=== PATIENT | female | born 1935 | race Caucasian/White ===

== ENCOUNTER 2016-12-09 11:57 | Inpatient (IN) | payer MEDICARE, OTHER ==
[~2016-12-09] VITALS: Ht 165.1 cm; Wt 57.8 kg
[2016-12-09 12:05] VITALS: BP 180/88; PULSE 91; RESP 17; TEMP 98.4; O2SAT 98
--- NOTE | 2016-12-09 12:20 | PD ---
Physical Exam Time Seen by Provider: 12:17 Narrative 81yo F [facility] due to patient being confused and combative. They want the patient evaluated and admitted. Patient reports R flank and RLQ abd pain. Takes plavix. Hx HI. Patient seen in triage. VS reviewed. Patient awaiting bed placement. Data Data Last Documented VS Vital Signs Date Time Temp Pulse Resp B/P (MAP) Pulse Ox O2 Delivery O2 Flow Rate FiO2 12/09/16 14:55 60 18 174/68 (103) 98 Room Air 12/09/16 12:05 98.4 Orders Orders Electrocardiogram (12/09/16 12:53) Complete Blood Count With Diff (12/09/16 12:53) Comprehensive Metabolic Panel (12/09/16 12:53) Prothrombin Time / Inr (Pt) (12/09/16 12:53) Act Partial Throm Time (Ptt) (12/09/16 12:53) Urinalysis - C+S If Indicated (12/09/16 12:53) Chest, Single Ap (12/09/16 12:53) Ct Brain W/O Iv Contrast(Rout) (12/09/16 12:53) Blood Glucose (12/09/16 12:53) Ecg Monitoring (12/09/16 12:53) Iv Access Insert/Monitor (12/09/16 12:53) Oximetry (12/09/16 12:53) Sodium Chloride 0.9% Flush (Ns Flush) (12/09/16 13:00) Lipase (12/09/16 12:53) Cath For Specimen (12/09/16 12:53) Ct Abd/Pel W Iv Contrast(Rout) (12/09/16 ) Iodixanol 320 Inj (Rad Ct) (Visipaque 32 (12/09/16 14:19) Admit Order (Ed Use Only) (12/09/16 ) Admit To Inpatient Psych (12/09/16 ) Code Status (12/09/16 17:48) Vital Signs (Adult) CISCO.Q12H.E (12/09/16 17:48) Activity Oob Ad Felicita (12/09/16 17:48) Level Of Observation (Psych) (12/09/16 17:48) Acetaminophen (Tylenol) (12/09/16 18:00) Magnesium Hydroxide Liq (Milk Of Magnesi (12/09/16 18:00) Al-Mag Hy-Si 40-40-4 Mg/Ml Liq (Mag-Al P (12/09/16 18:00) Basic Metabolic Panel (Bmp) (12/10/16 06:00) Lipid Profile (12/10/16 06:00) Hemoglobin (Hgb) A1c (12/10/16 06:00) Vitamin D, 25-Hydroxy (12/10/16 06:00) Vitamin B12 (12/10/16 06:00) Atorvastatin (Lipitor) (12/09/16 21:00) Citalopram (Celexa) (12/10/16 09:00) Levetiracetam (Keppra) (12/09/16 21:00) Levothyroxine (Synthroid) (12/10/16 06:00) Labs Laboratory Tests Test 12/09/16 13:10 12/09/16 13:15 White Blood Count 12.3 TH/MM3 Red Blood Count 4.20 MIL/MM3 Hemoglobin 13.2 GM/DL Hematocrit 40.3 % Mean Corpuscular Volume 95.9 FL Mean Corpuscular Hemoglobin 31.5 PG Mean Corpuscular Hemoglobin Concent 32.8 % Red Cell Distribution Width 16.1 % Platelet Count 222 TH/MM3 Mean Platelet Volume 8.5 FL Neutrophils (%) (Auto) 78.7 % Lymphocytes (%) (Auto) 12.2 % Monocytes (%) (Auto) 7.5 % Eosinophils (%) (Auto) 1.4 % Basophils (%) (Auto) 0.2 % Neutrophils # (Auto) 9.7 TH/MM3 Lymphocytes # (Auto) 1.5 TH/MM3 Monocytes # (Auto) 0.9 TH/MM3 Eosinophils # (Auto) 0.2 TH/MM3 Basophils # (Auto) 0.0 TH/MM3 CBC Comment DIFF FINAL Differential Comment Prothrombin Time 10.4 SEC Prothromb Time International Ratio 0.9 RATIO Activated Partial Thromboplast Time 28.7 SEC Blood Urea Nitrogen 17 MG/DL Creatinine 1.18 MG/DL Random Glucose 88 MG/DL Total Protein 7.1 GM/DL Albumin 3.6 GM/DL Calcium Level 9.0 MG/DL Alkaline Phosphatase 75 U/L Aspartate Amino Transf (AST/SGOT) 10 U/L Alanine Aminotransferase (ALT/SGPT) 23 U/L Total Bilirubin 0.6 MG/DL Sodium Level 144 MEQ/L Potassium Level 4.3 MEQ/L Chloride Level 109 MEQ/L Carbon Dioxide Level 27.5 MEQ/L Anion Gap 8 MEQ/L Estimat Glomerular Filtration Rate 44 ML/MIN Lipase 94 U/L Urine Color YELLOW Urine Turbidity CLEAR Urine pH 6.5 Urine Specific [place] 1.013 Urine Protein NEG mg/dL Urine Glucose (UA) NEG mg/dL Urine Ketones NEG mg/dL Urine Occult Blood NEG Urine Nitrite NEG Urine Bilirubin NEG Urine Urobilinogen LESS THAN 2.0 MG/DL Urine Leukocyte Esterase SMALL Urine RBC 1 /hpf Urine WBC 2 /hpf Microscopic Urinalysis Comment CATH-CULT NOT IND MDM Supervised Visit with ROSELYN: Sue Cerda Dec 09, 2016 12:20
[2016-12-09] MEDS ORDERED: SODIUM CHLORIDE 0.9% FLUSH 5 ML FLUSH IV FLUSH PRN (13:00)
[2016-12-09] MEDS ORDERED: MECL12.574 PO (13:02)
[2016-12-09] MEDS ORDERED: RANI150T PO (13:02)
[2016-12-09] MEDS ORDERED: DIPH-148 PO (13:02)
[2016-12-09] MEDS ORDERED: CITA20TA4 PO (13:02)
[2016-12-09] MEDS ORDERED: CULT10CA4 PO (13:02)
[2016-12-09] MEDS ORDERED: TYLE325T PO (13:02)
[2016-12-09] MEDS ORDERED: SENN8.6T81 PO (13:02)
[2016-12-09] MEDS ORDERED: KEPP10002 PO (13:02)
[2016-12-09] MEDS ORDERED: ATOR40TA16 PO (13:02)
[2016-12-09] MEDS ORDERED: LORA-373 PO (13:02)
[2016-12-09] MEDS ORDERED: LEVO100T5 PO (13:02)
[2016-12-09 13:20] VITALS: RESP 18; O2SAT 97
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
[2016-12-09 13:27] LABS: BLOOD, URINE NEG (NEG); GLUCOSE,URINE NEG (NEG); KETONE, URINE NEG (NEG); NITRITE,URINE NEG (NEG); PH, URINE 6.5 (5.0-8.5); URINE COLOR YELLOW (YELLW/STRAW)
[2016-12-09 13:29] LABS: COMMENT (UR) CATH-CULT NOT IND; CULTURE IF INDICATED CATH CULTURE NOT IND
[2016-12-09 13:30] LABS: AUTOMATED NEUTROPHIL # 9.7 TH/MM3 (1.8-7.7); BASOPHIL % 0.2 % (0.0-2.0); EOSINOPHIL # 0.2 TH/MM3 (0-0.4); EOSINOPHIL % 1.4 % (0.0-4.0); HEMATOCRIT 40.3 % (35.0-46.0); HEMO FLAGS DIFF FINAL; LYMPH % 12.2 % (9.0-44.0); LYMPHOCYTE # 1.5 TH/MM3 (1.0-4.8); MEAN CELL VOLUME 95.9 FL (80.0-100.0); MEAN CORPUSCULAR HEMOGLOBIN 31.5 PG (27.0-34.0); MEAN CORPUSCULAR HGB CONC 32.8 % (32.0-36.0); MONO % 7.5 % (0.0-8.0); NEUT % 78.7 % (16.0-70.0); PLATELET COUNT 222 TH/MM3 (150-450); RED CELL DISTRIBUTION WIDTH 16.1 % (11.6-17.2); WHITE BLOOD COUNT 12.3 TH/MM3 (4.0-11.0)
--- NOTE | 2016-12-09 13:37 | RADRPT ---
EXAM DATE/TIME: 12/09/2016 13:09 [facility] COMPARISON: No previous studies available for comparison. INDICATIONS : Short of breath. MEDICAL HISTORY : None. SURGICAL HISTORY : None. ENCOUNTER: Initial ACUITY: 1 day PAIN SCORE: 0/10 LOCATION: Bilateral chest FINDINGS: A single view of the chest demonstrates the lungs to be symmetrically aerated without evidence of mas s, infiltrate or effusion. The cardiomediastinal contours are unremarkable. Osseous structures are intact. CONCLUSION: Normal examination for a patient of this age. Juan Mart MD on December 09, 2016 at 13:35 Board Certified Radiologist. This report was verified electronically.
[2016-12-09 13:38] LABS: APTT (PATIENT) 28.7 SEC (24.3-30.1); INTERNATIONAL NORMALIZED RATIO 0.9 RATIO; PROTHROMBIN TIME - PATIENT 10.4 SEC (9.8-11.6)
[2016-12-09 13:48] LABS: ALT (GPT) 23 U/L (10-53); ANION GAP 8 MEQ/L (5-15); AST (GOT) 10 U/L (15-37); BICARBONATE 27.5 MEQ/L (21.0-32.0); BLOOD UREA NITROGEN 17 MG/DL (7-18); CHLORIDE 109 MEQ/L (98-107); GLOMERULAR FILTRATION RATE 44 ML/MIN (>89); POTASSIUM 4.3 MEQ/L (3.5-5.1); SODIUM (NA) 144 MEQ/L (136-145)
[2016-12-09 13:50] LABS: ALKALINE PHOSPHATASE 75 U/L (45-117); TOTAL BILIRUBIN ADULT 0.6 MG/DL (0.2-1.0)
--- NOTE | 2016-12-09 14:18 | RADRPT ---
EXAM DATE/TIME: 12/09/2016 14:06 [facility] COMPARISON: No previous studies available for comparison. INDICATIONS : Altered mental status. RADIATION DOSE: 56.35 CTDIvol (mGy) MEDICAL HISTORY : Hypertension. Renal failure, chronic. SURGICAL HISTORY : Appendectomy. Hysterectomy. ENCOUNTER: Initial ACUITY: 1 day PAIN SCALE: 0/10 LOCATION: cranial TECHNIQUE: Multiple contiguous axial images were obtained of the head. Using automated exposure control and adj ustment of the mA and/or kV according to patient size, radiation dose was kept as low as reasonably a chievable to obtain optimal diagnostic quality images. DICOM format image data is available electro nically for review and comparison. FINDINGS: Noncontrast axial head CT demonstrates the ventricles to be normal in size and configuration with a n ormal sulcal pattern. No acute intracranial hemorrhage, acute cortical infarction, mass or midline sh ift is seen. There is extensive periventricular hypodensity compatible with chronic ischemic change s ignificantly more than expected for patient this age. Posterior fossa structures are unremarkable. Bone windows are unremarkable. CONCLUSION: 1. No evidence of acute intracranial pathology. Chronic ischemic changes as above. Saturnino Alcala MD on December 09, 2016 at 14:15 Board Certified Radiologist. This report was verified electronically.
[2016-12-09] MEDS ORDERED: IODIXANOL 320 MG/ML 10 ML VIAL (for Rad CT) IV ONE (14:19)
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
[2016-12-09 14:55] VITALS: BP 174/68; PULSE 60; RESP 18; O2SAT 98
[2016-12-09] MEDS ORDERED: MAGNESIUM HYDROXIDE SUSP 30 ML CUP PO PRN (18:00)
[2016-12-09] MEDS ORDERED: ALUMINUM/MAGNESIUM/SIMETH 30 ML CUP PO PRN (18:00)
[2016-12-09 18:14] VITALS: BP 168/92; PULSE 70; RESP 18; O2SAT 98
[2016-12-09] MEDS ORDERED: LORazepam 0.5 MG TAB PO ONE (19:00)
[2016-12-09 19:22] VITALS: BP 159/82; PULSE 91; RESP 20; TEMP 97.3; O2SAT 96
[2016-12-09 19:30] VITALS: BP 133/77; PULSE 74; RESP 17; TEMP 97.6; O2SAT 94
[2016-12-09] MEDS: ATORVASTATIN 40 MG TAB PO SCH (19:51)
[2016-12-09] MEDS: levETIRAcetam 500 MG TAB PO SCH (19:51)
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
[2016-12-10] MEDS: LEVOTHYROXINE SODIUM 100 MCG TAB PO SCH (04:59)
[2016-12-10] MEDS ORDERED: diphenhydrAMINE HCL 50 MG/ML VIAL IM ONE (05:00)
[2016-12-10] MEDS ORDERED: HALOPERIDOL LACTATE 5 MG/ML AMP IM ONE ×3 (05:00→23:30)
[2016-12-10] MEDS: CITALOPRAM HYDROBROMIDE 20 MG TAB PO SCH ×3 (09:00→16:38)
[2016-12-10] MEDS: levETIRAcetam 500 MG TAB PO SCH ×2 (09:16→20:52)
[2016-12-10] MEDS ORDERED: ACETAMINOPHEN 325 MG TAB PO PRN (12:45)
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
[2016-12-10 13:36] LABS: ANION GAP 8 MEQ/L (5-15); BICARBONATE 28.1 MEQ/L (21.0-32.0); BLOOD UREA NITROGEN 18 MG/DL (7-18); CHLORIDE 103 MEQ/L (98-107); GLOMERULAR FILTRATION RATE 40 ML/MIN (>89); POTASSIUM 3.8 MEQ/L (3.5-5.1); SODIUM (NA) 139 MEQ/L (136-145)
[2016-12-10 14:02] LABS: HDL CHOLESTEROL 60.9 MG/DL (40.0-60.0); LDL CHOLESTEROL 71 MG/DL (0-99)
[2016-12-10] MEDS ORDERED: HALOPERIDOL LACTATE 5 MG/ML AMP IM STA (15:13)
[2016-12-10 16:30] VITALS: BP 179/81; PULSE 65; RESP 17; TEMP 98.3; O2SAT 98
--- NOTE | 2016-12-10 16:43 | EKG ---
Date Performed: 12/09/2016 Time Performed: 14:48:56 PTAGE: 81 years EKG: SINUS BRADYCARDIA LOW QRS VOLTAGE IN EXTREMITY LEADS BORDERLINE ECG NO PREVIOUS TRACING DOCTOR: Sylvia Crespo Interpretating Date/Time 12/10/2016 16:39:15
[2016-12-10 17:13] LABS: HEMOGLOBIN A1a 1.3 %; HEMOGLOBIN A1b 0.9 %; HEMOGLOBIN Ao 84.6 %; HEMOGLOBIN LA1C 2.2 %; HEMOGLOBIN P3 3.9 %
--- NOTE | 2016-12-10 17:22 | PD.CONS ---
HPI Service [facility] Consult Requested By Psychiatry. Reason for Consult Medical management. Primary Care Physician Unknown Diagnoses: History of Present Illness Ms. Amado is an 81 year old female with a history of seizure activity, hypothyroidism who was brought to the ED from [facility] and subsequently admitted to the psychiatry service due to confusion and combativeness. At the time of this interview, patient kept screaming at the nursing staff. Initially she was somewhat cooperative with me. However, later on she started stating how I am on 'their' side. She does not appear to have any acute complaints such as chest pain, shortness of breath, fever, chills. She let me do physical exam. However, at the end of the interview, when I wanted to shake her hand, she refused stating I am with 'them' pointing to the nursing staff. Review of Systems ROS Limitations: Clinical Condition, Combative, Psychotic Past Family Social History Allergies: Coded Allergies: No Known Allergies (Unverified , 12/10/16) Past Medical History Hyperlipidemia Hypertension Seizures. Hypothyroidism GERD Past Surgical History Appendectomy Hysterectomy Active Ordered Medications Last Impressions Head CT 12/09/16 1253 Signed Impressions: Service Date/Time: Friday, December 09, 2016 14:06 - CONCLUSION: 1. No evidence of acute intracranial pathology. Chronic ischemic changes as above. Saturnino Alcala MD Chest X-Ray 12/09/16 1253 Signed Impressions: Service Date/Time: Friday, December 09, 2016 13:09 - CONCLUSION: Normal examination for a patient of this age. Juan Mart MD Abdomen/Pelvis CT 12/09/16 0000 Signed Impressions: Service Date/Time: Friday, December 09, 2016 14:11 - CONCLUSION: Subacute right 10th posterior lateral rib fracture with minimal associated pleural thickening. No pneumothorax or pulmonary infiltrate. Intra-abdominal contents are negative for acute abnormality. Aortic endovascular stent in place extending into the iliac arteries. Uncomplicated diverticulitis of the sigmoid colon. Juan Mart MD Family History Could not be obtained. Social History No tobacco, alcohol or illicit drugs. Physical Exam Vital Signs Vital Signs Date Time Temp Pulse Resp B/P (MAP) Pulse Ox O2 Delivery O2 Flow Rate FiO2 12/09/16 19:22 97.3 91 20 159/82 (107) 96 12/09/16 18:14 70 18 168/92 (117) 98 Room Air Physical Exam GENERAL: This is a well-nourished, well-developed patient. She is in a combative mood. Screaming at the nursing staff. SKIN: No rashes, ecchymoses or lesions. Warm and dry. HEAD: Atraumatic. Normocephalic. No temporal or scalp tenderness. EYES: Pupils equal round and reactive. No injection or drainage. ENT: Nose without bleeding, purulent drainage or septal hematoma. Airway patent. NECK: Trachea midline. No lymphadenopathy. Supple, nontender, no meningeal signs. CARDIOVASCULAR: Regular rate and rhythm without murmurs, gallops, or rubs. No JVD. RESPIRATORY: Clear to auscultation. Breath sounds equal bilaterally. No wheezes , rales, or rhonchi. GASTROINTESTINAL: Abdomen soft, non-tender, nondistended. No guarding. MUSCULOSKELETAL: Extremities without clubbing, cyanosis, or edema. NEUROLOGICAL: Awake and alert. Cranial nerves II through XII intact. No focal neurological deficits. Normal speech. Laboratory Laboratory Tests Test 12/10/16 12:26 Blood Urea Nitrogen 18 Creatinine 1.27 Random Glucose 117 Calcium Level 9.0 Sodium Level 139 Potassium Level 3.8 Chloride Level 103 Carbon Dioxide Level 28.1 Anion Gap 8 Estimat Glomerular Filtration Rate 40 Triglycerides Level 99 Cholesterol Level 152 LDL Cholesterol 71 HDL Cholesterol 60.9 Cholesterol/HDL Ratio 2.49 Vitamin B12 Level 354 25-Hydroxy Vitamin D Total 11.0 Result Diagram: 12/09/16 1310 12/10/16 1226 Imaging Last Impressions Head CT 12/09/16 1253 Signed Impressions: Service Date/Time: Friday, December 09, 2016 14:06 - CONCLUSION: 1. No evidence of acute intracranial pathology. Chronic ischemic changes as above. Saturnino Alcala MD Chest X-Ray 12/09/16 1253 Signed Impressions: Service Date/Time: Friday, December 09, 2016 13:09 - CONCLUSION: Normal examination for a patient of this age. Juan Mart MD Abdomen/Pelvis CT 12/09/16 0000 Signed Impressions: Service Date/Time: Friday, December 09, 2016 14:11 - CONCLUSION: Subacute right 10th posterior lateral rib fracture with minimal associated pleural thickening. No pneumothorax or pulmonary infiltrate. Intra-abdominal contents are negative for acute abnormality. Aortic endovascular stent in place extending into the iliac arteries. Uncomplicated diverticulitis of the sigmoid colon. Juan Mart MD Assessment and Plan Assessment and Plan Ms. Amado is an 81 year old female with a history of seizure activity, HTN, hypothyroidism who was brought to the hospital from a shelter due to combative behavior. Hospitalist service was consulted for medical management. Limited history was obtained due to patient's agitation. - Dementia with psychosis - management per Psychiatry team. - Seizure activity - Continue Keppra 1000 mg BID. - Hypertension - Hyperlipidemia - HTN may be partly related to agitation. - Will start patient on low dose Amlodipine 2.5mg Qday. Clonidine 0.1mg PRN - Continue Lipitor 40mg QHS. - Hypothyroidism - Continue levothyroxine 100 mcg Qday. Full code. Ambulation. Thank you for the consult. We will continue to follow this patient with you. Godfrey Kennedy DO Dec 10, 2016 17:22
[2016-12-10] MEDS ORDERED: LORazepam 2 MG/ML VIAL IM ONE ×2 (19:00→23:30)
[2016-12-10] MEDS: ATORVASTATIN 40 MG TAB PO SCH (20:52)
[2016-12-10 22:30] VITALS: BP 168/95; PULSE 86; RESP 18; O2SAT 96
[2016-12-11] MEDS ORDERED: PILL SPLITTER OTHER PRN (00:15)
[2016-12-11 05:32] VITALS: BP 184/84; PULSE 67; RESP 16; TEMP 97.6; O2SAT 95
[2016-12-11] MEDS: LEVOTHYROXINE SODIUM 100 MCG TAB PO SCH (06:28)
[2016-12-11] MEDS: CITALOPRAM HYDROBROMIDE 20 MG TAB PO SCH (07:56)
[2016-12-11] MEDS: levETIRAcetam 500 MG TAB PO SCH ×2 (07:58→21:11)
[2016-12-11] MEDS ORDERED: amLODIPine BESYLATE 5 MG TAB PO SCH (09:00)
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
[2016-12-11] MEDS ORDERED: amLODIPine BESYLATE 5 MG TAB PO ONE (14:00)
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
[2016-12-11] MEDS: HALOPERIDOL LACTATE ORAL CONC 10 MG/5 ML CUP PO SCH ×2 (15:26→21:11)
--- NOTE | 2016-12-11 17:31 | HHI.PR ---
Subjective Remarks Follow up for hypertension. Ms. Amado is much calmer today. Denies any chest pain , shortness of breath, fever, chills. She is somewhat unsteady when she is walking. Objective Vitals Vital Signs Date Time Temp Pulse Resp B/P (MAP) Pulse Ox O2 Delivery O2 Flow Rate FiO2 12/11/16 05:32 97.6 67 16 184/84 (117) 95 12/10/16 22:30 86 18 168/95 (119) 96 I/O 12/10/16 12/10/16 12/10/16 12/11/16 12/11/16 12/11/16 06:59 14:59 22:59 06:59 14:59 22:59 Intake Total 0 ml 0 ml 480 ml Balance 0 ml 0 ml 480 ml Intake Oral 0 ml 0 ml 480 ml # Voids 1 2 0 # Bowel Movements 2 Result Diagram: 12/09/16 1310 12/10/16 1226 Imaging Last Impressions Head CT 12/09/16 1253 Signed Impressions: Service Date/Time: Friday, December 09, 2016 14:06 - CONCLUSION: 1. No evidence of acute intracranial pathology. Chronic ischemic changes as above. Saturnino Alcala MD Chest X-Ray 12/09/16 1253 Signed Impressions: Service Date/Time: Friday, December 09, 2016 13:09 - CONCLUSION: Normal examination for a patient of this age. Juan Mart MD Abdomen/Pelvis CT 12/09/16 0000 Signed Impressions: Service Date/Time: Friday, December 09, 2016 14:11 - CONCLUSION: Subacute right 10th posterior lateral rib fracture with minimal associated pleural thickening. No pneumothorax or pulmonary infiltrate. Intra-abdominal contents are negative for acute abnormality. Aortic endovascular stent in place extending into the iliac arteries. Uncomplicated diverticulitis of the sigmoid colon. Juan Mart MD Objective Remarks GENERAL: Alert, NAD. SKIN: Warm and dry. HEAD: Normocephalic. EYES: No scleral icterus. No injection or drainage. NECK: Supple, trachea midline. No JVD or lymphadenopathy. CARDIOVASCULAR: Regular rate and rhythm without murmurs, gallops, or rubs. RESPIRATORY: Breath sounds equal bilaterally. No accessory muscle use. GASTROINTESTINAL: Abdomen soft, non-tender, nondistended. MUSCULOSKELETAL: No cyanosis, or edema. BACK: Nontender without obvious deformity. No CVA tenderness. Procedures None. A/P Assessment and Plan Ms. Amado is an 81 year old female with a history of seizure activity, HTN, hypothyroidism who was brought to the hospital from a group home due to combative behavior. Hospitalist service was consulted for medical management. Limited history was obtained due to patient's agitation. - Dementia with psychosis - management per Psychiatry team. - Seizure activity - Continue Keppra 1000 mg BID. - Hypertension - Hyperlipidemia - Will increase Amlodipine 5mg Qday. Clonidine 0.1mg PRN - Titrate up Amlodipine. If renal function is stable, we can consider Lisinopril 10mg Qday as well. - Continue Lipitor 40mg QHS. - Goal BP < 150/90. - Mild MEAGAN - creatinine 1.18 --> 1.27. - Will repeat BMP. - Hypothyroidism - Continue levothyroxine 100 mcg Qday. Full code. Ambulation. Godfrey Kennedy DO Dec 11, 2016 17:31
[2016-12-11 18:27] VITALS: BP 174/68; PULSE 73; RESP 16; TEMP 98.1; O2SAT 96
[2016-12-11] MEDS ORDERED: HALOPERIDOL LACTATE ORAL CONC 10 MG/5 ML CUP PO SCH (21:00)
[2016-12-11] MEDS: ATORVASTATIN 40 MG TAB PO SCH (21:11)
[2016-12-11 22:00] VITALS: BP 152/100; PULSE 62; RESP 18; O2SAT 97
[2016-12-12 05:37] VITALS: BP 130/68; PULSE 65; RESP 15; TEMP 97.4; O2SAT 95
[2016-12-12] MEDS: LEVOTHYROXINE SODIUM 100 MCG TAB PO SCH (05:53)
[2016-12-12] MEDS: CITALOPRAM HYDROBROMIDE 20 MG TAB PO SCH (08:32)
[2016-12-12] MEDS: amLODIPine BESYLATE 5 MG TAB PO SCH (08:33)
[2016-12-12] MEDS: levETIRAcetam 500 MG TAB PO SCH ×2 (08:33→20:49)
[2016-12-12] MEDS: HALOPERIDOL LACTATE ORAL CONC 10 MG/5 ML CUP PO SCH ×3 (08:34→20:48)
--- NOTE | 2016-12-12 08:46 | HHI.PR ---
Subjective Remarks Follow-up visit HTN, dementia with psychosis, seizure, hypothyroidism, mild AKA. Patient seen and examined today. She is laying in bed states she is doing well. She is on one-to-one precaution increased risk of fall secondary to impulsiveness. Patient states she didn't eat breakfast because her stomach is bothering her. Unable to clearly describe, states she has good bowel movements when asked if she has nausea or vomiting she said sometimes but not today, states her stomach "burning at times." As per staff, she didn't eat breakfast. Patient is confused, oriented to self but not place or time. She veers from 1 topic to the other. Objective Vitals Vital Signs Date Time Temp Pulse Resp B/P (MAP) Pulse Ox O2 Delivery O2 Flow Rate FiO2 12/12/16 05:37 97.4 65 15 130/68 (88) 95 12/11/16 22:00 62 18 152/100 (117) 97 12/11/16 18:27 98.1 73 16 174/68 (103) 96 I/O 12/11/16 12/11/16 12/11/16 12/12/16 12/12/16 12/12/16 07:00 15:00 23:00 07:00 15:00 23:00 Intake Total 480 ml 1800 ml 360 ml Balance 480 ml 1800 ml 360 ml Intake Oral 480 ml 1500 ml 360 ml Oral Supplement 300 ml # Voids 0 1 1 Result Diagram: 12/09/16 1310 12/10/16 1226 Imaging Last Impressions Head CT 12/09/16 1253 Signed Impressions: Service Date/Time: Friday, December 09, 2016 14:06 - CONCLUSION: 1. No evidence of acute intracranial pathology. Chronic ischemic changes as above. Saturnino Alcala MD Chest X-Ray 12/09/16 1253 Signed Impressions: Service Date/Time: Friday, December 09, 2016 13:09 - CONCLUSION: Normal examination for a patient of this age. Juan Mart MD Abdomen/Pelvis CT 12/09/16 0000 Signed Impressions: Service Date/Time: Friday, December 09, 2016 14:11 - CONCLUSION: Subacute right 10th posterior lateral rib fracture with minimal associated pleural thickening. No pneumothorax or pulmonary infiltrate. Intra-abdominal contents are negative for acute abnormality. Aortic endovascular stent in place extending into the iliac arteries. Uncomplicated diverticulitis of the sigmoid colon. Juan Mart MD Objective Remarks GENERAL: This is a well-nourished, well-developed patient, in no apparent distress. SKIN: Warm and dry. HEENT: Normocephalic. Pupils equal round and reactive. Nose without bleeding. Airway patent. NECK: Trachea midline. No JVD. Supple. CARDIOVASCULAR: Regular rate and rhythm without murmurs, gallops, or rubs. RESPIRATORY: Clear to auscultation. Breath sounds equal bilaterally. No wheezes , rales, or rhonchi. GASTROINTESTINAL: Abdomen soft, nondistended. Bowel Sounds normoactive x4. Mild tenderness to palpation midepigastric region. MUSCULOSKELETAL: Extremities without clubbing, cyanosis, or edema. NEUROLOGICAL: Awake and alert. Oriented to person. Moves all extremities. Normal speech. Procedures None. A/P Assessment and Plan Ms. Amado is an 81 year old female with a history of seizure activity, HTN, hypothyroidism who was [facility] the [facility] due to combative behavior. Hospitalist service was consulted for medical management. Limited history was obtained due to patient's agitation. - Dementia with psychosis - management per Psychiatry team. - Seizure activity - Continue Keppra 1000 mg BID. - Hypertension - Hyperlipidemia - Amlodipine 5mg Qday. Clonidine 0.1mg PRN - Titrate up Amlodipine. If renal function is stable, we can consider Lisinopril 10mg Qday as well. - Continue Lipitor 40mg QHS. - Goal BP < 150/90. - Improved. - Mild MEAGAN - creatinine 1.18 --> 1.27. - Trend kidney function - Hypothyroidism - Continue levothyroxine 100 mcg Qday. - Check TSH - Reflux, dyspesia - Abdominal discomfort - Pantoprazole 20mg - Monitor BM - Vitamin D insufficiency - Start vitamin D supplementation 1000 mg daily - Recheck vitamin D levels in 3 months, an outpatient Full code. Ambulation. Discuss with patient, nursing, Naa Wright Dec 12, 2016 08:46
[2016-12-12] MEDS: CHOLECALCIFEROL (VIT D3) 1000 UNIT TAB PO SCH (08:51)
[2016-12-12] MEDS: PANTOPRAZOLE SOD 20 MG DELAYED RELEASE TAB PO SCH (09:57)
[2016-12-12] MEDS ORDERED: ONDANSETRON ODT 4 MG TAB PO PRN (10:00)
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
[2016-12-12 11:34] LABS: BICARBONATE 26.2 MEQ/L (21.0-32.0); POTASSIUM 3.8 MEQ/L (3.5-5.1)
[2016-12-12 17:24] VITALS: BP 129/60; PULSE 67; RESP 16; TEMP 97.5; O2SAT 95
[2016-12-12] MEDS: ATORVASTATIN 40 MG TAB PO SCH (20:49)
[2016-12-13] MEDS: LEVOTHYROXINE SODIUM 100 MCG TAB PO SCH (05:55)
[2016-12-13 06:11] VITALS: BP 171/95; PULSE 69; RESP 16; TEMP 98; O2SAT 95
[2016-12-13] MEDS: cloNIDine HCL 0.1 MG TAB PO PRN (06:42)
[2016-12-13 09:12] VITALS: BP 142/63; PULSE 57
[2016-12-13] MEDS: CITALOPRAM HYDROBROMIDE 20 MG TAB PO SCH (09:14)
[2016-12-13] MEDS: CHOLECALCIFEROL (VIT D3) 1000 UNIT TAB PO SCH (09:14)
[2016-12-13] MEDS: amLODIPine BESYLATE 5 MG TAB PO SCH (09:14)
[2016-12-13] MEDS: PANTOPRAZOLE SOD 20 MG DELAYED RELEASE TAB PO SCH (09:14)
[2016-12-13] MEDS: levETIRAcetam 500 MG TAB PO SCH ×2 (09:14→20:43)
[2016-12-13] MEDS: HALOPERIDOL LACTATE ORAL CONC 10 MG/5 ML CUP PO SCH ×3 (09:15→20:43)
--- NOTE | 2016-12-13 12:54 | HHI.PR ---
Subjective Remarks Follow-up visit HTN, dementia with psychosis, seizure, hypothyroidism, mild MEAGAN. Patient seen and examined today. Patient reports some abdominal pain which she describes as burning but states it is improving. She denies any N/V. She reports her appetite has improved. She denies any chest pain or shortness of breath. Objective Vitals Vital Signs Date Time Temp Pulse Resp B/P (MAP) Pulse Ox O2 Delivery O2 Flow Rate FiO2 12/13/16 09:12 57 142/63 (89) 12/13/16 06:11 98.0 69 16 171/95 (120) 95 12/12/16 17:24 97.5 67 16 129/60 (83) 95 I/O 12/12/16 12/12/16 12/12/16 12/13/16 12/13/16 12/13/16 07:00 15:00 23:00 07:00 15:00 23:00 Intake Total 360 ml 460 ml 480 ml Balance 360 ml 460 ml 480 ml Intake Oral 360 ml 460 ml 480 ml # Voids 1 1 2 Result Diagram: 12/09/16 1310 12/12/16 1034 Imaging Last Impressions Head CT 12/09/16 1253 Signed Impressions: Service Date/Time: Friday, December 09, 2016 14:06 - CONCLUSION: 1. No evidence of acute intracranial pathology. Chronic ischemic changes as above. Saturnino Alcala MD Chest X-Ray 12/09/16 1253 Signed Impressions: Service Date/Time: Friday, December 09, 2016 13:09 - CONCLUSION: Normal examination for a patient of this age. Juan Mart MD Abdomen/Pelvis CT 12/09/16 0000 Signed Impressions: Service Date/Time: Friday, December 09, 2016 14:11 - CONCLUSION: Subacute right 10th posterior lateral rib fracture with minimal associated pleural thickening. No pneumothorax or pulmonary infiltrate. Intra-abdominal contents are negative for acute abnormality. Aortic endovascular stent in place extending into the iliac arteries. Uncomplicated diverticulitis of the sigmoid colon. Juan Mart MD Objective Remarks GENERAL: This is a well-nourished, well-developed patient, in no apparent distress. Awake and alert. Lying in hospital bed. SKIN: Warm and dry. No rash noted. HEENT: Normocephalic. EOMI. Nose without bleeding. Airway patent. NECK: Trachea midline. No JVD. Supple. CARDIOVASCULAR: Regular rate and rhythm without murmurs, gallops, or rubs. RESPIRATORY: Clear to auscultation. Breath sounds equal bilaterally. No wheezes , rales, or rhonchi. GASTROINTESTINAL: Abdomen soft, nondistended. Bowel Sounds normoactive x4. Mild tenderness to palpation lower abdomen. MUSCULOSKELETAL: Extremities without clubbing, cyanosis, or edema. NEUROLOGICAL: Awake and alert. Oriented to person only. Moves all extremities. Normal speech. Procedures None. Medications and IVs Current Medications Medications (Trade) Dose Ordered Sig/Skyla Route Start Time Stop Time Status Last Admin (NS Flush) 2 ml UNSCH PRN IV FLUSH 12/09/16 13:00 (Tylenol) 650 mg Q4H PRN PO 12/09/16 18:00 (Milk Of Magnesia Liq) 30 ml DAILY PRN PO 12/09/16 18:00 (Mag-Al Plus Susp Liq) 30 ml Q6H PRN PO 12/09/16 18:00 12/11/16 11:50 (Lipitor) 40 mg HS PO 12/09/16 21:00 12/12/16 20:49 (CeleXA) 20 mg DAILY PO 12/10/16 09:00 12/13/16 09:14 (Keppra) 1,000 mg BID PO 12/09/16 21:00 12/13/16 09:14 (Catapres) 0.1 mg Q6H PRN PO 12/11/16 00:15 12/13/16 06:42 (Pill Splitter) 1 ea UNSCH PRN OTHER 12/11/16 00:15 (Norvasc) 5 mg DAILY PO 12/12/16 09:00 12/13/16 09:14 (Haldol Lactate Liq) 2.5 mg DAILY@0800,1400,2100 PO 12/11/16 15:15 12/13/16 09:15 (Vitamin D3) 1,000 units DAILY PO 12/12/16 09:00 12/13/16 09:14 (Protonix) 20 mg DAILY PO 12/12/16 10:00 12/13/16 09:14 (Zofran Odt) 4 mg Q6H PRN PO 12/12/16 10:00 (Synthroid) 112 mcg DAILY@0600 PO 12/14/16 06:00 A/P Assessment and Plan Ms. Amado is an 81 year old female with a history of seizure activity, HTN, hypothyroidism who was brought [place] the [place] [facility] due to combative behavior. Hospitalist service was consulted for medical management. Limited history was obtained due to patient's agitation. Dementia with psychosis - management per Psychiatry team. Seizure activity - No seizure activity reported. Keppra level too high - 53.5. Repeat level pending. Decrease dose from Keppra 1000 mg BID to 1000mg in am and 500mg at night. Recheck level in 72 hours. Hypertension Hyperlipidemia - Amlodipine 5mg Qday. Continue. - Clonidine 0.1mg PRN - Titrate up Amlodipine if indicated. If renal function is stable, we can consider Lisinopril 10mg Qday as well. - BP currently well controlled - Continue Lipitor 40mg QHS. - Goal BP < 150/90. Mild MEAGAN - creatinine 1.18 --> 1.27 --> 1.10. - likely due to poor oral intake - improving - avoid nephrotoxic agents Hypothyroidism - TSH high at 17.900 - Increase dose of levothyroxine to 112 mcg Qday. - Repeat level in 6 weeks Reflux, dyspesia Abdominal discomfort, improving - UA unremarkable - continue Pantoprazole 20mg - BM x 2 12/10 - add Miralax and stool softener daily - Monitor BM Vitamin D insufficiency - Continue vitamin D supplementation 1000 mg daily - Recheck vitamin D levels in 3 months, an outpatient Full code. Ambulation. Discuss with patient, and Dr. Mann Attending Statement The exam, history, and the medical decision-making described in the above note were completed with the assistance of the mid-level provider. I reviewed and agree with the findings presented. I attest that I had a [id number] encounter with the patient on the same day, and personally performed and documented my assessment and findings in the medical record. Pt only complains of some burning abdominal pain. She is not the best historian. Otherwise has no other complaints on exam, abdomen is soft NT to deep palpation, no guarding or rebound. lungs are clear. moves all extremities continue protonix as this is helping patient w the "burning sensation" keppra level elevated therefore night dose decreased to 500mg but morning dose will remain at 1000mg. repeat keppral level TSH elevated, will increase levothyroxine dose to 112mcg daily. Matilde Arroyo Dec 13, 2016 12:54 Nohelia Mann MD Dec 13, 2016 18:11
[2016-12-13] MEDS ORDERED: POLYETHYLENE GLYCOL 17 GM PKG PO ONE (13:00)
[2016-12-13] MEDS: DOCUSATE SODIUM 100 MG CAP PO SCH ×2 (13:22→20:43)
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
[2016-12-13] MEDS: ATORVASTATIN 40 MG TAB PO SCH (20:43)
[2016-12-14] MEDS: LEVOTHYROXINE SODIUM 112 MCG TAB PO SCH (05:26)
[2016-12-14] MEDS: levETIRAcetam 500 MG TAB PO SCH ×2 (05:26→20:47)
[2016-12-14 05:55] VITALS: BP 129/75; PULSE 58; RESP 16; TEMP 98.5; O2SAT 96
[2016-12-14] MEDS: CITALOPRAM HYDROBROMIDE 20 MG TAB PO SCH (09:26)
[2016-12-14] MEDS: amLODIPine BESYLATE 5 MG TAB PO SCH (09:26)
[2016-12-14] MEDS: HALOPERIDOL LACTATE ORAL CONC 10 MG/5 ML CUP PO SCH ×3 (09:26→20:47)
[2016-12-14] MEDS: CHOLECALCIFEROL (VIT D3) 1000 UNIT TAB PO SCH (09:26)
[2016-12-14] MEDS: POLYETHYLENE GLYCOL 17 GM PKG PO SCH (09:26)
[2016-12-14] MEDS: PANTOPRAZOLE SOD 20 MG DELAYED RELEASE TAB PO SCH (09:26)
[2016-12-14] MEDS: DOCUSATE SODIUM 100 MG CAP PO SCH ×2 (09:26→20:46)
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
[2016-12-14 18:26] VITALS: BP 126/60; PULSE 74; RESP 18; TEMP 98.1; O2SAT 97
[2016-12-14] MEDS: ATORVASTATIN 40 MG TAB PO SCH (20:46)
[2016-12-14] MEDS ORDERED: diphenhydrAMINE HCL 50 MG/ML VIAL IM ONE (21:45)
[2016-12-14] MEDS ORDERED: HALOPERIDOL LACTATE 5 MG/ML AMP IM ONE (21:45)
[2016-12-15] MEDS: levETIRAcetam 500 MG TAB PO SCH ×2 (06:08→21:17)
[2016-12-15] MEDS: LEVOTHYROXINE SODIUM 112 MCG TAB PO SCH (06:08)
[2016-12-15 06:51] VITALS: BP 172/80; PULSE 66; RESP 20; TEMP 97.8; O2SAT 97
[2016-12-15] MEDS: HALOPERIDOL LACTATE ORAL CONC 10 MG/5 ML CUP PO SCH ×3 (08:48→21:17)
[2016-12-15] MEDS: amLODIPine BESYLATE 5 MG TAB PO SCH (08:48)
[2016-12-15] MEDS: CITALOPRAM HYDROBROMIDE 20 MG TAB PO SCH (08:48)
[2016-12-15] MEDS: PANTOPRAZOLE SOD 20 MG DELAYED RELEASE TAB PO SCH (08:48)
[2016-12-15] MEDS: CHOLECALCIFEROL (VIT D3) 1000 UNIT TAB PO SCH (08:48)
[2016-12-15] MEDS: DOCUSATE SODIUM 100 MG CAP PO SCH ×2 (08:48→21:17)
[2016-12-15] MEDS: POLYETHYLENE GLYCOL 17 GM PKG PO SCH (08:49)
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
--- NOTE | 2016-12-15 15:44 | HHI.PR ---
Subjective Remarks Mrs Amado states that she is tired. When I ask her about her abdominal pain/ burning sensation she tells me that she that she has some pain a 3Oclock in her thigh, then the pain migrates tat 4Oclock in her right side then at 7Oclock in her upper abdomen. Currently no pain. No nausea or vomiting. She just wants to sleep Objective Vitals Vital Signs Date Time Temp Pulse Resp B/P (MAP) Pulse Ox O2 Delivery O2 Flow Rate FiO2 12/15/16 06:51 97.8 66 20 172/80 (110) 97 12/14/16 18:26 98.1 74 18 126/60 (82) 97 I/O 12/14/16 12/14/16 12/14/16 12/15/16 12/15/16 12/15/16 06:59 14:59 22:59 06:59 14:59 22:59 Intake Total 240 ml 480 ml Balance 240 ml 480 ml Intake Oral 240 ml 240 ml Oral Supplement 240 ml # Voids 4 1 Result Diagram: 12/12/16 1034 Imaging Last Impressions Head CT 12/09/16 1253 Signed Impressions: Service Date/Time: Friday, December 09, 2016 14:06 - CONCLUSION: 1. No evidence of acute intracranial pathology. Chronic ischemic changes as above. Saturnino Alcala MD Chest X-Ray 12/09/16 1253 Signed Impressions: Service Date/Time: Friday, December 09, 2016 13:09 - CONCLUSION: Normal examination for a patient of this age. Juan Mart MD Abdomen/Pelvis CT 12/09/16 0000 Signed Impressions: Service Date/Time: Friday, December 09, 2016 14:11 - CONCLUSION: Subacute right 10th posterior lateral rib fracture with minimal associated pleural thickening. No pneumothorax or pulmonary infiltrate. Intra-abdominal contents are negative for acute abnormality. Aortic endovascular stent in place extending into the iliac arteries. Uncomplicated diverticulitis of the sigmoid colon. Juan Mart MD Objective Remarks GENERAL: This is a well-nourished, well-developed patient, in no apparent distress. laying in bed, was asleep initially easily arousable SKIN: Warm and dry. No rash noted. HEENT: Normocephalic. EOMI. Nose without bleeding. Airway patent. NECK: Trachea midline. No JVD. Supple. CARDIOVASCULAR: Regular rate and rhythm without murmurs RESPIRATORY: Clear to auscultation. Breath sounds equal bilaterally. No wheezes GASTROINTESTINAL: Abdomen soft, nondistended. Bowel Sounds normoactive x4. Non tender to deep palpation on exam MUSCULOSKELETAL: Extremities without clubbing, cyanosis, or edema. NEUROLOGICAL: Awake and alert. Oriented to person only. Moves all extremities. Normal speech. Procedures None. A/P Assessment and Plan Ms. Amado is an 81 year old female with a history of seizure activity, HTN, hypothyroidism who was [facility]. Hospitalist service was consulted for medical management. Dementia with psychosis - management per Psychiatry team. Seizure activity - No seizure activity reported. Keppra level too high - 53.5. Repeat level pending. dose of Keppra 1000 mg BID was decreased to 1000mg in am and 500mg at night. Recheck level in 72 hours is pending. Hypertension Hyperlipidemia - Amlodipine 5mg Qday. Continue. - Clonidine 0.1mg PRN - Titrate up Amlodipine if indicated. If renal function is stable, we can consider Lisinopril 10mg Qday as well. - BP currently well controlled - Continue Lipitor 40mg QHS. - Goal BP < 150/90. Mild MEAGAN - creatinine 1.18 --> 1.27 --> 1.10. - likely due to poor oral intake - improving - avoid nephrotoxic agents Hypothyroidism - TSH high at 17.900 - Increase dose of levothyroxine to 112 mcg Qday. - Repeat level in 6 weeks Reflux, dyspesia Abdominal discomfort, improving - UA unremarkable - continue Pantoprazole 20mg - BM x 2 12/10 - Miralax and stool softener daily - Monitor BM Vitamin D insufficiency - Continue vitamin D supplementation 1000 mg daily - Recheck vitamin D levels in 3 months, an outpatient Discharge Planning If keppra level wnl, will sign off. Pt must f/u w PCP as an outpatient and have close monitoring of her levels. Nohelia Mann MD Dec 15, 2016 15:44
[2016-12-15 21:15] VITALS: BP 141/66; PULSE 55; RESP 16; TEMP 98.4; O2SAT 95
[2016-12-15] MEDS: ATORVASTATIN 40 MG TAB PO SCH (21:17)
[2016-12-16] MEDS: LEVOTHYROXINE SODIUM 112 MCG TAB PO SCH (05:42)
[2016-12-16] MEDS: levETIRAcetam 500 MG TAB PO SCH ×2 (05:42→21:46)
[2016-12-16 05:59] VITALS: BP 150/68; PULSE 57; RESP 15; TEMP 98; O2SAT 94
[2016-12-16] MEDS: HALOPERIDOL LACTATE ORAL CONC 10 MG/5 ML CUP PO SCH ×3 (09:07→21:52)
[2016-12-16] MEDS: POLYETHYLENE GLYCOL 17 GM PKG PO SCH (09:08)
[2016-12-16] MEDS: DOCUSATE SODIUM 100 MG CAP PO SCH ×2 (09:10→21:47)
[2016-12-16] MEDS: PANTOPRAZOLE SOD 20 MG DELAYED RELEASE TAB PO SCH (09:10)
[2016-12-16] MEDS: CHOLECALCIFEROL (VIT D3) 1000 UNIT TAB PO SCH (09:10)
[2016-12-16] MEDS: amLODIPine BESYLATE 5 MG TAB PO SCH (09:10)
[2016-12-16] MEDS: CITALOPRAM HYDROBROMIDE 20 MG TAB PO SCH (09:10)
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
--- NOTE | 2016-12-16 14:38 | HHI.PR ---
Subjective Remarks Denies any complaints denies nausea or vomiting denies fevers r chills deies abdominal pain Objective Vitals Vital Signs Date Time Temp Pulse Resp B/P (MAP) Pulse Ox O2 Delivery O2 Flow Rate FiO2 12/16/16 05:59 98.0 57 15 150/68 (95) 94 12/15/16 21:15 98.4 55 16 141/66 (91) 95 I/O 12/15/16 12/15/16 12/15/16 12/16/16 12/16/16 12/16/16 07:00 15:00 23:00 07:00 15:00 23:00 Intake Total 720 ml Balance 720 ml Intake Oral 720 ml # Voids 1 3 Result Diagram: 12/12/16 1034 Imaging Last Impressions Head CT 12/09/16 1253 Signed Impressions: Service Date/Time: Friday, December 09, 2016 14:06 - CONCLUSION: 1. No evidence of acute intracranial pathology. Chronic ischemic changes as above. Saturnino Alcala MD Chest X-Ray 12/09/16 1253 Signed Impressions: Service Date/Time: Friday, December 09, 2016 13:09 - CONCLUSION: Normal examination for a patient of this age. Juan Mart MD Abdomen/Pelvis CT 12/09/16 0000 Signed Impressions: Service Date/Time: Friday, December 09, 2016 14:11 - CONCLUSION: Subacute right 10th posterior lateral rib fracture with minimal associated pleural thickening. No pneumothorax or pulmonary infiltrate. Intra-abdominal contents are negative for acute abnormality. Aortic endovascular stent in place extending into the iliac arteries. Uncomplicated diverticulitis of the sigmoid colon. Juan Mart MD Objective Remarks AAOX3 NAD lying in bed Clear lungs BL Soft abdomen, non tender, BS + CN II through XII grossly intact Procedures None. Medications and IVs Current Medications Medications (Trade) Dose Ordered Sig/Skyla Route Start Time Stop Time Status Last Admin (NS Flush) 2 ml UNSCH PRN IV FLUSH 12/09/16 13:00 (Tylenol) 650 mg Q4H PRN PO 12/09/16 18:00 (Milk Of Magnesia Liq) 30 ml DAILY PRN PO 12/09/16 18:00 (Mag-Al Plus Susp Liq) 30 ml Q6H PRN PO 12/09/16 18:00 12/11/16 11:50 (Lipitor) 40 mg HS PO 12/09/16 21:00 12/15/16 21:17 (CeleXA) 20 mg DAILY PO 12/10/16 09:00 12/16/16 09:10 (Catapres) 0.1 mg Q6H PRN PO 12/11/16 00:15 12/13/16 06:42 (Pill Splitter) 1 ea UNSCH PRN OTHER 12/11/16 00:15 (Norvasc) 5 mg DAILY PO 12/12/16 09:00 12/16/16 09:10 (Haldol Lactate Liq) 2.5 mg DAILY@0800,1400,2100 PO 12/11/16 15:15 12/16/16 14:07 (Vitamin D3) 1,000 units DAILY PO 12/12/16 09:00 12/16/16 09:10 (Protonix) 20 mg DAILY PO 12/12/16 10:00 12/16/16 09:10 (Zofran Odt) 4 mg Q6H PRN PO 12/12/16 10:00 (Synthroid) 112 mcg DAILY@0600 PO 12/14/16 06:00 12/16/16 05:42 (Keppra) 1,000 mg DAILY@0600 PO 12/14/16 06:00 12/16/16 05:42 (Keppra) 500 mg HS PO 12/13/16 21:00 12/15/16 21:17 (Miralax) 17 gm DAILY PO 12/14/16 09:00 12/16/16 09:08 (Colace) 100 mg BID PO 12/13/16 13:00 12/16/16 09:10 A/P Assessment and Plan Ms. Amado is an 81 year old female with a history of seizure activity, HTN, hypothyroidism who was brought to the hospital from a [facility] due to combative behavior. Hospitalist service was consulted for medical management. Dementia with psychosis - management per Psychiatry team. Seizure activity - No seizure activity reported. Keppra level too high - 53.5. Repeat level pending. dose of Keppra 1000 mg BID was decreased to 1000mg in am and 500mg at night. Recheck level in 72 hours is pending. Hypertension Hyperlipidemia - Amlodipine 5mg Qday. Continue. - Clonidine 0.1mg PRN - Titrate up Amlodipine if indicated. If renal function is stable, we can consider Lisinopril 10mg Qday as well. - BP currently well controlled - Continue Lipitor 40mg QHS. - Goal BP < 150/90. Mild MEAGAN - creatinine 1.18 --> 1.27 --> 1.10. - likely due to poor oral intake - improving - avoid nephrotoxic agents Hypothyroidism - TSH high at 17.900 - Increase dose of levothyroxine to 112 mcg Qday. - Repeat level in 6 weeks Reflux, dyspesia Abdominal discomfort, improving - UA unremarkable - continue Pantoprazole 20mg - BM x 2 12/10 - Miralax and stool softener daily - Monitor BM Vitamin D insufficiency - Continue vitamin D supplementation 1000 mg daily - Recheck vitamin D levels in 3 months, an outpatient Discharge Planning Awaiting Alvarez Blevins MD Dec 16, 2016 14:38
[2016-12-16 17:08] VITALS: BP 157/66; PULSE 56; RESP 17; TEMP 98.1; O2SAT 96
[2016-12-16] MEDS: ATORVASTATIN 40 MG TAB PO SCH (21:46)
[2016-12-17] MEDS: LEVOTHYROXINE SODIUM 112 MCG TAB PO SCH (06:30)
[2016-12-17] MEDS: levETIRAcetam 500 MG TAB PO SCH ×2 (06:30→20:26)
[2016-12-17 06:47] VITALS: BP 169/66; PULSE 55; RESP 16; TEMP 98; O2SAT 95
[2016-12-17] MEDS: DOCUSATE SODIUM 100 MG CAP PO SCH ×2 (09:08→20:26)
[2016-12-17] MEDS: POLYETHYLENE GLYCOL 17 GM PKG PO SCH (09:08)
[2016-12-17] MEDS: CITALOPRAM HYDROBROMIDE 20 MG TAB PO SCH (09:09)
[2016-12-17] MEDS: amLODIPine BESYLATE 5 MG TAB PO SCH (09:09)
[2016-12-17] MEDS: PANTOPRAZOLE SOD 20 MG DELAYED RELEASE TAB PO SCH (09:09)
[2016-12-17] MEDS: CHOLECALCIFEROL (VIT D3) 1000 UNIT TAB PO SCH (09:09)
[2016-12-17] MEDS: HALOPERIDOL LACTATE ORAL CONC 10 MG/5 ML CUP PO SCH ×3 (09:11→21:00)
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
[2016-12-17 18:00] VITALS: BP 157/67; PULSE 96; RESP 16; TEMP 98.4; O2SAT 96
[2016-12-17] MEDS: ATORVASTATIN 40 MG TAB PO SCH (20:26)
[2016-12-18] MEDS ORDERED: diphenhydrAMINE HCL 50 MG/ML VIAL IM ONE ×2 (03:00→21:00)
[2016-12-18] MEDS ORDERED: HALOPERIDOL LACTATE 5 MG/ML AMP IM ONE ×2 (03:00→11:45)
[2016-12-18] MEDS: LEVOTHYROXINE SODIUM 112 MCG TAB PO SCH (04:59)
[2016-12-18] MEDS: levETIRAcetam 500 MG TAB PO SCH ×2 (04:59→20:48)
[2016-12-18 05:49] VITALS: BP 167/66; PULSE 96; RESP 16; TEMP 97.9; O2SAT 96
[2016-12-18] MEDS: HALOPERIDOL LACTATE ORAL CONC 10 MG/5 ML CUP PO SCH ×3 (08:00→20:49)
[2016-12-18] MEDS: DOCUSATE SODIUM 100 MG CAP PO SCH ×2 (08:53→20:48)
[2016-12-18] MEDS: amLODIPine BESYLATE 5 MG TAB PO SCH (08:53)
[2016-12-18] MEDS: CHOLECALCIFEROL (VIT D3) 1000 UNIT TAB PO SCH (08:53)
[2016-12-18] MEDS: PANTOPRAZOLE SOD 20 MG DELAYED RELEASE TAB PO SCH (08:53)
[2016-12-18] MEDS: CITALOPRAM HYDROBROMIDE 20 MG TAB PO SCH (08:53)
[2016-12-18] MEDS: POLYETHYLENE GLYCOL 17 GM PKG PO SCH (08:53)
[2016-12-18] MEDS ORDERED: amLODIPine BESYLATE 5 MG TAB PO ONE (11:00)
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
[2016-12-18] MEDS ORDERED: HALOPERIDOL LACTATE 5 MG/ML AMP ONE (11:23)
[2016-12-18 12:01] VITALS: BP 164/72; PULSE 83
[2016-12-18] MEDS: LISINOPRIL 10 MG TAB PO SCH (12:03)
[2016-12-18] MEDS ORDERED: diphenhydrAMINE HCL 50 MG/ML VIAL ONE (13:12)
--- NOTE | 2016-12-18 17:20 | HHI.PR ---
Subjective Remarks patient has no complaints denies cp/sob Bop noted to be elevated Objective Vitals Vital Signs Date Time Temp Pulse Resp B/P (MAP) Pulse Ox O2 Delivery O2 Flow Rate FiO2 12/18/16 12:01 83 164/72 (102) 12/18/16 05:49 97.9 96 16 167/66 (99) 96 12/17/16 18:00 98.4 96 16 157/67 (97) 96 I/O 12/17/16 12/17/16 12/17/16 12/18/16 12/18/16 12/18/16 06:59 14:59 22:59 06:59 14:59 22:59 Intake Total 240 ml 240 ml 720 ml 0 ml 240 ml Balance 240 ml 240 ml 720 ml 0 ml 240 ml Intake Oral 240 ml 240 ml 720 ml 0 ml 240 ml # Voids 3 2 3 1 # Bowel Movements 0 0 0 1 Objective Remarks AAOX3 Sitting in chair Clear lungs BL Soft abdomen, non tender, BS + CN II through XII grossly intact Procedures None. Medications and IVs Current Medications Medications (Trade) Dose Ordered Sig/Skyla Route Start Time Stop Time Status Last Admin (NS Flush) 2 ml UNSCH PRN IV FLUSH 12/09/16 13:00 (Tylenol) 650 mg Q4H PRN PO 12/09/16 18:00 (Milk Of Magnesia Liq) 30 ml DAILY PRN PO 12/09/16 18:00 (Mag-Al Plus Susp Liq) 30 ml Q6H PRN PO 12/09/16 18:00 12/11/16 11:50 (Lipitor) 40 mg HS PO 12/09/16 21:00 12/17/16 20:26 (CeleXA) 20 mg DAILY PO 12/10/16 09:00 12/18/16 08:53 (Catapres) 0.1 mg Q6H PRN PO 12/11/16 00:15 12/13/16 06:42 (Pill Splitter) 1 ea UNSCH PRN OTHER 12/11/16 00:15 (Vitamin D3) 1,000 units DAILY PO 12/12/16 09:00 12/18/16 08:53 (Protonix) 20 mg DAILY PO 12/12/16 10:00 12/18/16 08:53 (Zofran Odt) 4 mg Q6H PRN PO 12/12/16 10:00 (Synthroid) 112 mcg DAILY@0600 PO 12/14/16 06:00 12/18/16 04:59 (Keppra) 1,000 mg DAILY@0600 PO 12/14/16 06:00 12/18/16 04:59 (Keppra) 500 mg HS PO 12/13/16 21:00 12/17/16 20:26 (Miralax) 17 gm DAILY PO 12/14/16 09:00 12/18/16 08:53 (Colace) 100 mg BID PO 12/13/16 13:00 12/18/16 08:53 (Norvasc) 10 mg DAILY PO 12/19/16 09:00 (Prinivil) 10 mg DAILY PO 12/18/16 11:00 12/18/16 12:03 (Haldol Lactate Liq) 5 mg DAILY@1400,2100 PO 12/18/16 14:00 12/18/16 14:00 (Benadryl Inj) 50 mg NOW ONCE IM 12/18/16 21:00 12/18/16 21:01 A/P Assessment and Plan Ms. Amado is an 81 year old female with a history of seizure activity, HTN, hypothyroidism who was brought to the hospital from a care home due to combative behavior. Hospitalist service was consulted for medical management. Dementia with psychosis - management per Psychiatry team. Seizure activity - No seizure activity reported. Keppra level too high - 53.5. Repeat level pending. dose of Keppra 1000 mg BID was decreased to 1000mg in am and 500mg at night. - 12/18 Keppra level improved and down to 48.1. Will recheck in am. Hypertension Hyperlipidemia - BP very elevated. Increase amlodipine to 10 mg po daily. Will start on lisinopril 10 mg po daily. Continue Clonidine PRN. - Continue Lipitor 40mg QHS. - Goal BP < 150/90. Mild MEAGAN - creatinine 1.18 --> 1.27 --> 1.10. - likely due to poor oral intake - improving - avoid nephrotoxic agents Hypothyroidism - TSH high at 17.900 - Increase dose of levothyroxine to 112 mcg Qday. - check free t3 and t4. Reflux, dyspesia Abdominal discomfort, improving - UA unremarkable - continue Pantoprazole 20mg - BM x 2 12/10 - Miralax and stool softener daily - Monitor BM Vitamin D insufficiency - Continue vitamin D supplementation 1000 mg daily - Recheck vitamin D levels in 3 months, an outpatient Discharge Planning Tam uncontrolled. Keppra still elevated. Alvarez Conklin MD Dec 18, 2016 17:20
[2016-12-18 18:05] VITALS: BP 131/82; PULSE 73; RESP 16; TEMP 98.2; O2SAT 98
[2016-12-18] MEDS: ATORVASTATIN 40 MG TAB PO SCH (20:48)
[2016-12-19 05:54] VITALS: BP_SYST 135; BP_SYST 139; BP_DIAS 62; BP_DIAS 69; PULSE 53; PULSE 56; RESP 16; RESP 17; TEMP 97.7; TEMP 99; O2SAT 95; O2SAT 99
[2016-12-19] MEDS: LEVOTHYROXINE SODIUM 112 MCG TAB PO SCH (05:55)
[2016-12-19] MEDS: levETIRAcetam 500 MG TAB PO SCH ×2 (05:55→21:36)
[2016-12-19] MEDS: LISINOPRIL 10 MG TAB PO SCH (09:52)
[2016-12-19] MEDS: POLYETHYLENE GLYCOL 17 GM PKG PO SCH (09:53)
[2016-12-19] MEDS: CHOLECALCIFEROL (VIT D3) 1000 UNIT TAB PO SCH (09:53)
[2016-12-19] MEDS: CITALOPRAM HYDROBROMIDE 20 MG TAB PO SCH (09:53)
[2016-12-19] MEDS: DOCUSATE SODIUM 100 MG CAP PO SCH ×2 (09:53→21:36)
[2016-12-19] MEDS: PANTOPRAZOLE SOD 20 MG DELAYED RELEASE TAB PO SCH (09:53)
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
[2016-12-19 11:43] LABS: FREE T3 1.68 PG/ML (2.18-3.98); FREE T4 1.34 NG/DL (0.76-1.46)
[2016-12-19] MEDS: HALOPERIDOL LACTATE ORAL CONC 10 MG/5 ML CUP PO SCH ×2 (14:00→21:37)
[2016-12-19] MEDS ORDERED: LEVOTHYROXINE SODIUM 50 MCG TAB PO SCH (17:15)
--- NOTE | 2016-12-19 17:16 | HHI.PR ---
Subjective Remarks As per RN patient with some abdominal pain patient c/o abdominal pain diffusely denies cp/sob denies nausea or vomiting Objective Vitals Vital Signs Date Time Temp Pulse Resp B/P (MAP) Pulse Ox O2 Delivery O2 Flow Rate FiO2 12/19/16 05:54 99.0 56 16 139/69 (92) 99 12/18/16 18:05 98.2 73 16 131/82 (98) 98 I/O 12/18/16 12/18/16 12/18/16 12/19/16 12/19/16 12/19/16 07:00 15:00 23:00 07:00 15:00 23:00 Intake Total 0 ml 240 ml 240 ml 240 ml Balance 0 ml 240 ml 240 ml 240 ml Intake Oral 0 ml 240 ml 240 ml 240 ml # Voids 3 1 2 # Bowel Movements 0 1 Imaging Last Impressions Head CT 12/09/16 1253 Signed Impressions: Service Date/Time: Friday, December 09, 2016 14:06 - CONCLUSION: 1. No evidence of acute intracranial pathology. Chronic ischemic changes as above. Saturnino Alcala MD Chest X-Ray 12/09/16 1253 Signed Impressions: Service Date/Time: Friday, December 09, 2016 13:09 - CONCLUSION: Normal examination for a patient of this age. Juan Mart MD Abdomen/Pelvis CT 12/09/16 0000 Signed Impressions: Service Date/Time: Friday, December 09, 2016 14:11 - CONCLUSION: Subacute right 10th posterior lateral rib fracture with minimal associated pleural thickening. No pneumothorax or pulmonary infiltrate. Intra-abdominal contents are negative for acute abnormality. Aortic endovascular stent in place extending into the iliac arteries. Uncomplicated diverticulitis of the sigmoid colon. Juan Mart MD Objective Remarks AAOX3 Sitting in chair Clear lungs BL Bs +, soft, diffusely tender to palpation and mildly distended CN II through XII grossly intact Procedures None. Medications and IVs Current Medications Medications (Trade) Dose Ordered Sig/Skyla Route Start Time Stop Time Status Last Admin (NS Flush) 2 ml UNSCH PRN IV FLUSH 12/09/16 13:00 (Tylenol) 650 mg Q4H PRN PO 12/09/16 18:00 (Milk Of Magnesia Liq) 30 ml DAILY PRN PO 12/09/16 18:00 (Mag-Al Plus Susp Liq) 30 ml Q6H PRN PO 12/09/16 18:00 12/11/16 11:50 (Lipitor) 40 mg HS PO 12/09/16 21:00 12/18/16 20:48 (CeleXA) 20 mg DAILY PO 12/10/16 09:00 12/19/16 09:53 (Catapres) 0.1 mg Q6H PRN PO 12/11/16 00:15 12/13/16 06:42 (Pill Splitter) 1 ea UNSCH PRN OTHER 12/11/16 00:15 (Vitamin D3) 1,000 units DAILY PO 12/12/16 09:00 12/19/16 09:53 (Protonix) 20 mg DAILY PO 12/12/16 10:00 12/19/16 09:53 (Zofran Odt) 4 mg Q6H PRN PO 12/12/16 10:00 (Synthroid) 112 mcg DAILY@0600 PO 12/14/16 06:00 12/19/16 05:55 (Keppra) 1,000 mg DAILY@0600 PO 12/14/16 06:00 12/19/16 05:55 (Keppra) 500 mg HS PO 12/13/16 21:00 12/18/16 20:48 (Miralax) 17 gm DAILY PO 12/14/16 09:00 12/19/16 09:53 (Colace) 100 mg BID PO 12/13/16 13:00 12/19/16 09:53 (Norvasc) 10 mg DAILY PO 12/19/16 09:00 12/19/16 09:52 (Prinivil) 10 mg DAILY PO 12/18/16 11:00 12/19/16 09:52 (Haldol Lactate Liq) 5 mg DAILY@1400,2100 PO 12/18/16 14:00 12/19/16 14:00 (Benadryl) 50 mg HS PRN PO 12/19/16 10:15 A/P Assessment and Plan Ms. Amado is an 81 year old female with a history of seizure activity, HTN, hypothyroidism who was brought to the hospital from a detention due to combative behavior. Hospitalist service was consulted for medical management. Dementia with psychosis - management per Psychiatry team. Seizure activity - No seizure activity reported. Keppra level too high - 53.5. Repeat level pending. dose of Keppra 1000 mg BID was decreased to 1000mg in am and 500mg at night. - 12/18 Keppra level improved and down to 48.1. Will recheck in am. - 12/19 Keppra level pending. Hypertension Hyperlipidemia - BP better, continue lisinorpil 10 mg daily. - Continue Lipitor 40mg QHS. - Goal BP < 150/90. Mild MEAGAN - creatinine 1.18 --> 1.27 --> 1.10. - likely due to poor oral intake - improving - avoid nephrotoxic agents Hypothyroidism - TSH high at 17.900 - Increase dose of levothyroxine to 112 mcg Qday. - Free t4 normal - repeat tsh in 4 to 6 weeks. Reflux, dyspesia Abdominal pain, worsening - UA unremarkable - continue Pantoprazole 20mg - BM x 2 12/10 - Miralax and stool softener daily - Monitor BM - 12/19 check KUB. Vitamin D insufficiency - Continue vitamin D supplementation 1000 mg daily - Recheck vitamin D levels in 3 months, an outpatient Discharge Planning Keppra level pending. Check KUB for abdominal pain. Alvarez Conklin MD Dec 19, 2016 17:16
[2016-12-19 18:11] VITALS: BP 116/78; PULSE 68; RESP 16; TEMP 98.1; O2SAT 96
--- NOTE | 2016-12-19 20:56 | RADRPT ---
EXAM DATE/TIME: 12/19/2016 20:31 [facility] COMPARISON: No previous studies available for comparison. INDICATIONS : Abdominal pain. MEDICAL HISTORY : None. SURGICAL HISTORY : Appendectomy. Hysterectomy. ENCOUNTER: Initial ACUITY: 3 months PAIN SCORE: 5/10 LOCATION: Bilateral abdomen. FINDINGS: Supine view of the abdomen was performed. The abdominal bowel gas pattern is normal. No abnormal ma sses, calcifications, or organomegaly is seen. CONCLUSION: 1. Nonspecific bowel gas pattern. Mild scoliosis. Jon Robles MD on December 19, 2016 at 20:54 Board Certified Radiologist. This report was verified electronically.
[2016-12-19] MEDS: ATORVASTATIN 40 MG TAB PO SCH (21:36)
[2016-12-20 06:00] VITALS: BP 148/69; PULSE 62; RESP 16; TEMP 97.9; O2SAT 94
[2016-12-20] MEDS: levETIRAcetam 500 MG TAB PO SCH ×2 (06:29→22:44)
[2016-12-20] MEDS: LEVOTHYROXINE SODIUM 112 MCG TAB PO SCH (06:30)
[2016-12-20] MEDS: CITALOPRAM HYDROBROMIDE 20 MG TAB PO SCH (10:20)
[2016-12-20] MEDS: POLYETHYLENE GLYCOL 17 GM PKG PO SCH (10:20)
[2016-12-20] MEDS: DOCUSATE SODIUM 100 MG CAP PO SCH ×2 (10:20→22:43)
[2016-12-20] MEDS: PANTOPRAZOLE SOD 20 MG DELAYED RELEASE TAB PO SCH (10:20)
[2016-12-20] MEDS: LISINOPRIL 10 MG TAB PO SCH (10:20)
[2016-12-20] MEDS: CHOLECALCIFEROL (VIT D3) 1000 UNIT TAB PO SCH (10:20)
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
[2016-12-20] MEDS: HALOPERIDOL LACTATE ORAL CONC 10 MG/5 ML CUP PO SCH ×2 (15:12→22:43)
[2016-12-20 18:24] VITALS: BP 128/59; PULSE 68; RESP 18; TEMP 97.9; O2SAT 97
[2016-12-20] MEDS: ATORVASTATIN 40 MG TAB PO SCH (22:44)
[2016-12-21] MEDS: diphenhydrAMINE HCL 50 MG CAP PO PRN (03:36)
[2016-12-21] MEDS: levETIRAcetam 500 MG TAB PO SCH ×2 (06:02→22:15)
[2016-12-21] MEDS: LEVOTHYROXINE SODIUM 112 MCG TAB PO SCH (06:02)
[2016-12-21 06:46] VITALS: BP 164/65; PULSE 61; RESP 17; TEMP 98.1; O2SAT 95
[2016-12-21] MEDS: PANTOPRAZOLE SOD 20 MG DELAYED RELEASE TAB PO SCH (09:43)
[2016-12-21] MEDS: LISINOPRIL 10 MG TAB PO SCH (09:44)
[2016-12-21] MEDS: DOCUSATE SODIUM 100 MG CAP PO SCH ×2 (09:44→22:15)
[2016-12-21] MEDS: CITALOPRAM HYDROBROMIDE 20 MG TAB PO SCH (09:44)
[2016-12-21] MEDS: CHOLECALCIFEROL (VIT D3) 1000 UNIT TAB PO SCH (09:44)
[2016-12-21] MEDS: POLYETHYLENE GLYCOL 17 GM PKG PO SCH (09:44)
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
[2016-12-21] MEDS: HALOPERIDOL LACTATE ORAL CONC 10 MG/5 ML CUP PO SCH ×2 (14:23→22:15)
[2016-12-21 16:33] VITALS: BP 134/63; PULSE 18; RESP 18; TEMP 97.2; O2SAT 94
--- NOTE | 2016-12-21 17:14 | HHI.PR ---
Subjective Remarks Ambulating in the hallways. Patient appears in nad. Says she doesn't have any more abdominal pain .Had a BM and pasing has. No n/v/d/c. No wheezing or sob. Objective Vitals Vital Signs Date Time Temp Pulse Resp B/P (MAP) Pulse Ox O2 Delivery O2 Flow Rate FiO2 12/21/16 16:33 97.2 18 18 134/63 (86) 94 12/21/16 06:46 98.1 61 17 164/65 (98) 95 12/20/16 18:24 97.9 68 18 128/59 (82) 97 I/O 12/20/16 12/20/16 12/20/16 12/21/16 12/21/16 12/21/16 06:59 14:59 22:59 06:59 14:59 22:59 Intake Total 240 ml 960 ml 360 ml Output Total 175 ml Balance -175 ml 240 ml 960 ml 360 ml Intake Oral 240 ml 960 ml 360 ml Output Urine Total 175 ml # Voids 3 2 3 # Bowel Movements 0 Imaging Last Impressions Abdomen X-Ray 12/19/16 0000 Signed Impressions: Service Date/Time: Monday, December 19, 2016 20:31 - CONCLUSION: 1. Nonspecific bowel gas pattern. Mild scoliosis. Jon Robles MD Head CT 12/09/16 1253 Signed Impressions: Service Date/Time: Friday, December 09, 2016 14:06 - CONCLUSION: 1. No evidence of acute intracranial pathology. Chronic ischemic changes as above. Saturnino Alcala MD Chest X-Ray 12/09/16 1253 Signed Impressions: Service Date/Time: Friday, December 09, 2016 13:09 - CONCLUSION: Normal examination for a patient of this age. Juan Mart MD Abdomen/Pelvis CT 12/09/16 0000 Signed Impressions: Service Date/Time: Friday, December 09, 2016 14:11 - CONCLUSION: Subacute right 10th posterior lateral rib fracture with minimal associated pleural thickening. No pneumothorax or pulmonary infiltrate. Intra-abdominal contents are negative for acute abnormality. Aortic endovascular stent in place extending into the iliac arteries. Uncomplicated diverticulitis of the sigmoid colon. Juan Mart MD Objective Remarks GENERAL: Elderly female, in nad. CARDIOVASCULAR: Regular rate and rhythm without murmurs, gallops, or rubs. RESPIRATORY: Breath sounds equal bilaterally. No accessory muscle use. GASTROINTESTINAL: Abdomen soft, non-tender, nondistended. MUSCULOSKELETAL: No cyanosis, or edema. BACK: Nontender without obvious deformity. No CVA tenderness. Procedures None. A/P Assessment and Plan Ms. Amado is an 81 year old female with a history of seizure activity, HTN, hypothyroidism who was brought to the hospital from a detention due to combative behavior. Hospitalist service was consulted for medical management. Dementia with psychosis - management per Psychiatry team. Seizure activity - No seizure activity reported. Keppra level elevated . dose of Keppra 1000 mg BID was decreased to 1000mg in am and 500mg at night. - Keppra level improving. Will continue to monitor and decrease further keppra level if necessarily Hypertension Hyperlipidemia - BP better, continue lisinorpil 10 mg daily. - Continue Lipitor 40mg QHS. - Goal BP < 150/90. Mild MEAGAN - creatinine 1.18 --> 1.27 --> 1.10. - likely due to poor oral intake - improving - avoid nephrotoxic agents Hypothyroidism - TSH high at 17.900 - Increase dose of levothyroxine to 112 mcg Qday. - Free t4 normal - repeat tsh in 4 to 6 weeks. Reflux, dyspesia Abdominal pain - UA unremarkable - continue Pantoprazole 20mg - BM x 2 12/10 - Miralax and stool softener daily - Monitor BM - KUB with gas pattern. Start simethicone. Vitamin D insufficiency - Continue vitamin D supplementation 1000 mg daily - Recheck vitamin D levels in 3 months, an outpatient Betty Camp MD Dec 21, 2016 17:14
[2016-12-21] MEDS ORDERED: SIMETHICONE 80 MG CHEWABLE TAB CHEW ONE (17:15)
[2016-12-21] MEDS: ATORVASTATIN 40 MG TAB PO SCH (22:14)
[2016-12-22 06:00] VITALS: BP 129/64; PULSE 58; RESP 18; TEMP 97.8; O2SAT 98
[2016-12-22] MEDS: LEVOTHYROXINE SODIUM 112 MCG TAB PO SCH (06:09)
[2016-12-22] MEDS: levETIRAcetam 500 MG TAB PO SCH ×2 (06:09→21:48)
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
[2016-12-22] MEDS: POLYETHYLENE GLYCOL 17 GM PKG PO SCH (09:49)
[2016-12-22] MEDS: CHOLECALCIFEROL (VIT D3) 1000 UNIT TAB PO SCH (09:49)
[2016-12-22] MEDS: DOCUSATE SODIUM 100 MG CAP PO SCH ×2 (09:49→21:47)
[2016-12-22] MEDS: LISINOPRIL 10 MG TAB PO SCH (09:49)
[2016-12-22] MEDS: CITALOPRAM HYDROBROMIDE 20 MG TAB PO SCH (09:49)
[2016-12-22] MEDS: PANTOPRAZOLE SOD 20 MG DELAYED RELEASE TAB PO SCH (09:49)
[2016-12-22] MEDS ORDERED: HALOPERIDOL LACTATE 5 MG/ML AMP ONE (10:30)
[2016-12-22] MEDS ORDERED: diphenhydrAMINE HCL 50 MG/ML VIAL ONE (10:30)
[2016-12-22] MEDS ORDERED: HALOPERIDOL LACTATE 5 MG/ML AMP IM ONE (10:45)
[2016-12-22] MEDS ORDERED: diphenhydrAMINE HCL 50 MG/ML VIAL IM ONE (10:45)
[2016-12-22 10:50] LABS: AUTOMATED NEUTROPHIL # 7.7 TH/MM3 (1.8-7.7); BASOPHIL % 0.3 % (0.0-2.0); EOSINOPHIL # 0.2 TH/MM3 (0-0.4); EOSINOPHIL % 1.8 % (0.0-4.0); HEMATOCRIT 37.6 % (35.0-46.0); HEMO FLAGS DIFF FINAL; LYMPH % 11.7 % (9.0-44.0); LYMPHOCYTE # 1.2 TH/MM3 (1.0-4.8); MEAN CELL VOLUME 95.9 FL (80.0-100.0); MEAN CORPUSCULAR HGB CONC 32.4 % (32.0-36.0); NEUT % 78.2 % (16.0-70.0); PLATELET COUNT 229 TH/MM3 (150-450); RED BLOOD COUNT 3.92 MIL/MM3 (4.00-5.30); RED CELL DISTRIBUTION WIDTH 15.5 % (11.6-17.2); WHITE BLOOD COUNT 9.9 TH/MM3 (4.0-11.0)
[2016-12-22 11:11] LABS: BICARBONATE 27.8 MEQ/L (21.0-32.0); POTASSIUM 3.7 MEQ/L (3.5-5.1)
[2016-12-22] MEDS: HALOPERIDOL LACTATE ORAL CONC 10 MG/5 ML CUP PO SCH ×2 (13:43→21:47)
--- NOTE | 2016-12-22 16:16 | HHI.PR ---
Subjective Remarks In the chair. Says she has no abdominal lena. Passing hgas and says had a BM. No n/v/. Eating but not much . No fever or chills. She is alert and oriented. Objective Vitals Vital Signs Date Time Temp Pulse Resp B/P (MAP) Pulse Ox O2 Delivery O2 Flow Rate FiO2 12/22/16 06:00 97.8 58 18 129/64 (85) 98 12/21/16 16:33 97.2 18 18 134/63 (86) 94 I/O 12/21/16 12/21/16 12/21/16 12/22/16 12/22/16 12/22/16 07:00 15:00 23:00 07:00 15:00 23:00 Intake Total 600 ml 360 ml Balance 600 ml 360 ml Intake Oral 600 ml 360 ml # Voids 3 1 1 Result Diagram: 12/22/16 0938 12/22/16 0938 Imaging Last Impressions Abdomen X-Ray 12/19/16 0000 Signed Impressions: Service Date/Time: Monday, December 19, 2016 20:31 - CONCLUSION: 1. Nonspecific bowel gas pattern. Mild scoliosis. Jon Robles MD Head CT 12/09/16 1253 Signed Impressions: Service Date/Time: Friday, December 09, 2016 14:06 - CONCLUSION: 1. No evidence of acute intracranial pathology. Chronic ischemic changes as above. Saturnino Alcala MD Chest X-Ray 12/09/16 1253 Signed Impressions: Service Date/Time: Friday, December 09, 2016 13:09 - CONCLUSION: Normal examination for a patient of this age. Juan Mart MD Abdomen/Pelvis CT 12/09/16 0000 Signed Impressions: Service Date/Time: Friday, December 09, 2016 14:11 - CONCLUSION: Subacute right 10th posterior lateral rib fracture with minimal associated pleural thickening. No pneumothorax or pulmonary infiltrate. Intra-abdominal contents are negative for acute abnormality. Aortic endovascular stent in place extending into the iliac arteries. Uncomplicated diverticulitis of the sigmoid colon. Juan Mart MD Objective Remarks GENERAL: Elderly female, in nad. CARDIOVASCULAR: Regular rate and rhythm without murmurs, gallops, or rubs. RESPIRATORY: Breath sounds equal bilaterally. No accessory muscle use. GASTROINTESTINAL: Abdomen soft, non-tender, nondistended. MUSCULOSKELETAL: No cyanosis, or edema. BACK: Nontender without obvious deformity. No CVA tenderness. Procedures None. A/P Assessment and Plan Ms. Amado is an 81 year old female with a history of seizure activity, HTN, hypothyroidism who was brought to the hospital from a longterm due to combative behavior. Hospitalist service was consulted for medical management. Dementia with psychosis - management per Psychiatry team. Seizure activity - No seizure activity reported. Keppra level elevated . dose of Keppra 1000 mg BID was decreased to 1000mg in am and 500mg at night. - Keppra level improving. Will continue to monitor and decrease further keppra level if necessarily Hypertension Hyperlipidemia - BP better, continue lisinorpil 10 mg daily. - Continue Lipitor 40mg QHS. - Goal BP < 150/90. Mild MEAGAN - creatinine 1.18 --> 1.27 --> 1.10. - likely due to poor oral intake - improving - avoid nephrotoxic agents Hypothyroidism - TSH high at 17.900 - Increase dose of levothyroxine to 112 mcg Qday. - Free t4 normal - repeat tsh in 4 to 6 weeks. Reflux, dyspesia Abdominal pain - UA unremarkable - continue Pantoprazole 20mg - BM x 2 12/10 - Miralax and stool softener daily - Monitor BM - KUB with gas pattern. Start simethicone. Vitamin D insufficiency - Continue vitamin D supplementation 1000 mg daily - Recheck vitamin D levels in 3 months, an outpatient Betty Camp MD Dec 22, 2016 16:16
[2016-12-22] MEDS ORDERED: SIMETHICONE 80 MG CHEWABLE TAB CHEW PRN (21:00)
[2016-12-22] MEDS: diphenhydrAMINE HCL 50 MG CAP PO PRN (21:47)
[2016-12-22] MEDS: ATORVASTATIN 40 MG TAB PO SCH (21:48)
[2016-12-23 06:00] VITALS: BP 124/60; PULSE 55; RESP 16; TEMP 97.1; O2SAT 96
[2016-12-23] MEDS: CITALOPRAM HYDROBROMIDE 20 MG TAB PO SCH (09:00)
[2016-12-23] MEDS: POLYETHYLENE GLYCOL 17 GM PKG PO SCH (09:57)
[2016-12-23] MEDS: CHOLECALCIFEROL (VIT D3) 1000 UNIT TAB PO SCH (09:57)
[2016-12-23] MEDS: LISINOPRIL 10 MG TAB PO SCH (09:57)
[2016-12-23] MEDS: PANTOPRAZOLE SOD 20 MG DELAYED RELEASE TAB PO SCH (09:57)
[2016-12-23] MEDS: DOCUSATE SODIUM 100 MG CAP PO SCH ×2 (09:57→22:13)
--- NOTE | 2016-12-23 10:56 | HHI.PR ---
Subjective Remarks Seen earlier,. In the chair eating breakfast. Says she has no abdominal pain. No n/v/d/c. No seizures. Appears tired and confused at times. Keppra level is pending. Objective Vitals Vital Signs Date Time Temp Pulse Resp B/P (MAP) Pulse Ox O2 Delivery O2 Flow Rate FiO2 12/23/16 06:00 97.1 55 16 124/60 (81) 96 I/O 12/22/16 12/22/16 12/22/16 12/23/16 12/23/16 12/23/16 07:00 15:00 23:00 07:00 15:00 23:00 Intake Total 360 ml 60 ml Balance 360 ml 60 ml Intake Oral 360 ml 60 ml # Voids 1 1 4 Result Diagram: 12/22/1638 12/22/1638 Imaging Last Impressions Abdomen X-Ray 12/19/16 0000 Signed Impressions: Service Date/Time: Monday, December 19, 2016 20:31 - CONCLUSION: 1. Nonspecific bowel gas pattern. Mild scoliosis. Jon Robles MD Head CT 12/09/16 1253 Signed Impressions: Service Date/Time: Friday, December 09, 2016 14:06 - CONCLUSION: 1. No evidence of acute intracranial pathology. Chronic ischemic changes as above. Saturnino Alcala MD Chest X-Ray 12/09/16 1253 Signed Impressions: Service Date/Time: Friday, December 09, 2016 13:09 - CONCLUSION: Normal examination for a patient of this age. Juan Mart MD Abdomen/Pelvis CT 12/09/16 0000 Signed Impressions: Service Date/Time: Friday, December 09, 2016 14:11 - CONCLUSION: Subacute right 10th posterior lateral rib fracture with minimal associated pleural thickening. No pneumothorax or pulmonary infiltrate. Intra-abdominal contents are negative for acute abnormality. Aortic endovascular stent in place extending into the iliac arteries. Uncomplicated diverticulitis of the sigmoid colon. Juan Mart MD Objective Remarks GENERAL: Elderly female, in nad. CARDIOVASCULAR: Regular rate and rhythm without murmurs, gallops, or rubs. RESPIRATORY: Breath sounds equal bilaterally. No accessory muscle use. GASTROINTESTINAL: Abdomen soft, non-tender, nondistended. MUSCULOSKELETAL: No cyanosis, or edema. BACK: Nontender without obvious deformity. No CVA tenderness. Procedures None. A/P Assessment and Plan Ms. Amado is an 81 year old female with a history of seizure activity, HTN, hypothyroidism who was brought to the hospital from a fdc due to combative behavior. Hospitalist service was consulted for medical management. Dementia with psychosis - management per Psychiatry team. Seizure activity - No seizure activity reported. Keppra level elevated . dose of Keppra 1000 mg BID was decreased to 1000mg in am and 500mg at night. - Keppra level improving. Will continue to monitor and decrease further keppra level if necessarily Hypertension Hyperlipidemia - BP better, continue lisinorpil 10 mg daily. - Continue Lipitor 40mg QHS. - Goal BP < 150/90. Mild MEAGAN - creatinine 1.18 --> 1.27 --> 1.10. - likely due to poor oral intake - improving - avoid nephrotoxic agents Hypothyroidism - TSH high at 17.900 - Increase dose of levothyroxine to 112 mcg Qday. - Free t4 normal - repeat tsh in 4 to 6 weeks. Reflux, dyspesia Abdominal pain - UA unremarkable - continue Pantoprazole 20mg - BM x 2 12/10 - Miralax and stool softener daily - Monitor BM - KUB with gas pattern. Start simethicone. Vitamin D insufficiency - Continue vitamin D supplementation 1000 mg daily - Recheck vitamin D levels in 3 months, an outpatient Betty Camp MD Dec 23, 2016 10:56
[2016-12-23] MEDS: HALOPERIDOL LACTATE ORAL CONC 10 MG/5 ML CUP PO SCH ×2 (13:30→22:13)
--- NOTE | 2016-12-23 13:58 | HHI.PYPN ---
Subjective Remarks Patient seen today in day room with nurse Aline and counselor Betty, patient sitting calmly in chair she is calm pleasant with me pleasantly confused. She is compliant with her medications. No behavior problems so far today Review of Systems Except as stated in HPI: all other systems reviewed are Neg Objective Alert: Yes [place]: Person Mood: Other (somewhat restless) Affect: Blunted Memory Intact: Comment (not formally assessed) Hallucinations: Other (no AVH) Delusions: No Delusion Type: Other (no delusions) Suicidal: Ideation (no SI) Homicidal: Ideation (no HI) Insight/Judgment Poor Vitals/IOs Vital Signs Date Time Temp Pulse Resp B/P (MAP) Pulse Ox O2 Delivery O2 Flow Rate FiO2 12/23/16 06:00 97.1 55 16 124/60 (81) 96 Assessment & Plan Problem List: (1) Dementia of Alzheimer's type with behavioral disturbance ICD Codes: G30.8 - Other Alzheimer's disease; F02.81 - Dementia in other diseases classified elsewhere with behavioral disturbance (2) DEMENTIA IN OTH DISEASES CLASSD ELSWHR W BEHAVIORAL DISTURB ICD Codes: F02.81 - DEMENTIA IN OTH DISEASES CLASSD ELSWHR W BEHAVIORAL DISTURB Assessment & Plan Estimated LOS: days she continues confused disoriented demented, though no significant behavior problems at this time, compliant medication Justification for Cont. Inpt. At this time patient will decompensate if not placed in an appropriate level of care Discharge Planning To be determined Request HC Surrog/Guard Advoc?: Yes Sunny Hernandez MD Dec 23, 2016 13:58
[2016-12-23 18:11] VITALS: BP 134/63; PULSE 62; RESP 18; TEMP 97.8; O2SAT 94
[2016-12-23] MEDS: diphenhydrAMINE HCL 50 MG CAP PO PRN (22:13)
[2016-12-23] MEDS: levETIRAcetam 500 MG TAB PO SCH (22:13)
[2016-12-23] MEDS: ATORVASTATIN 40 MG TAB PO SCH (22:14)
[2016-12-24 06:27] VITALS: BP 141/92; RESP 17; TEMP 98.7; O2SAT 95
[2016-12-24] MEDS: levETIRAcetam 500 MG TAB PO SCH ×2 (06:39→21:50)
[2016-12-24] MEDS: LEVOTHYROXINE SODIUM 112 MCG TAB PO SCH (06:39)
[2016-12-24] MEDS: PANTOPRAZOLE SOD 20 MG DELAYED RELEASE TAB PO SCH (09:00)
[2016-12-24] MEDS: DOCUSATE SODIUM 100 MG CAP PO SCH ×2 (09:01→21:50)
[2016-12-24] MEDS: POLYETHYLENE GLYCOL 17 GM PKG PO SCH (09:01)
[2016-12-24] MEDS: CITALOPRAM HYDROBROMIDE 20 MG TAB PO SCH (09:02)
[2016-12-24] MEDS: LISINOPRIL 10 MG TAB PO SCH (09:02)
[2016-12-24] MEDS: CHOLECALCIFEROL (VIT D3) 1000 UNIT TAB PO SCH (09:03)
--- NOTE | 2016-12-24 11:43 | HHI.PR ---
Subjective Remarks Seen earlier. In the chair eating breakfast. No seizures. No abd pain , n/v/d/ c. Says she has no pain . No fever or chills. Objective Vitals Vital Signs Date Time Temp Pulse Resp B/P (MAP) Pulse Ox O2 Delivery O2 Flow Rate FiO2 12/24/16 06:27 98.7 17 141/92 (108) 95 12/23/16 18:11 97.8 62 18 134/63 (86) 94 I/O 12/23/16 12/23/16 12/23/16 12/24/16 12/24/16 12/24/16 07:00 15:00 23:00 07:00 15:00 23:00 Intake Total 220 ml 240 ml Balance 220 ml 240 ml Intake Oral 220 ml 240 ml # Voids 4 3 # Bowel Movements 0 Result Diagram: 12/22/1693712/22/16937 Objective Remarks GENERAL: Elderly female, in nad. CARDIOVASCULAR: Regular rate and rhythm without murmurs, gallops, or rubs. RESPIRATORY: Breath sounds equal bilaterally. No accessory muscle use. GASTROINTESTINAL: Abdomen soft, non-tender, nondistended. MUSCULOSKELETAL: No cyanosis, or edema. BACK: Nontender without obvious deformity. No CVA tenderness. Procedures None. A/P Assessment and Plan Ms. Amado is an 81 year old female with a history of seizure activity, HTN, hypothyroidism who was brought to the hospital from a retirement due to combative behavior. Hospitalist service was consulted for medical management. Dementia with psychosis - management per Psychiatry team. Seizure activity - No seizure activity reported. Keppra level elevated . dose of Keppra 1000 mg BID was decreased to 1000mg in am and 500mg at night. - Keppra level improving. Will continue to monitor and decrease further keppra level if necessarily Hypertension Hyperlipidemia - BP better, continue lisinorpil 10 mg daily. - Continue Lipitor 40mg QHS. - Goal BP < 150/90. Mild MEAGAN - creatinine 1.18 --> 1.27 --> 1.10. - likely due to poor oral intake - improving - avoid nephrotoxic agents Hypothyroidism - TSH high at 17.900 - Increase dose of levothyroxine to 112 mcg Qday. - Free t4 normal - repeat tsh in 4 to 6 weeks. Reflux, dyspesia Abdominal pain - UA unremarkable - continue Pantoprazole 20mg - BM x 2 12/10 - Miralax and stool softener daily - Monitor BM - KUB with gas pattern. Start simethicone. Vitamin D insufficiency - Continue vitamin D supplementation 1000 mg daily - Recheck vitamin D levels in 3 months, an outpatient Betty Camp MD Dec 24, 2016 11:43
[2016-12-24] MEDS: HALOPERIDOL LACTATE ORAL CONC 10 MG/5 ML CUP PO SCH ×2 (11:57→21:51)
--- NOTE | 2016-12-24 14:39 | HHI.PYPN ---
Subjective Remarks Patient seen in day room with her staff, chart review, patient compliant medicine. She continues calm and pleasant with me pleasantly confused. Though staff states she times to becoming a little more irritable. However staff also financially have a UTI developing will order UA with C&S if indicated Review of Systems Except as stated in HPI: all other systems reviewed are Neg Objective Alert: Yes [place]: Person Mood: Other (somewhat restless) Affect: Blunted Memory Intact: Comment (not formally assessed) Hallucinations: Other (no AVH) Delusions: No Delusion Type: Other (no delusions) Suicidal: Ideation (no SI) Homicidal: Ideation (no HI) Insight/Judgment Poor Vitals/IOs Vital Signs Date Time Temp Pulse Resp B/P (MAP) Pulse Ox O2 Delivery O2 Flow Rate FiO2 12/24/16 06:27 98.7 17 141/92 (108) 95 12/23/16 18:11 62 Intake and Output 12/24/16 12/24/16 12/25/16 08:00 16:00 00:00 Intake Total 240 ml Balance 240 ml Assessment & Plan Problem List: (1) Dementia of Alzheimer's type with behavioral disturbance ICD Codes: G30.8 - Other Alzheimer's disease; F02.81 - Dementia in other diseases classified elsewhere with behavioral disturbance (2) DEMENTIA IN OTH DISEASES CLASSD ELSWHR W BEHAVIORAL DISTURB ICD Codes: F02.81 - DEMENTIA IN OTH DISEASES CLASSD ELSWHR W BEHAVIORAL DISTURB Assessment & Plan Estimated LOS: days patient continues confused and demented, though no significant behavior problems. Will be ordering UA with C&S if indicated Justification for Cont. Inpt. At this time patient will decompensate if placed a lower level of care Discharge Planning To be determined Request HC Surrog/Guard Advoc?: Yes Sunny Hernandez MD Dec 24, 2016 14:39
[2016-12-24 17:38] VITALS: BP 123/56; PULSE 76; RESP 20; TEMP 98; O2SAT 96
[2016-12-24 17:40] VITALS: BP 123/56; PULSE 76; RESP 20; TEMP 98; O2SAT 96
[2016-12-24] MEDS: ATORVASTATIN 40 MG TAB PO SCH (21:50)
[2016-12-24] MEDS: diphenhydrAMINE HCL 50 MG CAP PO PRN (21:50)
[2016-12-25] MEDS: levETIRAcetam 500 MG TAB PO SCH ×2 (06:11→20:24)
[2016-12-25] MEDS: LEVOTHYROXINE SODIUM 112 MCG TAB PO SCH (06:11)
[2016-12-25 06:51] VITALS: BP 170/74; PULSE 78; RESP 16; TEMP 97.6; O2SAT 97
[2016-12-25] MEDS: cloNIDine HCL 0.1 MG TAB PO PRN (07:03)
[2016-12-25] MEDS: CITALOPRAM HYDROBROMIDE 20 MG TAB PO SCH (08:09)
[2016-12-25] MEDS: LISINOPRIL 10 MG TAB PO SCH (08:09)
[2016-12-25] MEDS: DOCUSATE SODIUM 100 MG CAP PO SCH ×2 (08:09→21:28)
[2016-12-25] MEDS: CHOLECALCIFEROL (VIT D3) 1000 UNIT TAB PO SCH (09:00)
[2016-12-25] MEDS: PANTOPRAZOLE SOD 20 MG DELAYED RELEASE TAB PO SCH (09:00)
[2016-12-25] MEDS: POLYETHYLENE GLYCOL 17 GM PKG PO SCH (09:00)
[2016-12-25] MEDS: HALOPERIDOL LACTATE ORAL CONC 10 MG/5 ML CUP PO SCH ×2 (14:00→21:28)
--- NOTE | 2016-12-25 15:32 | HHI.PYPN ---
Subjective Remarks Patient seen in dayroom with floor staff, chart review, patient compliant medication. Patient continues pleasantly confused, no significant behavioral problems with me. Continue to await results from recent UA. Eval continue treatment Review of Systems Except as stated in HPI: all other systems reviewed are Neg Objective Alert: Yes [place]: Person Mood: Other (somewhat restless) Affect: Blunted Memory Intact: Comment (not formally assessed) Hallucinations: Other (no AVH) Delusions: No Delusion Type: Other (no delusions) Suicidal: Ideation (no SI) Homicidal: Ideation (no HI) Insight/Judgment Poor Vitals/IOs Vital Signs Date Time Temp Pulse Resp B/P (MAP) Pulse Ox O2 Delivery O2 Flow Rate FiO2 12/25/16 06:51 97.6 78 16 170/74 (106) 97 Intake and Output 12/25/16 12/25/16 12/26/16 08:00 16:00 00:00 Intake Total 0 ml 240 ml Balance 0 ml 240 ml Assessment & Plan Problem List: (1) Dementia of Alzheimer's type with behavioral disturbance ICD Codes: G30.8 - Other Alzheimer's disease; F02.81 - Dementia in other diseases classified elsewhere with behavioral disturbance (2) DEMENTIA IN OTH DISEASES CLASSD ELSWHR W BEHAVIORAL DISTURB ICD Codes: F02.81 - DEMENTIA IN OTH DISEASES CLASSD ELSWHR W BEHAVIORAL DISTURB Assessment & Plan Estimated LOS: days patient continues confused and demented, no behavior problems with me. Though staff states there is increased behaviors towards later afternoon into the evening Justification for Cont. Inpt. At this time patient will decompensate the place to lower level of care Discharge Planning To be determined Request HC Surrog/Guard Advoc?: Yes Sunny Hernandez MD Dec 25, 2016 15:32
--- NOTE | 2016-12-25 16:28 | HHI.PR ---
Subjective Remarks Seen area operations manager. The patient was noted more confused in the morning. Keppra level is not back yet. We'll hold heparin until we have the level back. She had a supra therapeutic level. No chest pain or shortness of breath. No abdominal pain. She is eating well. Objective Vitals Vital Signs Date Time Temp Pulse Resp B/P (MAP) Pulse Ox O2 Delivery O2 Flow Rate FiO2 12/25/16 06:51 97.6 78 16 170/74 (106) 97 12/24/16 17:40 98.0 76 20 123/56 (78) 96 12/24/16 17:38 98.0 76 20 123/56 (78) 96 I/O 12/24/16 12/24/16 12/24/16 12/25/16 12/25/16 12/25/16 07:00 15:00 23:00 07:00 15:00 23:00 Intake Total 240 ml 480 ml 240 ml Balance 240 ml 480 ml 240 ml Intake Oral 240 ml 480 ml 240 ml # Voids 3 2 # Bowel Movements 0 Result Diagram: 12/22/16 0938 12/22/16 0938 Imaging Last Impressions Abdomen X-Ray 12/19/16 0000 Signed Impressions: Service Date/Time: Monday, December 19, 2016 20:31 - CONCLUSION: 1. Nonspecific bowel gas pattern. Mild scoliosis. Jon Robles MD Head CT 12/09/16 1253 Signed Impressions: Service Date/Time: Friday, December 09, 2016 14:06 - CONCLUSION: 1. No evidence of acute intracranial pathology. Chronic ischemic changes as above. Saturnino Alcala MD Chest X-Ray 12/09/16 1253 Signed Impressions: Service Date/Time: Friday, December 09, 2016 13:09 - CONCLUSION: Normal examination for a patient of this age. Juan Mart MD Abdomen/Pelvis CT 12/09/16 0000 Signed Impressions: Service Date/Time: Friday, December 09, 2016 14:11 - CONCLUSION: Subacute right 10th posterior lateral rib fracture with minimal associated pleural thickening. No pneumothorax or pulmonary infiltrate. Intra-abdominal contents are negative for acute abnormality. Aortic endovascular stent in place extending into the iliac arteries. Uncomplicated diverticulitis of the sigmoid colon. Juan Mart MD Objective Remarks GENERAL: Elderly female, in nad. CARDIOVASCULAR: Regular rate and rhythm without murmurs, gallops, or rubs. RESPIRATORY: Breath sounds equal bilaterally. No accessory muscle use. GASTROINTESTINAL: Abdomen soft, non-tender, nondistended. MUSCULOSKELETAL: No cyanosis, or edema. BACK: Nontender without obvious deformity. No CVA tenderness. Procedures None. A/P Assessment and Plan Ms. Amado is an 81 year old female with a history of seizure activity, HTN, hypothyroidism who was brought to the hospital from a snf due to combative behavior. Hospitalist service was consulted for medical management. Dementia with psychosis - management per Psychiatry team. Seizure activity - No seizure activity reported. Keppra level elevated . dose of Keppra 1000 mg BID was decreased to 1000mg in am and 500mg at night. - Keppra level improving. Will continue to monitor and decrease further keppra level if necessarily Hypertension Hyperlipidemia - BP better, continue lisinorpil 10 mg daily. - Continue Lipitor 40mg QHS. - Goal BP < 150/90. Mild MEAGAN - creatinine 1.18 --> 1.27 --> 1.10. - likely due to poor oral intake - improving - avoid nephrotoxic agents Hypothyroidism - TSH high at 17.900 - Increase dose of levothyroxine to 112 mcg Qday. - Free t4 normal - repeat tsh in 4 to 6 weeks. Reflux, dyspesia Abdominal pain - UA unremarkable - continue Pantoprazole 20mg - BM x 2 12/10 - Miralax and stool softener daily - Monitor BM - KUB with gas pattern. Start simethicone. Vitamin D insufficiency - Continue vitamin D supplementation 1000 mg daily - Recheck vitamin D levels in 3 months, an outpatient Betty Camp MD Dec 25, 2016 16:28
[2016-12-25 18:12] VITALS: BP 138/60; PULSE 71; RESP 17; TEMP 98; O2SAT 98
[2016-12-25] MEDS ORDERED: levETIRAcetam 500 MG TAB PO SCH (21:00)
[2016-12-25] MEDS: ATORVASTATIN 40 MG TAB PO SCH (21:28)
[2016-12-26 05:40] VITALS: BP 133/62; PULSE 67; RESP 18; TEMP 97.7
[2016-12-26] MEDS: LEVOTHYROXINE SODIUM 112 MCG TAB PO SCH (06:29)
[2016-12-26] MEDS: CITALOPRAM HYDROBROMIDE 20 MG TAB PO SCH (09:00)
[2016-12-26] MEDS: levETIRAcetam 500 MG TAB PO SCH ×2 (09:00→20:58)
[2016-12-26] MEDS: CHOLECALCIFEROL (VIT D3) 1000 UNIT TAB PO SCH (09:00)
[2016-12-26] MEDS: LISINOPRIL 10 MG TAB PO SCH (09:00)
[2016-12-26] MEDS: DOCUSATE SODIUM 100 MG CAP PO SCH ×2 (09:00→20:58)
[2016-12-26] MEDS: PANTOPRAZOLE SOD 20 MG DELAYED RELEASE TAB PO SCH (09:00)
[2016-12-26] MEDS: POLYETHYLENE GLYCOL 17 GM PKG PO SCH (09:00)
--- NOTE | 2016-12-26 11:45 | HHI.PYPN ---
Subjective Remarks Patient seen in day room with nurse Geovanny, chart review, patient compliant medications. Patient continues diffusely confused disoriented but pleasant with me. At this time showing no significant behavioral problems Review of Systems Except as stated in HPI: all other systems reviewed are Neg Objective Alert: Yes [place]: Person Mood: Other (somewhat restless) Affect: Blunted Memory Intact: Comment (not formally assessed) Hallucinations: Other (no AVH) Delusions: No Delusion Type: Other (no delusions) Suicidal: Ideation (no SI) Homicidal: Ideation (no HI) Insight/Judgment Very poor Vitals/IOs Vital Signs Date Time Temp Pulse Resp B/P (MAP) Pulse Ox O2 Delivery O2 Flow Rate FiO2 12/26/16 05:40 97.7 67 18 133/62 (85) 12/25/16 18:12 98 Assessment & Plan Problem List: (1) Dementia of Alzheimer's type with behavioral disturbance ICD Codes: G30.8 - Other Alzheimer's disease; F02.81 - Dementia in other diseases classified elsewhere with behavioral disturbance (2) DEMENTIA IN OTH DISEASES CLASSD ELSWHR W BEHAVIORAL DISTURB ICD Codes: F02.81 - DEMENTIA IN OTH DISEASES CLASSD ELSWHR W BEHAVIORAL DISTURB Assessment & Plan Estimated LOS: days patient continues demented confused though pleasant with me. At this time no behavioral problems, compliant meds Justification for Cont. Inpt. This time patient will decompensate the place to the lower level of care Discharge Planning To be determined Request HC Surrog/Guard Advoc?: Yes Sunny Hernandez MD Dec 26, 2016 11:45
[2016-12-26] MEDS: HALOPERIDOL LACTATE ORAL CONC 10 MG/5 ML CUP PO SCH ×2 (13:46→20:58)
--- NOTE | 2016-12-26 14:51 | HHI.PR ---
Subjective Remarks She is in bed, says she is not eating much and did have a BM yesterday. She is noted agitated and aggressive at times per nurse. She has no seizures. No fever or chills. No pain at this time. Objective Vitals Vital Signs Date Time Temp Pulse Resp B/P (MAP) Pulse Ox O2 Delivery O2 Flow Rate FiO2 12/26/16 05:40 97.7 67 18 133/62 (85) 12/25/16 18:12 98.0 71 17 138/60 (86) 98 I/O 12/25/16 12/25/16 12/25/16 12/26/16 12/26/16 12/26/16 07:00 15:00 23:00 07:00 15:00 23:00 Intake Total 240 ml 0 ml Balance 240 ml 0 ml Intake Oral 240 ml 0 ml # Voids 2 1 Result Diagram: 12/22/1693712/22/16937 Objective Remarks GENERAL: Elderly female, in nad. CARDIOVASCULAR: Regular rate and rhythm without murmurs, gallops, or rubs. RESPIRATORY: Breath sounds equal bilaterally. No accessory muscle use. GASTROINTESTINAL: Abdomen soft, non-tender, nondistended. MUSCULOSKELETAL: No cyanosis, or edema. BACK: Nontender without obvious deformity. No CVA tenderness. Procedures None. A/P Assessment and Plan Ms. Amado is an 81 year old female with a history of seizure activity, HTN, hypothyroidism who was brought to the hospital from a fpc due to combative behavior. Hospitalist service was consulted for medical management. Dementia with psychosis - management per Psychiatry team. Seizure activity - No seizure activity reported. Keppra level elevated . dose of Keppra 1000 mg BID was decreased to 1000mg in am and 500mg at night. - Keppra level back to normal. Will monitor Hypertension Hyperlipidemia - BP better, continue lisinorpil 10 mg daily. - Continue Lipitor 40mg QHS. - Goal BP < 150/90. Mild MEAGAN - creatinine 1.18 --> 1.27 --> 1.10. - likely due to poor oral intake - improving - avoid nephrotoxic agents Hypothyroidism - TSH high at 17.900 - Increase dose of levothyroxine to 112 mcg Qday. - Free t4 normal - repeat tsh in 4 to 6 weeks. Reflux, dyspesia Abdominal pain - UA unremarkable - continue Pantoprazole 20mg - BM x 2 12/10 - Miralax and stool softener daily - Monitor BM - KUB with gas pattern. Start simethicone. Vitamin D insufficiency - Continue vitamin D supplementation 1000 mg daily - Recheck vitamin D levels in 3 months, an outpatient Discussed with the patient, nurse. Betty Camp MD Dec 26, 2016 14:51
[2016-12-26 17:12] VITALS: BP 106/58; PULSE 68; RESP 18; TEMP 98
[2016-12-26 17:55] LABS: BLOOD, URINE NEG (NEG); COMMENT (UR) CULT NOT INDICATED; CULTURE IF INDICATED CULT NOT INDICATED; GLUCOSE,URINE NEG (NEG); KETONE, URINE NEG (NEG); NITRITE,URINE NEG (NEG); SQUAMOUS EPITHELIAL CELL URINE <1 /hpf (0-5); URINE COLOR YELLOW (YELLW/STRAW)
[2016-12-26] MEDS: ATORVASTATIN 40 MG TAB PO SCH (20:58)
[2016-12-26] MEDS: diphenhydrAMINE HCL 50 MG CAP PO PRN (20:58)
[2016-12-27] MEDS: LEVOTHYROXINE SODIUM 112 MCG TAB PO SCH (05:56)
[2016-12-27 06:23] VITALS: BP 147/67; PULSE 84; RESP 16; TEMP 98.1; O2SAT 96
--- NOTE | 2016-12-27 08:32 | HHI.PR ---
Subjective Remarks In the chair going to eat breakfast. No abdominal pain . No n/v/d/c. Denies any fever or chills. Says she did not have any seizures. She is pleasant and calm at this time. Objective Vitals Vital Signs Date Time Temp Pulse Resp B/P (MAP) Pulse Ox O2 Delivery O2 Flow Rate FiO2 12/27/16 06:23 98.1 84 16 147/67 (93) 96 12/26/16 17:12 98.0 68 18 106/58 (74) I/O 12/26/16 12/26/16 12/26/16 12/27/16 12/27/16 12/27/16 07:00 15:00 23:00 07:00 15:00 23:00 Intake Total 720 ml 240 ml Output Total 2 ml Balance 718 ml 240 ml Intake Oral 720 ml 240 ml Output Urine Total 2 ml # Voids 1 1 2 # Bowel Movements 1 Imaging Last Impressions Abdomen X-Ray 12/19/16 0000 Signed Impressions: Service Date/Time: Monday, December 19, 2016 20:31 - CONCLUSION: 1. Nonspecific bowel gas pattern. Mild scoliosis. Jon Robles MD Head CT 12/09/16 1253 Signed Impressions: Service Date/Time: Friday, December 09, 2016 14:06 - CONCLUSION: 1. No evidence of acute intracranial pathology. Chronic ischemic changes as above. Saturnino Alcala MD Chest X-Ray 12/09/16 1253 Signed Impressions: Service Date/Time: Friday, December 09, 2016 13:09 - CONCLUSION: Normal examination for a patient of this age. Juan Mart MD Abdomen/Pelvis CT 12/09/16 0000 Signed Impressions: Service Date/Time: Friday, December 09, 2016 14:11 - CONCLUSION: Subacute right 10th posterior lateral rib fracture with minimal associated pleural thickening. No pneumothorax or pulmonary infiltrate. Intra-abdominal contents are negative for acute abnormality. Aortic endovascular stent in place extending into the iliac arteries. Uncomplicated diverticulitis of the sigmoid colon. Juan Mart MD Objective Remarks GENERAL: Elderly female, in nad. CARDIOVASCULAR: Regular rate and rhythm without murmurs, gallops, or rubs. RESPIRATORY: Breath sounds equal bilaterally. No accessory muscle use. GASTROINTESTINAL: Abdomen soft, non-tender, nondistended. MUSCULOSKELETAL: No cyanosis, or edema. BACK: Nontender without obvious deformity. No CVA tenderness. Procedures None. A/P Assessment and Plan Ms. Amado is an 81 year old female with a history of seizure activity, HTN, hypothyroidism who was brought to the hospital from a fpc due to combative behavior. Hospitalist service was consulted for medical management. Dementia with psychosis - management per Psychiatry team. Seizure activity - No seizure activity reported. Keppra level elevated . dose of Keppra 1000 mg BID was decreased to 1000mg in am and 500mg at night. - Keppra level back to normal. Will monitor Hypertension Hyperlipidemia - BP better, continue lisinorpil 10 mg daily. - Continue Lipitor 40mg QHS. - Goal BP < 150/90. Mild MEAGAN - creatinine 1.18 --> 1.27 --> 1.10. - likely due to poor oral intake - improving - avoid nephrotoxic agents Hypothyroidism - TSH high at 17.900 - Increase dose of levothyroxine to 112 mcg Qday. - Free t4 normal - repeat tsh in 4 to 6 weeks. Reflux, dyspesia Abdominal pain - UA unremarkable - continue Pantoprazole 20mg - BM x 2 12/10 - Miralax and stool softener daily - Monitor BM - KUB with gas pattern. Start simethicone. Vitamin D insufficiency - Continue vitamin D supplementation 1000 mg daily - Recheck vitamin D levels in 3 months, an outpatient Discussed with the patient, nurse. Betty Camp MD Dec 27, 2016 08:32
[2016-12-27] MEDS: DOCUSATE SODIUM 100 MG CAP PO SCH ×2 (09:00→21:00)
[2016-12-27] MEDS: POLYETHYLENE GLYCOL 17 GM PKG PO SCH (09:00)
[2016-12-27] MEDS: levETIRAcetam 500 MG TAB PO SCH ×2 (09:00→22:48)
[2016-12-27] MEDS: CHOLECALCIFEROL (VIT D3) 1000 UNIT TAB PO SCH (09:00)
[2016-12-27] MEDS: LISINOPRIL 10 MG TAB PO SCH (09:00)
[2016-12-27] MEDS: PANTOPRAZOLE SOD 20 MG DELAYED RELEASE TAB PO SCH (09:00)
[2016-12-27] MEDS: CITALOPRAM HYDROBROMIDE 20 MG TAB PO SCH (09:00)
[2016-12-27] MEDS: ACETAMINOPHEN 325 MG TAB PO PRN ×2 (13:41→17:42)
[2016-12-27] MEDS: HALOPERIDOL LACTATE ORAL CONC 10 MG/5 ML CUP PO SCH ×2 (13:41→21:00)
--- NOTE | 2016-12-27 14:33 | HHI.PYPN ---
Subjective Remarks Patient was seen and case discussed with nursing. Patient is hard of hearing limiting the interview. She is alert and oriented 1. Mood today is "bad." She is concerned about a toothache and received pain medication from nursing. She denies suicidal or homicidal ideation intent or plan. No delusions were elicited Objective Alert: Yes [place]: Person Mood: Calm Affect: Restricted Memory Intact: Comment (not formally assessed) Hallucinations: Other (no AVH) Delusions: No Delusion Type: Other (no delusions) Suicidal: Ideation (no SI) Homicidal: Ideation (no HI) Insight/Judgment Poor Labs Test 12/26/16 16:50 Urine Color YELLOW Urine Turbidity CLEAR Urine pH 5.0 Urine Specific [place] 1.019 Urine Protein NEG mg/dL Urine Glucose (UA) NEG mg/dL Urine Ketones NEG mg/dL Urine Occult Blood NEG Urine Nitrite NEG Urine Bilirubin NEG Urine Urobilinogen LESS THAN 2.0 MG/DL Urine Leukocyte Esterase MOD Urine WBC 4 /hpf Urine Squamous Epithelial Cells <1 /hpf Microscopic Urinalysis Comment CULT NOT INDICATED Vitals/IOs Vital Signs Date Time Temp Pulse Resp B/P (MAP) Pulse Ox O2 Delivery O2 Flow Rate FiO2 12/27/16 06:23 98.1 84 16 147/67 (93) 96 Intake and Output 12/27/16 12/27/16 12/28/16 08:00 16:00 00:00 Intake Total 240 ml Balance 240 ml Assessment & Plan Problem List: (1) Dementia of Alzheimer's type with behavioral disturbance ICD Codes: G30.8 - Other Alzheimer's disease; F02.81 - Dementia in other diseases classified elsewhere with behavioral disturbance (2) DEMENTIA IN OTH DISEASES CLASSD ELSWHR W BEHAVIORAL DISTURB ICD Codes: F02.81 - DEMENTIA IN OTH DISEASES CLASSD ELSWHR W BEHAVIORAL DISTURB Assessment & Plan Continue current treatment plan Justification for Cont. Inpt. Patient would decompensate in a less restrictive setting Request HC Surrog/Guard Advoc?: Yes Kingston Polo DO Dec 27, 2016 14:33
[2016-12-27 18:28] VITALS: BP 123/60; PULSE 67; RESP 17; TEMP 97.7; O2SAT 99
[2016-12-27] MEDS: ATORVASTATIN 40 MG TAB PO SCH (22:48)
[2016-12-28] MEDS: ACETAMINOPHEN 325 MG TAB PO PRN (05:15)
[2016-12-28 05:34] VITALS: BP 126/70; PULSE 72; RESP 18; TEMP 97.9; O2SAT 93
[2016-12-28] MEDS: LEVOTHYROXINE SODIUM 112 MCG TAB PO SCH (06:18)
--- NOTE | 2016-12-28 07:15 | HHI.PR ---
Subjective Remarks In bed, appears sleepy. Says she has no seizures. Says she is not hungry, no abd pain . No n/v/d/c. Objective Vitals Vital Signs Date Time Temp Pulse Resp B/P (MAP) Pulse Ox O2 Delivery O2 Flow Rate FiO2 12/28/16 06:15 20 12/28/16 05:34 97.9 72 18 126/70 (88) 93 12/27/16 18:28 97.7 67 17 123/60 (81) 99 I/O 12/27/16 12/27/16 12/27/16 12/28/16 12/28/16 12/28/16 07:00 15:00 23:00 07:00 15:00 23:00 Intake Total 240 ml 240 ml Balance 240 ml 240 ml Intake Oral 240 ml 240 ml # Voids 2 Objective Remarks GENERAL: Elderly female, in nad. CARDIOVASCULAR: Regular rate and rhythm without murmurs, gallops, or rubs. RESPIRATORY: Breath sounds equal bilaterally. No accessory muscle use. GASTROINTESTINAL: Abdomen soft, non-tender, nondistended. MUSCULOSKELETAL: No cyanosis, or edema. BACK: Nontender without obvious deformity. No CVA tenderness. Procedures None. A/P Assessment and Plan Ms. Amado is an 81 year old female with a history of seizure activity, HTN, hypothyroidism who was brought [facility] the hospital from a [facility] due to combative behavior. Hospitalist service was consulted for medical management. Dementia with psychosis - management per Psychiatry team. Seizure activity - No seizure activity reported. Keppra level elevated . dose of Keppra 1000 mg BID was decreased to 1000mg in am and 500mg at night. - Keppra level back to normal. Will monitor Hypertension Hyperlipidemia - BP better, continue lisinorpil 10 mg daily. - Continue Lipitor 40mg QHS. - Goal BP < 150/90. Mild MEAGAN - creatinine 1.18 --> 1.27 --> 1.10. - likely due to poor oral intake - improving - avoid nephrotoxic agents Hypothyroidism - TSH high at 17.900 - Increase dose of levothyroxine to 112 mcg Qday. - Free t4 normal - repeat tsh in 4 to 6 weeks. Reflux, dyspesia Abdominal pain - UA unremarkable - continue Pantoprazole 20mg - BM x 2 12/10 - Miralax and stool softener daily - Monitor BM - KUB with gas pattern. Start simethicone. Vitamin D insufficiency - Continue vitamin D supplementation 1000 mg daily - Recheck vitamin D levels in 3 months, an outpatient Discussed with the patient, nurse. Betty Camp MD Dec 28, 2016 07:15
[2016-12-28] MEDS: DOCUSATE SODIUM 100 MG CAP PO SCH ×2 (09:00→21:35)
[2016-12-28] MEDS: POLYETHYLENE GLYCOL 17 GM PKG PO SCH (09:00)
[2016-12-28] MEDS: levETIRAcetam 500 MG TAB PO SCH ×2 (09:27→21:35)
[2016-12-28] MEDS: CITALOPRAM HYDROBROMIDE 20 MG TAB PO SCH (09:27)
[2016-12-28] MEDS: LISINOPRIL 10 MG TAB PO SCH (09:27)
[2016-12-28] MEDS: CHOLECALCIFEROL (VIT D3) 1000 UNIT TAB PO SCH (09:28)
[2016-12-28] MEDS: PANTOPRAZOLE SOD 20 MG DELAYED RELEASE TAB PO SCH (09:28)
[2016-12-28] MEDS: HALOPERIDOL LACTATE ORAL CONC 10 MG/5 ML CUP PO SCH ×2 (14:12→21:36)
--- NOTE | 2016-12-28 14:13 | HHI.PYPN ---
Subjective Remarks Patient was seen and case discussed with nursing. Patient is hard of hearing limiting to interview. She is less agitated today. Toothache has improved. Alert and oriented 1. She thinks that she is paranoid and nursing has observed her looking around the room. Compliant with medications, no outbursts Objective Alert: Yes [place]: Person Mood: Calm Affect: Blunted Memory Intact: Comment (not formally assessed) Hallucinations: Other (no AVH) Delusions: No Delusion Type: Other (no delusions) Suicidal: Ideation (no SI) Homicidal: Ideation (no HI) Insight/Judgment Poor Vitals/IOs Vital Signs Date Time Temp Pulse Resp B/P (MAP) Pulse Ox O2 Delivery O2 Flow Rate FiO2 12/28/16 06:15 20 12/28/16 05:34 97.9 72 126/70 (88) 93 Intake and Output 12/28/16 12/28/16 12/29/16 08:00 16:00 00:00 Intake Total 0 ml Balance 0 ml Assessment & Plan Problem List: (1) Dementia of Alzheimer's type with behavioral disturbance ICD Codes: G30.8 - Other Alzheimer's disease; F02.81 - Dementia in other diseases classified elsewhere with behavioral disturbance (2) DEMENTIA IN OTH DISEASES CLASSD ELSWHR W BEHAVIORAL DISTURB ICD Codes: F02.81 - DEMENTIA IN OTH DISEASES CLASSD ELSWHR W BEHAVIORAL DISTURB Assessment & Plan Continue current treatment plan Justification for Cont. Inpt. Patient will decompensate in a less restrictive setting Request HC Surrog/Guard Advoc?: Yes Kingston Polo DO Dec 28, 2016 14:13
[2016-12-28 17:55] VITALS: BP 160/77; PULSE 72; RESP 16; O2SAT 96
--- NOTE | 2016-12-28 18:34 | RADRPT ---
EXAM DATE/TIME: 12/28/2016 18:23 [facility] COMPARISON: CT BRAIN W/O CONTRAST, December 09, 2016, 14:06. INDICATIONS : Trauma; fall. RADIATION DOSE: 47.94 CTDIvol (mGy) MEDICAL HISTORY : Hypertension. SURGICAL HISTORY : None. ENCOUNTER: Initial ACUITY: 1 day PAIN SCALE: Non-responsive LOCATION: cranial TECHNIQUE: Multiple contiguous axial images were obtained of the head. Using automated exposure control and adj ustment of the mA and/or kV according to patient size, radiation dose was kept as low as reasonably a chievable to obtain optimal diagnostic quality images. DICOM format image data is available electro nically for review and comparison. FINDINGS: CEREBRUM: The ventricles are normal for age. No evidence of midline shift, mass lesion, hemorrhage or acute in farction. No extra-axial fluid collections are seen. Chronic, symmetrical low attenuation again seen in the periventricular white matter. POSTERIOR FOSSA: The cerebellum and brainstem are intact. The 4th ventricle is midline. The cerebellopontine angle i s unremarkable. EXTRACRANIAL: The visualized portion of the orbits is intact. SKULL: The calvaria is intact. No evidence of skull fracture. CONCLUSION: No bleed or other acute intracranial abnormality. Chronic white matter changes are again noted. Sunny Garcia MD on December 28, 2016 at 18:31 Board Certified Radiologist. This report was verified electronically.
[2016-12-28 18:55] VITALS: BP 135/62; PULSE 70; RESP 17; TEMP 98.7; O2SAT 99
[2016-12-28 19:54] VITALS: BP 129/58; PULSE 63; RESP 20; TEMP 97.7; O2SAT 95
[2016-12-28] MEDS: ATORVASTATIN 40 MG TAB PO SCH (21:34)
[2016-12-28] MEDS: diphenhydrAMINE HCL 50 MG CAP PO PRN (23:33)
[2016-12-28 23:48] VITALS: BP 136/63; PULSE 64; RESP 17; TEMP 98; O2SAT 94
[2016-12-29] VITALS (9 sets, daily range): BP systolic 102–148; BP diastolic 62–96; PULSE 61–79; RESP 16–18; TEMP 97.4–98.3; O2SAT 95–98
[2016-12-29] MEDS: LEVOTHYROXINE SODIUM 112 MCG TAB PO SCH (05:08)
[2016-12-29] MEDS: POLYETHYLENE GLYCOL 17 GM PKG PO SCH (09:46)
[2016-12-29] MEDS: PANTOPRAZOLE SOD 20 MG DELAYED RELEASE TAB PO SCH (09:47)
[2016-12-29] MEDS: LISINOPRIL 10 MG TAB PO SCH (09:47)
[2016-12-29] MEDS: CITALOPRAM HYDROBROMIDE 20 MG TAB PO SCH (09:48)
[2016-12-29] MEDS: CHOLECALCIFEROL (VIT D3) 1000 UNIT TAB PO SCH (09:48)
[2016-12-29] MEDS: DOCUSATE SODIUM 100 MG CAP PO SCH ×2 (09:48→22:14)
[2016-12-29] MEDS: levETIRAcetam 500 MG TAB PO SCH ×2 (09:48→22:14)
[2016-12-29] MEDS: ACETAMINOPHEN 325 MG TAB PO PRN (09:50)
--- NOTE | 2016-12-29 12:13 | HHI.PR ---
Subjective Remarks In the chair. Says she has no seizures. She is pleasant. No abdominal pain. No n /v/d/c. Objective Vitals Vital Signs Date Time Temp Pulse Resp B/P (MAP) Pulse Ox O2 Delivery O2 Flow Rate FiO2 12/29/16 04:00 98.3 70 18 131/69 (89) 96 12/28/16 23:48 98.0 64 17 136/63 (87) 94 12/28/16 19:54 97.7 63 20 129/58 (81) 95 12/28/16 18:55 98.7 70 17 135/62 (86) 99 12/28/16 17:55 72 16 160/77 (104) 96 I/O 12/28/16 12/28/16 12/28/16 12/29/16 12/29/16 12/29/16 06:59 14:59 22:59 06:59 14:59 22:59 Intake Total 0 ml 150 ml 120 ml 120 ml Balance 0 ml 150 ml 120 ml 120 ml Intake Oral 0 ml 150 ml 120 ml 120 ml # Voids 2 Objective Remarks GENERAL: Elderly female, in nad. CARDIOVASCULAR: Regular rate and rhythm without murmurs, gallops, or rubs. RESPIRATORY: Breath sounds equal bilaterally. No accessory muscle use. GASTROINTESTINAL: Abdomen soft, non-tender, nondistended. MUSCULOSKELETAL: No cyanosis, or edema. BACK: Nontender without obvious deformity. No CVA tenderness. Procedures None. A/P Assessment and Plan Ms. Amado is an 81 year old female with a history of seizure activity, HTN, hypothyroidism who was brought to the hospital from a longterm due to combative behavior. Hospitalist service was consulted for medical management. Dementia with psychosis - management per Psychiatry team. Seizure activity - No seizure activity reported. Keppra level elevated . dose of Keppra 1000 mg BID was decreased to 1000mg in am and 500mg at night. - Keppra level back to normal. Will monitor Hypertension Hyperlipidemia - BP better, continue lisinorpil 10 mg daily. - Continue Lipitor 40mg QHS. - Goal BP < 150/90. Mild MEAGAN - creatinine 1.18 --> 1.27 --> 1.10. - likely due to poor oral intake - improving - avoid nephrotoxic agents Hypothyroidism - TSH high at 17.900 - Increase dose of levothyroxine to 112 mcg Qday. - Free t4 normal - repeat tsh in 4 to 6 weeks. Reflux, dyspesia Abdominal pain - UA unremarkable - continue Pantoprazole 20mg - BM x 2 12/10 - Miralax and stool softener daily - Monitor BM - KUB with gas pattern. Start simethicone. Vitamin D insufficiency - Continue vitamin D supplementation 1000 mg daily - Recheck vitamin D levels in 3 months, an outpatient Discussed with the patient, nurse. Betty Camp MD Dec 29, 2016 12:06
--- NOTE | 2016-12-29 12:27 | HHI.PYPN ---
Subjective Remarks Patient was seen and case discussed with nursing. Patient had a fall yesterday afternoon which was witnessed by another patient. She may have hit her head but this other patient is not reliable. On-call doctor ordered a CAT scan which was negative. Today, patient is not complaining of any pain. There is no acute change in mental status. Patient remains grossly confused, hard of hearing. Alert and oriented 1. No auditory visual hallucinations. She denies suicidal or homicidal ideation intent or plan. Patient says she felt dizzy yesterday before fall and says that when she suddenly gets up from bed she feels dizzy. Orthostatic vital signs were done and were 135/68 with a heart rate of 63 in the supine position and 102/96 and a heart rate of 62 after standing up. Objective Alert: Yes [place]: Person Mood: Calm Affect: Appropriate Memory Intact: Comment (not formally assessed) Hallucinations: Other (no AVH) Delusions: No Delusion Type: Other (no delusions) Suicidal: Ideation (no SI) Homicidal: Ideation (no HI) Insight/Judgment Poor Vitals/IOs Vital Signs Date Time Temp Pulse Resp B/P (MAP) Pulse Ox O2 Delivery O2 Flow Rate FiO2 12/29/16 04:00 98.3 70 18 131/69 (89) 96 Intake and Output 12/29/16 12/29/16 12/30/16 08:00 16:00 00:00 Intake Total 120 ml 120 ml Balance 120 ml 120 ml Assessment & Plan Problem List: (1) Dementia of Alzheimer's type with behavioral disturbance ICD Codes: G30.8 - Other Alzheimer's disease; F02.81 - Dementia in other diseases classified elsewhere with behavioral disturbance (2) DEMENTIA IN OTH DISEASES CLASSD ELSWHR W BEHAVIORAL DISTURB ICD Codes: F02.81 - DEMENTIA IN OTH DISEASES CLASSD ELSWHR W BEHAVIORAL DISTURB Assessment & Plan We will consult medicine to address orthostatic hypotension. And order labwork Justification for Cont. Inpt. Patient would decompensate in a less restrictive setting Request HC Surrog/Guard Advoc?: Yes Kingston Polo DO Dec 29, 2016 12:27
[2016-12-29] MEDS: HALOPERIDOL LACTATE ORAL CONC 10 MG/5 ML CUP PO SCH ×2 (14:12→22:39)
[2016-12-29 15:22] LABS: ALT (GPT) 24 U/L (10-53); ANION GAP 6 MEQ/L (5-15); AST (GOT) 18 U/L (15-37); BICARBONATE 27.1 MEQ/L (21.0-32.0); BLOOD UREA NITROGEN 20 MG/DL (7-18); CHLORIDE 103 MEQ/L (98-107); GLOMERULAR FILTRATION RATE 50 ML/MIN (>89); POTASSIUM 4.3 MEQ/L (3.5-5.1); SODIUM (NA) 136 MEQ/L (136-145)
[2016-12-29 15:24] LABS: ALKALINE PHOSPHATASE 84 U/L (45-117); TOTAL BILIRUBIN ADULT 0.2 MG/DL (0.2-1.0)
[2016-12-29] MEDS: ATORVASTATIN 40 MG TAB PO SCH (22:14)
--- NOTE | 2016-12-29 22:45 | RADRPT ---
EXAM DATE/TIME: 12/29/2016 22:25 [facility] COMPARISON: CT BRAIN W/O CONTRAST, December 28, 2016, 18:23. INDICATIONS : Trauma, patient fell hit head. RADIATION DOSE: 32.41 CTDIvol (mGy) MEDICAL HISTORY : None SURGICAL HISTORY : None. ENCOUNTER: Initial ACUITY: 1 day PAIN SCALE: 5/10 LOCATION: Cranial TECHNIQUE: Multiple contiguous axial images were obtained of the head. Using automated exposure control and adj ustment of the mA and/or kV according to patient size, radiation dose was kept as low as reasonably a chievable to obtain optimal diagnostic quality images. DICOM format image data is available electro nically for review and comparison. FINDINGS: Moderate periventricular and subcortical white matter small vessel ischemic changes are again noted. Diffuse cerebral atrophy is stable. There is no acute infarct, acute hemorrhage, midline shift or ex tra-axial bleed. The bone windows are unremarkable. CONCLUSION: 1. Moderate periventricular and subcortical white matter small vessel ischemic changes bilaterally. 2. Stable diffuse cerebral atrophy. 3. No acute infarct, acute hemorrhage, mass effect, midline shift or extra-axial bleed. Yoel Lemon MD on December 29, 2016 at 22:34 Board Certified Radiologist. This report was verified electronically.
[2016-12-30] VITALS (7 sets, daily range): BP systolic 128–158; BP diastolic 61–88; PULSE 68–98; RESP 16–18; TEMP 97.4–98.4; O2SAT 95–99
[2016-12-30] MEDS: ACETAMINOPHEN 325 MG TAB PO PRN (01:25)
[2016-12-30] MEDS: diphenhydrAMINE HCL 50 MG CAP PO PRN (01:25)
[2016-12-30] MEDS ORDERED: diphenhydrAMINE HCL 50 MG/ML VIAL IM STA (04:57)
[2016-12-30] MEDS ORDERED: HALOPERIDOL LACTATE 5 MG/ML AMP IM STA (04:57)
[2016-12-30] MEDS: LEVOTHYROXINE SODIUM 112 MCG TAB PO SCH (06:12)
--- NOTE | 2016-12-30 08:10 | HHI.PR ---
Subjective Remarks In the chair eating breakfast. The patient is noted with hallucinations, however able to eat, moving legs and arms, doesn't appear in distress. She doesn 't follow commands, doesn't answer to questions. Patient doesn't recall falling, fall was witness by another patient and history is not reliable. CT head reviewed and negative. Patient appears at baseline no new motor deficit. Noted with orthostatic hypotension, will decrease amlodipine. Will consult PT/ OT. monitor BP Objective Vitals Vital Signs Date Time Temp Pulse Resp B/P (MAP) Pulse Ox O2 Delivery O2 Flow Rate FiO2 12/30/16 06:05 97.4 68 17 145/67 (93) 95 12/30/16 04:00 97.6 17 128/61 (83) 96 12/29/16 23:00 97.9 61 17 143/71 (95) 95 12/29/16 23:00 97.9 61 17 143/71 (95) 95 12/29/16 21:46 75 18 148/67 (94) 98 12/29/16 21:30 98 21 12/29/16 17:00 98.3 79 18 118/62 (80) 98 12/29/16 14:58 62 102/96 (98) 12/29/16 14:57 63 135/68 (90) I/O 12/29/16 12/29/16 12/29/16 12/30/16 12/30/16 12/30/16 07:00 15:00 23:00 07:00 15:00 23:00 Intake Total 120 ml 240 ml 0 ml 30 ml Balance 120 ml 240 ml 0 ml 30 ml Intake Oral 120 ml 240 ml 0 ml 30 ml # Voids 2 1 Result Diagram: 12/29/16 1454 Imaging Last Impressions Head CT 12/29/16 0000 Signed Impressions: Service Date/Time: Thursday, December 29, 2016 22:25 - CONCLUSION: 1. Moderate periventricular and subcortical white matter small vessel ischemic changes bilaterally. 2. Stable diffuse cerebral atrophy. 3. No acute infarct, acute hemorrhage, mass effect, midline shift or extra-axial bleed. Yoel Lemon MD Abdomen X-Ray 12/19/16 0000 Signed Impressions: Service Date/Time: Monday, December 19, 2016 20:31 - CONCLUSION: 1. Nonspecific bowel gas pattern. Mild scoliosis. Jon Robles MD Chest X-Ray 12/09/16 1253 Signed Impressions: Service Date/Time: Friday, December 09, 2016 13:09 - CONCLUSION: Normal examination for a patient of this age. Juan Mart MD Abdomen/Pelvis CT 12/09/16 0000 Signed Impressions: Service Date/Time: Friday, December 09, 2016 14:11 - CONCLUSION: Subacute right 10th posterior lateral rib fracture with minimal associated pleural thickening. No pneumothorax or pulmonary infiltrate. Intra-abdominal contents are negative for acute abnormality. Aortic endovascular stent in place extending into the iliac arteries. Uncomplicated diverticulitis of the sigmoid colon. Juan Mart MD Objective Remarks GENERAL: Elderly female, in nad. CARDIOVASCULAR: Regular rate and rhythm without murmurs, gallops, or rubs. RESPIRATORY: Breath sounds equal bilaterally. No accessory muscle use. GASTROINTESTINAL: Abdomen soft, non-tender, nondistended. MUSCULOSKELETAL: No cyanosis, or edema. BACK: Nontender without obvious deformity. No CVA tenderness. Procedures None. A/P Assessment and Plan Ms. Amado is an 81 year old female with a history of seizure activity, HTN, hypothyroidism who was brought to the hospital from a long-term due to combative behavior. Hospitalist service was consulted for medical management. Dementia with psychosis - management per Psychiatry team. Seizure activity - No seizure activity reported. Keppra level elevated . dose of Keppra 1000 mg BID was decreased to 1000mg in am and 500mg at night. - Keppra level back to normal. Will monitor S/P poss fall? on 12/28 Patient doesn't recall falling, fall was witness by another patient and history is not reliable. CT head reviewed and negative. Patient appears at baseline no new motor deficit. Orthostatic hypotension: Noted with orthostatic hypotension, will decrease amlodipine. Will consult PT/OT. Monitor BP Hypertension Hyperlipidemia - BP better, continue lisinorpil 10 mg daily. - Continue Lipitor 40mg QHS. - Goal BP < 150/90. Mild MEAGAN - creatinine 1.18 --> 1.27 --> 1.10. - likely due to poor oral intake - improving - avoid nephrotoxic agents Hypothyroidism - TSH high at 17.900 - Increase dose of levothyroxine to 112 mcg Qday. - Free t4 normal - repeat tsh in 4 to 6 weeks. Reflux, dyspesia Abdominal pain - UA unremarkable - continue Pantoprazole 20mg - BM x 2 12/10 - Miralax and stool softener daily - Monitor BM - KUB with gas pattern. Start simethicone. Vitamin D insufficiency - Continue vitamin D supplementation 1000 mg daily - Recheck vitamin D levels in 3 months, an outpatient Discussed with the patient, nurse. Betty Camp MD Dec 30, 2016 08:10
[2016-12-30] MEDS: levETIRAcetam 500 MG TAB PO SCH ×2 (08:52→20:36)
[2016-12-30] MEDS: PANTOPRAZOLE SOD 20 MG DELAYED RELEASE TAB PO SCH (08:52)
[2016-12-30] MEDS: POLYETHYLENE GLYCOL 17 GM PKG PO SCH (08:53)
[2016-12-30] MEDS: LISINOPRIL 10 MG TAB PO SCH (08:53)
[2016-12-30] MEDS: CHOLECALCIFEROL (VIT D3) 1000 UNIT TAB PO SCH (08:54)
[2016-12-30] MEDS: DOCUSATE SODIUM 100 MG CAP PO SCH ×2 (08:54→20:36)
[2016-12-30] MEDS: CITALOPRAM HYDROBROMIDE 20 MG TAB PO SCH (08:54)
[2016-12-30] MEDS: HALOPERIDOL LACTATE ORAL CONC 10 MG/5 ML CUP PO SCH ×2 (15:32→20:35)
[2016-12-30] MEDS: ATORVASTATIN 40 MG TAB PO SCH (20:35)
--- NOTE | 2016-12-30 22:00 | HHI.PYPN ---
Subjective Remarks Patient seen for follow up; chart reviewed. As per discussion with nursing staff it was reported that the patient continues to occasionally attempt to hit her 1:1 sitter and irritable at times and was trying to eat crayons. Patient found sitting in day room after lunch, superficially cooperative with interview ; noted to be disorganized at times and eating the crumbs at the table. Patient was noted to be answering some questions appropriately but also making nonsensical comments. Patient was not noted to be agitated at time of interview. Review of Systems Except as stated in HPI: all other systems reviewed are Neg Objective Alert: Yes [place]: Person Mood: Other (irritable) Affect: Other (congruent with mood) Memory Intact: Comment (not formally assessed) Hallucinations: Other (no AVH) Delusions: No Delusion Type: Other (no delusions) Suicidal: Ideation (no SI) Homicidal: Ideation (no HI) Insight/Judgment poor insight, impulse control and judgement Vitals/IOs Vital Signs Date Time Temp Pulse Resp B/P (MAP) Pulse Ox O2 Delivery O2 Flow Rate FiO2 12/30/16 18:49 98.0 95 16 157/80 (105) 99 12/29/16 21:30 21 Intake and Output 12/30/16 12/30/16 12/31/16 08:00 16:00 00:00 Intake Total 150 ml 240 ml 120 ml Balance 150 ml 240 ml 120 ml Assessment & Plan Problem List: (1) Dementia of Alzheimer's type with behavioral disturbance ICD Codes: G30.8 - Other Alzheimer's disease; F02.81 - Dementia in other diseases classified elsewhere with behavioral disturbance (2) DEMENTIA IN OTH DISEASES CLASSD ELSWHR W BEHAVIORAL DISTURB ICD Codes: F02.81 - DEMENTIA IN OTH DISEASES CLASSD ELSWHR W BEHAVIORAL DISTURB Assessment & Plan Patient continues to be irritable at times and redirected when she attempts to hit her 1:1 sitter. Patient to continue haldol 5mg PO BID, increase citalopram to 30mg PO daily. Citalopram associated with QT prolongation in doses of 40mg therefore will keep dose at a maximum of 30mg. Will order repeat EKG in a couple of days to continue to monitor QT interval. Monitor for medication response and ADRs. Discharge planning in progress. Justification for Cont. Inpt. At risk for further decompensation if at lower level of care. Request HC Surrog/Guard Advoc?: Yes Chi Tee MD Dec 30, 2016 22:00
[2016-12-31 01:00] VITALS: BP 143/74; PULSE 72; RESP 18; TEMP 98.1; O2SAT 97
[2016-12-31] MEDS: LEVOTHYROXINE SODIUM 112 MCG TAB PO SCH (05:17)
[2016-12-31 06:06] VITALS: BP 176/97; PULSE 82; RESP 18; TEMP 98; O2SAT 97
[2016-12-31 06:59] VITALS: BP 128/65; PULSE 82; RESP 18; TEMP 98; O2SAT 97
[2016-12-31] MEDS: POLYETHYLENE GLYCOL 17 GM PKG PO SCH (08:38)
[2016-12-31] MEDS: CHOLECALCIFEROL (VIT D3) 1000 UNIT TAB PO SCH (08:40)
[2016-12-31] MEDS: DOCUSATE SODIUM 100 MG CAP PO SCH ×2 (08:40→20:16)
[2016-12-31] MEDS: levETIRAcetam 500 MG TAB PO SCH ×2 (08:41→20:15)
[2016-12-31] MEDS: LISINOPRIL 10 MG TAB PO SCH (08:41)
[2016-12-31] MEDS: CITALOPRAM HYDROBROMIDE 20 MG TAB PO SCH (08:41)
[2016-12-31] MEDS: PANTOPRAZOLE SOD 20 MG DELAYED RELEASE TAB PO SCH (08:46)
--- NOTE | 2016-12-31 09:29 | HHI.PR ---
Subjective Remarks Seen earlier. Less agitated today. Following commands doesn't remember falling. Says has no pain. No n/v/d/c. BP noted elevated however received BP meds and BP normal now. Objective Vitals Vital Signs Date Time Temp Pulse Resp B/P (MAP) Pulse Ox O2 Delivery O2 Flow Rate FiO2 12/31/16 06:59 98.0 82 18 128/65 (86) 97 12/31/16 06:06 98.0 82 18 176/97 (123) 97 12/31/16 01:00 98.1 72 18 143/74 (97) 97 12/30/16 21:00 98.1 70 18 128/68 (88) 95 12/30/16 18:49 98.0 95 16 157/80 (105) 99 12/30/16 16:30 98.4 95 18 157/80 (105) 99 12/30/16 11:56 97.7 98 16 158/70 (99) 98 I/O 12/30/16 12/30/16 12/30/16 12/31/16 12/31/16 12/31/16 07:00 15:00 23:00 07:00 15:00 23:00 Intake Total 30 ml 360 ml 270 ml 360 ml Balance 30 ml 360 ml 270 ml 360 ml Intake Oral 30 ml 360 ml 270 ml 360 ml # Voids 1 1 Result Diagram: 12/29/16 1454 Imaging Last Impressions Head CT 12/29/16 0000 Signed Impressions: Service Date/Time: Thursday, December 29, 2016 22:25 - CONCLUSION: 1. Moderate periventricular and subcortical white matter small vessel ischemic changes bilaterally. 2. Stable diffuse cerebral atrophy. 3. No acute infarct, acute hemorrhage, mass effect, midline shift or extra-axial bleed. Yoel Lemon MD Abdomen X-Ray 12/19/16 0000 Signed Impressions: Service Date/Time: Monday, December 19, 2016 20:31 - CONCLUSION: 1. Nonspecific bowel gas pattern. Mild scoliosis. Jon Robles MD Chest X-Ray 12/09/16 1253 Signed Impressions: Service Date/Time: Friday, December 09, 2016 13:09 - CONCLUSION: Normal examination for a patient of this age. Juan Mart MD Abdomen/Pelvis CT 12/09/16 0000 Signed Impressions: Service Date/Time: Friday, December 09, 2016 14:11 - CONCLUSION: Subacute right 10th posterior lateral rib fracture with minimal associated pleural thickening. No pneumothorax or pulmonary infiltrate. Intra-abdominal contents are negative for acute abnormality. Aortic endovascular stent in place extending into the iliac arteries. Uncomplicated diverticulitis of the sigmoid colon. Juan Mart MD Objective Remarks GENERAL: Elderly female, in nad. CARDIOVASCULAR: Regular rate and rhythm without murmurs, gallops, or rubs. RESPIRATORY: Breath sounds equal bilaterally. No accessory muscle use. GASTROINTESTINAL: Abdomen soft, non-tender, nondistended. MUSCULOSKELETAL: No cyanosis, or edema. HEAD: Atraumatic, normocephalic, no ecchymoses. NEURO: Alert and oriented. Upper extremities and lower extremity strength grossly normal. No sensory deficit. Follows some commands. She is agitated on / off BACK: Nontender without obvious deformity. No CVA tenderness. Procedures None. A/P Assessment and Plan Ms. Amado is an 81 year old female with a history of seizure activity, HTN, hypothyroidism who was brought to the hospital from a [facility] due to combative behavior. Hospitalist service was consulted for medical management. Dementia with psychosis - management per Psychiatry team. Seizure activity - No seizure activity reported. Keppra level elevated . dose of Keppra 1000 mg BID was decreased to 1000mg in am and 500mg at night. - Keppra level back to normal. Will monitor S/P poss fall? on 12/28 Patient doesn't recall falling, fall was witness by another patient and history is not reliable. CT head reviewed and negative. Patient appears at baseline no new motor deficit. Follows commands. Orthostatic hypotension: Noted with orthostatic hypotension, will decrease amlodipine. Continue PT/OT. Monitor BP Hypertension Hyperlipidemia - BP better, continue lisinorpil 10 mg daily. - Continue Lipitor 40mg QHS. - Goal BP < 150/90. Mild MEAGAN - creatinine 1.18 --> 1.27 --> 1.10. - likely due to poor oral intake - improving - avoid nephrotoxic agents Hypothyroidism - TSH high at 17.900 - Increase dose of levothyroxine to 112 mcg Qday. - Free t4 normal - repeat tsh in 4 to 6 weeks. Reflux, dyspesia Abdominal pain - UA unremarkable - continue Pantoprazole 20mg - BM x 2 12/10 - Miralax and stool softener daily - Monitor BM - KUB with gas pattern. Start simethicone. Vitamin D insufficiency - Continue vitamin D supplementation 1000 mg daily. Will give one dose of ergocalciferol at this time. - Recheck vitamin D levels in 3 months, an outpatient Vit B12 into normal but lower side. Will give B12 supplement. Discussed with the patient, nurse. Betty Camp MD Dec 31, 2016 09:29
[2016-12-31] MEDS ORDERED: ERGOCALCIFEROL (VIT D2) 50,000 UNIT CAP PO SCH (09:30)
[2016-12-31] MEDS ORDERED: MECLIZINE HCL 25 MG TAB PO PRN (09:30)
[2016-12-31] MEDS ORDERED: CYANOCOBALAMIN 1000 MCG/ML VIAL IM ONE (09:30)
[2016-12-31] MEDS ORDERED: ERGOCALCIFEROL (VIT D2) 50,000 UNIT CAP PO ONE (09:30)
[2016-12-31] MEDS ORDERED: B-12100T PO (09:33)
[2016-12-31] MEDS ORDERED: LEVE500 PO ×2 (09:33)
[2016-12-31] MEDS ORDERED: VITA1000 PO (09:33)
[2016-12-31] MEDS ORDERED: SYNT112T PO (09:33)
[2016-12-31] MEDS: HALOPERIDOL LACTATE ORAL CONC 10 MG/5 ML CUP PO SCH ×2 (13:57→20:16)
[2016-12-31 16:45] VITALS: BP 118/57; PULSE 73; RESP 17; TEMP 96.4; O2SAT 96
[2016-12-31] MEDS: diphenhydrAMINE HCL 50 MG CAP PO PRN (20:16)
[2016-12-31] MEDS: ATORVASTATIN 40 MG TAB PO SCH (20:16)
[2017-01-01 06:20] VITALS: BP 141/64; PULSE 67; RESP 16; TEMP 98.5; O2SAT 96
[2017-01-01] MEDS: LEVOTHYROXINE SODIUM 112 MCG TAB PO SCH (06:34)
--- NOTE | 2017-01-01 07:41 | HHI.PR ---
Subjective Remarks In the chair eating, appears innad. Says she feels a little weak. She did sleep well overnight she received benatryl last night. No nausea or vomiting, no abd pain. No fevr or chills. denies cp, sob. Objective Vitals Vital Signs Date Time Temp Pulse Resp B/P (MAP) Pulse Ox O2 Delivery O2 Flow Rate FiO2 01/01/17 06:20 98.5 67 16 141/64 (89) 96 12/31/16 16:45 96.4 73 17 118/57 (77) 96 I/O 12/31/16 12/31/16 12/31/16 01/01/17 01/01/17 01/01/17 07:00 15:00 23:00 07:00 15:00 23:00 Intake Total 480 ml 900 ml Balance 480 ml 900 ml Intake Oral 480 ml 900 ml # Voids 1 6 2 Result Diagram: 12/29/16 1454 Imaging Last Impressions Head CT 12/29/16 0000 Signed Impressions: Service Date/Time: Thursday, December 29, 2016 22:25 - CONCLUSION: 1. Moderate periventricular and subcortical white matter small vessel ischemic changes bilaterally. 2. Stable diffuse cerebral atrophy. 3. No acute infarct, acute hemorrhage, mass effect, midline shift or extra-axial bleed. Yoel Lemon MD Abdomen X-Ray 12/19/16 0000 Signed Impressions: Service Date/Time: Monday, December 19, 2016 20:31 - CONCLUSION: 1. Nonspecific bowel gas pattern. Mild scoliosis. Jon Robles MD Chest X-Ray 12/09/16 1253 Signed Impressions: Service Date/Time: Friday, December 09, 2016 13:09 - CONCLUSION: Normal examination for a patient of this age. Juan Mart MD Abdomen/Pelvis CT 12/09/16 0000 Signed Impressions: Service Date/Time: Friday, December 09, 2016 14:11 - CONCLUSION: Subacute right 10th posterior lateral rib fracture with minimal associated pleural thickening. No pneumothorax or pulmonary infiltrate. Intra-abdominal contents are negative for acute abnormality. Aortic endovascular stent in place extending into the iliac arteries. Uncomplicated diverticulitis of the sigmoid colon. Juan Mart MD Objective Remarks GENERAL: Elderly female, in nad. CARDIOVASCULAR: Regular rate and rhythm without murmurs, gallops, or rubs. RESPIRATORY: Breath sounds equal bilaterally. No accessory muscle use. GASTROINTESTINAL: Abdomen soft, non-tender, nondistended. MUSCULOSKELETAL: No cyanosis, or edema. HEAD: Atraumatic, normocephalic, no ecchymoses. NEURO: Alert and oriented. Upper extremities and lower extremity strength grossly normal. No sensory deficit. Follows some commands. She is agitated on / off BACK: Nontender without obvious deformity. No CVA tenderness. Procedures None. A/P Assessment and Plan Ms. Amado is an 81 year old female with a history of seizure activity, HTN, hypothyroidism who was brought to the hospital from a long term due to combative behavior. Hospitalist service was consulted for medical management. Dementia with psychosis - management per Psychiatry team. Seizure activity - No seizure activity reported. Keppra level elevated . dose of Keppra 1000 mg BID was decreased to 1000mg in am and 500mg at night. - Keppra level back to normal. Will monitor S/P poss fall? on 12/28 Patient doesn't recall falling, fall was witness by another patient and history is not reliable. CT head reviewed and negative. Patient appears at baseline no new motor deficit. Follows commands. Orthostatic hypotension: Noted with orthostatic hypotension, will decrease amlodipine. Continue PT/OT. Monitor BP Hypertension Hyperlipidemia - BP better, continue lisinorpil 10 mg daily. - Continue Lipitor 40mg QHS. - Goal BP < 150/90. Mild MEAGAN - creatinine 1.18 --> 1.27 --> 1.10. - likely due to poor oral intake - improving - avoid nephrotoxic agents Hypothyroidism - TSH high at 17.900 - Increase dose of levothyroxine to 112 mcg Qday. - Free t4 normal - repeat tsh in 4 to 6 weeks. Reflux, dyspesia Abdominal pain - UA unremarkable - continue Pantoprazole 20mg - BM x 2 12/10 - Miralax and stool softener daily - Monitor BM - KUB with gas pattern. Start simethicone. Vitamin D insufficiency - Continue vitamin D supplementation 1000 mg daily. Will give one dose of ergocalciferol at this time. - Recheck vitamin D levels in 3 months, an outpatient Vit B12 into normal but lower side. Will give B12 supplement. Discussed with the patient, nurse. Betty Camp MD Jan 01, 2017 07:40
[2017-01-01] MEDS: CYANOCOBALAMIN 100 MCG TAB PO SCH (09:00)
[2017-01-01] MEDS: DOCUSATE SODIUM 100 MG CAP PO SCH ×2 (10:15→21:00)
[2017-01-01] MEDS: CHOLECALCIFEROL (VIT D3) 1000 UNIT TAB PO SCH (10:15)
[2017-01-01] MEDS: LISINOPRIL 10 MG TAB PO SCH (10:15)
[2017-01-01] MEDS: CITALOPRAM HYDROBROMIDE 20 MG TAB PO SCH (10:15)
[2017-01-01] MEDS: levETIRAcetam 500 MG TAB PO SCH ×2 (10:15→21:32)
[2017-01-01] MEDS: PANTOPRAZOLE SOD 20 MG DELAYED RELEASE TAB PO SCH (10:16)
[2017-01-01] MEDS: POLYETHYLENE GLYCOL 17 GM PKG PO SCH (10:16)
[2017-01-01] MEDS: HALOPERIDOL LACTATE ORAL CONC 10 MG/5 ML CUP PO SCH ×2 (14:17→21:32)
--- NOTE | 2017-01-01 18:21 | HHI.PYPN ---
Subjective Remarks LATE ENTRY FOR 12/31/16 Patient seen for follow up; chart reviewed. Patient was noted to have some outbursts this morning as reported by nursing staff. Patient during interview was noted to be more organized, better related, eating well but reports some difficulty with sleep. She denies any perceptual disturbances. Patient continues to be confused and oriented only to person. Review of Systems Except as stated in HPI: all other systems reviewed are Neg Objective Alert: Yes [place]: Person Mood: Calm Affect: Restricted Memory Intact: Comment (not formally assessed) Hallucinations: Other (no AVH) Delusions: No Delusion Type: Other (no delusions) Suicidal: Ideation (no SI) Homicidal: Ideation (no HI) Insight/Judgment poor insight, impulse control and judgment Vitals/IOs Vital Signs Date Time Temp Pulse Resp B/P (MAP) Pulse Ox O2 Delivery O2 Flow Rate FiO2 01/01/17 06:20 98.5 67 16 141/64 (89) 96 12/29/16 21:30 21 Assessment & Plan Problem List: (1) Dementia of Alzheimer's type with behavioral disturbance ICD Codes: G30.8 - Other Alzheimer's disease; F02.81 - Dementia in other diseases classified elsewhere with behavioral disturbance (2) DEMENTIA IN OTH DISEASES CLASSD ELSWHR W BEHAVIORAL DISTURB ICD Codes: F02.81 - DEMENTIA IN OTH DISEASES CLASSD ELSWHR W BEHAVIORAL DISTURB Assessment & Plan Patient at this time continues to be confused with labile behavior but upon noted to be more redirectable at times. Continue current treatment. Discharge planning in progress. Justification for Cont. Inpt. At risk for decompensation if it lower level of care Request HC Surrog/Guard Advoc?: Yes Chi Tee MD Jan 01, 2017 18:21
--- NOTE | 2017-01-01 18:22 | HHI.PYPN ---
Subjective Remarks Patient seen for follow up; chart reviewed. Patient found sitting on hospital bed, calm and cooperative with 1:1 sitter at bedside. She states that she has been feeling "aggravated" for feeling groggy but noted to smile occasionally. She states that she has not problem with eating and drinking, tolerating medications well. She asks to go home. She denies any perceptual disturbances. Review of Systems Except as stated in HPI: all other systems reviewed are Neg Objective Alert: Yes [place]: Person Mood: Calm Affect: Restricted Memory Intact: Comment (not formally assessed) Hallucinations: Other (no AVH) Delusions: No Delusion Type: Other (no delusions) Suicidal: Ideation (no SI) Homicidal: Ideation (no HI) Insight/Judgment poor insight, limited impulse control and judgement Vitals/IOs Vital Signs Date Time Temp Pulse Resp B/P (MAP) Pulse Ox O2 Delivery O2 Flow Rate FiO2 01/01/17 06:20 98.5 67 16 141/64 (89) 96 12/29/16 21:30 21 Assessment & Plan Problem List: (1) Dementia of Alzheimer's type with behavioral disturbance ICD Codes: G30.8 - Other Alzheimer's disease; F02.81 - Dementia in other diseases classified elsewhere with behavioral disturbance (2) DEMENTIA IN OTH DISEASES CLASSD ELSWHR W BEHAVIORAL DISTURB ICD Codes: F02.81 - DEMENTIA IN OTH DISEASES CLASSD ELSWHR W BEHAVIORAL DISTURB Assessment & Plan Patient with no behavioral dyscontrol since yesterday but needing redirection at times. Continue current treatment. Discharge planning in progress. Justification for Cont. Inpt. At risk for further decompensation if at lower level of care. Request HC Surrog/Guard Advoc?: Yes Chi Tee MD Jan 01, 2017 18:22
[2017-01-01] MEDS: ATORVASTATIN 40 MG TAB PO SCH (21:32)
[2017-01-01] MEDS: diphenhydrAMINE HCL 50 MG CAP PO PRN (23:40)
[2017-01-02 06:00] VITALS: BP 127/56; PULSE 61; RESP 18; TEMP 98; O2SAT 93
[2017-01-02] MEDS: LEVOTHYROXINE SODIUM 112 MCG TAB PO SCH (06:18)
[2017-01-02] MEDS: POLYETHYLENE GLYCOL 17 GM PKG PO SCH (09:00)
[2017-01-02] MEDS: CYANOCOBALAMIN 100 MCG TAB PO SCH (09:00)
[2017-01-02] MEDS: levETIRAcetam 500 MG TAB PO SCH ×2 (09:05→21:34)
[2017-01-02] MEDS: CHOLECALCIFEROL (VIT D3) 1000 UNIT TAB PO SCH (09:05)
[2017-01-02] MEDS: CITALOPRAM HYDROBROMIDE 20 MG TAB PO SCH (09:06)
[2017-01-02] MEDS: DOCUSATE SODIUM 100 MG CAP PO SCH ×2 (09:06→21:34)
[2017-01-02] MEDS: LISINOPRIL 10 MG TAB PO SCH (09:07)
[2017-01-02] MEDS: PANTOPRAZOLE SOD 20 MG DELAYED RELEASE TAB PO SCH (09:07)
--- NOTE | 2017-01-02 11:46 | HHI.PR ---
Subjective Remarks Seen alternative medicine practitioner. Eating breakfast appears in nad. No seizures. No n/v/d/c. No abd pain Objective Vitals Vital Signs Date Time Temp Pulse Resp B/P (MAP) Pulse Ox O2 Delivery O2 Flow Rate FiO2 01/02/17 06:00 98.0 61 18 127/56 (79) 93 I/O 01/01/17 01/01/17 01/01/17 01/02/17 01/02/17 01/02/17 07:00 15:00 23:00 07:00 15:00 23:00 Intake Total 240 ml 240 ml Balance 240 ml 240 ml Intake Oral 240 ml 240 ml # Voids 2 1 1 Result Diagram: 12/29/16 1454 Objective Remarks GENERAL: Elderly female, in nad. CARDIOVASCULAR: Regular rate and rhythm without murmurs, gallops, or rubs. RESPIRATORY: Breath sounds equal bilaterally. No accessory muscle use. GASTROINTESTINAL: Abdomen soft, non-tender, nondistended. MUSCULOSKELETAL: No cyanosis, or edema. HEAD: Atraumatic, normocephalic, no ecchymoses. NEURO: Alert and oriented. Upper extremities and lower extremity strength grossly normal. No sensory deficit. Follows some commands. She is agitated on / off BACK: Nontender without obvious deformity. No CVA tenderness. Procedures None. A/P Assessment and Plan Ms. Amado is an 81 year old female with a history of seizure activity, HTN, hypothyroidism who was brought to the hospital from a [facility] due to combative behavior. Hospitalist service was consulted for medical management. Dementia with psychosis - management per Psychiatry team. Seizure activity - No seizure activity reported. Keppra level elevated . dose of Keppra 1000 mg BID was decreased to 1000mg in am and 500mg at night. - Keppra level back to normal. Will monitor S/P poss fall? on 12/28 Patient doesn't recall falling, fall was witness by another patient and history is not reliable. CT head reviewed and negative. Patient appears at baseline no new motor deficit. Follows commands. Orthostatic hypotension: Noted with orthostatic hypotension, will decrease amlodipine. Continue PT/OT. Monitor BP Hypertension Hyperlipidemia - BP better, continue lisinorpil 10 mg daily. - Continue Lipitor 40mg QHS. - Goal BP < 150/90. Mild MEAGAN - creatinine 1.18 --> 1.27 --> 1.10. - likely due to poor oral intake - improving - avoid nephrotoxic agents Hypothyroidism - TSH high at 17.900 - Increase dose of levothyroxine to 112 mcg Qday. - Free t4 normal - repeat tsh in 4 to 6 weeks. Reflux, dyspesia Abdominal pain - UA unremarkable - continue Pantoprazole 20mg - BM x 2 12/10 - Miralax and stool softener daily - Monitor BM - KUB with gas pattern. Start simethicone. Vitamin D insufficiency - Continue vitamin D supplementation 1000 mg daily. Will give one dose of ergocalciferol at this time. - Recheck vitamin D levels in 3 months, an outpatient Vit B12 into normal but lower side. Will give B12 supplement. Discussed with the patient, nurse. Betty Camp MD Jan 02, 2017 11:46
[2017-01-02] MEDS: HALOPERIDOL LACTATE ORAL CONC 10 MG/5 ML CUP PO SCH ×2 (13:35→21:36)
--- NOTE | 2017-01-02 14:28 | HHI.PYPN ---
Subjective Remarks Patient seen for follow up; chart reviewed. Patient was found in the common area , sitting and noted to be asleep. She was able to wake up but refused to engage in interview today. As per nursing report, she has not had any recent behavioral outbursts or noted to be agitated. Review of Systems Except as stated in HPI: all other systems reviewed are Neg Objective Alert: Yes [place]: Person Mood: Other (unable to assess) Affect: Restricted Memory Intact: Comment (not formally assessed) Hallucinations: Other (no AVH) Delusions: No Delusion Type: Other (no delusions) Suicidal: Ideation (no SI) Homicidal: Ideation (no HI) Insight/Judgment poor insight, impulse control and judgment Vitals/IOs Vital Signs Date Time Temp Pulse Resp B/P (MAP) Pulse Ox O2 Delivery O2 Flow Rate FiO2 01/02/17 06:00 98.0 61 18 127/56 (79) 93 12/29/16 21:30 21 Intake and Output 01/02/17 01/02/17 01/03/17 08:00 16:00 00:00 Intake Total 240 ml Balance 240 ml Assessment & Plan Problem List: (1) Dementia of Alzheimer's type with behavioral disturbance ICD Codes: G30.8 - Other Alzheimer's disease; F02.81 - Dementia in other diseases classified elsewhere with behavioral disturbance (2) DEMENTIA IN OTH DISEASES CLASSD ELSWHR W BEHAVIORAL DISTURB ICD Codes: F02.81 - DEMENTIA IN OTH DISEASES CLASSD ELSWHR W BEHAVIORAL DISTURB Assessment & Plan Patient continues with significant neurocognitive deficits. Patient to continue current treatment. Discharge planning in progress. Justification for Cont. Inpt. At risk for further decompensation if at lower level of care. Request HC Surrog/Guard Advoc?: Yes Chi Tee MD Jan 02, 2017 14:28
[2017-01-02] MEDS: ATORVASTATIN 40 MG TAB PO SCH (21:34)
[2017-01-02] MEDS: diphenhydrAMINE HCL 50 MG CAP PO PRN (21:34)
[2017-01-03] MEDS: LEVOTHYROXINE SODIUM 112 MCG TAB PO SCH (05:51)
[2017-01-03 06:20] VITALS: BP 119/61; PULSE 66; RESP 18; TEMP 97.8; O2SAT 99
[2017-01-03] MEDS: CYANOCOBALAMIN 100 MCG TAB PO SCH (09:00)
[2017-01-03] MEDS: CITALOPRAM HYDROBROMIDE 20 MG TAB PO SCH (09:13)
[2017-01-03] MEDS: levETIRAcetam 500 MG TAB PO SCH ×2 (09:13→21:22)
[2017-01-03] MEDS: PANTOPRAZOLE SOD 20 MG DELAYED RELEASE TAB PO SCH (09:15)
[2017-01-03] MEDS: CHOLECALCIFEROL (VIT D3) 1000 UNIT TAB PO SCH (09:16)
[2017-01-03] MEDS: LISINOPRIL 10 MG TAB PO SCH (09:17)
[2017-01-03] MEDS: POLYETHYLENE GLYCOL 17 GM PKG PO SCH (09:18)
[2017-01-03] MEDS: DOCUSATE SODIUM 100 MG CAP PO SCH ×2 (09:18→21:23)
[2017-01-03] MEDS: HALOPERIDOL LACTATE ORAL CONC 10 MG/5 ML CUP PO SCH ×2 (13:08→21:25)
[2017-01-03] MEDS ORDERED: diphenhydrAMINE HCL 25 MG CAP PO ONE (13:30)
--- NOTE | 2017-01-03 14:39 | HHI.PR ---
Subjective Remarks Patient seen and examined She was ambulating in the hallway No acute event overnight per nurse report Objective Vitals Vital Signs Date Time Temp Pulse Resp B/P (MAP) Pulse Ox O2 Delivery O2 Flow Rate FiO2 01/03/17 06:20 97.8 66 18 119/61 (80) 99 I/O 01/02/17 01/02/17 01/02/17 01/03/17 01/03/17 01/03/17 07:00 15:00 23:00 07:00 15:00 23:00 Intake Total 240 ml 240 ml 240 ml Balance 240 ml 240 ml 240 ml Intake Oral 240 ml 240 ml 240 ml # Voids 1 Imaging Last Impressions Head CT 12/29/16 0000 Signed Impressions: Service Date/Time: Thursday, December 29, 2016 22:25 - CONCLUSION: 1. Moderate periventricular and subcortical white matter small vessel ischemic changes bilaterally. 2. Stable diffuse cerebral atrophy. 3. No acute infarct, acute hemorrhage, mass effect, midline shift or extra-axial bleed. Yoel Lemon MD Abdomen X-Ray 12/19/16 0000 Signed Impressions: Service Date/Time: Monday, December 19, 2016 20:31 - CONCLUSION: 1. Nonspecific bowel gas pattern. Mild scoliosis. Jon Robles MD Chest X-Ray 12/09/16 1253 Signed Impressions: Service Date/Time: Friday, December 09, 2016 13:09 - CONCLUSION: Normal examination for a patient of this age. Juan Mart MD Abdomen/Pelvis CT 12/09/16 0000 Signed Impressions: Service Date/Time: Friday, December 09, 2016 14:11 - CONCLUSION: Subacute right 10th posterior lateral rib fracture with minimal associated pleural thickening. No pneumothorax or pulmonary infiltrate. Intra-abdominal contents are negative for acute abnormality. Aortic endovascular stent in place extending into the iliac arteries. Uncomplicated diverticulitis of the sigmoid colon. Juan Mart MD Objective Remarks GENERAL: NAD SKIN: Warm and dry. HEAD: Normocephalic. EYES: No scleral icterus. No injection or drainage. NECK: Supple, trachea midline. No JVD or lymphadenopathy. CARDIOVASCULAR: Regular rate and rhythm without murmurs, gallops, or rubs. RESPIRATORY: Breath sounds equal bilaterally. No accessory muscle use. GASTROINTESTINAL: Abdomen soft, non-tender, nondistended. MUSCULOSKELETAL: No cyanosis, or edema. BACK: Nontender without obvious deformity. No CVA tenderness. Procedures None. A/P Assessment and Plan Dementia with psychosis - management per Psychiatry Seizure activity - Continue Keppra 1000mg in am and 500mg at night. Hypertension Hyperlipidemia - continue lisinopril 10 mg daily. - Continue Lipitor 40mg QHS. Mild MEAGAN - September to monitor BMP Hypothyroidism - Continue levothyroxine 112 mcg Qday. - Free t4 normal - repeat tsh in 4 to 6 weeks. Reflux Abdominal pain - continue Pantoprazole 20mg - Continue cimetidine, Vitamin D insufficiency - Continue vitamin D supplementation 1000 mg daily. - Recheck vitamin D levels in 3 months, an outpatient Chi Rouse MD Jan 03, 2017 14:39
--- NOTE | 2017-01-03 17:10 | HHI.PYPN ---
Subjective Remarks Pt seen and discussed with staff.She was agitated earlier today and received benadryl 25mg PO X1 and calmed. She has been making racial slurs and believes that the hospital is her home. NO medication side effects. Objective Alert: Yes [place]: Person Mood: Calm Affect: Restricted Memory Intact: Comment (impaired) Hallucinations: Other (no AVH) Delusions: No Delusion Type: Other (no delusions) Suicidal: Ideation (no SI) Homicidal: Ideation (no HI) Insight/Judgment poor Vitals/IOs Vital Signs Date Time Temp Pulse Resp B/P (MAP) Pulse Ox O2 Delivery O2 Flow Rate FiO2 01/03/17 06:20 97.8 66 18 119/61 (80) 99 Intake and Output 01/03/17 01/03/17 01/04/17 08:00 16:00 00:00 Intake Total 120 ml 120 ml Balance 120 ml 120 ml Assessment & Plan Problem List: (1) Dementia of Alzheimer's type with behavioral disturbance ICD Codes: G30.8 - Other Alzheimer's disease; F02.81 - Dementia in other diseases classified elsewhere with behavioral disturbance (2) DEMENTIA IN OTH DISEASES CLASSD ELSWHR W BEHAVIORAL DISTURB ICD Codes: F02.81 - DEMENTIA IN OTH DISEASES CLASSD ELSWHR W BEHAVIORAL DISTURB Assessment & Plan Continue current tx plan. Estimated LOS: days Justification for Cont. Inpt. impairments in safety Request HC Surrog/Guard Advoc?: Yes Zayra Sales MD Jan 03, 2017 17:10
[2017-01-03 18:00] VITALS: BP 133/59; PULSE 83; RESP 16; TEMP 98.6; O2SAT 96
[2017-01-03] MEDS: ATORVASTATIN 40 MG TAB PO SCH (21:22)
[2017-01-03] MEDS: diphenhydrAMINE HCL 50 MG CAP PO PRN (21:22)
[2017-01-04] MEDS: LEVOTHYROXINE SODIUM 112 MCG TAB PO SCH (05:57)
[2017-01-04] MEDS: CYANOCOBALAMIN 100 MCG TAB PO SCH (09:00)
[2017-01-04] MEDS: POLYETHYLENE GLYCOL 17 GM PKG PO SCH (09:00)
[2017-01-04] MEDS: DOCUSATE SODIUM 100 MG CAP PO SCH ×2 (09:35→21:19)
[2017-01-04] MEDS: LISINOPRIL 10 MG TAB PO SCH (09:35)
[2017-01-04] MEDS: CHOLECALCIFEROL (VIT D3) 1000 UNIT TAB PO SCH (09:36)
[2017-01-04] MEDS: levETIRAcetam 500 MG TAB PO SCH ×2 (09:39→21:19)
[2017-01-04] MEDS: CITALOPRAM HYDROBROMIDE 20 MG TAB PO SCH (09:40)
[2017-01-04] MEDS: PANTOPRAZOLE SOD 20 MG DELAYED RELEASE TAB PO SCH (09:41)
--- NOTE | 2017-01-04 11:24 | HHI.PYPN ---
Subjective Remarks Pt seen and discussed with staff. She has been paranoid and suspicious. She refused morning medications and only ate a little of breakfast, but later took medications with RN coaching. No agitation so far today. Objective Alert: Yes [place]: Person Mood: Anxious Affect: Restricted Memory Intact: Comment (impaired) Hallucinations: Other (no AVH) Delusions: No Delusion Type: Other (no delusions) Suicidal: Ideation (no SI) Homicidal: Ideation (no HI) Insight/Judgment poor Vitals/IOs Vital Signs Date Time Temp Pulse Resp B/P (MAP) Pulse Ox O2 Delivery O2 Flow Rate FiO2 01/03/17 18:00 98.6 83 16 133/59 (83) 96 Intake and Output 01/04/17 01/04/17 01/05/17 08:00 16:00 00:00 Intake Total 0 ml Balance 0 ml Assessment & Plan Problem List: (1) Dementia of Alzheimer's type with behavioral disturbance ICD Codes: G30.8 - Other Alzheimer's disease; F02.81 - Dementia in other diseases classified elsewhere with behavioral disturbance (2) DEMENTIA IN OTH DISEASES CLASSD ELSWHR W BEHAVIORAL DISTURB ICD Codes: F02.81 - DEMENTIA IN OTH DISEASES CLASSD ELSWHR W BEHAVIORAL DISTURB Assessment & Plan Continue current tx plan. Estimated LOS: days Justification for Cont. Inpt. impairments in safety Request HC Surrog/Guard Advoc?: Yes Zayra Sales MD Jan 04, 2017 11:24
--- NOTE | 2017-01-04 12:18 | HHI.PR ---
Subjective Remarks patient seen and examined in the break room stable and no complains BP well controlled Objective Vitals Vital Signs Date Time Temp Pulse Resp B/P (MAP) Pulse Ox O2 Delivery O2 Flow Rate FiO2 01/03/17 18:00 98.6 83 16 133/59 (83) 96 I/O 01/03/17 01/03/17 01/03/17 01/04/17 01/04/17 01/04/17 07:00 15:00 23:00 07:00 15:00 23:00 Intake Total 240 ml 720 ml 0 ml 120 ml Balance 240 ml 720 ml 0 ml 120 ml Intake Oral 240 ml 720 ml 0 ml 120 ml # Voids 2 1 Objective Remarks GENERAL: NAD SKIN: Warm and dry. HEAD: Normocephalic. EYES: No scleral icterus. No injection or drainage. NECK: Supple, trachea midline. No JVD or lymphadenopathy. CARDIOVASCULAR: Regular rate and rhythm without murmurs, gallops, or rubs. RESPIRATORY: Breath sounds equal bilaterally. No accessory muscle use. GASTROINTESTINAL: Abdomen soft, non-tender, nondistended. MUSCULOSKELETAL: No cyanosis, or edema. BACK: Nontender without obvious deformity. No CVA tenderness. Procedures None. A/P Assessment and Plan 81 yrs old female with Dementia with psychosis - management per Psychiatry Seizure activity - Continue Keppra 1000mg in am and 500mg at night. Hypertension Hyperlipidemia - continue lisinopril 10 mg daily and Norvasc 5mg daily - Continue Lipitor 40mg QHS. Hypothyroidism - Continue levothyroxine 112 mcg Qday. - Free t4 normal - repeat tsh in 4 to 6 weeks. Reflux Abdominal pain - continue Pantoprazole 20mg - Continue cimetidine, Vitamin D insufficiency - Continue vitamin D supplementation 1000 mg daily. - Recheck vitamin D levels in 3 months, an outpatient [facility] will sign off and reconsult Chi Lang MD Jan 04, 2017 12:18
[2017-01-04] MEDS: HALOPERIDOL LACTATE ORAL CONC 10 MG/5 ML CUP PO SCH ×2 (14:13→21:20)
[2017-01-04 16:55] VITALS: BP 133/59; PULSE 83; RESP 16; TEMP 98.6; O2SAT 96
[2017-01-04 17:57] VITALS: BP 123/86; PULSE 91; RESP 18; TEMP 97.8; O2SAT 95
[2017-01-04 18:57] VITALS: BP 114/58; PULSE 75; RESP 17; TEMP 97.9; O2SAT 95
[2017-01-04] MEDS: diphenhydrAMINE HCL 50 MG CAP PO PRN (21:19)
[2017-01-04] MEDS: ATORVASTATIN 40 MG TAB PO SCH (21:19)
[2017-01-05] VITALS (8 sets, daily range): BP systolic 113–142; BP diastolic 60–83; PULSE 63–96; RESP 16–18; TEMP 97.6–98.9; O2SAT 94–99
[2017-01-05] MEDS: LEVOTHYROXINE SODIUM 112 MCG TAB PO SCH (06:07)
[2017-01-05] MEDS: DOCUSATE SODIUM 100 MG CAP PO SCH ×2 (09:00→21:00)
[2017-01-05] MEDS: PANTOPRAZOLE SOD 20 MG DELAYED RELEASE TAB PO SCH (09:00)
[2017-01-05] MEDS: LISINOPRIL 10 MG TAB PO SCH ×2 (09:00→09:55)
[2017-01-05] MEDS: POLYETHYLENE GLYCOL 17 GM PKG PO SCH (09:00)
[2017-01-05] MEDS: CYANOCOBALAMIN 100 MCG TAB PO SCH (09:00)
[2017-01-05] MEDS: CHOLECALCIFEROL (VIT D3) 1000 UNIT TAB PO SCH (09:00)
[2017-01-05] MEDS: levETIRAcetam 500 MG TAB PO SCH ×3 (09:00→21:00)
[2017-01-05] MEDS: CITALOPRAM HYDROBROMIDE 20 MG TAB PO SCH ×2 (09:00→09:55)
[2017-01-05] MEDS: HALOPERIDOL LACTATE ORAL CONC 10 MG/5 ML CUP PO SCH ×2 (13:33→21:00)
--- NOTE | 2017-01-05 15:26 | RADRPT ---
EXAM DATE/TIME: 01/05/2017 15:01 [facility] COMPARISON: CT BRAIN W/O CONTRAST, December 29, 2016, 22:25. INDICATIONS : Trauma, fall today. RADIATION DOSE: 56.39 CTDIvol (mGy) MEDICAL HISTORY : None SURGICAL HISTORY : None. ENCOUNTER: Initial ACUITY: 1 day PAIN SCALE: 0/10 LOCATION: cranial TECHNIQUE: Multiple contiguous axial images were obtained of the head. Using automated exposure control and adj ustment of the mA and/or kV according to patient size, radiation dose was kept as low as reasonably a chievable to obtain optimal diagnostic quality images. DICOM format image data is available electro nically for review and comparison. FINDINGS: There is mild volume loss and confluent hypodensity in the bilateral centrum semiovale and periventri cular white matter, unchanged and most characteristic of chronic microvascular ischemic disease. No s igns of acute infarct, hemorrhage, or mass. No fractures. CONCLUSION: No significant change has occurred. Robi Worley MD on January 05, 2017 at 15:24 Board Certified Radiologist. This report was verified electronically.
--- NOTE | 2017-01-05 15:40 | RADRPT ---
EXAM DATE/TIME: 01/05/2017 15:14 [facility] COMPARISON: No previous studies available for comparison. INDICATIONS : Fell. MEDICAL HISTORY : Hypertension. Renal failure, chronic. SURGICAL HISTORY : Hysterectomy. Appendectomy. ENCOUNTER: Initial ACUITY: 3 weeks PAIN SCORE: Non-responsive. LOCATION: Right shoulder FINDINGS: Multiple view examination of the right shoulder demonstrates no evidence of fracture or dislocation. The glenohumeral and acromioclavicular joints are maintained. There is normal range of motion betwe en internal and external rotation. Bony mineralization is normal. CONCLUSION: No acute disease. Robi Worley MD on January 05, 2017 at 15:39 Board Certified Radiologist. This report was verified electronically.
--- NOTE | 2017-01-05 15:42 | RADRPT ---
EXAM DATE/TIME: 01/05/2017 15:14 [facility] COMPARISON: No previous studies available for comparison. INDICATIONS : Fell today. MEDICAL HISTORY : Hypertension. Renal failure, chronic. SURGICAL HISTORY : Hysterectomy. Appendectomy. ENCOUNTER: Initial ACUITY: 3 weeks PAIN SCORE: Non-responsive. LOCATION: Right hip and pelvis FINDINGS: The bone density is decreased. There is an impacted fracture of the subcapital femoral neck the right femur and no other fractures are seen. CONCLUSION: Right proximal femur fracture. Robi Worley MD on January 05, 2017 at 15:41 Board Certified Radiologist. This report was verified electronically.
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
[2017-01-05] MEDS: ATORVASTATIN 40 MG TAB PO SCH (21:00)
[2017-01-05] MEDS: ACETAMINOPHEN 325 MG TAB PO PRN (21:00)
== END 2017-01-05 20:50 | disposition short-term general hospital (02) | DRG 57 ==
LOC: NEPE 11:57 → NEDA 17:51 → H250 19:22
PROVIDERS: ADMIT Student in an Organized Health Care Education/Training Program; ATTEND Student in an Organized Health Care Education/Training Program
DX: G30.8 Other Alzheimer's disease (principal); S72.001A Fracture of unspecified part of neck of right femur, initial encounter for closed fracture; N17.9 Acute kidney failure, unspecified; F02.81 Dementia in other diseases classified elsewhere, unspecified severity, with behavioral disturbance; R00.1 Bradycardia, unspecified; R56.9 Unspecified convulsions; E03.9 Hypothyroidism, unspecified; E78.5 Hyperlipidemia, unspecified; K21.9 Gastro-esophageal reflux disease without esophagitis; I10 Essential (primary) hypertension; E55.9 Vitamin D deficiency, unspecified; H91.90 Unspecified hearing loss, unspecified ear; I95.1 Orthostatic hypotension; I25.2 Old myocardial infarction; Z79.899 Other long term (current) drug therapy; Z87.891 Personal history of nicotine dependence; Z91.81 History of falling; W18.30XA Fall on same level, unspecified, initial encounter; Y93.01 Activity, walking, marching and hiking; Y92.238 Other place in hospital as the place of occurrence of the external cause
CPT/HCPCS: 70450; 71010; 73030; 73502; 74000; 74177; 80048; 80053; 80061; 80177; 81001; 82306; 82607; 83036; 83690; 84439; 84443; 84481; 85025; 85610; 85730; 93005; 99285; J1200; J1630; J2060; J3420; Q0163; Q9967

== ENCOUNTER 2017-01-05 18:53 | Inpatient (IN) | payer MEDICARE, OTHER ==
[~2017-01-05] VITALS: Ht 165.1 cm; Wt 57.5 kg
[~2017-01-05 18:53] MED LIST: ATOR40TA16 PO; B-12100T PO; CITA20TA4 PO; CULT10CA4 PO; DIPH-148 PO; LEVE500 PO; LORA-373 PO; MECL12.574 PO; RANI150T PO; SENN8.6T81 PO; SYNT112T PO; TYLE325T PO; VITA1000 PO
[2017-01-05] MEDS ORDERED: GLUCAGON 1 MG/ML VIAL OTHER PRN (19:00)
[2017-01-05] MEDS ORDERED: DEXTROSE 50% IN WATER 50 ML VIAL(D50) IV PUSH PRN (19:00)
--- NOTE | 2017-01-05 19:14 | HHI.HP ---
[facility] Physician Unknown Admission Diagnosis Fall with fracture of the right proximal femur Diagnoses: (1) Dementia of Alzheimer's type with behavioral disturbance Diagnosis: Secondary (2) Hypertension Diagnosis: Secondary (3) Psychosis Diagnosis: Secondary (4) Fracture of proximal end of right femur Diagnosis: Principal (5) Hypothyroidism Diagnosis: Secondary (6) Hyperlipidemia Diagnosis: Secondary (7) Seizures Diagnosis: Secondary (8) COPD (chronic obstructive pulmonary disease) Diagnosis: Secondary Chief Complaint: Fall with fracture of right proximal femur Travel History International Travel<30 Days: No Contact w/Intl Traveler <30 Da: No Traveled to Known Affected Are: No History of Present Illness Patient is a 81-year-old female. In the psychiatric unit with advanced dementia and COPD and seizure disorder and hypertension and hyperlipidemia and hypothyroidism who was noted to fall with a right proximal femur fracture. Patient will be transferred to inpatient and will undergo surgery with Dr. Bernard Betancourt of orthopedics tomorrow Review of Systems ROS Limitations: Altered Mental Status, Psychotic, Speech Impaired Past Family Social History Past Medical History Dementia COPD Seizure hypertension hyperlipidemia hypothyroidism Coronary artery disease with 13 stents placed in the past Diabetes by history Past Surgical History Appendectomy Hysterectomy Coronary artery disease with multiple stents 13 and total placed in the past Reported Medications Reported Meds & Active Scripts Active D 1000 (Cholecalciferol) 1,000 Unit Tab 1,000 Units PO DAILY B-12 (Cyanocobalamin) 100 Mcg Tab 100 Mcg PO DAILY Synthroid (Levothyroxine Sodium) 112 Mcg Tab 112 Mcg PO DAILY@0600 Keppra (Levetiracetam) 500 Mg Tab 500 Mg PO HS Keppra (Levetiracetam) 500 Mg Tab 1,000 Mg PO DAILY Reported Tylenol (Acetaminophen) 325 Mg Tab 325 Mg PO Q4H PRN Sennosides 8.6 Mg Tab 8.6 Mg PO HS Ranitidine (Ranitidine HCl) 150 Mg Tab 150 Mg PO DAILY Meclizine (Meclizine HCl) 12.5 Mg Tab 12.5 Mg PO TID PRN Lorazepam 0.5 Mg Tab 0.5 Mg PO Q6H PRN Levothyroxine (Levothyroxine Sodium) 100 Mcg Tab 100 Mcg PO DAILY Keppra (Levetiracetam) 1,000 Mg Tab 1,000 Mg PO BID Culturelle (Lactobacillus Rhamnosus (GG)) 10 Billion Cell Cap 1 Cap PO BID Citalopram (Citalopram Hydrobromide) 20 Mg Tab 20 Mg PO DAILY Zzzquil (Diphenhydramine (Sleep)) 25 Mg Cap 25 Mg PO HS PRN Atorvastatin (Atorvastatin Calcium) 40 Mg Tab 40 Mg PO HS Allergies: Coded Allergies: No Known Allergies (Unverified , 12/10/16) Active Ordered Medications Reported Meds & Active Scripts Active D 1000 (Cholecalciferol) 1,000 Unit Tab 1,000 Units PO DAILY B-12 (Cyanocobalamin) 100 Mcg Tab 100 Mcg PO DAILY Synthroid (Levothyroxine Sodium) 112 Mcg Tab 112 Mcg PO DAILY@0600 Keppra (Levetiracetam) 500 Mg Tab 500 Mg PO HS Keppra (Levetiracetam) 500 Mg Tab 1,000 Mg PO DAILY Reported Tylenol (Acetaminophen) 325 Mg Tab 325 Mg PO Q4H PRN Sennosides 8.6 Mg Tab 8.6 Mg PO HS Ranitidine (Ranitidine HCl) 150 Mg Tab 150 Mg PO DAILY Meclizine (Meclizine HCl) 12.5 Mg Tab 12.5 Mg PO TID PRN Lorazepam 0.5 Mg Tab 0.5 Mg PO Q6H PRN Levothyroxine (Levothyroxine Sodium) 100 Mcg Tab 100 Mcg PO DAILY Keppra (Levetiracetam) 1,000 Mg Tab 1,000 Mg PO BID Culturelle (Lactobacillus Rhamnosus (GG)) 10 Billion Cell Cap 1 Cap PO BID Citalopram (Citalopram Hydrobromide) 20 Mg Tab 20 Mg PO DAILY Zzzquil (Diphenhydramine (Sleep)) 25 Mg Cap 25 Mg PO HS PRN Atorvastatin (Atorvastatin Calcium) 40 Mg Tab 40 Mg PO HS Family History Unobtainable per patient due to history not obtainable from patient Social History Currently a resident of the psychiatric facility Physical Exam Vital Signs Date Time Temp Pulse Resp B/P (MAP) Pulse Ox O2 Delivery O2 Flow Rate FiO2 01/05/17 14:35 98.1 76 18 142/69 (93 95 Physical Exam GENERAL: This is a well-nourished, well-developed patient, patient is confused appears uncomfortable SKIN: No rashes, ecchymoses or lesions. Cool and dry. HEAD: Atraumatic. Normocephalic. No temporal or scalp tenderness. EYES: Pupils equal round and reactive. Extraocular motions intact. No scleral icterus. No injection or drainage. ENT: Nose without bleeding, purulent drainage or septal hematoma. Throat without erythema, tonsillar hypertrophy or exudate. Uvula midline. Airway patent. NECK: Trachea midline. No JVD or lymphadenopathy. Supple, nontender, no meningeal signs. CARDIOVASCULAR: Regular rate and rhythm without murmurs, gallops, or rubs. S1 and S2 no S3 or S4 RESPIRATORY: Clear to auscultation. Breath sounds equal bilaterally. No wheezes , rales, or rhonchi. GASTROINTESTINAL: Abdomen soft, non-tender, nondistended. No hepato-splenomegaly , or palpable masses. No guarding. MUSCULOSKELETAL: Extremities without clubbing, cyanosis, or edema. No joint tenderness, effusion, or edema noted. No calf tenderness. Negative Homans sign bilaterally. Right hip femur area is quite tender on any movement left has referred pain to the right NEUROLOGICAL: Awake and alert and confused. Cranial nerves II through XII intact. Motor and sensory grossly within normal limits. 4 out of 5 muscle strength in all muscle groups. ABNormal speech. Laboratory See previous admission Imaging See previous admission Caprini VTE Risk Assessment Caprini VTE Risk Assessment: Mod/High Risk (score >= 2) Caprini Risk Assessment Model Point Value = 1 Point Value = 2 Point Value = 3 Point Value = 5 Age 41-60 Minor surgery BMI > 25 kg/m2 Swollen legs Varicose veins or History of unexplained or recurrent spontaneous Oral contraceptives or hormone replacement Sepsis (< 1 month) Serious lung disease, including pneumonia (< 1 month) Abnormal pulmonary function Acute myocardial infarction Congestive heart failure (< 1 month) History of inflammatory bowel disease Medical patient at bed rest Age 61-74 Arthroscopic surgery Major open surgery (> 45 min) Laparoscopic surgery (> 45 min) Malignancy Confined to bed (> 72 hours) Immobilizing plaster cast Central venous access Age >= 75 History of VTE Family history of VTE Factor V Leiden Prothrombin [id number] Lupus anticoagulant Anticardiolipin antibodies Elevated serum homocysteine Heparin-induced thrombocytopenia Other congenital or acquired thrombophilia Stroke (< 1 month) Elective arthroplasty Hip, pelvis, or leg fracture Acute spinal cord injury (< 1 month) Prophylaxis Regimen Total Risk Factor Score Risk Level Prophylaxis Regimen 0-1 Low Early ambulation 2 Moderate Order ONE of the following: *Sequential Compression Device (SCD) *Heparin 5000 units SQ BID 3-4 Higher Order ONE of the following medications: *Heparin 5000 units SQ TID *Enoxaparin/Lovenox 40 mg SQ daily (WT < 150 kg, CrCl > 30 mL/min) *Enoxaparin/Lovenox 30 mg SQ daily (WT < 150 kg, CrCl > 10-29 mL/min) *Enoxaparin/Lovenox 30 mg SQ BID (WT < 150 kg, CrCl > 30 mL/min) AND/OR *Sequential Compression Device (SCD) 5 or more Highest Order ONE of the following medications: *Heparin 5000 units SQ TID (Preferred with Epidurals) *Enoxaparin/Lovenox 40 mg SQ daily (WT < 150 kg, CrCl > 30 mL/min) *Enoxaparin/Lovenox 30 mg SQ daily (WT < 150 kg, CrCl > 10-29 mL/min) *Enoxaparin/Lovenox 30 mg SQ BID (WT < 150 kg, CrCl > 30 mL/min) AND *Sequential Compression Device (SCD) Assessment and Plan Problem List: (1) Seizures ICD Code: R56.9 - Unspecified convulsions (2) Hypothyroidism ICD Code: E03.9 - Hypothyroidism, unspecified (3) Hyperlipidemia ICD Code: E78.5 - Hyperlipidemia, unspecified (4) COPD (chronic obstructive pulmonary disease) ICD Code: J44.9 - Chronic obstructive pulmonary disease, unspecified (5) Fracture of proximal end of right femur ICD Code: S72.001A - Fracture of unspecified part of neck of right femur, initial encounter for closed fracture (6) Dementia of Alzheimer's type with behavioral disturbance ICD Code: G30.8 - Other Alzheimer's disease; F02.81 - Dementia in other diseases classified elsewhere with behavioral disturbance (7) Hypertension ICD Code: I10 - Essential (primary) hypertension (8) Psychosis ICD Code: F29 - Unspecified psychosis not due to a substance or known physiological condition Status: Acute (9) Dizziness ICD Code: R42 - Dizziness and giddiness Assessment and Plan Status post fall Right femur proximal fracture to undergo surgery with Dr. Bernard Betancourt tomorrow Coronary artery disease hold her Plavix Hypertension resume home medications lisinopril 10 mg daily as well as Norvasc 5 mg daily Hyperlipidemia resume home medications Lipitor 40 mg by mouth daily at bedtime Dementia resume current medications per psychiatry Seizure disorder continue on Keppra thousand milligrams in a.m. and 500 mg in the p.m. Hypothyroidism levothyroxine 112 MCG's by mouth daily GERD and abdominal pain Protonix 20 mg by mouth daily Vitamin D insufficiency continue on vitamin D supplementation thousand milligrams by mouth daily We'll keep her nothing by mouth after midnight so she can undergo surgery tomorrow Code Status Full code Discussed Condition With RN in psychiatry Physician Certification 2 Midnight Certification Type: Admission for Inpatient Services Order for Inpatient Services The services are ordered in accordance with Medicare regulations or non- Medicare payer requirements, as applicable. In the case of services not specified as inpatient-only, they are appropriately provided as inpatient services in accordance with the 2-midnight benchmark. Estimated LOS (days): 3 3 days is the estimated time the patient will need to remain in the hospital, assuming treatment plan goals are met and no additional complications. Post-Hospital Plan: Not yet determined Anup Yanez DO Jan 05, 2017 19:14
[2017-01-05] MEDS ORDERED: PROCHLORPERAZINE 25 MG SUPP RECTAL PRN (19:15)
[2017-01-05] MEDS ORDERED: oxyCODONE/ACETAMINOPHEN 5 MG/325 MG TAB PO PRN (19:15)
[2017-01-05] MEDS ORDERED: oxyCODONE/ACETAMINOPHEN 10 MG/325 MG TAB PO PRN (19:15)
[2017-01-05] MEDS: SODIUM CHLOR 0.9% 1000 ML INJ 1,000 ML IV SCH (19:15)
[2017-01-05] MEDS ORDERED: ONDANSETRON HCL 4 MG/2 ML VIAL IVP PRN (19:15)
[2017-01-05] MEDS ORDERED: SODIUM CHLORIDE 0.9% FLUSH 10 ML FLUSH IV FLUSH PRN (19:15)
[2017-01-05] MEDS ORDERED: ACETAMINOPHEN 325 MG TAB PO PRN ×3 (19:15→19:30)
[2017-01-05] MEDS ORDERED: LACTULOSE SYRUP 20 GM/30 ML CUP PO PRN (19:15)
[2017-01-05] MEDS ORDERED: NALOXONE HCL 0.4 MG/ML AMP IV PUSH PRN (19:15)
[2017-01-05] MEDS ORDERED: MORPHINE SULFATE 4 MG/ML INJ IV PUSH PRN (19:15)
[2017-01-05] MEDS ORDERED: MAGNESIUM HYDROXIDE SUSP 30 ML CUP PO PRN (19:15)
[2017-01-05] MEDS ORDERED: BISACODYL 10 MG SUPP RECTAL PRN (19:15)
[2017-01-05] MEDS ORDERED: SENNOSIDES 8.6 MG TAB PO PRN (19:15)
[2017-01-05] MEDS ORDERED: MECLIZINE HCL 25 MG TAB PO PRN (19:30)
[2017-01-05 21:00] VITALS: BP 137/77; PULSE 76; RESP 16; TEMP 98; O2SAT 93
[2017-01-05] MEDS: SODIUM CHLORIDE 0.9% FLUSH 10 ML FLUSH IV FLUSH SCH (21:55)
[2017-01-05] MEDS: SENNOSIDES 8.6 MG TAB PO SCH (21:55)
[2017-01-05] MEDS: levETIRAcetam 500 MG TAB PO SCH (21:55)
[2017-01-05] MEDS: ATORVASTATIN 40 MG TAB PO SCH (21:55)
[2017-01-05] MEDS: DOCUSATE SODIUM 50 MG/SENNA 8.6 MG TAB PO SCH (21:55)
[2017-01-05] MEDS: INSULIN ASPART SUPPLEMENTAL SCALE SQ SCH (21:56)
[2017-01-05] MEDS: LACTOBACILLUS ACIDOPHILUS TAB PO SCH (21:56)
[2017-01-05] MEDS ORDERED: SODIUM CHLORID 0.9% 500 ML IV PRN (23:00)
[2017-01-05] MEDS ORDERED: INSULIN HUMAN REGULAR 1,000 UNITS/10 ML VIAL SQ PRN (23:00)
[2017-01-05] MEDS ORDERED: POVIDONE IODINE 5% (ANTISEPSIS KIT) 4 APPLICATIONS EACH NARE PRN (23:00)
[2017-01-05] MEDS ORDERED: CHLORHEXIDINE GLUCONATE 2 % 1 PACK (2 CLOTHS) TOPICAL PRN (23:00)
[2017-01-05] MEDS ORDERED: LACTATED RINGER'S 1000 ML IV PRN (23:00)
[2017-01-05] MEDS ORDERED: METOPROLOL TARTRATE 25 MG TAB PO PRN (23:00)
[2017-01-06] MEDS: MORPHINE SULFATE 4 MG/ML INJ IV PUSH PRN ×2 (00:04→12:33)
[2017-01-06 00:19] VITALS: BP 121/68; PULSE 71; RESP 16; TEMP 96.5; O2SAT 94
[2017-01-06] MEDS: LEVOTHYROXINE SODIUM 112 MCG TAB PO SCH (04:09)
[2017-01-06 04:40] VITALS: BP 115/65; PULSE 70; RESP 16; TEMP 96.9; O2SAT 94
--- NOTE | 2017-01-06 06:48 | PD.ORT.PN ---
Subjective Subjective Remarks s/p fall in psych demented. does not answer questions Objective Vitals Vital Signs Date Time Temp Pulse Resp B/P (MAP) Pulse Ox O2 Delivery O2 Flow Rate FiO2 01/06/17 04:40 96.9 70 16 115/65 (82) 94 01/06/17 00:19 96.5 71 16 121/68 (85) 94 01/05/17 21:00 98.0 76 16 137/77 (97) 93 I/O 01/05/17 01/05/17 01/05/17 01/06/17 01/06/17 01/06/17 07:00 15:00 23:00 07:00 15:00 23:00 Intake Total 0 ml Balance 0 ml Intake Oral 0 ml # Voids 1 # Bowel Movements 0 Objective Remarks RLE: pain with motion. + cap refill Assessment & Plan Assessment and Plan 1) Right Femoral Neck Fx -npo -consents -surgery today Bruce Funes Jan 06, 2017 06:48
[2017-01-06 08:00] VITALS: BP 133/69; PULSE 79; RESP 17; TEMP 98.4; O2SAT 91
[2017-01-06] MEDS: INSULIN ASPART SUPPLEMENTAL SCALE SQ SCH ×4 (08:00→20:04)
[2017-01-06] MEDS: FAMOTIDINE 20 MG TAB PO SCH ×2 (09:00→19:57)
[2017-01-06] MEDS: DOCUSATE SODIUM 50 MG/SENNA 8.6 MG TAB PO SCH ×2 (09:00→20:03)
[2017-01-06] MEDS: SODIUM CHLORIDE 0.9% FLUSH 10 ML FLUSH IV FLUSH SCH ×2 (09:00→19:54)
[2017-01-06] MEDS: LACTOBACILLUS ACIDOPHILUS TAB PO SCH ×2 (09:00→19:57)
[2017-01-06] MEDS: CITALOPRAM HYDROBROMIDE 20 MG TAB PO SCH (09:00)
[2017-01-06] MEDS: CYANOCOBALAMIN 100 MCG TAB PO SCH (09:00)
[2017-01-06] MEDS: CHOLECALCIFEROL (VIT D3) 1000 UNIT TAB PO SCH (09:00)
[2017-01-06] MEDS: levETIRAcetam 500 MG TAB PO SCH ×2 (09:01→19:57)
--- NOTE | 2017-01-06 11:29 | HHI.PR ---
Subjective Remarks Patient is a 81-year-old female. In the psychiatric unit with advanced dementia and COPD and seizure disorder and hypertension and hyperlipidemia and hypothyroidism who was noted to fall with a right proximal femur fracture. Patient will be transferred to inpatient and will undergo surgery with Dr. Bernard Betancourt of orthopedics tomorrow 01-06 TO GO FOR SURGERY WITH DR BETANCOURT LATER TODAY COMPLAINS OF PAIN IN RIGHT HIP/FEMUR AREA DW RN AND PT PATIENT REMAINS CONFUSED Objective Vitals Vital Signs Date Time Temp Pulse Resp B/P (MAP) Pulse Ox O2 Delivery O2 Flow Rate FiO2 01/06/17 08:00 98.4 79 17 133/69 (90) 91 01/06/17 04:40 96.9 70 16 115/65 (82) 94 01/06/17 00:19 96.5 71 16 121/68 (85) 94 01/05/17 21:00 98.0 76 16 137/77 (97) 93 I/O 01/05/17 01/05/17 01/05/17 01/06/17 01/06/17 01/06/17 07:00 15:00 23:00 07:00 15:00 23:00 Intake Total 0 ml 0 ml Balance 0 ml 0 ml Intake Oral 0 ml 0 ml # Voids 1 1 # Bowel Movements 0 0 Objective Remarks GENERAL: AWAKE AND ALERT BUT CONFUSED SKIN: Warm and dry. HEAD: Atraumatic. Normocephalic. EYES: Pupils equal and round. No scleral icterus. No injection or drainage. EOMI ENT: No nasal bleeding or discharge. Mucous membranes pink and moist. TONGUE MIDLINE NECK: Trachea midline. No JVD. SUPPLE CARDIOVASCULAR: Regular rate and rhythm. S1, S2 NO S3 OR S4 NO HEAVE OR THRILL RESPIRATORY: No accessory muscle use. Clear to auscultation. Breath sounds equal bilaterally. GASTROINTESTINAL: Abdomen soft, non-tender, nondistended. Hepatic and splenic margins not palpable. MUSCULOSKELETAL: Extremities without clubbing, cyanosis, or edema. TENDER RIGHT HIP AREA NEUROLOGICAL: Awake and alert. No obvious cranial nerve deficits. Motor grossly within normal limits. 4 out of 5 muscle strength in the arms and legs. Normal speech. PSYCHIATRIC: INAppropriate mood and affect; insight and judgment ABnormal. CONFUSED AND DEMENTED Medications and IVs Current Medications Dextrose (D50w (Vial) Inj) 50 ml UNSCH PRN IV PUSH HYPOGLYCEMIA-SEE COMMENTS; Start 01/05/17 at 19:00 Glucagon (Glucagon Inj) 1 mg UNSCH PRN OTHER HYPOGLYCEMIA-SEE COMMENTS; Start 01/05/17 at 19:00 Insulin Aspart (NovoLOG SUPPLEMENTAL SCALE) 1 ACHS SLIDING SCALE SQ ; Start at 21:00 Sodium Chloride 1,000 ml @ 42 mls/hr [id number] IV ; Start 01/05/17 at 19:15 Sodium Chloride (NS Flush) 2 ml UNSCH PRN IV FLUSH FLUSH AFTER USING IV ACCESS ; Start 01/05/17 at 19:15 Sodium Chloride (NS Flush) 2 ml BID IV FLUSH ; Start 01/05/17 at 21:00 Acetaminophen (Tylenol) 650 mg Q4H PRN PO TEMP > 100.4; Start 01/05/17 at 19:15 Ondansetron HCl (Zofran Inj) 4 mg Q6H PRN IVP NAUSEA OR VOMITING; Start at 19:15 Prochlorperazine (Compazine Supp) 25 mg Q12H PRN RECTAL NAUSEA OR VOMITING; Start 01/05/17 at 19:15 Acetaminophen (Tylenol) 650 mg Q6H PRN PO PAIN SCALE 1 TO 2; Start 01/05/17 at 19:15; Stop 01/05/17 at 21:36; Status DC Oxycodone/ Acetaminophen (Percocet 5-325 Mg) 1 tab Q6H PRN PO PAIN SCALE 3 TO 5; Start 01/05/17 at 19:15 Oxycodone/ Acetaminophen (Percocet 10-325 Mg) 1 tab Q6H PRN PO PAIN SCALE 6 TO 10; Start 01/05/17 at 19:15 Morphine Sulfate (Morphine Inj) 2 mg Q3H PRN IV PUSH Pain 3-5; if unable to take PO; Start 01/05/17 at 19:15 Morphine Sulfate (Morphine Inj) 4 mg Q3H PRN IV PUSH Pain 6-10;if unable to take PO Last administered on 01/06/17t 00:04; Start 01/05/17 at 19:15 Naloxone HCl (Narcan Inj) 0.4 mg UNSCH PRN IV PUSH SEE LABEL COMMENTS; Start at 19:15 Senna/Docusate Sodium (Latosha-Colace) 1 tab BID PO ; Start 01/05/17 at 21:00 Magnesium Hydroxide (Milk Of Magnesia Liq) 30 ml Q12H PRN PO MILD - MODERATE CONSTIPATION; Start 01/05/17 at 19:15 Sennosides (Senokot) 17.2 mg Q12H PRN PO MODERATE - SEVERE CONSTIPATION; Start 01/05/17 at 19:15 Bisacodyl (Dulcolax Supp) 10 mg DAILY PRN RECTAL SEVERE CONSITIPATION; Start at 19:15 Lactulose (Lactulose Liq) 30 ml DAILY PRN PO SEVERE CONSITIPATION; Start at 19:15 Acetaminophen (Tylenol) 325 mg Q4H PRN PO PAIN SCALE 1 TO 2; Start 01/05/17 at 19:30 Atorvastatin Calcium (Lipitor) 40 mg HS PO ; Start 01/05/17 at 21:00 Cholecalciferol (Vitamin D3) 1,000 units DAILY PO ; Start 01/06/17 at 09:00 Citalopram Hydrobromide (CeleXA) 20 mg DAILY PO ; Start 01/06/17 at 09:00 Cyanocobalamin (Vitamin B12) 100 mcg DAILY PO ; Start 01/06/17 at 09:00 Diphenhydramine HCl (Benadryl) 25 mg HS PRN PO INSOMNIA; Start 01/05/17 at 19: 30 Levetriacetam (Keppra) 1,000 mg DAILY PO Last administered on 01/06/17t 09:01; Start 01/06/17 at 09:00 Levetriacetam (Keppra) 500 mg HS PO ; Start 01/05/17 at 21:00 Levothyroxine Sodium (Synthroid) 112 mcg DAILY@0600 PO ; Start 01/06/17 at 06:00 Lorazepam (Ativan) 0.5 mg Q6H PRN PO ANXIETY; Start 01/05/17 at 19:30 Meclizine HCl (Antivert) 12.5 mg TID PRN PO VERTIGO; Start 01/05/17 at 19:30 Sennosides (Senokot) 8.6 mg HS PO ; Start 01/05/17 at 21:00 Lactobacillus Acidophilus (Lactinex) 1 tab BID PO ; Start 01/05/17 at 22:00 Famotidine (Pepcid) 10 mg BID PO ; Start 01/06/17 at 09:00 Lactated Ringer's 1,000 ml @ 30 mls/hr Q24H PRN IV SEE LABEL COMMENTS; Start at 23:00; Stop 01/08/17 at 22:59 Sodium Chloride 500 ml @ 30 mls/hr [id number] PRN IV SEE LABEL COMMENTS; Start at 23:00; Stop 01/08/17 at 22:59 Metoprolol Tartrate (Lopressor) 25 mg HOMEOPATHIC DOCTOR PRN PO SEE LABEL COMMENTS; Start 01/05/17 at 23:00; Stop 01/08/17 at 22:59 Povidone Iodine (Betadine 5% Antisepsis Kit) 1 applic HOMEOPATHIC DOCTOR PRN EACH NARE SEE LABEL COMMENTS; Start 01/05/17 at 23:00; Stop 01/08/17 at 22:59 Chlorhexidine Gluconate (Chlorhexidine 2% Cloth) 3 pack HOMEOPATHIC DOCTOR PRN TOPICAL SEE LABEL COMMENTS; Start 01/05/17 at 23:00; Stop 01/08/17 at 22:59 Insulin Human Regular (NovoLIN R INJ) See Protocol Table ... HOMEOPATHIC DOCTOR PRN SQ SEE PROTOCOL TABLE; Start 01/05/17 at 23:00; Stop 01/08/17 at 22:59 Vascular Central Line Catheter: No A/P Problem List: (1) Seizures ICD Code: R56.9 - Unspecified convulsions (2) Hypothyroidism ICD Code: E03.9 - Hypothyroidism, unspecified (3) Hyperlipidemia ICD Code: E78.5 - Hyperlipidemia, unspecified (4) COPD (chronic obstructive pulmonary disease) ICD Code: J44.9 - Chronic obstructive pulmonary disease, unspecified (5) Fracture of proximal end of right femur ICD Code: S72.001A - Fracture of unspecified part of neck of right femur, initial encounter for closed fracture (6) Dementia of Alzheimer's type with behavioral disturbance ICD Code: G30.8 - Other Alzheimer's disease; F02.81 - Dementia in other diseases classified elsewhere with behavioral disturbance (7) Hypertension ICD Code: I10 - Essential (primary) hypertension (8) Psychosis ICD Code: F29 - Unspecified psychosis not due to a substance or known physiological condition Status: Acute (9) Dizziness ICD Code: R42 - Dizziness and giddiness Assessment and Plan Status post fall Right femur proximal fracture to undergo surgery with Dr. Bernard Betancourt tomorrow Coronary artery disease hold her Plavix Hypertension resume home medications lisinopril 10 mg daily as well as Norvasc 5 mg daily Hyperlipidemia resume home medications Lipitor 40 mg by mouth daily at bedtime Dementia resume current medications per psychiatry Seizure disorder continue on Keppra thousand milligrams in a.m. and 500 mg in the p.m. Hypothyroidism levothyroxine 112 MCG's by mouth daily GERD and abdominal pain Protonix 20 mg by mouth daily Vitamin D insufficiency continue on vitamin D supplementation thousand milligrams by mouth daily We'll keep her nothing by mouth after midnight so she can undergo surgery tomorrow CONSULT PSYCHIATRY Anup Yanez DO Jan 06, 2017 11:29
--- NOTE | 2017-01-06 11:54 | EKG ---
Date Performed: 01/06/2017 Time Performed: 05:58:32 PTAGE: 81 years EKG: Sinus rhythm Low QRS voltages in limb leads Compared to prior tracing no significant change Borderline ECG PREVIOUS TRACING : 12/09/2016 14.48 DOCTOR: Elmer Lockett Interpretating Date/Time 01/06/2017 11:53:18
[2017-01-06 12:00] VITALS: BP 154/75; PULSE 76; RESP 17; TEMP 98.5; O2SAT 91
[2017-01-06] MEDS ORDERED: DEXAMETHASONE SOD PHOS 4 MG/ML VIAL IV ONE (12:00)
[2017-01-06] MEDS ORDERED: SUCCINYLCHOLINE CHLORIDE 100 MG/5 ML SYRINGE IV PUSH ONE (12:00)
[2017-01-06] MEDS ORDERED: ePHEDrine/NS 25 MG/5 ML SYR IV ONE (12:00)
[2017-01-06] MEDS ORDERED: PHENYLEPH/NS 1000 MCG/10 ML SYR IV ONE (12:00)
[2017-01-06] MEDS ORDERED: ONDANSETRON HCL 4 MG/2 ML VIAL IV PUSH ONE (12:00)
[2017-01-06] MEDS ORDERED: PROPOFOL 200 MG/20 ML AMP IV ONE (12:00)
[2017-01-06] MEDS ORDERED: LIDOCAINE HCL 1% PF 5 ML AMPULE OTHER ONE (12:00)
[2017-01-06] MEDS ORDERED: GENTAMICIN SULFATE 80 MG/2 ML VIAL ONE (14:43)
[2017-01-06] MEDS ORDERED: ceFAZolin 2 GM PREMIX 0 ML ONE (15:15)
[2017-01-06] MEDS ORDERED: ceFAZolin INJ 1,000 MG VIAL ONE (15:17)
--- NOTE | 2017-01-06 16:57 | RADRPT ---
EXAM DATE/TIME: 01/06/2017 16:36 [facility] COMPARISON: No previous studies available for comparison. INDICATIONS : Right hip fracture. Hip pinning. MEDICAL HISTORY : Hypertension. Renal failure, chronic. SURGICAL HISTORY : Hysterectomy. Appendectomy. ENCOUNTER: Initial ACUITY: 1 day PAIN SCORE: Non-responsive. LOCATION: Right hip. FINDINGS: 3 threaded pins traverse the right femoral neck with operative fixation of the subcapital femoral nec k fracture and good alignment. CONCLUSION: Postoperative changes. Robi Worley MD on January 06, 2017 at 16:55 Board Certified Radiologist. This report was verified electronically.
[2017-01-06] MEDS ORDERED: ONDANSETRON HCL 4 MG/2 ML VIAL IVP PRN (17:00)
[2017-01-06] MEDS ORDERED: BISACODYL 10 MG SUPP RECTAL PRN (17:00)
[2017-01-06] MEDS ORDERED: Post-op Orders (for Pharmacy) MISC XX ONE (17:00)
[2017-01-06] MEDS ORDERED: MAGNESIUM HYDROXIDE SUSP 30 ML CUP PO PRN (17:00)
[2017-01-06] MEDS ORDERED: SODIUM CHLORIDE 0.9% FLUSH 10 ML FLUSH IV FLUSH PRN (17:00)
[2017-01-06] MEDS ORDERED: LACTULOSE SYRUP 20 GM/30 ML CUP PO PRN (17:00)
[2017-01-06] MEDS ORDERED: SENNOSIDES 8.6 MG TAB PO PRN (17:00)
[2017-01-06] MEDS ORDERED: ACETAMINOPHEN 325 MG TAB PO PRN (17:00)
--- NOTE | 2017-01-06 17:03 | HHI.PR ---
cc: Esther Jimenes MD Immediate Post Op Note Procedure Date: Jan 06, 2017 Pre Op Diagnosis: Right femoral neck fracture Post Op Diagnosis: same Surgeon: Esther Jimenes Ultrasound Tester(s): none Procedure: Open reduction internal fixation right femoral neck fracture Findings: Valgus impacted right femoral neck fracture Complications: none Specimen(s) removed: none Estimated blood loss: 100cc Esther Jimenes MD Jan 06, 2017 17:02
--- NOTE | 2017-01-06 17:08 | PD.CONS ---
cc: Esther Jimenes MD HPI Service Orthopedic Surgeons Consult Requested By Primary Care Physician Unknown Admission Diagnosis Fall with fracture of the right proximal femur Diagnoses: (1) Seizures (2) Hypothyroidism (3) Hyperlipidemia (4) COPD (chronic obstructive pulmonary disease) (5) Fracture of proximal end of right femur Diagnosis: Principal (6) Dementia of Alzheimer's type with behavioral disturbance (7) Hypertension (8) Psychosis (9) Dizziness History of Present Illness 81yo demented female who presented after a fall in psychiatric facility with right hip pain. Patient was found to have a right femoral neck fracture. Review of Systems ROS Limitations: Altered Mental Status, Uncooperative, Poor Historian (Does not answer questions due to mental status/dementia) Unable to fully obtain due to dementia Visible right hip pain with movement Past Family Social History Past Medical History Dementia COPD Seizure hypertension hyperlipidemia hypothyroidism Coronary artery disease with 13 stents placed in the past Diabetes by history Past Surgical History Appendectomy Hysterectomy Coronary artery disease with multiple stents 13 and total placed in the past Allergies: Coded Allergies: No Known Allergies (Unverified , 12/10/16) Active Ordered Medications Current Medications Medications (Trade) Dose Ordered Sig/Skyla Route Start Time Stop Time Status Last Admin (D50w (Vial) Inj) 50 ml UNSCH PRN IV PUSH 01/05/17 19:00 (Glucagon Inj) 1 mg UNSCH PRN OTHER 01/05/17 19:00 (NovoLOG SUPPLEMENTAL SCALE) 1 ACHS SLIDING SCALE SQ 01/05/17 21:00 Sodium Chloride 1,000 ml @ 42 mls/hr [id number] IV 01/05/17 19:15 (NS Flush) 2 ml UNSCH PRN IV FLUSH 01/05/17 19:15 (NS Flush) 2 ml BID IV FLUSH 01/05/17 21:00 (Tylenol) 650 mg Q4H PRN PO 01/05/17 19:15 (Zofran Inj) 4 mg Q6H PRN IVP 01/05/17 19:15 (Compazine Supp) 25 mg Q12H PRN RECTAL 01/05/17 19:15 (Percocet 5-325 Mg) 1 tab Q6H PRN PO 01/05/17 19:15 (Percocet 10-325 Mg) 1 tab Q6H PRN PO 01/05/17 19:15 (Morphine Inj) 2 mg Q3H PRN IV PUSH 01/05/17 19:15 (Morphine Inj) 4 mg Q3H PRN IV PUSH 01/05/17 19:15 01/06/17 12:33 (Narcan Inj) 0.4 mg UNSCH PRN IV PUSH 01/05/17 19:15 (Latosha-Colace) 1 tab BID PO 01/05/17 21:00 (Milk Of Magnesia Liq) 30 ml Q12H PRN PO 01/05/17 19:15 (Senokot) 17.2 mg Q12H PRN PO 01/05/17 19:15 (Dulcolax Supp) 10 mg DAILY PRN RECTAL 01/05/17 19:15 (Lactulose Liq) 30 ml DAILY PRN PO 01/05/17 19:15 (Tylenol) 325 mg Q4H PRN PO 01/05/17 19:30 (Lipitor) 40 mg HS PO 01/05/17 21:00 (Vitamin D3) 1,000 units DAILY PO 01/06/17 09:00 (CeleXA) 20 mg DAILY PO 01/06/17 09:00 (Vitamin B12) 100 mcg DAILY PO 01/06/17 09:00 (Benadryl) 25 mg HS PRN PO 01/05/17 19:30 (Keppra) 1,000 mg DAILY PO 01/06/17 09:00 01/06/17 09:01 (Keppra) 500 mg HS PO 01/05/17 21:00 (Synthroid) 112 mcg DAILY@0600 PO 01/06/17 06:00 (Ativan) 0.5 mg Q6H PRN PO 01/05/17 19:30 (Antivert) 12.5 mg TID PRN PO 01/05/17 19:30 (Senokot) 8.6 mg HS PO 01/05/17 21:00 (Lactinex) 1 tab BID PO 01/05/17 22:00 (Pepcid) 10 mg BID PO 01/06/17 09:00 Lactated Ringer's 1,000 ml @ 30 mls/hr Q24H PRN IV 01/05/17 23:00 01/08/17 22:59 Sodium Chloride 500 ml @ 30 mls/hr [id number] PRN IV 01/05/17 23:00 01/08/17 22:59 (Lopressor) 25 mg EARLY CHILDHOOD WORKER PRN PO 01/05/17 23:00 01/08/17 22:59 (Betadine 5% Antisepsis Kit) 1 applic EARLY CHILDHOOD WORKER PRN EACH NARE 01/05/17 23:00 01/08/17 22:59 (Chlorhexidine 2% Cloth) 3 pack EARLY CHILDHOOD WORKER PRN TOPICAL 01/05/17 23:00 01/08/17 22:59 (NovoLIN R INJ) See Protocol Table ... EARLY CHILDHOOD WORKER PRN SQ 01/05/17 23:00 01/08/17 22:59 Reported Meds & Active Scripts Active D 1000 (Cholecalciferol) 1,000 Unit Tab 1,000 Units PO DAILY B-12 (Cyanocobalamin) 100 Mcg Tab 100 Mcg PO DAILY Synthroid (Levothyroxine Sodium) 112 Mcg Tab 112 Mcg PO DAILY@0600 Keppra (Levetiracetam) 500 Mg Tab 500 Mg PO HS Keppra (Levetiracetam) 500 Mg Tab 1,000 Mg PO DAILY Reported Tylenol (Acetaminophen) 325 Mg Tab 325 Mg PO Q4H PRN Sennosides 8.6 Mg Tab 8.6 Mg PO HS Ranitidine (Ranitidine HCl) 150 Mg Tab 150 Mg PO DAILY Meclizine (Meclizine HCl) 12.5 Mg Tab 12.5 Mg PO TID PRN Lorazepam 0.5 Mg Tab 0.5 Mg PO Q6H PRN Culturelle (Lactobacillus Rhamnosus (GG)) 10 Billion Cell Cap 1 Cap PO BID Citalopram (Citalopram Hydrobromide) 20 Mg Tab 20 Mg PO DAILY Zzzquil (Diphenhydramine (Sleep)) 25 Mg Cap 25 Mg PO HS PRN Atorvastatin (Atorvastatin Calcium) 40 Mg Tab 40 Mg PO HS Family History Unobtainable per patient due to history not obtainable from patient Social History Currently a resident of the psychiatric facility Physical Exam Vital Signs Vital Signs Date Time Temp Pulse Resp B/P (MAP) Pulse Ox O2 Delivery O2 Flow Rate FiO2 01/06/17 12:00 98.5 76 17 154/75 (101) 91 01/06/17 08:00 98.4 79 17 133/69 (90) 91 01/06/17 04:40 96.9 70 16 115/65 (82) 94 01/06/17 00:19 96.5 71 16 121/68 (85) 94 01/05/17 21:00 98.0 76 16 137/77 (97) 93 Physical Exam Altered mental status. Demented. Pleasant. +TTP about right hip and pain with movement of right hip. Uncooperative with strength exam, but moving R foot and LLE without difficulty. No appreciable skin wounds Palpable DP pulses. Imaging Pelvis and right hip XR - valgus impacted right femoral neck fracture Assessment & Plan Assessment and Plan 1) Right Femoral Neck Fx -Discussed with patient's daughter the diagnosis and plan for operative intervention in the form of ORIF right femoral neck fracture. Consents obtained after risks, benefits and alternatives to treatment discussed. -OR today Esther Jimenes MD Jan 06, 2017 17:08
[2017-01-06] MEDS ORDERED: *morphine SULFATE 8 MG/ML PERIprocedure ONLY ONE (17:29)
[2017-01-06] MEDS ORDERED: DO NOT ADM ANY ANTICOAGULANT DRUGS PRN (17:45)
[2017-01-06] MEDS: SODIUM CHLOR 0.9% 1000 ML INJ 1,000 ML IV SCH (17:50)
--- NOTE | 2017-01-06 18:40 | RADRPT ---
EXAM DATE/TIME: 01/06/2017 18:03 [facility] COMPARISON: HIP RIGHT (AP&LAT 2/3VWS) WO AP PELVIS, January 06, 2017, 16:36. HIP RIGHT (AP&LAT 2/3VWS) W AP PE LVIS, January 05, 2017, 15:14. INDICATIONS : Post op right hip pinning. MEDICAL HISTORY : Hypertension. Renal failure, chronic SURGICAL HISTORY : Hysterectomy. Appendectomy ENCOUNTER: Subsequent ACUITY: 1 day PAIN SCORE: Non-responsive. LOCATION: Right pelvis FINDINGS: Subcapital fracture of the right seen are has undergone fixation with 3 trochanteric nails. Alignment is near-anatomic. No evidence of any acute complication. CONCLUSION: Trochanteric nailing of the subcapital fracture without evidence of an acute complication. Sunny Garcia MD on January 06, 2017 at 18:37 Board Certified Radiologist. This report was verified electronically.
[2017-01-06 19:55] VITALS: BP 155/77; PULSE 76; RESP 17; TEMP 97; O2SAT 94
[2017-01-06] MEDS: ATORVASTATIN 40 MG TAB PO SCH (20:00)
[2017-01-06] MEDS: SENNOSIDES 8.6 MG TAB PO SCH (20:04)
[2017-01-06] MEDS ORDERED: DOCUSATE SODIUM 50 MG/SENNA 8.6 MG TAB PO SCH (21:00)
[2017-01-06] MEDS: MORPHINE SULFATE 8 MG/ML INJ IV PUSH PRN (22:08)
[2017-01-07] VITALS (8 sets, daily range): BP systolic 117–156; BP diastolic 53–80; PULSE 73–95; RESP 17–18; TEMP 96.4–97.7; O2SAT 91–98
[2017-01-07] MEDS: ENOXAPARIN SODIUM 40 MG/0.4 ML SYRINGE SQ SCH (04:17)
[2017-01-07] MEDS: MORPHINE SULFATE 8 MG/ML INJ IV PUSH PRN ×4 (04:17→21:51)
[2017-01-07] MEDS: LEVOTHYROXINE SODIUM 112 MCG TAB PO SCH (04:32)
[2017-01-07 07:17] LABS: AUTOMATED NEUTROPHIL # 12.1 TH/MM3 (1.8-7.7); BASOPHIL % 0.2 % (0.0-2.0); EOSINOPHIL % 0.3 % (0.0-4.0); HEMATOCRIT 33.2 % (35.0-46.0); HEMO FLAGS DIFF FINAL; LYMPH % 6.9 % (9.0-44.0); MEAN CELL VOLUME 94.4 FL (80.0-100.0); MEAN CORPUSCULAR HEMOGLOBIN 30.8 PG (27.0-34.0); MEAN CORPUSCULAR HGB CONC 32.6 % (32.0-36.0); MONO % 6.3 % (0.0-8.0); NEUT % 86.3 % (16.0-70.0); PLATELET COUNT 190 TH/MM3 (150-450); RED BLOOD COUNT 3.52 MIL/MM3 (4.00-5.30)
--- NOTE | 2017-01-07 07:19 | PD.ORT.PN ---
Subjective Post Op Day #: 1 Subjective Remarks Patient relatively uncooperative with exam given dementia, however, states she feels better. Objective Vitals Vital Signs Date Time Temp Pulse Resp B/P (MAP) Pulse Ox O2 Delivery O2 Flow Rate FiO2 01/07/17 04:37 96.4 95 18 156/69 (98) 92 01/07/17 00:10 97.0 73 17 130/60 (83) 94 01/06/17 22:12 Nasal Cannula 2.00 01/06/17 19:55 97.0 76 17 155/77 (103) 94 01/06/17 19:07 Nasal Cannula 2.00 01/06/17 18:00 81 15 165/80 (108) 98 Nasal Cannula 2 01/06/17 17:45 98.4 79 18 168/79 (108) 98 Nasal Cannula 2 01/06/17 17:30 80 16 184/86 (118) 97 Nasal Cannula 2 01/06/17 17:15 75 15 178/93 (121) 97 Nasal Cannula 2 01/06/17 17:00 77 15 167/91 (116) 96 Nasal Cannula 2 01/06/17 16:59 98.3 81 14 142/94 (110) 96 Nasal Cannula 2 01/06/17 12:00 98.5 76 17 154/75 (101) 91 01/06/17 08:00 98.4 79 17 133/69 (90) 91 I/O 01/06/17 01/06/17 01/06/17 01/07/17 01/07/17 01/07/17 07:00 15:00 23:00 07:00 15:00 23:00 Intake Total 0 ml 0 ml 1200 ml 489 ml Output Total 100 ml Balance 0 ml 0 ml 1100 ml 489 ml Intake Oral 0 ml 0 ml 240 ml 120 ml IV Total 260 ml 369 ml Other 700 ml Output Estimated Blood Loss 100 ml # Voids 1 2 3 1 # Bowel Movements 0 0 0 0 Imaging Post-op R hip XR with 3 cannulated screws in acceptable position with valgus impacted femoral neck Objective Remarks RLE: no apparent pain this morning with hip rotation. +EHL/FHL and ankle DF and PF. DP palpable Assessment & Plan Ortho Post Op Day #: 1 Problem List: Assessment and Plan 1) Right Femoral Neck Fx -POD#1 s/p ORIF R femoral neck fracture -Toe-touch WB RLE, likely 4-6 weeks -PT for mobilization -Recommend anticoagulation with lovenox or xarelto for 2 weeks, then could restart plavix. Continue lovenox at this time for DVT ppx Esther Jimenes MD Jan 07, 2017 07:19
[2017-01-07 07:20] LABS: ALT (GPT) 16 U/L (10-53); ANION GAP 8 MEQ/L (5-15); BICARBONATE 27.5 MEQ/L (21.0-32.0); BLOOD UREA NITROGEN 13 MG/DL (7-18); CHLORIDE 102 MEQ/L (98-107); GLOMERULAR FILTRATION RATE 59 ML/MIN (>89); POTASSIUM 4.1 MEQ/L (3.5-5.1); SODIUM (NA) 137 MEQ/L (136-145)
[2017-01-07 07:28] LABS: ALKALINE PHOSPHATASE 64 U/L (45-117); AST (GOT) 14 U/L (15-37); TOTAL BILIRUBIN ADULT 0.3 MG/DL (0.2-1.0)
[2017-01-07] MEDS: INSULIN ASPART SUPPLEMENTAL SCALE SQ SCH ×4 (08:00→21:00)
[2017-01-07] MEDS: SODIUM CHLORIDE 0.9% FLUSH 10 ML FLUSH IV FLUSH SCH ×2 (09:00→21:51)
[2017-01-07 09:26] LABS: HEMOGLOBIN A1a 2.1 %; HEMOGLOBIN A1b 0.9 %; HEMOGLOBIN Ao 83.5 %; HEMOGLOBIN LA1C 2.1 %
[2017-01-07] MEDS: DOCUSATE SODIUM 50 MG/SENNA 8.6 MG TAB PO SCH ×2 (09:30→21:51)
[2017-01-07] MEDS: CHOLECALCIFEROL (VIT D3) 1000 UNIT TAB PO SCH (09:32)
[2017-01-07] MEDS: CITALOPRAM HYDROBROMIDE 20 MG TAB PO SCH (09:32)
[2017-01-07] MEDS: levETIRAcetam 500 MG TAB PO SCH ×2 (09:32→21:50)
[2017-01-07] MEDS: CYANOCOBALAMIN 100 MCG TAB PO SCH (09:32)
[2017-01-07] MEDS: FAMOTIDINE 20 MG TAB PO SCH ×2 (09:32→21:52)
[2017-01-07] MEDS: LACTOBACILLUS ACIDOPHILUS TAB PO SCH ×2 (09:33→21:51)
--- NOTE | 2017-01-07 10:34 | HHI.PR ---
Subjective Remarks Patient is a 81-year-old female. In the psychiatric unit with advanced dementia and COPD and seizure disorder and hypertension and hyperlipidemia and hypothyroidism who was noted to fall with a right proximal femur fracture. Patient will be transferred to inpatient and will undergo surgery with Dr. Bernard Betancourt of orthopedics tomorrow 01-06 TO GO FOR SURGERY WITH DR BETANCOURT LATER TODAY COMPLAINS OF PAIN IN RIGHT HIP/FEMUR AREA DW RN AND PT PATIENT REMAINS CONFUSED 01-07 had surgery Procedure Date: Jan 06, 2017 Open reduction internal fixation right femoral neck fracture no new complaints POD #1 Jan 06, 2017 17:02 Objective Vitals Vital Signs Date Time Temp Pulse Resp B/P (MAP) Pulse Ox O2 Delivery O2 Flow Rate FiO2 01/07/17 09:18 97 Nasal Cannula 2.00 01/07/17 08:00 97.7 91 17 153/80 (104) 97 01/07/17 04:37 96.4 95 18 156/69 (98) 92 01/07/17 00:10 97.0 73 17 130/60 (83) 94 01/06/17 22:12 Nasal Cannula 2.00 01/06/17 19:55 97.0 76 17 155/77 (103) 94 01/06/17 19:07 Nasal Cannula 2.00 01/06/17 18:00 81 15 165/80 (108) 98 Nasal Cannula 2 01/06/17 17:45 98.4 79 18 168/79 (108) 98 Nasal Cannula 2 01/06/17 17:30 80 16 184/86 (118) 97 Nasal Cannula 2 01/06/17 17:15 75 15 178/93 (121) 97 Nasal Cannula 2 01/06/17 17:00 77 15 167/91 (116) 96 Nasal Cannula 2 01/06/17 16:59 98.3 81 14 142/94 (110) 96 Nasal Cannula 2 01/06/17 12:00 98.5 76 17 154/75 (101) 91 I/O 01/06/17 01/06/17 01/06/17 01/07/17 01/07/17 01/07/17 07:00 15:00 23:00 07:00 15:00 23:00 Intake Total 0 ml 0 ml 1200 ml 489 ml Output Total 100 ml Balance 0 ml 0 ml 1100 ml 489 ml Intake Oral 0 ml 0 ml 240 ml 120 ml IV Total 260 ml 369 ml Other 700 ml Output Estimated Blood Loss 100 ml # Voids 1 2 3 1 # Bowel Movements 0 0 0 0 Result Diagram: 01/07/17 0557 01/07/17 0557 Other Results Laboratory Tests Test 01/07/17 05:57 White Blood Count 14.0 TH/MM3 Red Blood Count 3.52 MIL/MM3 Hemoglobin 10.8 GM/DL Hematocrit 33.2 % Mean Corpuscular Volume 94.4 FL Mean Corpuscular Hemoglobin 30.8 PG Mean Corpuscular Hemoglobin Concent 32.6 % Red Cell Distribution Width 15.0 % Platelet Count 190 TH/MM3 Mean Platelet Volume 8.0 FL Neutrophils (%) (Auto) 86.3 % Lymphocytes (%) (Auto) 6.9 % Monocytes (%) (Auto) 6.3 % Eosinophils (%) (Auto) 0.3 % Basophils (%) (Auto) 0.2 % Neutrophils # (Auto) 12.1 TH/MM3 Lymphocytes # (Auto) 1.0 TH/MM3 Monocytes # (Auto) 0.9 TH/MM3 Eosinophils # (Auto) 0.0 TH/MM3 Basophils # (Auto) 0.0 TH/MM3 CBC Comment DIFF FINAL Differential Comment Blood Urea Nitrogen 13 MG/DL Creatinine 0.92 MG/DL Random Glucose 106 MG/DL Total Protein 5.7 GM/DL Albumin 2.3 GM/DL Calcium Level 8.4 MG/DL Phosphorus Level 3.2 MG/DL Magnesium Level 2.0 MG/DL Alkaline Phosphatase 64 U/L Aspartate Amino Transf (AST/SGOT) 14 U/L Alanine Aminotransferase (ALT/SGPT) 16 U/L Total Bilirubin 0.3 MG/DL Sodium Level 137 MEQ/L Potassium Level 4.1 MEQ/L Chloride Level 102 MEQ/L Carbon Dioxide Level 27.5 MEQ/L Anion Gap 8 MEQ/L Estimat Glomerular Filtration Rate 59 ML/MIN Hemoglobin A1c 6.0 % Free Thyroxine 2.00 NG/DL Thyroid Stimulating Hormone 3rd Gen 0.400 uIU/ML Imaging Last Impressions Hip X-Ray 01/06/17 0000 Signed Impressions: Service Date/Time: Friday, January 06, 2017 18:03 - CONCLUSION: Trochanteric nailing of the subcapital fracture without evidence of an acute complication. Sunny Garcia MD Objective Remarks GENERAL: AWAKE AND ALERT BUT CONFUSED SKIN: Warm and dry. HEAD: Atraumatic. Normocephalic. EYES: Pupils equal and round. No scleral icterus. No injection or drainage. EOMI ENT: No nasal bleeding or discharge. Mucous membranes pink and moist. TONGUE MIDLINE NECK: Trachea midline. No JVD. SUPPLE CARDIOVASCULAR: Regular rate and rhythm. S1, S2 NO S3 OR S4 NO HEAVE OR THRILL RESPIRATORY: No accessory muscle use. Clear to auscultation. Breath sounds equal bilaterally. GASTROINTESTINAL: Abdomen soft, non-tender, nondistended. Hepatic and splenic margins not palpable. MUSCULOSKELETAL: Extremities without clubbing, cyanosis, or edema. LESS TENDER RIGHT HIP AREA NEUROLOGICAL: Awake and alert. No obvious cranial nerve deficits. Motor grossly within normal limits. 4 out of 5 muscle strength in the arms and legs. Normal speech. PSYCHIATRIC: INAppropriate mood and affect; insight and judgment ABnormal. CONFUSED AND DEMENTED Procedures Procedure Date: Jan 06, 2017 Pre Op Diagnosis: Right femoral neck fracture Post Op Diagnosis: same Surgeon: Esther Jimenes Buzzle Buffer(s): none Procedure: Open reduction internal fixation right femoral neck fracture Findings: Valgus impacted right femoral neck fracture Complications: none Specimen(s) removed: none Estimated blood loss: 100cc Esther Jimenes MD Jan 06, 2017 17:02 Medications and IVs Current Medications Dextrose (D50w (Vial) Inj) 50 ml UNSCH PRN IV PUSH HYPOGLYCEMIA-SEE COMMENTS; Start 01/05/17 at 19:00 Glucagon (Glucagon Inj) 1 mg UNSCH PRN OTHER HYPOGLYCEMIA-SEE COMMENTS; Start 01/05/17 at 19:00 Insulin Aspart (NovoLOG SUPPLEMENTAL SCALE) 1 ACHS SLIDING SCALE SQ ; Start at 21:00 Sodium Chloride 1,000 ml @ 42 mls/hr [id number] IV Last administered on t 17:50; Start 01/05/17 at 19:15 Sodium Chloride (NS Flush) 2 ml UNSCH PRN IV FLUSH FLUSH AFTER USING IV ACCESS ; Start 01/05/17 at 19:15; Stop 01/06/17 at 17:33; Status DC Sodium Chloride (NS Flush) 2 ml BID IV FLUSH ; Start 01/05/17 at 21:00; Stop at 17:33; Status DC Acetaminophen (Tylenol) 650 mg Q4H PRN PO TEMP > 100.4; Start 01/05/17 at 19:15 ; Status Cancel Ondansetron HCl (Zofran Inj) 4 mg Q6H PRN IVP NAUSEA OR VOMITING; Start at 19:15; Status Cancel Prochlorperazine (Compazine Supp) 25 mg Q12H PRN RECTAL SEVERE NAUSEA OR VOMITING; Start 01/05/17 at 19:15 Acetaminophen (Tylenol) 650 mg Q6H PRN PO PAIN SCALE 1 TO 2; Start 01/05/17 at 19:15; Stop 01/05/17 at 21:36; Status DC Oxycodone/ Acetaminophen (Percocet 5-325 Mg) 1 tab Q6H PRN PO PAIN SCALE 3 TO 5; Start 01/05/17 at 19:15; Status Cancel Oxycodone/ Acetaminophen (Percocet 10-325 Mg) 1 tab Q6H PRN PO PAIN SCALE 6 TO 10; Start 01/05/17 at 19:15; Status Cancel Morphine Sulfate (Morphine Inj) 2 mg Q3H PRN IV PUSH Pain 3-5; if unable to take PO; Start 01/05/17 at 19:15; Status Cancel Morphine Sulfate (Morphine Inj) 4 mg Q3H PRN IV PUSH Pain 6-10;if unable to take PO Last administered on 01/06/17 12:33; Start 01/05/17 at 19:15; Stop at 18:05; Status DC Naloxone HCl (Narcan Inj) 0.4 mg UNSCH PRN IV PUSH SEE LABEL COMMENTS; Start at 19:15 Senna/Docusate Sodium (Latosha-Colace) 1 tab BID PO Last administered on 09:30; Start 01/05/17 at 21:00 Magnesium Hydroxide (Milk Of Magnesia Liq) 30 ml Q12H PRN PO MILD - MODERATE CONSTIPATION; Start 01/05/17 at 19:15; Status Cancel Sennosides (Senokot) 17.2 mg Q12H PRN PO MODERATE - SEVERE CONSTIPATION; Start 01/05/17 at 19:15; Status Cancel Bisacodyl (Dulcolax Supp) 10 mg DAILY PRN RECTAL SEVERE CONSITIPATION; Start at 19:15; Status Cancel Lactulose (Lactulose Liq) 30 ml DAILY PRN PO SEVERE CONSITIPATION; Start at 19:15 Acetaminophen (Tylenol) 325 mg Q4H PRN PO PAIN SCALE 1 TO 2; Start 01/05/17 at 19:30; Stop 01/06/17 at 17:12; Status DC Atorvastatin Calcium (Lipitor) 40 mg HS PO Last administered on 01/06/17 20:00 ; Start 01/05/17 at 21:00 Cholecalciferol (Vitamin D3) 1,000 units DAILY PO Last administered on 09:32; Start 01/06/17 at 09:00 Citalopram Hydrobromide (CeleXA) 20 mg DAILY PO Last administered on 01/07/17 09:32; Start 01/06/17 at 09:00 Cyanocobalamin (Vitamin B12) 100 mcg DAILY PO Last administered on 01/07/17 09 :32; Start 01/06/17 at 09:00 Diphenhydramine HCl (Benadryl) 25 mg HS PRN PO INSOMNIA; Start 01/05/17 at 19: 30 Levetriacetam (Keppra) 1,000 mg DAILY PO Last administered on 01/07/17 09:32; Start 01/06/17 at 09:00 Levetriacetam (Keppra) 500 mg HS PO Last administered on 01/06/17 19:57; Start 01/05/17 at 21:00 Levothyroxine Sodium (Synthroid) 112 mcg DAILY@0600 PO Last administered on 04:32; Start 01/06/17 at 06:00 Lorazepam (Ativan) 0.5 mg Q6H PRN PO ANXIETY; Start 01/05/17 at 19:30 Meclizine HCl (Antivert) 12.5 mg TID PRN PO VERTIGO; Start 01/05/17 at 19:30 Sennosides (Senokot) 8.6 mg HS PO ; Start 01/05/17 at 21:00 Lactobacillus Acidophilus (Lactinex) 1 tab BID PO Last administered on 09:33; Start 01/05/17 at 22:00 Famotidine (Pepcid) 10 mg BID PO Last administered on 01/07/17t 09:32; Start at 09:00 Lactated Ringer's 1,000 ml @ 30 mls/hr Q24H PRN IV SEE LABEL COMMENTS; Start at 23:00; Stop 01/06/17 at 17:33; Status DC Sodium Chloride 500 ml @ 30 mls/hr [id number] PRN IV SEE LABEL COMMENTS; Start at 23:00; Stop 01/06/17 at 17:33; Status DC Metoprolol Tartrate (Lopressor) 25 mg SAP ABAP PROGRAMMER PRN PO SEE LABEL COMMENTS; Start 01/05/17 at 23:00; Stop 01/06/17 at 17:33; Status DC Povidone Iodine (Betadine 5% Antisepsis Kit) 1 applic SAP ABAP PROGRAMMER PRN EACH NARE SEE LABEL COMMENTS; Start 01/05/17 at 23:00; Stop 01/06/17 at 17:33; Status DC Chlorhexidine Gluconate (Chlorhexidine 2% Cloth) 3 pack SAP ABAP PROGRAMMER PRN TOPICAL SEE LABEL COMMENTS; Start 01/05/17 at 23:00; Stop 01/06/17 at 17:33; Status DC Insulin Human Regular (NovoLIN R INJ) See Protocol Table ... SAP ABAP PROGRAMMER PRN SQ SEE PROTOCOL TABLE; Start 01/05/17 at 23:00; Stop 01/06/17 at 17:33; Status DC Gentamicin Sulfate (Gentamicin Inj) 240 mg STK-MED ONCE .ROUTE ; Start 01/06/17 at 14:43; Stop 01/06/17 at 14:44; Status DC Cefazolin Sodium/ Dextrose 0 ml @ As Directed STK-MED ONCE .ROUTE ; Start at 15:15; Stop 01/06/17 at 17:12; Status DC Cefazolin Sodium (Ancef Inj) 1,000 mg STK-MED ONCE .ROUTE Last administered on 01/06/17t 15:17; Start 01/06/17 at 15:17; Stop 01/06/17 at 15:18; Status DC Sodium Chloride (NS Flush) 2 ml UNSCH PRN IV FLUSH FLUSH AFTER USING IV ACCESS ; Start 01/06/17 at 17:00 Sodium Chloride (NS Flush) 2 ml BID IV FLUSH Last administered on 01/07/17 09: 00; Start 01/06/17 at 21:00 Cefazolin Sodium 1000 mg/Sodium Chloride 100 ml @ 200 mls/hr Q6H IV Last administered on 01/07/17 09:30; Start 01/06/17 at 21:00; Stop 01/07/17 at 09:29 ; Status DC Miscellaneous Information (Post-op Orders (for Pharmacy)) STAT ONCE XX ; Start 01/06/17 at 17:00; Stop 01/06/17 at 17:37; Status DC Enoxaparin Sodium (Lovenox Inj) 40 mg Q24H SQ Last administered on 01/07/17 04 :17; Start 01/07/17 at 05:00 Morphine Sulfate (Morphine Inj) 2 mg Q3H PRN IV PUSH Pain >7 when off CUT PRESSMAN Last administered on 01/07/17 09:32; Start 01/06/17 at 17:00 Acetaminophen/ Hydrocodone Bitart ([place] 5-325 Mg) 1 tab Q4H PRN PO PAIN SCALE 4 TO 7; Start 01/06/17 at 17:00 Acetaminophen/ Hydrocodone Bitart ([place] 5-325 Mg) 2 tab Q4H PRN PO PAIN SCALE 8 TO 10; Start 01/06/17 at 17:00 Acetaminophen (Tylenol) 650 mg Q6H PRN PO PAIN SCALE 1 TO 3; Start 01/06/17 at 17:00 Ondansetron HCl (Zofran Inj) 4 mg Q6H PRN IVP NAUSEA OR VOMITING Last administered on 01/06/17 22:08; Start 01/06/17 at 17:00 Senna/Docusate Sodium (Latosha-Colace) 1 tab BID PO ; Start 01/06/17 at 21:00; Stop 01/06/17 at 21:00; Status DC Magnesium Hydroxide (Milk Of Magnesia Liq) 30 ml Q12H PRN PO MILD - MODERATE CONSTIPATION; Start 01/06/17 at 17:00 Sennosides (Senokot) 17.2 mg Q12H PRN PO MODERATE - SEVERE CONSTIPATION; Start 01/06/17 at 17:00 Bisacodyl (Dulcolax Supp) 10 mg DAILY PRN RECTAL SEVERE CONSITIPATION; Start at 17:00 Lactulose (Lactulose Liq) 30 ml DAILY PRN PO SEVERE CONSITIPATION; Start at 17:00; Stop 01/06/17 at 17:12; Status DC Morphine Sulfate (*morphine INJ PERIprocedure ONLY) 8 mg STK-MED ONCE .ROUTE Last administered on 01/06/17t 17:30; Start 01/06/17 at 17:29; Stop 01/06/17 at 17:30; Status DC Miscellaneous Information ALL NURSING DEPARTME... UNSCH PRN .XX SEE LABEL COMMENTS; Start 01/06/17 at 17:45; Stop 01/07/17 at 17:44 Urinary Catheter: No Vascular Central Line Catheter: No A/P Problem List: (1) Seizures ICD Code: R56.9 - Unspecified convulsions (2) Hypothyroidism ICD Code: E03.9 - Hypothyroidism, unspecified (3) Hyperlipidemia ICD Code: E78.5 - Hyperlipidemia, unspecified (4) COPD (chronic obstructive pulmonary disease) ICD Code: J44.9 - Chronic obstructive pulmonary disease, unspecified (5) Fracture of proximal end of right femur ICD Code: S72.001A - Fracture of unspecified part of neck of right femur, initial encounter for closed fracture (6) Dementia of Alzheimer's type with behavioral disturbance ICD Code: G30.8 - Other Alzheimer's disease; F02.81 - Dementia in other diseases classified elsewhere with behavioral disturbance (7) Hypertension ICD Code: I10 - Essential (primary) hypertension (8) Psychosis ICD Code: F29 - Unspecified psychosis not due to a substance or known physiological condition Status: Acute (9) Dizziness ICD Code: R42 - Dizziness and giddiness Assessment and Plan Status post fall Right femur proximal fracture to undergo surgery Jan 06, 2017 Open reduction internal fixation right femoral neck fracture Jan 06, 2017 17:02 Coronary artery disease hold her Plavix HAS BEEN STARTED ON LOVENOX Hypertension resume home medications lisinopril 10 mg daily as well as Norvasc 5 mg daily Hyperlipidemia resume home medications Lipitor 40 mg by mouth daily at bedtime Dementia resume current medications per psychiatry Seizure disorder continue on Keppra thousand milligrams in a.m. and 500 mg in the p.m. Hypothyroidism levothyroxine 112 MCG's by mouth daily GERD and abdominal pain Protonix 20 mg by mouth daily Vitamin D insufficiency continue on vitamin D supplementation thousand milligrams by mouth daily CONSULT PSYCHIATRY Discharge Planning ONCE CLEARED BY Anup Julian DO Jan 07, 2017 10:34
--- NOTE | 2017-01-07 14:22 | HHI.PYPN ---
Subjective Remarks Patient was seen today for psychiatric reevaluation, patient was found calm, superficially cooperative, a little bit sedated, but alert. Patient reports good mood, she reports "a little bit of pain". Patient is oriented in person, but completely disoriented in time and place. No agitation, no aggressive behavior, no hostility or prominent psychosis present. Patient denies suicidal and homicidal ideation. Review of Systems Musculoskeletal: COMPLAINS OF: Joint pain Objective Alert: Yes [place]: Person Mood: Calm Affect: Euthymic Memory Intact: Immediate Hallucinations: Other (she denies) Delusions: No Delusion Type: Other (not elicited) Suicidal: Ideation (no SI) Homicidal: Ideation (no HI) Insight/Judgment Poor Labs Test 01/07/17 05:57 White Blood Count 14.0 TH/MM3 Red Blood Count 3.52 MIL/MM3 Hemoglobin 10.8 GM/DL Hematocrit 33.2 % Mean Corpuscular Volume 94.4 FL Mean Corpuscular Hemoglobin 30.8 PG Mean Corpuscular Hemoglobin Concent 32.6 % Red Cell Distribution Width 15.0 % Platelet Count 190 TH/MM3 Mean Platelet Volume 8.0 FL Neutrophils (%) (Auto) 86.3 % Lymphocytes (%) (Auto) 6.9 % Monocytes (%) (Auto) 6.3 % Eosinophils (%) (Auto) 0.3 % Basophils (%) (Auto) 0.2 % Neutrophils # (Auto) 12.1 TH/MM3 Lymphocytes # (Auto) 1.0 TH/MM3 Monocytes # (Auto) 0.9 TH/MM3 Eosinophils # (Auto) 0.0 TH/MM3 Basophils # (Auto) 0.0 TH/MM3 CBC Comment DIFF FINAL Differential Comment Blood Urea Nitrogen 13 MG/DL Creatinine 0.92 MG/DL Random Glucose 106 MG/DL Total Protein 5.7 GM/DL Albumin 2.3 GM/DL Calcium Level 8.4 MG/DL Phosphorus Level 3.2 MG/DL Magnesium Level 2.0 MG/DL Alkaline Phosphatase 64 U/L Aspartate Amino Transf (AST/SGOT) 14 U/L Alanine Aminotransferase (ALT/SGPT) 16 U/L Total Bilirubin 0.3 MG/DL Sodium Level 137 MEQ/L Potassium Level 4.1 MEQ/L Chloride Level 102 MEQ/L Carbon Dioxide Level 27.5 MEQ/L Anion Gap 8 MEQ/L Estimat Glomerular Filtration Rate 59 ML/MIN Hemoglobin A1c 6.0 % Free Thyroxine 2.00 NG/DL Thyroid Stimulating Hormone 3rd Gen 0.400 uIU/ML Vitals/IOs Vital Signs Date Time Temp Pulse Resp B/P (MAP) Pulse Ox O2 Delivery O2 Flow Rate FiO2 01/07/17 12:00 97.6 91 17 133/69 (90) 91 01/07/17 09:18 Nasal Cannula 2.00 Intake and Output 01/07/17 01/07/17 01/08/17 08:00 16:00 00:00 Intake Total 489 ml Balance 489 ml Assessment & Plan Problem List: (1) Dementia of Alzheimer's type with behavioral disturbance ICD Codes: G30.8 - Other Alzheimer's disease; F02.81 - Dementia in other diseases classified elsewhere with behavioral disturbance Assessment & Plan: At this moment the patient does not present any neuropsychiatric symptoms of dementia. No agitation, no aggressive behavior, no paranoia or delirium present. Her, patient is a high risk for delirium. Will order Seroquel 12.5 mg twice a day for behavior control and to help with delirium prevention. Assessment & Plan Estimated LOS: days Justification for Cont. Inpt. I do not see a reason for psychiatric admission at this moment. Patient should continue her medical care. Tyrone Badillo MD Jan 07, 2017 14:22
[2017-01-07] MEDS ORDERED: PILL SPLITTER OTHER PRN (14:45)
[2017-01-07] MEDS: SODIUM CHLOR 0.9% 1000 ML INJ 1,000 ML IV SCH (18:53)
[2017-01-07] MEDS: SENNOSIDES 8.6 MG TAB PO SCH (21:51)
[2017-01-07] MEDS: ATORVASTATIN 40 MG TAB PO SCH (21:51)
[2017-01-08] VITALS (8 sets, daily range): BP systolic 114–154; BP diastolic 62–82; PULSE 64–117; RESP 17–18; TEMP 96.1–97.7; O2SAT 92–98
[2017-01-08] MEDS: MORPHINE SULFATE 8 MG/ML INJ IV PUSH PRN (01:38)
[2017-01-08] MEDS: ENOXAPARIN SODIUM 40 MG/0.4 ML SYRINGE SQ SCH (06:07)
[2017-01-08] MEDS: LEVOTHYROXINE SODIUM 100 MCG TAB PO SCH (06:08)
[2017-01-08] MEDS: ACETAMINOPHEN/HYDROcodone 325 MG/5 MG TAB PO PRN ×3 (06:08→22:11)
[2017-01-08 07:47] LABS: BASOPHIL # 0.1 TH/MM3 (0-0.2); BASOPHIL % 0.6 % (0.0-2.0); EOSINOPHIL # 0.5 TH/MM3 (0-0.4); EOSINOPHIL % 4.5 % (0.0-4.0); HEMATOCRIT 31.3 % (35.0-46.0); HEMO FLAGS DIFF FINAL; LYMPH % 9.1 % (9.0-44.0); LYMPHOCYTE # 1.1 TH/MM3 (1.0-4.8); MEAN CELL VOLUME 94.7 FL (80.0-100.0); MEAN CORPUSCULAR HEMOGLOBIN 31.4 PG (27.0-34.0); MEAN CORPUSCULAR HGB CONC 33.2 % (32.0-36.0); NEUT % 77.8 % (16.0-70.0); PLATELET COUNT 196 TH/MM3 (150-450); RED BLOOD COUNT 3.31 MIL/MM3 (4.00-5.30); RED CELL DISTRIBUTION WIDTH 15.1 % (11.6-17.2); WHITE BLOOD COUNT 11.6 TH/MM3 (4.0-11.0)
[2017-01-08] MEDS: INSULIN ASPART SUPPLEMENTAL SCALE SQ SCH ×4 (08:00→21:00)
[2017-01-08 08:34] LABS: ALKALINE PHOSPHATASE 65 U/L (45-117); ALT (GPT) 18 U/L (10-53); ANION GAP 6 MEQ/L (5-15); AST (GOT) 30 U/L (15-37); BICARBONATE 29.4 MEQ/L (21.0-32.0); BLOOD UREA NITROGEN 14 MG/DL (7-18); CHLORIDE 103 MEQ/L (98-107); GLOMERULAR FILTRATION RATE 63 ML/MIN (>89); MAGNESIUM 2.1 MG/DL (1.5-2.5); POTASSIUM 4.2 MEQ/L (3.5-5.1); SODIUM (NA) 138 MEQ/L (136-145); TOTAL BILIRUBIN ADULT 0.3 MG/DL (0.2-1.0)
[2017-01-08] MEDS: SODIUM CHLORIDE 0.9% FLUSH 10 ML FLUSH IV FLUSH SCH ×2 (09:00→21:00)
[2017-01-08] MEDS: CITALOPRAM HYDROBROMIDE 20 MG TAB PO SCH (10:06)
[2017-01-08] MEDS: CYANOCOBALAMIN 100 MCG TAB PO SCH (10:06)
[2017-01-08] MEDS: CHOLECALCIFEROL (VIT D3) 1000 UNIT TAB PO SCH (10:06)
[2017-01-08] MEDS: FAMOTIDINE 20 MG TAB PO SCH ×2 (10:06→22:12)
[2017-01-08] MEDS: LACTOBACILLUS ACIDOPHILUS TAB PO SCH ×2 (10:07→22:11)
[2017-01-08] MEDS: QUEtiapine FUMARATE 25 MG TAB PO SCH ×2 (10:07→11:28)
[2017-01-08] MEDS: DOCUSATE SODIUM 50 MG/SENNA 8.6 MG TAB PO SCH ×2 (10:07→21:00)
[2017-01-08] MEDS: levETIRAcetam 500 MG TAB PO SCH ×2 (10:07→22:11)
--- NOTE | 2017-01-08 11:12 | HHI.PR ---
Subjective Remarks Patient is a 81-year-old female. In the psychiatric unit with advanced dementia and COPD and seizure disorder and hypertension and hyperlipidemia and hypothyroidism who was noted to fall with a right proximal femur fracture. Patient will be transferred to inpatient and will undergo surgery with Dr. Bernard Betancourt of orthopedics tomorrow 01-06 TO GO FOR SURGERY WITH DR BETANCOURT LATER TODAY COMPLAINS OF PAIN IN RIGHT HIP/FEMUR AREA DW RN AND PT PATIENT REMAINS CONFUSED 01-07 had surgery Procedure Date: Jan 06, 2017 Open reduction internal fixation right femoral neck fracture no new complaints POD #1 01-08 POD #2 NO NEW COMPLAINTS STILL CONFUSED USUAL DW RN AND PT SEEN BY PSYCH WILL PROBABLY NEED SNF AT [place] Objective Vitals Vital Signs Date Time Temp Pulse Resp B/P (MAP) Pulse Ox O2 Delivery O2 Flow Rate FiO2 01/08/17 09:25 95 Nasal Cannula 2.00 01/08/17 08:00 97.6 72 17 132/65 (87) 96 01/08/17 03:16 96.8 69 18 144/70 (94) 97 01/08/17 00:17 96.9 64 17 114/62 (79) 98 01/07/17 19:15 Nasal Cannula 2.00 01/07/17 19:05 96.4 80 17 117/53 (74) 95 01/07/17 16:00 97.1 87 17 152/67 (95) 98 01/07/17 15:45 95 Simple Mask 5.00 01/07/17 12:00 97.6 91 17 133/69 (90) 91 I/O 01/07/17 01/07/17 01/07/17 01/08/17 01/08/17 01/08/17 07:00 15:00 23:00 07:00 15:00 23:00 Intake Total 489 ml 480 ml 580 ml 240 ml Balance 489 ml 480 ml 580 ml 240 ml Intake Oral 120 ml 480 ml 480 ml 240 ml IV Total 369 ml 100 ml # Voids 1 2 5 5 # Bowel Movements 0 0 0 0 Result Diagram: 01/08/17 0732 01/08/17 07 Other Results Laboratory Tests Test 01/07/17 05:57 01/08/17 07:32 White Blood Count 14.0 TH/MM3 11.6 TH/MM3 Red Blood Count 3.52 MIL/MM3 3.31 MIL/MM3 Hemoglobin 10.8 GM/DL 10.4 GM/DL Hematocrit 33.2 % 31.3 % Mean Corpuscular Volume 94.4 FL 94.7 FL Mean Corpuscular Hemoglobin 30.8 PG 31.4 PG Mean Corpuscular Hemoglobin Concent 32.6 % 33.2 % Red Cell Distribution Width 15.0 % 15.1 % Platelet Count 190 TH/MM3 196 TH/MM3 Mean Platelet Volume 8.0 FL 8.1 FL Neutrophils (%) (Auto) 86.3 % 77.8 % Lymphocytes (%) (Auto) 6.9 % 9.1 % Monocytes (%) (Auto) 6.3 % 8.0 % Eosinophils (%) (Auto) 0.3 % 4.5 % Basophils (%) (Auto) 0.2 % 0.6 % Neutrophils # (Auto) 12.1 TH/MM3 9.0 TH/MM3 Lymphocytes # (Auto) 1.0 TH/MM3 1.1 TH/MM3 Monocytes # (Auto) 0.9 TH/MM3 0.9 TH/MM3 Eosinophils # (Auto) 0.0 TH/MM3 0.5 TH/MM3 Basophils # (Auto) 0.0 TH/MM3 0.1 TH/MM3 CBC Comment DIFF FINAL DIFF FINAL Differential Comment Blood Urea Nitrogen 13 MG/DL 14 MG/DL Creatinine 0.92 MG/DL 0.87 MG/DL Random Glucose 106 MG/DL 91 MG/DL Total Protein 5.7 GM/DL 5.7 GM/DL Albumin 2.3 GM/DL 2.4 GM/DL Calcium Level 8.4 MG/DL 8.9 MG/DL Phosphorus Level 3.2 MG/DL 2.3 MG/DL Magnesium Level 2.0 MG/DL 2.1 MG/DL Alkaline Phosphatase 64 U/L 65 U/L Aspartate Amino Transf (AST/SGOT) 14 U/L 30 U/L Alanine Aminotransferase (ALT/SGPT) 16 U/L 18 U/L Total Bilirubin 0.3 MG/DL 0.3 MG/DL Sodium Level 137 MEQ/L 138 MEQ/L Potassium Level 4.1 MEQ/L 4.2 MEQ/L Chloride Level 102 MEQ/L 103 MEQ/L Carbon Dioxide Level 27.5 MEQ/L 29.4 MEQ/L Anion Gap 8 MEQ/L 6 MEQ/L Estimat Glomerular Filtration Rate 59 ML/MIN 63 ML/MIN Hemoglobin A1c 6.0 % Free Thyroxine 2.00 NG/DL Thyroid Stimulating Hormone 3rd Gen 0.400 uIU/ML Imaging Last Impressions Hip X-Ray 01/06/17 0000 Signed Impressions: Service Date/Time: Friday, January 06, 2017 18:03 - CONCLUSION: Trochanteric nailing of the subcapital fracture without evidence of an acute complication. Sunny Garcia MD Objective Remarks GENERAL: AWAKE AND ALERT BUT CONFUSED SKIN: Warm and dry. HEAD: Atraumatic. Normocephalic. EYES: Pupils equal and round. No scleral icterus. No injection or drainage. EOMI ENT: No nasal bleeding or discharge. Mucous membranes pink and moist. TONGUE MIDLINE NECK: Trachea midline. No JVD. SUPPLE CARDIOVASCULAR: Regular rate and rhythm. S1, S2 NO S3 OR S4 NO HEAVE OR THRILL RESPIRATORY: No accessory muscle use. Clear to auscultation. Breath sounds equal bilaterally. GASTROINTESTINAL: Abdomen soft, non-tender, nondistended. Hepatic and splenic margins not palpable. MUSCULOSKELETAL: Extremities without clubbing, cyanosis, or edema. LESS TENDER RIGHT HIP AREA NEUROLOGICAL: Awake and alert. No obvious cranial nerve deficits. Motor grossly within normal limits. 4 out of 5 muscle strength in the arms and legs. Normal speech. PSYCHIATRIC: INAppropriate mood and affect; insight and judgment ABnormal. CONFUSED AND DEMENTED Procedures Procedure Date: Jan 06, 2017 Pre Op Diagnosis: Right femoral neck fracture Post Op Diagnosis: same Surgeon: Esther Jimenes Supervisor [place](s): none Procedure: Open reduction internal fixation right femoral neck fracture Findings: Valgus impacted right femoral neck fracture Complications: none Specimen(s) removed: none Estimated blood loss: 100cc Esther Jimenes MD Jan 06, 2017 17:02 Medications and IVs Current Medications Dextrose (D50w (Vial) Inj) 50 ml UNSCH PRN IV PUSH HYPOGLYCEMIA-SEE COMMENTS; Start 01/05/17 at 19:00 Glucagon (Glucagon Inj) 1 mg UNSCH PRN OTHER HYPOGLYCEMIA-SEE COMMENTS; Start 01/05/17 at 19:00 Insulin Aspart (NovoLOG SUPPLEMENTAL SCALE) 1 ACHS SLIDING SCALE SQ ; Start at 21:00 Sodium Chloride 1,000 ml @ 42 mls/hr [id number] IV Last administered on t 17:50; Start 01/05/17 at 19:15 Sodium Chloride (NS Flush) 2 ml UNSCH PRN IV FLUSH FLUSH AFTER USING IV ACCESS ; Start 01/05/17 at 19:15; Stop 01/06/17 at 17:33; Status DC Sodium Chloride (NS Flush) 2 ml BID IV FLUSH ; Start 01/05/17 at 21:00; Stop at 17:33; Status DC Acetaminophen (Tylenol) 650 mg Q4H PRN PO TEMP > 100.4; Start 01/05/17 at 19:15 ; Status Cancel Ondansetron HCl (Zofran Inj) 4 mg Q6H PRN IVP NAUSEA OR VOMITING; Start at 19:15; Status Cancel Prochlorperazine (Compazine Supp) 25 mg Q12H PRN RECTAL SEVERE NAUSEA OR VOMITING; Start 01/05/17 at 19:15 Acetaminophen (Tylenol) 650 mg Q6H PRN PO PAIN SCALE 1 TO 2; Start 01/05/17 at 19:15; Stop 01/05/17 at 21:36; Status DC Oxycodone/ Acetaminophen (Percocet 5-325 Mg) 1 tab Q6H PRN PO PAIN SCALE 3 TO 5; Start 01/05/17 at 19:15; Status Cancel Oxycodone/ Acetaminophen (Percocet 10-325 Mg) 1 tab Q6H PRN PO PAIN SCALE 6 TO 10; Start 01/05/17 at 19:15; Status Cancel Morphine Sulfate (Morphine Inj) 2 mg Q3H PRN IV PUSH Pain 3-5; if unable to take PO; Start 01/05/17 at 19:15; Status Cancel Morphine Sulfate (Morphine Inj) 4 mg Q3H PRN IV PUSH Pain 6-10;if unable to take PO Last administered on 01/06/17t 12:33; Start 01/05/17 at 19:15; Stop at 18:05; Status DC Naloxone HCl (Narcan Inj) 0.4 mg UNSCH PRN IV PUSH SEE LABEL COMMENTS; Start at 19:15 Senna/Docusate Sodium (Latosha-Colace) 1 tab BID PO Last administered on t 10:07; Start 01/05/17 at 21:00 Magnesium Hydroxide (Milk Of Magnesia Liq) 30 ml Q12H PRN PO MILD - MODERATE CONSTIPATION; Start 01/05/17 at 19:15; Status Cancel Sennosides (Senokot) 17.2 mg Q12H PRN PO MODERATE - SEVERE CONSTIPATION; Start 01/05/17 at 19:15; Status Cancel Bisacodyl (Dulcolax Supp) 10 mg DAILY PRN RECTAL SEVERE CONSITIPATION; Start at 19:15; Status Cancel Lactulose (Lactulose Liq) 30 ml DAILY PRN PO SEVERE CONSITIPATION Last administered on 01/08/17 10:07; Start 01/05/17 at 19:15 Acetaminophen (Tylenol) 325 mg Q4H PRN PO PAIN SCALE 1 TO 2; Start 01/05/17 at 19:30; Stop 01/06/17 at 17:12; Status DC Atorvastatin Calcium (Lipitor) 40 mg HS PO Last administered on 01/07/17 21:51 ; Start 01/05/17 at 21:00 Cholecalciferol (Vitamin D3) 1,000 units DAILY PO Last administered on 10:06; Start 01/06/17 at 09:00 Citalopram Hydrobromide (CeleXA) 20 mg DAILY PO Last administered on 01/08/17 10:06; Start 01/06/17 at 09:00 Cyanocobalamin (Vitamin B12) 100 mcg DAILY PO Last administered on 01/08/17 10 :06; Start 01/06/17 at 09:00 Diphenhydramine HCl (Benadryl) 25 mg HS PRN PO INSOMNIA; Start 01/05/17 at 19: 30 Levetriacetam (Keppra) 1,000 mg DAILY PO Last administered on 01/08/17 10:07; Start 01/06/17 at 09:00 Levetriacetam (Keppra) 500 mg HS PO Last administered on 01/07/17 21:50; Start 01/05/17 at 21:00 Levothyroxine Sodium (Synthroid) 112 mcg DAILY@0600 PO Last administered on 04:32; Start 01/06/17 at 06:00; Stop 01/07/17 at 10:36; Status DC Lorazepam (Ativan) 0.5 mg Q6H PRN PO ANXIETY; Start 01/05/17 at 19:30 Meclizine HCl (Antivert) 12.5 mg TID PRN PO VERTIGO; Start 01/05/17 at 19:30 Sennosides (Senokot) 8.6 mg HS PO Last administered on 01/07/17 21:51; Start 01/05/17 at 21:00 Lactobacillus Acidophilus (Lactinex) 1 tab BID PO Last administered on 10:07; Start 01/05/17 at 22:00 Famotidine (Pepcid) 10 mg BID PO Last administered on 01/08/17 10:06; Start at 09:00 Lactated Ringer's 1,000 ml @ 30 mls/hr Q24H PRN IV SEE LABEL COMMENTS; Start at 23:00; Stop 01/06/17 at 17:33; Status DC Sodium Chloride 500 ml @ 30 mls/hr [id number] PRN IV SEE LABEL COMMENTS; Start at 23:00; Stop 01/06/17 at 17:33; Status DC Metoprolol Tartrate (Lopressor) 25 mg NATIONAL BUSINESS DIRECTOR PRN PO SEE LABEL COMMENTS; Start 01/05/17 at 23:00; Stop 01/06/17 at 17:33; Status DC Povidone Iodine (Betadine 5% Antisepsis Kit) 1 applic NATIONAL BUSINESS DIRECTOR PRN EACH NARE SEE LABEL COMMENTS; Start 01/05/17 at 23:00; Stop 01/06/17 at 17:33; Status DC Chlorhexidine Gluconate (Chlorhexidine 2% Cloth) 3 pack NATIONAL BUSINESS DIRECTOR PRN TOPICAL SEE LABEL COMMENTS; Start 01/05/17 at 23:00; Stop 01/06/17 at 17:33; Status DC Insulin Human Regular (NovoLIN R INJ) See Protocol Table ... NATIONAL BUSINESS DIRECTOR PRN SQ SEE PROTOCOL TABLE; Start 01/05/17 at 23:00; Stop 01/06/17 at 17:33; Status DC Gentamicin Sulfate (Gentamicin Inj) 240 mg STK-MED ONCE .ROUTE ; Start 01/06/17 at 14:43; Stop 01/06/17 at 14:44; Status DC Cefazolin Sodium/ Dextrose 0 ml @ As Directed STK-MED ONCE .ROUTE ; Start at 15:15; Stop 01/06/17 at 17:12; Status DC Cefazolin Sodium (Ancef Inj) 1,000 mg STK-MED ONCE .ROUTE Last administered on 01/06/17 15:17; Start 01/06/17 at 15:17; Stop 01/06/17 at 15:18; Status DC Sodium Chloride (NS Flush) 2 ml UNSCH PRN IV FLUSH FLUSH AFTER USING IV ACCESS ; Start 01/06/17 at 17:00 Sodium Chloride (NS Flush) 2 ml BID IV FLUSH Last administered on 01/08/17 09: 00; Start 01/06/17 at 21:00 Cefazolin Sodium 1000 mg/Sodium Chloride 100 ml @ 200 mls/hr Q6H IV Last administered on 01/07/17 09:30; Start 01/06/17 at 21:00; Stop 01/07/17 at 09:29 ; Status DC Miscellaneous Information (Post-op Orders (for Pharmacy)) STAT ONCE XX ; Start 01/06/17 at 17:00; Stop 01/06/17 at 17:37; Status DC Enoxaparin Sodium (Lovenox Inj) 40 mg Q24H SQ Last administered on 01/08/17 06 :07; Start 01/07/17 at 05:00 Morphine Sulfate (Morphine Inj) 2 mg Q3H PRN IV PUSH Pain >7 when off PENCIL MAKER Last administered on 01/08/17 01:38; Start 01/06/17 at 17:00 Acetaminophen/ Hydrocodone Bitart ([place] 5-325 Mg) 1 tab Q4H PRN PO PAIN SCALE 4 TO 7 Last administered on 01/08/17 06:08; Start 01/06/17 at 17:00 Acetaminophen/ Hydrocodone Bitart ([place] 5-325 Mg) 2 tab Q4H PRN PO PAIN SCALE 8 TO 10; Start 01/06/17 at 17:00 Acetaminophen (Tylenol) 650 mg Q6H PRN PO PAIN SCALE 1 TO 3; Start 01/06/17 at 17:00 Ondansetron HCl (Zofran Inj) 4 mg Q6H PRN IVP NAUSEA OR VOMITING Last administered on 01/06/17 22:08; Start 01/06/17 at 17:00 Senna/Docusate Sodium (Latosha-Colace) 1 tab BID PO ; Start 01/06/17 at 21:00; Stop 01/06/17 at 21:00; Status DC Magnesium Hydroxide (Milk Of Magnesia Liq) 30 ml Q12H PRN PO MILD - MODERATE CONSTIPATION Last administered on 01/08/17 10:07; Start 01/06/17 at 17:00 Sennosides (Senokot) 17.2 mg Q12H PRN PO MODERATE - SEVERE CONSTIPATION; Start 01/06/17 at 17:00 Bisacodyl (Dulcolax Supp) 10 mg DAILY PRN RECTAL SEVERE CONSITIPATION; Start at 17:00 Lactulose (Lactulose Liq) 30 ml DAILY PRN PO SEVERE CONSITIPATION; Start at 17:00; Stop 01/06/17 at 17:12; Status DC Morphine Sulfate (*morphine INJ PERIprocedure ONLY) 8 mg STK-MED ONCE .ROUTE Last administered on 01/06/17 17:30; Start 01/06/17 at 17:29; Stop 01/06/17 at 17:30; Status DC Miscellaneous Information ALL NURSING DEPARTME... UNSCH PRN .XX SEE LABEL COMMENTS; Start 01/06/17 at 17:45; Stop 01/07/17 at 17:44; Status DC Levothyroxine Sodium (Synthroid) 100 mcg DAILY@0600 PO Last administered on 06:08; Start 01/08/17 at 06:00 Quetiapine Fumarate (SEROquel) 12.5 mg BID@09,12 PO Last administered on 10:07; Start 01/08/17 at 09:00 Miscellaneous (Pill Splitter) 1 ea UNSCH PRN OTHER SEE LABEL COMMENTS; Start at 14:45 Vascular Central Line Catheter: No A/P Problem List: (1) Seizures ICD Code: R56.9 - Unspecified convulsions (2) Hypothyroidism ICD Code: E03.9 - Hypothyroidism, unspecified (3) Hyperlipidemia ICD Code: E78.5 - Hyperlipidemia, unspecified (4) COPD (chronic obstructive pulmonary disease) ICD Code: J44.9 - Chronic obstructive pulmonary disease, unspecified (5) Fracture of proximal end of right femur ICD Code: S72.001A - Fracture of unspecified part of neck of right femur, initial encounter for closed fracture (6) Dementia of Alzheimer's type with behavioral disturbance ICD Code: G30.8 - Other Alzheimer's disease; F02.81 - Dementia in other diseases classified elsewhere with behavioral disturbance (7) Hypertension ICD Code: I10 - Essential (primary) hypertension (8) Psychosis ICD Code: F29 - Unspecified psychosis not due to a substance or known physiological condition Status: Acute (9) Dizziness ICD Code: R42 - Dizziness and giddiness Assessment and Plan Status post fall Right femur proximal fracture to undergo surgery Jan 06, 2017 Open reduction internal fixation right femoral neck fracture Jan 06, 2017 17:02 Coronary artery disease hold her Plavix HAS BEEN STARTED ON LOVENOX Hypertension resume home medications lisinopril 10 mg daily as well as Norvasc 5 mg daily Hyperlipidemia resume home medications Lipitor 40 mg by mouth daily at bedtime Dementia resume current medications per psychiatry Seizure disorder continue on Keppra thousand milligrams in a.m. and 500 mg in the p.m. Hypothyroidism levothyroxine 112 MCG's by mouth daily GERD and abdominal pain Protonix 20 mg by mouth daily Vitamin D insufficiency continue on vitamin D supplementation thousand milligrams by mouth daily CONSULT PSYCHIATRY- THEY STARTED SEROQUEL 12.5MG PO BID AM LABS Discharge Planning ONCE CLEARED BY Anup Julian DO Jan 08, 2017 11:12
[2017-01-08] MEDS: LORazepam 0.5 MG TAB PO PRN ×2 (11:28→17:46)
[2017-01-08] MEDS: SODIUM CHLOR 0.9% 1000 ML INJ 1,000 ML IV SCH (18:42)
[2017-01-08] MEDS: SENNOSIDES 8.6 MG TAB PO SCH (21:00)
[2017-01-08] MEDS: diphenhydrAMINE HCL 25 MG CAP PO PRN (22:11)
[2017-01-08] MEDS: ATORVASTATIN 40 MG TAB PO SCH (22:12)
[2017-01-09] VITALS (7 sets, daily range): BP systolic 128–177; BP diastolic 67–97; PULSE 65–96; RESP 15–18; TEMP 95.4–98.1; O2SAT 92–99
[2017-01-09] MEDS: ENOXAPARIN SODIUM 40 MG/0.4 ML SYRINGE SQ SCH (04:46)
[2017-01-09] MEDS: LEVOTHYROXINE SODIUM 100 MCG TAB PO SCH (04:46)
[2017-01-09] MEDS: MORPHINE SULFATE 8 MG/ML INJ IV PUSH PRN ×2 (05:00→11:28)
[2017-01-09 07:25] LABS: AUTOMATED NEUTROPHIL # 9.3 TH/MM3 (1.8-7.7); BASOPHIL # 0.1 TH/MM3 (0-0.2); BASOPHIL % 0.8 % (0.0-2.0); EOSINOPHIL # 0.4 TH/MM3 (0-0.4); EOSINOPHIL % 3.4 % (0.0-4.0); HEMATOCRIT 34.9 % (35.0-46.0); HEMO FLAGS DIFF FINAL; LYMPHOCYTE # 1.1 TH/MM3 (1.0-4.8); MEAN CORPUSCULAR HEMOGLOBIN 30.5 PG (27.0-34.0); MEAN CORPUSCULAR HGB CONC 32.4 % (32.0-36.0); MONO % 7.8 % (0.0-8.0); PLATELET COUNT 213 TH/MM3 (150-450); RED BLOOD COUNT 3.71 MIL/MM3 (4.00-5.30); RED CELL DISTRIBUTION WIDTH 14.8 % (11.6-17.2); WHITE BLOOD COUNT 11.8 TH/MM3 (4.0-11.0)
--- NOTE | 2017-01-09 07:28 | PD.ORT.PN ---
Subjective Subjective Remarks Patient remains confused at baseline. Reports she is comfortable Objective Vitals Vital Signs Date Time Temp Pulse Resp B/P (MAP) Pulse Ox O2 Delivery O2 Flow Rate FiO2 01/09/17 04:00 97.1 86 16 131/80 (97) 98 01/09/17 00:02 98.1 72 15 128/72 (90) 99 01/08/17 22:30 Nasal Cannula 2.00 01/08/17 21:28 94 Nasal Cannula 2.00 01/08/17 20:15 97.7 87 17 135/82 (99) 92 01/08/17 16:00 96.1 88 18 154/74 (100) 93 01/08/17 12:00 96.6 117 18 142/74 (96) 93 01/08/17 09:25 95 Nasal Cannula 2.00 01/08/17 08:00 97.6 72 17 132/65 (87) 96 I/O 01/08/17 01/08/17 01/08/17 01/09/17 01/09/17 01/09/17 07:00 15:00 23:00 07:00 15:00 23:00 Intake Total 240 ml 360 ml 240 ml Balance 240 ml 360 ml 240 ml Intake Oral 240 ml 360 ml 240 ml # Voids 5 2 2 # Bowel Movements 0 1 2 Result Diagram: 01/09/17 0635 01/08/17 0732 Imaging Post-op R hip XR with 3 cannulated screws in acceptable position with valgus impacted femoral neck Objective Remarks RLE: no apparent pain this morning with hip rotation. +EHL/FHL and ankle DF and PF. DP palpable Assessment & Plan Assessment and Plan 1) Right Femoral Neck Fx -POD#3 s/p ORIF R femoral neck fracture -Toe-touch WB RLE, likely 4-6 weeks -PT for mobilization -Recommend anticoagulation with lovenox or xarelto for 2 weeks, then could restart plavix. Continue lovenox at this time for DVT ppx Esther Jimenes MD Jan 09, 2017 07:28
[2017-01-09 07:46] LABS: ALT (GPT) 14 U/L (10-53); ANION GAP 4 MEQ/L (5-15); AST (GOT) 31 U/L (15-37); BICARBONATE 30.5 MEQ/L (21.0-32.0); BLOOD UREA NITROGEN 16 MG/DL (7-18); CHLORIDE 103 MEQ/L (98-107); GLOMERULAR FILTRATION RATE 71 ML/MIN (>89); MAGNESIUM 2.4 MG/DL (1.5-2.5); SODIUM (NA) 137 MEQ/L (136-145)
[2017-01-09 07:48] LABS: ALKALINE PHOSPHATASE 66 U/L (45-117); TOTAL BILIRUBIN ADULT 0.3 MG/DL (0.2-1.0)
--- NOTE | 2017-01-09 07:51 | PD.OP ---
cc: Esther Jimenes MD Operative Report Date of Surgery: Jan 06, 2017 Preoperative Diagnosis: (1) Fracture of proximal end of right femur Postoperative Diagnosis: same Procedure: Percutaneous fixation of femoral neck fracture with closed reduction Anesthesia: Gen Surgeon: Esther Jimenes Salesperson Flying Squad(s): none Operation and Findings: Indications: 81yo F with history of severe dementia and multiple medical problems, residing in psychiatric facility, presented after fall with right hip pain and found to have a valgus impacted femoral neck fracture with minimal displacement. Discussion with the patient's daughter in regards to treatment options, risks, benefits, and alternatives. Daughter wished to proceed with ORIF of the proximal femur. Procedure: Patient was brought back to the operating room. Patient was intubated and then transferred to the operating table. Patient was positioned with all bony prominences well padded. Patient was prepped and draped in standard, sterile fashion. Timeout was performed to ensure the correct patient, side, site, and procedure to be performed. Preoperative antibiotics were completed. Fluoroscopy was used to close reduce the valgus impacted and minimally displaced right femoral neck fracture. A small lateral incision was made about the proximal femur, through skin with sharp dissection through fascia and down to bone, to allow 3 guide wires to be placed through the proximal femur and into the femoral neck and head. Once satisfactory position was achieved with wires in an inverted triangle configuration, measurement was taken for screws. The proximal cortex was drilled and then screws were placed. Again, fluoroscopy was used to verify screws were in good position and acceptable lengths. Fracture was found to be in acceptable alignment. Incision was thoroughly irrigated. Vicryl sutures were used to close the fascia and subcutaneous tissue and the skin was closed with donna. Sterile dressings were placed. The patient was transferred off the operating table and awoken from general anesthesia without complication. EBL: Esther Santos MD Jan 09, 2017 07:51
[2017-01-09] MEDS: INSULIN ASPART SUPPLEMENTAL SCALE SQ SCH ×4 (08:00→21:21)
[2017-01-09] MEDS: SODIUM CHLORIDE 0.9% FLUSH 10 ML FLUSH IV FLUSH SCH ×2 (09:00→21:23)
--- NOTE | 2017-01-09 09:58 | HHI.PR ---
Subjective Remarks Patient is a 81-year-old female. In the psychiatric unit with advanced dementia and COPD and seizure disorder and hypertension and hyperlipidemia and hypothyroidism who was noted to fall with a right proximal femur fracture. Patient will be transferred to inpatient and will undergo surgery with Dr. Bernard Betancourt of orthopedics tomorrow 01-06 TO GO FOR SURGERY WITH DR BETANCOURT LATER TODAY COMPLAINS OF PAIN IN RIGHT HIP/FEMUR AREA DW RN AND PT PATIENT REMAINS CONFUSED 01-07 had surgery Procedure Date: Jan 06, 2017 Open reduction internal fixation right femoral neck fracture no new complaints POD #1 01-08 POD #2 NO NEW COMPLAINTS STILL CONFUSED USUAL DW RN AND PT SEEN BY PSYCH WILL PROBABLY NEED SNF AT DC 01-09 HAS BEEN CLEARED BY ORTHO FOR SNF AWAIT SNF PLACEMENT DC TO SNF TODAY 3008 DONE SEE PAPERWORK DW RN AND CM Objective Vitals Vital Signs Date Time Temp Pulse Resp B/P (MAP) Pulse Ox O2 Delivery O2 Flow Rate FiO2 01/09/17 08:00 96.7 65 18 142/71 (94) 98 01/09/17 04:00 97.1 86 16 131/80 (97) 98 01/09/17 00:02 98.1 72 15 128/72 (90) 99 01/08/17 22:30 Nasal Cannula 2.00 01/08/17 21:28 94 Nasal Cannula 2.00 01/08/17 20:15 97.7 87 17 135/82 (99) 92 01/08/17 16:00 96.1 88 18 154/74 (100) 93 01/08/17 12:00 96.6 117 18 142/74 (96) 93 I/O 01/08/17 01/08/17 01/08/17 01/09/17 01/09/17 01/09/17 07:00 15:00 23:00 07:00 15:00 23:00 Intake Total 240 ml 360 ml 240 ml Balance 240 ml 360 ml 240 ml Intake Oral 240 ml 360 ml 240 ml # Voids 5 2 2 # Bowel Movements 0 1 2 Result Diagram: 01/09/17 0635 01/09/17 0635 Other Results Laboratory Tests Test 01/07/17 05:57 01/08/17 07:32 01/09/17 06:35 White Blood Count 14.0 TH/MM3 11.6 TH/MM3 11.8 TH/MM3 Red Blood Count 3.52 MIL/MM3 3.31 MIL/MM3 3.71 MIL/MM3 Hemoglobin 10.8 GM/DL 10.4 GM/DL 11.3 GM/DL Hematocrit 33.2 % 31.3 % 34.9 % Mean Corpuscular Volume 94.4 FL 94.7 FL 94.0 FL Mean Corpuscular Hemoglobin 30.8 PG 31.4 PG 30.5 PG Mean Corpuscular Hemoglobin Concent 32.6 % 33.2 % 32.4 % Red Cell Distribution Width 15.0 % 15.1 % 14.8 % Platelet Count 190 TH/MM3 196 TH/MM3 213 TH/MM3 Mean Platelet Volume 8.0 FL 8.1 FL 8.3 FL Neutrophils (%) (Auto) 86.3 % 77.8 % 79.0 % Lymphocytes (%) (Auto) 6.9 % 9.1 % 9.0 % Monocytes (%) (Auto) 6.3 % 8.0 % 7.8 % Eosinophils (%) (Auto) 0.3 % 4.5 % 3.4 % Basophils (%) (Auto) 0.2 % 0.6 % 0.8 % Neutrophils # (Auto) 12.1 TH/MM3 9.0 TH/MM3 9.3 TH/MM3 Lymphocytes # (Auto) 1.0 TH/MM3 1.1 TH/MM3 1.1 TH/MM3 Monocytes # (Auto) 0.9 TH/MM3 0.9 TH/MM3 0.9 TH/MM3 Eosinophils # (Auto) 0.0 TH/MM3 0.5 TH/MM3 0.4 TH/MM3 Basophils # (Auto) 0.0 TH/MM3 0.1 TH/MM3 0.1 TH/MM3 CBC Comment DIFF FINAL DIFF FINAL DIFF FINAL Differential Comment Blood Urea Nitrogen 13 MG/DL 14 MG/DL 16 MG/DL Creatinine 0.92 MG/DL 0.87 MG/DL 0.78 MG/DL Random Glucose 106 MG/DL 91 MG/DL 94 MG/DL Total Protein 5.7 GM/DL 5.7 GM/DL 6.0 GM/DL Albumin 2.3 GM/DL 2.4 GM/DL 2.5 GM/DL Calcium Level 8.4 MG/DL 8.9 MG/DL 8.7 MG/DL Phosphorus Level 3.2 MG/DL 2.3 MG/DL 2.6 MG/DL Magnesium Level 2.0 MG/DL 2.1 MG/DL 2.4 MG/DL Alkaline Phosphatase 64 U/L 65 U/L 66 U/L Aspartate Amino Transf (AST/SGOT) 14 U/L 30 U/L 31 U/L Alanine Aminotransferase (ALT/SGPT) 16 U/L 18 U/L 14 U/L Total Bilirubin 0.3 MG/DL 0.3 MG/DL 0.3 MG/DL Sodium Level 137 MEQ/L 138 MEQ/L 137 MEQ/L Potassium Level 4.1 MEQ/L 4.2 MEQ/L 4.0 MEQ/L Chloride Level 102 MEQ/L 103 MEQ/L 103 MEQ/L Carbon Dioxide Level 27.5 MEQ/L 29.4 MEQ/L 30.5 MEQ/L Anion Gap 8 MEQ/L 6 MEQ/L 4 MEQ/L Estimat Glomerular Filtration Rate 59 ML/MIN 63 ML/MIN 71 ML/MIN Hemoglobin A1c 6.0 % Free Thyroxine 2.00 NG/DL Thyroid Stimulating Hormone 3rd Gen 0.400 uIU/ML Hematology Comments Imaging Last Impressions Hip X-Ray 01/06/17 0000 Signed Impressions: Service Date/Time: Friday, January 06, 2017 18:03 - CONCLUSION: Trochanteric nailing of the subcapital fracture without evidence of an acute complication. Sunny Garcia MD Objective Remarks GENERAL: AWAKE AND ALERT BUT CONFUSED SKIN: Warm and dry. HEAD: Atraumatic. Normocephalic. EYES: Pupils equal and round. No scleral icterus. No injection or drainage. EOMI ENT: No nasal bleeding or discharge. Mucous membranes pink and moist. TONGUE MIDLINE NECK: Trachea midline. No JVD. SUPPLE CARDIOVASCULAR: Regular rate and rhythm. S1, S2 NO S3 OR S4 NO HEAVE OR THRILL RESPIRATORY: No accessory muscle use. Clear to auscultation. Breath sounds equal bilaterally. GASTROINTESTINAL: Abdomen soft, non-tender, nondistended. Hepatic and splenic margins not palpable. MUSCULOSKELETAL: Extremities without clubbing, cyanosis, or edema. LESS TENDER RIGHT HIP AREA- RIGHT HIP AREA DRESSED NEUROLOGICAL: Awake and alert. No obvious cranial nerve deficits. Motor grossly within normal limits. 4 out of 5 muscle strength in the arms and legs. Normal speech. PSYCHIATRIC: INAppropriate mood and affect; insight and judgment ABnormal. CONFUSED AND DEMENTED Procedures Procedure Date: Jan 06, 2017 Pre Op Diagnosis: Right femoral neck fracture Post Op Diagnosis: same Surgeon: Esther Jimenes English Instructor(s): none Procedure: Open reduction internal fixation right femoral neck fracture Findings: Valgus impacted right femoral neck fracture Complications: none Specimen(s) removed: none Estimated blood loss: 100cc Esther Jimenes MD Jan 06, 2017 17:02 Medications and IVs Current Medications Dextrose (D50w (Vial) Inj) 50 ml UNSCH PRN IV PUSH HYPOGLYCEMIA-SEE COMMENTS; Start 01/05/17 at 19:00 Glucagon (Glucagon Inj) 1 mg UNSCH PRN OTHER HYPOGLYCEMIA-SEE COMMENTS; Start 01/05/17 at 19:00 Insulin Aspart (NovoLOG SUPPLEMENTAL SCALE) 1 ACHS SLIDING SCALE SQ ; Start at 21:00 Sodium Chloride 1,000 ml @ 42 mls/hr [id number] IV Last administered on t 17:50; Start 01/05/17 at 19:15 Sodium Chloride (NS Flush) 2 ml UNSCH PRN IV FLUSH FLUSH AFTER USING IV ACCESS ; Start 01/05/17 at 19:15; Stop 01/06/17 at 17:33; Status DC Sodium Chloride (NS Flush) 2 ml BID IV FLUSH ; Start 01/05/17 at 21:00; Stop at 17:33; Status DC Acetaminophen (Tylenol) 650 mg Q4H PRN PO TEMP > 100.4; Start 01/05/17 at 19:15 ; Status Cancel Ondansetron HCl (Zofran Inj) 4 mg Q6H PRN IVP NAUSEA OR VOMITING; Start at 19:15; Status Cancel Prochlorperazine (Compazine Supp) 25 mg Q12H PRN RECTAL SEVERE NAUSEA OR VOMITING; Start 01/05/17 at 19:15 Acetaminophen (Tylenol) 650 mg Q6H PRN PO PAIN SCALE 1 TO 2; Start 01/05/17 at 19:15; Stop 01/05/17 at 21:36; Status DC Oxycodone/ Acetaminophen (Percocet 5-325 Mg) 1 tab Q6H PRN PO PAIN SCALE 3 TO 5; Start 01/05/17 at 19:15; Status Cancel Oxycodone/ Acetaminophen (Percocet 10-325 Mg) 1 tab Q6H PRN PO PAIN SCALE 6 TO 10; Start 01/05/17 at 19:15; Status Cancel Morphine Sulfate (Morphine Inj) 2 mg Q3H PRN IV PUSH Pain 3-5; if unable to take PO; Start 01/05/17 at 19:15; Status Cancel Morphine Sulfate (Morphine Inj) 4 mg Q3H PRN IV PUSH Pain 6-10;if unable to take PO Last administered on 01/06/17 12:33; Start 01/05/17 at 19:15; Stop at 18:05; Status DC Naloxone HCl (Narcan Inj) 0.4 mg UNSCH PRN IV PUSH SEE LABEL COMMENTS; Start at 19:15 Senna/Docusate Sodium (Latosha-Colace) 1 tab BID PO Last administered on 10:07; Start 01/05/17 at 21:00 Magnesium Hydroxide (Milk Of Magnesia Liq) 30 ml Q12H PRN PO MILD - MODERATE CONSTIPATION; Start 01/05/17 at 19:15; Status Cancel Sennosides (Senokot) 17.2 mg Q12H PRN PO MODERATE - SEVERE CONSTIPATION; Start 01/05/17 at 19:15; Status Cancel Bisacodyl (Dulcolax Supp) 10 mg DAILY PRN RECTAL SEVERE CONSITIPATION; Start at 19:15; Status Cancel Lactulose (Lactulose Liq) 30 ml DAILY PRN PO SEVERE CONSITIPATION Last administered on 01/08/17 10:07; Start 01/05/17 at 19:15 Acetaminophen (Tylenol) 325 mg Q4H PRN PO PAIN SCALE 1 TO 2; Start 01/05/17 at 19:30; Stop 01/06/17 at 17:12; Status DC Atorvastatin Calcium (Lipitor) 40 mg HS PO Last administered on 01/08/17 22:12 ; Start 01/05/17 at 21:00 Cholecalciferol (Vitamin D3) 1,000 units DAILY PO Last administered on 10:06; Start 01/06/17 at 09:00 Citalopram Hydrobromide (CeleXA) 20 mg DAILY PO Last administered on 01/08/17 10:06; Start 01/06/17 at 09:00 Cyanocobalamin (Vitamin B12) 100 mcg DAILY PO Last administered on 01/08/17 10 :06; Start 01/06/17 at 09:00 Diphenhydramine HCl (Benadryl) 25 mg HS PRN PO INSOMNIA Last administered on 22:11; Start 01/05/17 at 19:30 Levetriacetam (Keppra) 1,000 mg DAILY PO Last administered on 01/08/17 10:07; Start 01/06/17 at 09:00 Levetriacetam (Keppra) 500 mg HS PO Last administered on 01/08/17 22:11; Start 01/05/17 at 21:00 Levothyroxine Sodium (Synthroid) 112 mcg DAILY@0600 PO Last administered on 04:32; Start 01/06/17 at 06:00; Stop 01/07/17 at 10:36; Status DC Lorazepam (Ativan) 0.5 mg Q6H PRN PO ANXIETY Last administered on 01/08/17 17: 46; Start 01/05/17 at 19:30 Meclizine HCl (Antivert) 12.5 mg TID PRN PO VERTIGO; Start 01/05/17 at 19:30 Sennosides (Senokot) 8.6 mg HS PO Last administered on 01/07/17 21:51; Start 01/05/17 at 21:00 Lactobacillus Acidophilus (Lactinex) 1 tab BID PO Last administered on 22:11; Start 01/05/17 at 22:00 Famotidine (Pepcid) 10 mg BID PO Last administered on 01/08/17 22:12; Start at 09:00 Lactated Ringer's 1,000 ml @ 30 mls/hr Q24H PRN IV SEE LABEL COMMENTS; Start at 23:00; Stop 01/06/17 at 17:33; Status DC Sodium Chloride 500 ml @ 30 mls/hr [id number] PRN IV SEE LABEL COMMENTS; Start at 23:00; Stop 01/06/17 at 17:33; Status DC Metoprolol Tartrate (Lopressor) 25 mg BARN AND PROPERTY MANAGER PRN PO SEE LABEL COMMENTS; Start 01/05/17 at 23:00; Stop 01/06/17 at 17:33; Status DC Povidone Iodine (Betadine 5% Antisepsis Kit) 1 applic BARN AND PROPERTY MANAGER PRN EACH NARE SEE LABEL COMMENTS; Start 01/05/17 at 23:00; Stop 01/06/17 at 17:33; Status DC Chlorhexidine Gluconate (Chlorhexidine 2% Cloth) 3 pack BARN AND PROPERTY MANAGER PRN TOPICAL SEE LABEL COMMENTS; Start 01/05/17 at 23:00; Stop 01/06/17 at 17:33; Status DC Insulin Human Regular (NovoLIN R INJ) See Protocol Table ... BARN AND PROPERTY MANAGER PRN SQ SEE PROTOCOL TABLE; Start 01/05/17 at 23:00; Stop 01/06/17 at 17:33; Status DC Gentamicin Sulfate (Gentamicin Inj) 240 mg STK-MED ONCE .ROUTE ; Start 01/06/17 at 14:43; Stop 01/06/17 at 14:44; Status DC Cefazolin Sodium/ Dextrose 0 ml @ As Directed STK-MED ONCE .ROUTE ; Start at 15:15; Stop 01/06/17 at 17:12; Status DC Cefazolin Sodium (Ancef Inj) 1,000 mg STK-MED ONCE .ROUTE Last administered on 01/06/17 15:17; Start 01/06/17 at 15:17; Stop 01/06/17 at 15:18; Status DC Sodium Chloride (NS Flush) 2 ml UNSCH PRN IV FLUSH FLUSH AFTER USING IV ACCESS ; Start 01/06/17 at 17:00 Sodium Chloride (NS Flush) 2 ml BID IV FLUSH Last administered on 01/08/17 09: 00; Start 01/06/17 at 21:00 Cefazolin Sodium 1000 mg/Sodium Chloride 100 ml @ 200 mls/hr Q6H IV Last administered on 01/07/17 09:30; Start 01/06/17 at 21:00; Stop 01/07/17 at 09:29 ; Status DC Miscellaneous Information (Post-op Orders (for Pharmacy)) STAT ONCE XX ; Start 01/06/17 at 17:00; Stop 01/06/17 at 17:37; Status DC Enoxaparin Sodium (Lovenox Inj) 40 mg Q24H SQ Last administered on 01/09/17 04 :46; Start 01/07/17 at 05:00 Morphine Sulfate (Morphine Inj) 2 mg Q3H PRN IV PUSH Pain >7 when off GENERAL PEDIATRICIAN Last administered on 01/09/17 05:00; Start 01/06/17 at 17:00 Acetaminophen/ Hydrocodone Bitart ([place] 5-325 Mg) 1 tab Q4H PRN PO PAIN SCALE 4 TO 7 Last administered on 01/08/17 22:11; Start 01/06/17 at 17:00 Acetaminophen/ Hydrocodone Bitart ([place] 5-325 Mg) 2 tab Q4H PRN PO PAIN SCALE 8 TO 10 Last administered on 01/08/17 12:59; Start 01/06/17 at 17:00 Acetaminophen (Tylenol) 650 mg Q6H PRN PO PAIN SCALE 1 TO 3; Start 01/06/17 at 17:00 Ondansetron HCl (Zofran Inj) 4 mg Q6H PRN IVP NAUSEA OR VOMITING Last administered on 01/06/17 22:08; Start 01/06/17 at 17:00 Senna/Docusate Sodium (Latosha-Colace) 1 tab BID PO ; Start 01/06/17 at 21:00; Stop 01/06/17 at 21:00; Status DC Magnesium Hydroxide (Milk Of Magnesia Liq) 30 ml Q12H PRN PO MILD - MODERATE CONSTIPATION Last administered on 01/08/17 10:07; Start 01/06/17 at 17:00 Sennosides (Senokot) 17.2 mg Q12H PRN PO MODERATE - SEVERE CONSTIPATION; Start 01/06/17 at 17:00 Bisacodyl (Dulcolax Supp) 10 mg DAILY PRN RECTAL SEVERE CONSITIPATION Last administered on 01/08/17 17:46; Start 01/06/17 at 17:00 Lactulose (Lactulose Liq) 30 ml DAILY PRN PO SEVERE CONSITIPATION; Start at 17:00; Stop 01/06/17 at 17:12; Status DC Morphine Sulfate (*morphine INJ PERIprocedure ONLY) 8 mg STK-MED ONCE .ROUTE Last administered on 01/06/17 17:30; Start 01/06/17 at 17:29; Stop 01/06/17 at 17:30; Status DC Miscellaneous Information ALL NURSING DEPARTME... UNSCH PRN .XX SEE LABEL COMMENTS; Start 01/06/17 at 17:45; Stop 01/07/17 at 17:44; Status DC Levothyroxine Sodium (Synthroid) 100 mcg DAILY@0600 PO Last administered on 04:46; Start 01/08/17 at 06:00 Quetiapine Fumarate (SEROquel) 12.5 mg BID@09,12 PO Last administered on 11:28; Start 01/08/17 at 09:00 Miscellaneous (Pill Splitter) 1 ea UNSCH PRN OTHER SEE LABEL COMMENTS; Start at 14:45 Urinary Catheter: No Vascular Central Line Catheter: No A/P Problem List: (1) Seizures ICD Code: R56.9 - Unspecified convulsions (2) Hypothyroidism ICD Code: E03.9 - Hypothyroidism, unspecified (3) Hyperlipidemia ICD Code: E78.5 - Hyperlipidemia, unspecified (4) COPD (chronic obstructive pulmonary disease) ICD Code: J44.9 - Chronic obstructive pulmonary disease, unspecified (5) Fracture of proximal end of right femur ICD Code: S72.001A - Fracture of unspecified part of neck of right femur, initial encounter for closed fracture (6) Dementia of Alzheimer's type with behavioral disturbance ICD Code: G30.8 - Other Alzheimer's disease; F02.81 - Dementia in other diseases classified elsewhere with behavioral disturbance (7) Hypertension ICD Code: I10 - Essential (primary) hypertension (8) Psychosis ICD Code: F29 - Unspecified psychosis not due to a substance or known physiological condition Status: Acute (9) Dizziness ICD Code: R42 - Dizziness and giddiness Assessment and Plan Status post fall Right femur proximal fracture to undergo surgery Jan 06, 2017 Open reduction internal fixation right femoral neck fracture Jan 06, 2017 17:02 Coronary artery disease hold her Plavix HAS BEEN STARTED ON LOVENOX Hypertension resume home medications lisinopril 10 mg daily as well as Norvasc 5 mg daily Hyperlipidemia resume home medications Lipitor 40 mg by mouth daily at bedtime Dementia resume current medications per psychiatry Seizure disorder continue on Keppra thousand milligrams in a.m. and 500 mg in the p.m. Hypothyroidism levothyroxine 112 MCG's by mouth daily GERD and abdominal pain Protonix 20 mg by mouth daily Vitamin D insufficiency continue on vitamin D supplementation thousand milligrams by mouth daily CONSULT PSYCHIATRY- THEY STARTED SEROQUEL 12.5MG PO BID DC TO SNF WHEN BED AVAILABLE CAN BE DCED TO HOME SNF Discharge Planning CLEARED BY Anup Julian DO Jan 09, 2017 09:58
[2017-01-09] MEDS ORDERED: VITA1000 PO (10:03)
[2017-01-09] MEDS ORDERED: LORA-373 PO (10:03)
[2017-01-09] MEDS ORDERED: CULT10CA4 PO (10:03)
[2017-01-09] MEDS ORDERED: BISA10R RECTAL (10:03)
[2017-01-09] MEDS ORDERED: LEVO.1 PO (10:03)
[2017-01-09] MEDS ORDERED: SENN8.6T81 PO (10:03)
[2017-01-09] MEDS ORDERED: MECL12.574 PO (10:03)
[2017-01-09] MEDS ORDERED: QUET1TAB7 PO (10:03)
[2017-01-09] MEDS ORDERED: CITA20TA4 PO (10:03)
[2017-01-09] MEDS ORDERED: ENOX40P SQ (10:03)
[2017-01-09] MEDS ORDERED: B-12100T PO (10:03)
[2017-01-09] MEDS ORDERED: RANI150T PO (10:03)
--- NOTE | 2017-01-09 10:06 | HHI.DS ---
Discharge Summary Admission Date Jan 05, 2017 at 21:05 Discharge Date: Jan 09, 2017 Admitting Diagnosis Fall with fracture of the right proximal femur (1) Seizures ICD Code: R56.9 - Unspecified convulsions Diagnosis: Secondary (2) Hypothyroidism ICD Code: E03.9 - Hypothyroidism, unspecified Diagnosis: Secondary (3) Hyperlipidemia ICD Code: E78.5 - Hyperlipidemia, unspecified Diagnosis: Secondary (4) COPD (chronic obstructive pulmonary disease) ICD Code: J44.9 - Chronic obstructive pulmonary disease, unspecified Diagnosis: Secondary (5) Fracture of proximal end of right femur ICD Code: S72.001A - Fracture of unspecified part of neck of right femur, initial encounter for closed fracture Diagnosis: Principal (6) Dementia of Alzheimer's type with behavioral disturbance ICD Code: G30.8 - Other Alzheimer's disease; F02.81 - Dementia in other diseases classified elsewhere with behavioral disturbance Diagnosis: Secondary (7) Hypertension ICD Code: I10 - Essential (primary) hypertension Diagnosis: Secondary (8) Psychosis ICD Code: F29 - Unspecified psychosis not due to a substance or known physiological condition Diagnosis: Secondary Status: Acute (9) Dizziness ICD Code: R42 - Dizziness and giddiness Diagnosis: Secondary Procedures Procedure Date: Jan 06, 2017 Pre Op Diagnosis: Right femoral neck fracture Post Op Diagnosis: same Surgeon: Esther Jimenes Drip Box Tender(s): none Procedure: Open reduction internal fixation right femoral neck fracture Findings: Valgus impacted right femoral neck fracture Complications: none Specimen(s) removed: none Estimated blood loss: 100cc Esther Jimenes MD Jan 06, 2017 17:02 Brief History - From Admission Patient is a 81-year-old female. In the psychiatric unit with advanced dementia and COPD and seizure disorder and hypertension and hyperlipidemia and hypothyroidism who was noted to fall with a right proximal femur fracture. Patient will be transferred to inpatient and will undergo surgery with Dr. Bernard Betancourt of orthopedics tomorrow CBC/BMP: 01/09/17 0635 01/09/17 0635 Significant Findings Laboratory Tests Test 01/07/17 05:57 01/08/17 07:32 01/09/17 06:35 White Blood Count 14.0 TH/MM3 (4.0-11.0) 11.6 TH/MM3 (4.0-11.0) 11.8 TH/MM3 (4.0-11.0) Red Blood Count 3.52 MIL/MM3 (4.00-5.30) 3.31 MIL/MM3 (4.00-5.30) 3.71 MIL/MM3 (4.00-5.30) Hemoglobin 10.8 GM/DL (11.6-15.3) 10.4 GM/DL (11.6-15.3) 11.3 GM/DL (11.6-15.3) Hematocrit 33.2 % (35.0-46.0) 31.3 % (35.0-46.0) 34.9 % (35.0-46.0) Neutrophils (%) (Auto) 86.3 % (16.0-70.0) 77.8 % (16.0-70.0) 79.0 % (16.0-70.0) Lymphocytes (%) (Auto) 6.9 % (9.0-44.0) Neutrophils # (Auto) 12.1 TH/MM3 (1.8-7.7) 9.0 TH/MM3 (1.8-7.7) 9.3 TH/MM3 (1.8-7.7) Total Protein 5.7 GM/DL (6.4-8.2) 5.7 GM/DL (6.4-8.2) 6.0 GM/DL (6.4-8.2) Albumin 2.3 GM/DL (3.4-5.0) 2.4 GM/DL (3.4-5.0) 2.5 GM/DL (3.4-5.0) Calcium Level 8.4 MG/DL (8.5-10.1) Aspartate Amino Transf (AST/SGOT) 14 U/L (15-37) Estimat Glomerular Filtration Rate 59 ML/MIN (>89) 63 ML/MIN (>89) 71 ML/MIN (>89) Free Thyroxine 2.00 NG/DL (0.76-1.46) Eosinophils (%) (Auto) 4.5 % (0.0-4.0) Eosinophils # (Auto) 0.5 TH/MM3 (0-0.4) Phosphorus Level 2.3 MG/DL (2.5-4.9) Anion Gap 4 MEQ/L (5-15) Imaging Last Impressions Hip X-Ray 01/06/17 0000 Signed Impressions: Service Date/Time: Friday, January 06, 2017 18:03 - CONCLUSION: Trochanteric nailing of the subcapital fracture without evidence of an acute complication. Sunny Garcia MD PE at Discharge GENERAL: AWAKE AND ALERT BUT CONFUSED SKIN: Warm and dry. HEAD: Atraumatic. Normocephalic. EYES: Pupils equal and round. No scleral icterus. No injection or drainage. EOMI ENT: No nasal bleeding or discharge. Mucous membranes pink and moist. TONGUE MIDLINE NECK: Trachea midline. No JVD. SUPPLE CARDIOVASCULAR: Regular rate and rhythm. S1, S2 NO S3 OR S4 NO HEAVE OR THRILL RESPIRATORY: No accessory muscle use. Clear to auscultation. Breath sounds equal bilaterally. GASTROINTESTINAL: Abdomen soft, non-tender, nondistended. Hepatic and splenic margins not palpable. MUSCULOSKELETAL: Extremities without clubbing, cyanosis, or edema. LESS TENDER RIGHT HIP AREA- RIGHT HIP AREA DRESSED NEUROLOGICAL: Awake and alert. No obvious cranial nerve deficits. Motor grossly within normal limits. 4 out of 5 muscle strength in the arms and legs. Normal speech. PSYCHIATRIC: INAppropriate mood and affect; insight and judgment ABnormal. CONFUSED AND DEMENTED Hospital Course Patient is a 81-year-old female. In the psychiatric unit with advanced dementia and COPD and seizure disorder and hypertension and hyperlipidemia and hypothyroidism who was noted to fall with a right proximal femur fracture. Patient will be transferred to inpatient and will undergo surgery with Dr. Bernard Betancourt of orthopedics tomorrow 01-06 TO GO FOR SURGERY WITH DR BETANCOURT LATER TODAY COMPLAINS OF PAIN IN RIGHT HIP/FEMUR AREA DW RN AND PT PATIENT REMAINS CONFUSED 01-07 had surgery Procedure Date: Jan 06, 2017 Open reduction internal fixation right femoral neck fracture no new complaints POD #1 -28 POD #2 NO NEW COMPLAINTS STILL CONFUSED USUAL DW RN AND PT SEEN BY PSYCH WILL PROBABLY NEED SNF AT DC 01-09 HAS BEEN CLEARED BY ORTHO FOR SNF AWAIT SNF PLACEMENT DC TO SNF TODAY 3008 DONE SEE PAPERWORK BABAK RN AND CM Pt Condition on Discharge: Fair Discharge Disposition: Discharge to SNF Discharge Time: > 30 minutes Discharge Instructions DIET: Follow Instructions for: Heart Healthy Diet Speech Therapy-Diet Recommends: Regular Activities you can perform: Weight Bearing as Ezra Follow up Referrals: Orthopedics @ [facility] with Esther Jimenes MD PCP Follow-up - 2-3 Days New Medications: Bisacodyl Supp (Bisac-Evac Supp) 10 Mg Supp 10 MG RECTAL DAILY PRN for SEVERE CONSITIPATION, #30 SUPP Enoxaparin Inj (Lovenox Inj) 40 Mg/0.4 Ml Syr 40 MG SQ Q24H for Blood Clot Prevention, #21 INJECTION Levothyroxine (Synthroid) 100 Mcg Tab 100 MCG PO DAILY@0600 for Thyroid, #30 TAB Quetiapine (Quetiapine) 25 Mg Tab 12.5 MG PO BID@09,12 for Anxiety, #60 TAB Changed Medications: Lactobacillus Rhamnosus (GG) (Culturelle) 10 Billion Cell Cap 1 CAP PO TID for Nutritional Supplement, #90 CAP 0 Refills (Changed from: BID) Sennosides (Sennosides) 8.6 Mg Tab 17.2 MG PO HS for Constipation, #60 TAB 0 Refills (Changed from: 8.6 MG) Continued Medications: Acetaminophen (Tylenol) 325 Mg Tab 325 MG PO Q4H PRN for PAIN SCALE 1 TO 3, TAB 0 Refills Atorvastatin (Atorvastatin) 40 Mg Tab 40 MG PO HS for Cholesterol Management, #30 TAB 0 Refills Cholecalciferol (D 1000) 1,000 Unit Tab 1000 UNITS PO DAILY for vit D defic, #90 TAB (This prescription has been renewed ) Citalopram (Citalopram) 20 Mg Tab 20 MG PO DAILY for Control Depression, #30 TAB 0 Refills (This prescription has been renewed) Cyanocobalamin (B-12) 100 Mcg Tab 100 MCG PO DAILY for vit supplem, #30 TAB (This prescription has been renewed) Diphenhydramine (Sleep) (Zzzquil) 25 Mg Cap 25 MG PO HS PRN for INSOMNIA, CAP 0 Refills Levetiracetam (Keppra) 500 Mg Tab 1000 MG PO DAILY for Seizure Control, #30 TAB Levetiracetam (Keppra) 500 Mg Tab 500 MG PO HS for Seizure Control, #30 TAB Lorazepam (Lorazepam) 0.5 Mg Tab 0.5 MG PO Q6H PRN for ANXIETY, #60 TAB 0 Refills (This prescription has been renewed) Meclizine (Meclizine) 12.5 Mg Tab 12.5 MG PO TID PRN for VERTIGO, #90 TAB 0 Refills (This prescription has been renewed) Ranitidine (Ranitidine) 150 Mg Tab 150 MG PO DAILY for Heartburn Management, #30 TAB 0 Refills (This prescription has been renewed) Discontinued Medications: Levothyroxine (Synthroid) 112 Mcg Tab 112 MCG PO DAILY@0600 for hypothyroidism, #30 TAB Anup Yanez DO Jan 09, 2017 10:06
[2017-01-09] MEDS: QUEtiapine FUMARATE 25 MG TAB PO SCH ×2 (10:33→11:29)
[2017-01-09] MEDS: CHOLECALCIFEROL (VIT D3) 1000 UNIT TAB PO SCH (10:33)
[2017-01-09] MEDS: CITALOPRAM HYDROBROMIDE 20 MG TAB PO SCH (10:33)
[2017-01-09] MEDS: CYANOCOBALAMIN 100 MCG TAB PO SCH (10:33)
[2017-01-09] MEDS: DOCUSATE SODIUM 50 MG/SENNA 8.6 MG TAB PO SCH ×2 (10:33→21:23)
[2017-01-09] MEDS: levETIRAcetam 500 MG TAB PO SCH ×2 (10:33→21:23)
[2017-01-09] MEDS: LACTOBACILLUS ACIDOPHILUS TAB PO SCH ×2 (10:37→21:23)
[2017-01-09] MEDS: FAMOTIDINE 20 MG TAB PO SCH ×2 (10:43→21:23)
[2017-01-09] MEDS: ACETAMINOPHEN/HYDROcodone 325 MG/5 MG TAB PO PRN ×2 (16:57→21:23)
[2017-01-09] MEDS: SODIUM CHLOR 0.9% 1000 ML INJ 1,000 ML IV SCH (18:31)
[2017-01-09] MEDS: diphenhydrAMINE HCL 25 MG CAP PO PRN (21:23)
[2017-01-09] MEDS: ATORVASTATIN 40 MG TAB PO SCH (21:23)
[2017-01-09] MEDS: SENNOSIDES 8.6 MG TAB PO SCH (21:31)
[2017-01-10] VITALS: BP 131/74; PULSE 64; RESP 16; TEMP 95.5; O2SAT 93
[2017-01-10 04:00] VITALS: RESP 18; O2SAT 95
[2017-01-10] MEDS: ENOXAPARIN SODIUM 40 MG/0.4 ML SYRINGE SQ SCH (04:18)
[2017-01-10] MEDS: LEVOTHYROXINE SODIUM 100 MCG TAB PO SCH (04:18)
[2017-01-10] MEDS: ACETAMINOPHEN/HYDROcodone 325 MG/5 MG TAB PO PRN ×4 (04:21→22:01)
[2017-01-10] MEDS: INSULIN ASPART SUPPLEMENTAL SCALE SQ SCH ×3 (07:08→21:16)
[2017-01-10 08:00] VITALS: BP 159/81; PULSE 70; RESP 18; TEMP 97.2; O2SAT 95
[2017-01-10] MEDS: levETIRAcetam 500 MG TAB PO SCH ×2 (08:21→21:18)
[2017-01-10] MEDS: QUEtiapine FUMARATE 25 MG TAB PO SCH ×2 (08:21→11:26)
[2017-01-10] MEDS: CITALOPRAM HYDROBROMIDE 20 MG TAB PO SCH (08:21)
[2017-01-10] MEDS: FAMOTIDINE 20 MG TAB PO SCH ×2 (08:21→21:19)
[2017-01-10] MEDS: LORazepam 0.5 MG TAB PO PRN (08:21)
[2017-01-10] MEDS: LACTOBACILLUS ACIDOPHILUS TAB PO SCH ×2 (08:23→21:18)
[2017-01-10] MEDS: CYANOCOBALAMIN 100 MCG TAB PO SCH (08:23)
[2017-01-10] MEDS: CHOLECALCIFEROL (VIT D3) 1000 UNIT TAB PO SCH (08:23)
[2017-01-10] MEDS: DOCUSATE SODIUM 50 MG/SENNA 8.6 MG TAB PO SCH ×2 (08:23→21:19)
[2017-01-10] MEDS: SODIUM CHLOR 0.9% 1000 ML INJ 1,000 ML IV SCH (08:31)
[2017-01-10] MEDS: SODIUM CHLORIDE 0.9% FLUSH 10 ML FLUSH IV FLUSH SCH ×2 (08:31→21:19)
[2017-01-10 11:20] VITALS: BP 122/69; PULSE 73; RESP 17; TEMP 96.8; O2SAT 95
--- NOTE | 2017-01-10 11:43 | HHI.PR ---
Subjective Remarks Follow up on patient with right proximal femur fracture s/p ORIF. Patient seen and examined. Patient with severe dementia. Patient denies any pain. She denies any fever or chills. She denies any dyspnea. She denies any nausea, vomiting or abdominal pain. Discussed with RN, no acute issues noted. Objective Vitals Vital Signs Date Time Temp Pulse Resp B/P (MAP) Pulse Ox O2 Delivery O2 Flow Rate FiO2 01/10/17 08:32 Room Air 01/10/17 08:00 97.2 70 18 159/81 (107) 95 01/10/17 04:00 18 95 01/10/17 00:00 95.5 64 16 131/74 (93) 93 01/09/17 20:00 97.9 87 16 149/83 (105) 98 01/09/17 16:00 95.4 78 18 134/67 (89) 92 01/09/17 12:00 95.9 96 18 177/97 (123) 99 I/O 01/09/17 01/09/17 01/09/17 01/10/17 01/10/17 01/10/17 07:00 15:00 23:00 07:00 15:00 23:00 Intake Total 240 ml 240 ml 360 ml Balance 240 ml 240 ml 360 ml Intake Oral 240 ml 240 ml 360 ml # Voids 2 3 3 # Bowel Movements 2 0 Result Diagram: 01/09/17 0635 01/09/17 0635 Imaging Last Impressions Hip X-Ray 01/06/17 0000 Signed Impressions: Service Date/Time: Friday, January 06, 2017 18:03 - CONCLUSION: Trochanteric nailing of the subcapital fracture without evidence of an acute complication. Sunny Garcia MD Objective Remarks GENERAL: Thin, frail elderly female in NAD. Somnolent. Lying in hospital bed. Appears comfortable. Confused. SKIN: Warm and dry. HEAD: Normocephalic. Atraumatic. EYES: EOMI. No scleral icterus. No injection or drainage. ENT: No nasal bleeding or discharge. Mucous membranes pink and moist. NECK: Supple. Trachea midline. CARDIOVASCULAR: Regular rate and rhythm. S1, S2 noted. No murmur appreciated. RESPIRATORY: Clear but diminished breath sounds but poor effort noted. GASTROINTESTINAL: Abdomen soft, non-tender, nondistended. Normoactive bowel sounds x4. MUSCULOSKELETAL: Extremities without clubbing, cyanosis, or edema. s/p ORIF right hip, dressed. NEUROLOGICAL: Somnolent. Moves all extremities. Normal speech. PSYCHIATRIC: Severe dementia. Procedures Procedure Date: Jan 06, 2017 Pre Op Diagnosis: Right femoral neck fracture Post Op Diagnosis: same Surgeon: Esther Jimenes Doll Wig Maker(s): none Procedure: Open reduction internal fixation right femoral neck fracture Findings: Valgus impacted right femoral neck fracture Complications: none Specimen(s) removed: none Estimated blood loss: 100cc Esther Jimenes MD Jan 06, 2017 17:02 Medications and IVs Current Medications Medications (Trade) Dose Ordered Sig/Skyla Route Start Time Stop Time Status Last Admin (D50w (Vial) Inj) 50 ml UNSCH PRN IV PUSH 01/05/17 19:00 (Glucagon Inj) 1 mg UNSCH PRN OTHER 01/05/17 19:00 (NovoLOG SUPPLEMENTAL SCALE) 1 ACHS SLIDING SCALE SQ 01/05/17 21:00 Sodium Chloride 1,000 ml @ 42 mls/hr [id number] IV 01/05/17 19:15 01/06/17 17:50 (Compazine Supp) 25 mg Q12H PRN RECTAL 01/05/17 19:15 (Narcan Inj) 0.4 mg UNSCH PRN IV PUSH 01/05/17 19:15 (Latosha-Colace) 1 tab BID PO 01/05/17 21:00 01/10/17 08:23 (Lactulose Liq) 30 ml DAILY PRN PO 01/05/17 19:15 01/08/17 10:07 (Lipitor) 40 mg HS PO 01/05/17 21:00 01/09/17 21:23 (Vitamin D3) 1,000 units DAILY PO 01/06/17 09:00 01/10/17 08:23 (CeleXA) 20 mg DAILY PO 01/06/17 09:00 01/10/17 08:21 (Vitamin B12) 100 mcg DAILY PO 01/06/17 09:00 01/10/17 08:23 (Benadryl) 25 mg HS PRN PO 01/05/17 19:30 01/09/17 21:23 (Keppra) 1,000 mg DAILY PO 01/06/17 09:00 01/10/17 08:21 (Keppra) 500 mg HS PO 01/05/17 21:00 01/09/17 21:23 (Ativan) 0.5 mg Q6H PRN PO 01/05/17 19:30 01/10/17 08:21 (Antivert) 12.5 mg TID PRN PO 01/05/17 19:30 (Senokot) 8.6 mg HS PO 01/05/17 21:00 01/07/17 21:51 (Lactinex) 1 tab BID PO 01/05/17 22:00 01/10/17 08:23 (Pepcid) 10 mg BID PO 01/06/17 09:00 01/10/17 08:21 (NS Flush) 2 ml UNSCH PRN IV FLUSH 01/06/17 17:00 (NS Flush) 2 ml BID IV FLUSH 01/06/17 21:00 01/08/17 09:00 (Lovenox Inj) 40 mg Q24H SQ 01/07/17 05:00 01/10/17 04:18 (Morphine Inj) 2 mg Q3H PRN IV PUSH 01/06/17 17:00 01/09/17 11:28 ([place] 5-325 Mg) 1 tab Q4H PRN PO 01/06/17 17:00 01/10/17 08:28 ([place] 5-325 Mg) 2 tab Q4H PRN PO 01/06/17 17:00 01/08/17 12:59 (Tylenol) 650 mg Q6H PRN PO 01/06/17 17:00 (Zofran Inj) 4 mg Q6H PRN IVP 01/06/17 17:00 01/06/17 22:08 (Milk Of Magnesia Liq) 30 ml Q12H PRN PO 01/06/17 17:00 01/08/17 10:07 (Senokot) 17.2 mg Q12H PRN PO 01/06/17 17:00 (Dulcolax Supp) 10 mg DAILY PRN RECTAL 01/06/17 17:00 01/08/17 17:46 (Synthroid) 100 mcg DAILY@0600 PO 01/08/17 06:00 01/10/17 04:18 (SEROquel) 12.5 mg BID@09,12 PO 01/08/17 09:00 01/10/17 08:21 (Pill Splitter) 1 ea UNSCH PRN OTHER 01/07/17 14:45 A/P Problem List: (1) Seizures ICD Code: R56.9 - Unspecified convulsions (2) Hypothyroidism ICD Code: E03.9 - Hypothyroidism, unspecified (3) Hyperlipidemia ICD Code: E78.5 - Hyperlipidemia, unspecified (4) COPD (chronic obstructive pulmonary disease) ICD Code: J44.9 - Chronic obstructive pulmonary disease, unspecified (5) Fracture of proximal end of right femur ICD Code: S72.001A - Fracture of unspecified part of neck of right femur, initial encounter for closed fracture (6) Dementia of Alzheimer's type with behavioral disturbance ICD Code: G30.8 - Other Alzheimer's disease; F02.81 - Dementia in other diseases classified elsewhere with behavioral disturbance (7) Hypertension ICD Code: I10 - Essential (primary) hypertension (8) Psychosis ICD Code: F29 - Unspecified psychosis not due to a substance or known physiological condition Status: Acute (9) Dizziness ICD Code: R42 - Dizziness and giddiness Assessment and Plan 81yo female with severe dementia s/p fall resulting in right femoral neck fracture Right femoral neck fracture - Status post ORIF 01/06/[address] Jimenes - per Ortho, toe touch WB RLE for at least 4-6 weeks, recommended anticoagulation with Lovenox or Xarelto for 2 weeks then resume Plavix. Continue Lovenox at this time. - cleared for d/c by Ortho - discharge on hold pending SNF acceptance/bed availability - Continue with PT - pain mgmt with bowel regimen CAD - Plavix currently on hold, patient on Lovenox - Patient asymptomatic, has no compressive chest pain - As stated above, per Ortho continue Lovenox or Xarelto for 2 weeks then resume Plavix Dyslipidemia - Continue on Lipitor 40 mg daily at bedtime Dementia - psychiatry consulted - started on Seroquel 12.5mg BID, hold for now due to somnolence. Hold IV Morphine. Seizure disorder - Continue on Keppra 1000mg in am and 500mg in pm - Keppra level 12/22/16 44.2 Hypothyroidism - TSH 0.400 - Continue on levothyroxine 100 g daily Vitamin D insufficiency - Continue on vitamin D supplementation daily DVT prophylaxis - Patient on Lovenox Discussed with patient, nursing staff and Dr. Francois Discharge Planning Per CM note, pending review for possible acceptance to [facility] and/or Matilde Brooks Jan 10, 2017 11:43
[2017-01-10 16:06] VITALS: BP 149/83; PULSE 75; RESP 17; TEMP 97.1; O2SAT 93
[2017-01-10 20:50] VITALS: BP 154/77; PULSE 77; RESP 18; TEMP 97; O2SAT 96
[2017-01-10] MEDS: ATORVASTATIN 40 MG TAB PO SCH (21:18)
[2017-01-10] MEDS: SENNOSIDES 8.6 MG TAB PO SCH (21:19)
[2017-01-11 00:25] VITALS: BP 149/72; PULSE 72; RESP 18; TEMP 96.8; O2SAT 95
[2017-01-11] MEDS: ENOXAPARIN SODIUM 40 MG/0.4 ML SYRINGE SQ SCH (05:03)
[2017-01-11] MEDS: LEVOTHYROXINE SODIUM 100 MCG TAB PO SCH (05:03)
[2017-01-11] MEDS: INSULIN ASPART SUPPLEMENTAL SCALE SQ SCH ×4 (06:44→21:00)
[2017-01-11] MEDS: CITALOPRAM HYDROBROMIDE 20 MG TAB PO SCH (07:55)
[2017-01-11] MEDS: levETIRAcetam 500 MG TAB PO SCH ×2 (07:55→21:13)
[2017-01-11] MEDS: CHOLECALCIFEROL (VIT D3) 1000 UNIT TAB PO SCH (07:55)
[2017-01-11] MEDS: FAMOTIDINE 20 MG TAB PO SCH ×2 (07:55→21:13)
[2017-01-11] MEDS: LACTOBACILLUS ACIDOPHILUS TAB PO SCH ×2 (07:56→21:13)
[2017-01-11] MEDS: DOCUSATE SODIUM 50 MG/SENNA 8.6 MG TAB PO SCH ×2 (07:56→21:13)
[2017-01-11] MEDS: CYANOCOBALAMIN 100 MCG TAB PO SCH (07:56)
[2017-01-11] MEDS: SODIUM CHLORIDE 0.9% FLUSH 10 ML FLUSH IV FLUSH SCH ×2 (07:56→21:13)
[2017-01-11 08:00] VITALS: BP 170/92; PULSE 77; RESP 18; TEMP 97.1; O2SAT 93
[2017-01-11] MEDS: SODIUM CHLOR 0.9% 1000 ML INJ 1,000 ML IV SCH (08:00)
[2017-01-11] MEDS: ACETAMINOPHEN/HYDROcodone 325 MG/5 MG TAB PO PRN ×2 (10:42→15:17)
[2017-01-11 10:53] VITALS: BP 139/83; PULSE 77; RESP 16; TEMP 97.3; O2SAT 96
--- NOTE | 2017-01-11 11:17 | HHI.PR ---
Subjective Remarks Patient is a 81-year-old female. In the psychiatric unit with advanced dementia and COPD and seizure disorder and hypertension and hyperlipidemia and hypothyroidism who was noted to fall with a right proximal femur fracture. Patient will be transferred to inpatient and will undergo surgery with Dr. Bernard Betancourt of orthopedics tomorrow 01-06 TO GO FOR SURGERY WITH DR BETANCOURT LATER TODAY COMPLAINS OF PAIN IN RIGHT HIP/FEMUR AREA DW RN AND PT PATIENT REMAINS CONFUSED 01-07 had surgery Procedure Date: Jan 06, 2017 Open reduction internal fixation right femoral neck fracture no new complaints POD #1 01-08 POD #2 NO NEW COMPLAINTS STILL CONFUSED USUAL DW RN AND PT SEEN BY PSYCH WILL PROBABLY NEED SNF AT DC 01-09 HAS BEEN CLEARED BY ORTHO FOR SNF AWAIT SNF PLACEMENT DC TO SNF TODAY 3008 DONE SEE PAPERWORK DW RN AND CM 01-10 STILL HAS NOT BEEN PLACED YET 01-11 AWAIT PLACEMENT DW RN AND PT NEEDS SAFE DC Objective Vitals Vital Signs Date Time Temp Pulse Resp B/P (MAP) Pulse Ox O2 Delivery O2 Flow Rate FiO2 01/11/17 10:53 97.3 77 16 139/83 (101) 96 01/11/17 08:00 97.1 77 18 170/92 (118) 93 01/11/17 00:25 96.8 72 18 149/72 (97) 95 01/10/17 20:50 97.0 77 18 154/77 (102) 96 01/10/17 16:06 97.1 75 17 149/83 (105) 93 01/10/17 11:21 21 01/10/17 11:20 96.8 73 17 122/69 (86) 95 I/O 01/10/17 01/10/17 01/10/17 01/11/17 01/11/17 01/11/17 07:00 15:00 23:00 07:00 15:00 23:00 Intake Total 360 ml 480 ml 240 ml 120 ml Balance 360 ml 480 ml 240 ml 120 ml Intake Oral 360 ml 480 ml 240 ml 120 ml # Voids 3 4 2 3 # Bowel Movements 0 0 0 Result Diagram: 01/09/17 0635 01/09/17 0635 Other Results Laboratory Tests Test 01/09/17 06:35 White Blood Count 11.8 TH/MM3 Red Blood Count 3.71 MIL/MM3 Hemoglobin 11.3 GM/DL Hematocrit 34.9 % Mean Corpuscular Volume 94.0 FL Mean Corpuscular Hemoglobin 30.5 PG Mean Corpuscular Hemoglobin Concent 32.4 % Red Cell Distribution Width 14.8 % Platelet Count 213 TH/MM3 Mean Platelet Volume 8.3 FL Neutrophils (%) (Auto) 79.0 % Lymphocytes (%) (Auto) 9.0 % Monocytes (%) (Auto) 7.8 % Eosinophils (%) (Auto) 3.4 % Basophils (%) (Auto) 0.8 % Neutrophils # (Auto) 9.3 TH/MM3 Lymphocytes # (Auto) 1.1 TH/MM3 Monocytes # (Auto) 0.9 TH/MM3 Eosinophils # (Auto) 0.4 TH/MM3 Basophils # (Auto) 0.1 TH/MM3 CBC Comment DIFF FINAL Differential Comment Hematology Comments Blood Urea Nitrogen 16 MG/DL Creatinine 0.78 MG/DL Random Glucose 94 MG/DL Total Protein 6.0 GM/DL Albumin 2.5 GM/DL Calcium Level 8.7 MG/DL Phosphorus Level 2.6 MG/DL Magnesium Level 2.4 MG/DL Alkaline Phosphatase 66 U/L Aspartate Amino Transf (AST/SGOT) 31 U/L Alanine Aminotransferase (ALT/SGPT) 14 U/L Total Bilirubin 0.3 MG/DL Sodium Level 137 MEQ/L Potassium Level 4.0 MEQ/L Chloride Level 103 MEQ/L Carbon Dioxide Level 30.5 MEQ/L Anion Gap 4 MEQ/L Estimat Glomerular Filtration Rate 71 ML/MIN Imaging Last Impressions Hip X-Ray 01/06/17 0000 Signed Impressions: Service Date/Time: Friday, January 06, 2017 18:03 - CONCLUSION: Trochanteric nailing of the subcapital fracture without evidence of an acute complication. Sunny Garcia MD Objective Remarks GENERAL: AWAKE AND ALERT BUT LESS CONFUSED SKIN: Warm and dry. HEAD: Atraumatic. Normocephalic. EYES: Pupils equal and round. No scleral icterus. No injection or drainage. EOMI ENT: No nasal bleeding or discharge. Mucous membranes pink and moist. TONGUE MIDLINE NECK: Trachea midline. No JVD. SUPPLE CARDIOVASCULAR: Regular rate and rhythm. S1, S2 NO S3 OR S4 NO HEAVE OR THRILL RESPIRATORY: No accessory muscle use. Clear to auscultation. Breath sounds equal bilaterally. GASTROINTESTINAL: Abdomen soft, non-tender, nondistended. Hepatic and splenic margins not palpable. MUSCULOSKELETAL: Extremities without clubbing, cyanosis, or edema. LESS TENDER RIGHT HIP AREA- NEUROLOGICAL: Awake and alert. No obvious cranial nerve deficits. Motor grossly within normal limits. 4 out of 5 muscle strength in the arms and legs. Normal speech. PSYCHIATRIC: INAppropriate mood and affect; insight and judgment ABnormal. CONFUSED AND DEMENTED Procedures Procedure Date: Jan 06, 2017 Pre Op Diagnosis: Right femoral neck fracture Post Op Diagnosis: same Surgeon: Esther Jimenes Glove Maker(s): none Procedure: Open reduction internal fixation right femoral neck fracture Findings: Valgus impacted right femoral neck fracture Complications: none Specimen(s) removed: none Estimated blood loss: 100cc Esther Jimenes MD Jan 06, 2017 17:02 Medications and IVs Current Medications Dextrose (D50w (Vial) Inj) 50 ml UNSCH PRN IV PUSH HYPOGLYCEMIA-SEE COMMENTS; Start 01/05/17 at 19:00 Glucagon (Glucagon Inj) 1 mg UNSCH PRN OTHER HYPOGLYCEMIA-SEE COMMENTS; Start 01/05/17 at 19:00 Insulin Aspart (NovoLOG SUPPLEMENTAL SCALE) 1 ACHS SLIDING SCALE SQ ; Start at 21:00 Sodium Chloride 1,000 ml @ 42 mls/hr [id number] IV Last administered on t 17:50; Start 01/05/17 at 19:15 Sodium Chloride (NS Flush) 2 ml UNSCH PRN IV FLUSH FLUSH AFTER USING IV ACCESS ; Start 01/05/17 at 19:15; Stop 01/06/17 at 17:33; Status DC Sodium Chloride (NS Flush) 2 ml BID IV FLUSH ; Start 01/05/17 at 21:00; Stop at 17:33; Status DC Acetaminophen (Tylenol) 650 mg Q4H PRN PO TEMP > 100.4; Start 01/05/17 at 19:15 ; Status Cancel Ondansetron HCl (Zofran Inj) 4 mg Q6H PRN IVP NAUSEA OR VOMITING; Start at 19:15; Status Cancel Prochlorperazine (Compazine Supp) 25 mg Q12H PRN RECTAL SEVERE NAUSEA OR VOMITING; Start 01/05/17 at 19:15 Acetaminophen (Tylenol) 650 mg Q6H PRN PO PAIN SCALE 1 TO 2; Start 01/05/17 at 19:15; Stop 01/05/17 at 21:36; Status DC Oxycodone/ Acetaminophen (Percocet 5-325 Mg) 1 tab Q6H PRN PO PAIN SCALE 3 TO 5; Start 01/05/17 at 19:15; Status Cancel Oxycodone/ Acetaminophen (Percocet 10-325 Mg) 1 tab Q6H PRN PO PAIN SCALE 6 TO 10; Start 01/05/17 at 19:15; Status Cancel Morphine Sulfate (Morphine Inj) 2 mg Q3H PRN IV PUSH Pain 3-5; if unable to take PO; Start 01/05/17 at 19:15; Status Cancel Morphine Sulfate (Morphine Inj) 4 mg Q3H PRN IV PUSH Pain 6-10;if unable to take PO Last administered on 01/06/17 12:33; Start 01/05/17 at 19:15; Stop at 18:05; Status DC Naloxone HCl (Narcan Inj) 0.4 mg UNSCH PRN IV PUSH SEE LABEL COMMENTS; Start at 19:15 Senna/Docusate Sodium (Latosha-Colace) 1 tab BID PO Last administered on 07:56; Start 01/05/17 at 21:00 Magnesium Hydroxide (Milk Of Magnesia Liq) 30 ml Q12H PRN PO MILD - MODERATE CONSTIPATION; Start 01/05/17 at 19:15; Status Cancel Sennosides (Senokot) 17.2 mg Q12H PRN PO MODERATE - SEVERE CONSTIPATION; Start 01/05/17 at 19:15; Status Cancel Bisacodyl (Dulcolax Supp) 10 mg DAILY PRN RECTAL SEVERE CONSITIPATION; Start at 19:15; Status Cancel Lactulose (Lactulose Liq) 30 ml DAILY PRN PO SEVERE CONSITIPATION Last administered on 01/08/17 10:07; Start 01/05/17 at 19:15 Acetaminophen (Tylenol) 325 mg Q4H PRN PO PAIN SCALE 1 TO 2; Start 01/05/17 at 19:30; Stop 01/06/17 at 17:12; Status DC Atorvastatin Calcium (Lipitor) 40 mg HS PO Last administered on 01/10/17 21:18 ; Start 01/05/17 at 21:00 Cholecalciferol (Vitamin D3) 1,000 units DAILY PO Last administered on 07:55; Start 01/06/17 at 09:00 Citalopram Hydrobromide (CeleXA) 20 mg DAILY PO Last administered on 01/11/17 07:55; Start 01/06/17 at 09:00 Cyanocobalamin (Vitamin B12) 100 mcg DAILY PO Last administered on 01/11/17 07 :56; Start 01/06/17 at 09:00 Diphenhydramine HCl (Benadryl) 25 mg HS PRN PO INSOMNIA Last administered on 21:23; Start 01/05/17 at 19:30 Levetriacetam (Keppra) 1,000 mg DAILY PO Last administered on 01/11/17 07:55; Start 01/06/17 at 09:00 Levetriacetam (Keppra) 500 mg HS PO Last administered on 01/10/17 21:18; Start 01/05/17 at 21:00 Levothyroxine Sodium (Synthroid) 112 mcg DAILY@0600 PO Last administered on 04:32; Start 01/06/17 at 06:00; Stop 01/07/17 at 10:36; Status DC Lorazepam (Ativan) 0.5 mg Q6H PRN PO ANXIETY Last administered on 01/10/17 08: 21; Start 01/05/17 at 19:30 Meclizine HCl (Antivert) 12.5 mg TID PRN PO VERTIGO; Start 01/05/17 at 19:30 Sennosides (Senokot) 8.6 mg HS PO Last administered on 01/10/17 21:19; Start 01/05/17 at 21:00 Lactobacillus Acidophilus (Lactinex) 1 tab BID PO Last administered on 07:56; Start 01/05/17 at 22:00 Famotidine (Pepcid) 10 mg BID PO Last administered on 01/11/17 07:55; Start at 09:00 Lactated Ringer's 1,000 ml @ 30 mls/hr Q24H PRN IV SEE LABEL COMMENTS; Start at 23:00; Stop 01/06/17 at 17:33; Status DC Sodium Chloride 500 ml @ 30 mls/hr [id number] PRN IV SEE LABEL COMMENTS; Start at 23:00; Stop 01/06/17 at 17:33; Status DC Metoprolol Tartrate (Lopressor) 25 mg PADDER PRN PO SEE LABEL COMMENTS; Start 01/05/17 at 23:00; Stop 01/06/17 at 17:33; Status DC Povidone Iodine (Betadine 5% Antisepsis Kit) 1 applic PADDER PRN EACH NARE SEE LABEL COMMENTS; Start 01/05/17 at 23:00; Stop 01/06/17 at 17:33; Status DC Chlorhexidine Gluconate (Chlorhexidine 2% Cloth) 3 pack PADDER PRN TOPICAL SEE LABEL COMMENTS; Start 01/05/17 at 23:00; Stop 01/06/17 at 17:33; Status DC Insulin Human Regular (NovoLIN R INJ) See Protocol Table ... PADDER PRN SQ SEE PROTOCOL TABLE; Start 01/05/17 at 23:00; Stop 01/06/17 at 17:33; Status DC Gentamicin Sulfate (Gentamicin Inj) 240 mg STK-MED ONCE .ROUTE ; Start 01/06/17 at 14:43; Stop 01/06/17 at 14:44; Status DC Cefazolin Sodium/ Dextrose 0 ml @ As Directed STK-MED ONCE .ROUTE ; Start at 15:15; Stop 01/06/17 at 17:12; Status DC Cefazolin Sodium (Ancef Inj) 1,000 mg STK-MED ONCE .ROUTE Last administered on 01/06/17 15:17; Start 01/06/17 at 15:17; Stop 01/06/17 at 15:18; Status DC Sodium Chloride (NS Flush) 2 ml UNSCH PRN IV FLUSH FLUSH AFTER USING IV ACCESS ; Start 01/06/17 at 17:00 Sodium Chloride (NS Flush) 2 ml BID IV FLUSH Last administered on 01/10/17 21: 19; Start 01/06/17 at 21:00 Cefazolin Sodium 1000 mg/Sodium Chloride 100 ml @ 200 mls/hr Q6H IV Last administered on 01/07/17 09:30; Start 01/06/17 at 21:00; Stop 01/07/17 at 09:29 ; Status DC Miscellaneous Information (Post-op Orders (for Pharmacy)) STAT ONCE XX ; Start 01/06/17 at 17:00; Stop 01/06/17 at 17:37; Status DC Enoxaparin Sodium (Lovenox Inj) 40 mg Q24H SQ Last administered on 01/11/17 05 :03; Start 01/07/17 at 05:00 Morphine Sulfate (Morphine Inj) 2 mg Q3H PRN IV PUSH Pain >7 when off FUNNEL COATER Last administered on 01/09/17 11:28; Start 01/06/17 at 17:00; Status Future Hold Acetaminophen/ Hydrocodone Bitart ([place] 5-325 Mg) 1 tab Q4H PRN PO PAIN SCALE 4 TO 7 Last administered on 01/11/17 10:42; Start 01/06/17 at 17:00 Acetaminophen/ Hydrocodone Bitart ([place] 5-325 Mg) 2 tab Q4H PRN PO PAIN SCALE 8 TO 10 Last administered on 01/08/17 12:59; Start 01/06/17 at 17:00 Acetaminophen (Tylenol) 650 mg Q6H PRN PO PAIN SCALE 1 TO 3; Start 01/06/17 at 17:00 Ondansetron HCl (Zofran Inj) 4 mg Q6H PRN IVP NAUSEA OR VOMITING Last administered on 01/06/17 22:08; Start 01/06/17 at 17:00 Senna/Docusate Sodium (Latosha-Colace) 1 tab BID PO ; Start 01/06/17 at 21:00; Stop 01/06/17 at 21:00; Status DC Magnesium Hydroxide (Milk Of Magnesia Liq) 30 ml Q12H PRN PO MILD - MODERATE CONSTIPATION Last administered on 01/08/17 10:07; Start 01/06/17 at 17:00 Sennosides (Senokot) 17.2 mg Q12H PRN PO MODERATE - SEVERE CONSTIPATION Last administered on 01/11/17 07:56; Start 01/06/17 at 17:00 Bisacodyl (Dulcolax Supp) 10 mg DAILY PRN RECTAL SEVERE CONSITIPATION Last administered on 01/08/17 17:46; Start 01/06/17 at 17:00 Lactulose (Lactulose Liq) 30 ml DAILY PRN PO SEVERE CONSITIPATION; Start at 17:00; Stop 01/06/17 at 17:12; Status DC Morphine Sulfate (*morphine INJ PERIprocedure ONLY) 8 mg STK-MED ONCE .ROUTE Last administered on 01/06/17 17:30; Start 01/06/17 at 17:29; Stop 01/06/17 at 17:30; Status DC Miscellaneous Information ALL NURSING DEPARTME... UNSCH PRN .XX SEE LABEL COMMENTS; Start 01/06/17 at 17:45; Stop 01/07/17 at 17:44; Status DC Levothyroxine Sodium (Synthroid) 100 mcg DAILY@0600 PO Last administered on 05:03; Start 01/08/17 at 06:00 Quetiapine Fumarate (SEROquel) 12.5 mg BID@09,12 PO Last administered on 08:21; Start 01/08/17 at 09:00; Status Future Hold Miscellaneous (Pill Splitter) 1 ea UNSCH PRN OTHER SEE LABEL COMMENTS; Start at 14:45 Urinary Catheter: No Vascular Central Line Catheter: No A/P Problem List: (1) Seizures ICD Code: R56.9 - Unspecified convulsions (2) Hypothyroidism ICD Code: E03.9 - Hypothyroidism, unspecified (3) Hyperlipidemia ICD Code: E78.5 - Hyperlipidemia, unspecified (4) COPD (chronic obstructive pulmonary disease) ICD Code: J44.9 - Chronic obstructive pulmonary disease, unspecified (5) Fracture of proximal end of right femur ICD Code: S72.001A - Fracture of unspecified part of neck of right femur, initial encounter for closed fracture (6) Dementia of Alzheimer's type with behavioral disturbance ICD Code: G30.8 - Other Alzheimer's disease; F02.81 - Dementia in other diseases classified elsewhere with behavioral disturbance (7) Hypertension ICD Code: I10 - Essential (primary) hypertension (8) Psychosis ICD Code: F29 - Unspecified psychosis not due to a substance or known physiological condition Status: Acute (9) Dizziness ICD Code: R42 - Dizziness and giddiness Assessment and Plan Status post fall Right femur proximal fracture to undergo surgery Jan 06, 2017 Open reduction internal fixation right femoral neck fracture Jan 06, 2017 17:02 Coronary artery disease hold her Plavix HAS BEEN STARTED ON LOVENOX Hypertension resume home medications lisinopril 10 mg daily as well as Norvasc 5 mg daily Hyperlipidemia resume home medications Lipitor 40 mg by mouth daily at bedtime Dementia resume current medications per psychiatry Seizure disorder continue on Keppra thousand milligrams in a.m. and 500 mg in the p.m. Hypothyroidism levothyroxine 112 MCG's by mouth daily GERD and abdominal pain Protonix 20 mg by mouth daily Vitamin D insufficiency continue on vitamin D supplementation thousand milligrams by mouth daily CONSULT PSYCHIATRY- THEY STARTED SEROQUEL 12.5MG PO BID AWAITS A SAFE DC AND SAFE PLACEMENT- HOPEFULLY TO SNF WHEN BED AVAILABLE DC TO SNF WHEN BED AVAILABLE CAN BE DCED TO HOME SNF Discharge Planning CLEARED BY ORTHO AWAIT SNF PLACEMENT- NEEDS SNF FOR JAIL ISSUES Anup Yanez DO Jan 11, 2017 11:17
[2017-01-11 15:13] VITALS: BP 156/85; PULSE 67; RESP 16; TEMP 97.9; O2SAT 94
[2017-01-11 21:09] VITALS: BP 140/74; PULSE 72; RESP 18; TEMP 96; O2SAT 93
[2017-01-11] MEDS: LORazepam 0.5 MG TAB PO PRN (21:12)
[2017-01-11] MEDS: ATORVASTATIN 40 MG TAB PO SCH (21:13)
[2017-01-11] MEDS: SENNOSIDES 8.6 MG TAB PO SCH (21:13)
[2017-01-11 21:17] VITALS: O2SAT 93
[2017-01-12] VITALS (8 sets, daily range): BP systolic 146–183; BP diastolic 81–105; PULSE 67–108; RESP 17–18; TEMP 95.4–97.6; O2SAT 93–97
[2017-01-12] MEDS: LEVOTHYROXINE SODIUM 100 MCG TAB PO SCH (05:01)
[2017-01-12] MEDS: ACETAMINOPHEN/HYDROcodone 325 MG/5 MG TAB PO PRN ×4 (05:01→19:51)
[2017-01-12] MEDS: ENOXAPARIN SODIUM 40 MG/0.4 ML SYRINGE SQ SCH (05:01)
[2017-01-12] MEDS: INSULIN ASPART SUPPLEMENTAL SCALE SQ SCH ×4 (08:00→19:42)
[2017-01-12] MEDS: DOCUSATE SODIUM 50 MG/SENNA 8.6 MG TAB PO SCH ×2 (09:00→19:49)
[2017-01-12] MEDS: SODIUM CHLORIDE 0.9% FLUSH 10 ML FLUSH IV FLUSH SCH ×2 (09:00→19:50)
[2017-01-12] MEDS: CHOLECALCIFEROL (VIT D3) 1000 UNIT TAB PO SCH (09:32)
[2017-01-12] MEDS: CYANOCOBALAMIN 100 MCG TAB PO SCH (09:32)
[2017-01-12] MEDS: CITALOPRAM HYDROBROMIDE 20 MG TAB PO SCH (09:32)
[2017-01-12] MEDS: LORazepam 0.5 MG TAB PO PRN (09:32)
[2017-01-12] MEDS: levETIRAcetam 500 MG TAB PO SCH ×2 (09:32→19:49)
[2017-01-12] MEDS: LACTOBACILLUS ACIDOPHILUS TAB PO SCH ×2 (09:32→19:49)
[2017-01-12] MEDS: FAMOTIDINE 20 MG TAB PO SCH ×2 (09:33→19:49)
--- NOTE | 2017-01-12 13:17 | HHI.PR ---
Subjective Remarks Follow up confusion, hypertension, hip fracture. No events reported by nursing. Objective Vitals Vital Signs Date Time Temp Pulse Resp B/P (MAP) Pulse Ox O2 Delivery O2 Flow Rate FiO2 01/12/17 08:00 96.5 88 17 170/88 (115) 95 01/12/17 05:02 96.4 69 17 183/92 (122) 93 01/12/17 01:15 96.1 67 18 159/81 (107) 97 01/11/17 21:17 93 01/11/17 21:09 96.0 72 18 140/74 (96) 93 01/11/17 15:13 97.9 67 16 156/85 (108) 94 I/O 01/11/17 01/11/17 01/11/17 01/12/17 01/12/17 01/12/17 07:00 15:00 23:00 07:00 15:00 23:00 Intake Total 120 ml 480 ml 120 ml 120 ml Balance 120 ml 480 ml 120 ml 120 ml Intake Oral 120 ml 480 ml 120 ml 120 ml # Voids 3 6 2 2 # Bowel Movements 0 1 0 0 Result Diagram: 01/09/17 0635 01/09/17 0635 Imaging Last Impressions Hip X-Ray 01/06/17 0000 Signed Impressions: Service Date/Time: Friday, January 06, 2017 18:03 - CONCLUSION: Trochanteric nailing of the subcapital fracture without evidence of an acute complication. Sunny Garcia MD Objective Remarks Gen: Sedated/sleeping. Heart: RRR. Lungs: Clear to auscultation. Abd: Soft. Ext: No edema. Procedures Procedure Date: Jan 06, 2017 Pre Op Diagnosis: Right femoral neck fracture Post Op Diagnosis: same Surgeon: Esther Jimenes Junior Network Engineer(s): none Procedure: Open reduction internal fixation right femoral neck fracture Findings: Valgus impacted right femoral neck fracture Complications: none Specimen(s) removed: none Estimated blood loss: 100cc Esther Jimenes MD Jan 06, 2017 17:02 Urinary Catheter: No Vascular Central Line Catheter: No A/P Problem List: (1) Seizures ICD Code: R56.9 - Unspecified convulsions (2) Hypothyroidism ICD Code: E03.9 - Hypothyroidism, unspecified (3) Hyperlipidemia ICD Code: E78.5 - Hyperlipidemia, unspecified (4) COPD (chronic obstructive pulmonary disease) ICD Code: J44.9 - Chronic obstructive pulmonary disease, unspecified (5) Fracture of proximal end of right femur ICD Code: S72.001A - Fracture of unspecified part of neck of right femur, initial encounter for closed fracture (6) Dementia of Alzheimer's type with behavioral disturbance ICD Code: G30.8 - Other Alzheimer's disease; F02.81 - Dementia in other diseases classified elsewhere with behavioral disturbance (7) Hypertension ICD Code: I10 - Essential (primary) hypertension (8) Psychosis ICD Code: F29 - Unspecified psychosis not due to a substance or known physiological condition Status: Acute (9) Dizziness ICD Code: R42 - Dizziness and giddiness Assessment and Plan 1. Right femoral neck fracture: S/P ORIF 01/06/17. Cleared for discharge by orthopedic surgery. 2. CAD: Plavix on hold. 3. Hypertension: Continue lisinopril, amlodipine. 4. Lipidemia: Continue statin. 5. Dementia: Continue current medications. 6. Seizure disorder: Continue Keppra. 7. Hypothyroidism: Continue Synthroid. 8. GERD: Protonix. 9. Vitamin D deficiency: Supplement vitamin D. 10. DVT prophylaxis: Lovenox. Discharge Planning Awaiting SNF placement. Pedro Pablo Laws MD Jan 12, 2017 13:17
[2017-01-12] MEDS: SODIUM CHLOR 0.9% 1000 ML INJ 1,000 ML IV SCH (17:58)
[2017-01-12] MEDS: SENNOSIDES 8.6 MG TAB PO SCH (19:49)
[2017-01-12] MEDS: ATORVASTATIN 40 MG TAB PO SCH (19:49)
[2017-01-12] MEDS: diphenhydrAMINE HCL 25 MG CAP PO PRN (19:50)
[2017-01-13] MEDS: ENOXAPARIN SODIUM 40 MG/0.4 ML SYRINGE SQ SCH (03:52)
[2017-01-13] MEDS: LEVOTHYROXINE SODIUM 100 MCG TAB PO SCH (05:07)
[2017-01-13] MEDS: ACETAMINOPHEN/HYDROcodone 325 MG/5 MG TAB PO PRN ×3 (05:07→15:10)
[2017-01-13 05:10] VITALS: BP 151/80; PULSE 66; RESP 18; TEMP 96.4; O2SAT 96
[2017-01-13] MEDS: INSULIN ASPART SUPPLEMENTAL SCALE SQ SCH ×3 (07:23→15:10)
[2017-01-13 08:00] VITALS: BP 156/80; PULSE 79; RESP 18; TEMP 95.9; O2SAT 97
[2017-01-13] MEDS: CHOLECALCIFEROL (VIT D3) 1000 UNIT TAB PO SCH (08:40)
[2017-01-13] MEDS: levETIRAcetam 500 MG TAB PO SCH (08:40)
[2017-01-13] MEDS: CITALOPRAM HYDROBROMIDE 20 MG TAB PO SCH (08:40)
[2017-01-13] MEDS: LACTOBACILLUS ACIDOPHILUS TAB PO SCH (08:40)
[2017-01-13] MEDS: FAMOTIDINE 20 MG TAB PO SCH (08:40)
[2017-01-13] MEDS: CYANOCOBALAMIN 100 MCG TAB PO SCH (08:40)
[2017-01-13] MEDS: LORazepam 0.5 MG TAB PO PRN (08:40)
[2017-01-13] MEDS: SODIUM CHLORIDE 0.9% FLUSH 10 ML FLUSH IV FLUSH SCH (08:40)
[2017-01-13] MEDS: DOCUSATE SODIUM 50 MG/SENNA 8.6 MG TAB PO SCH (08:41)
[2017-01-13 12:00] VITALS: BP 131/74; PULSE 82; RESP 18; TEMP 98.5; O2SAT 95
[2017-01-13] MEDS ORDERED: HYDR-3516 PO (13:07)
--- NOTE | 2017-01-13 13:10 | HHI.DS ---
Discharge Summary Admission Date Jan 05, 2017 at 21:05 Discharge Date: Jan 13, 2017 Admitting Diagnosis Fall with fracture of the right proximal femur (1) Seizures ICD Code: R56.9 - Unspecified convulsions Diagnosis: Secondary (2) Hypothyroidism ICD Code: E03.9 - Hypothyroidism, unspecified Diagnosis: Secondary (3) Hyperlipidemia ICD Code: E78.5 - Hyperlipidemia, unspecified Diagnosis: Secondary (4) COPD (chronic obstructive pulmonary disease) ICD Code: J44.9 - Chronic obstructive pulmonary disease, unspecified Diagnosis: Secondary (5) Fracture of proximal end of right femur ICD Code: S72.001A - Fracture of unspecified part of neck of right femur, initial encounter for closed fracture Diagnosis: Principal (6) Dementia of Alzheimer's type with behavioral disturbance ICD Code: G30.8 - Other Alzheimer's disease; F02.81 - Dementia in other diseases classified elsewhere with behavioral disturbance Diagnosis: Secondary (7) Hypertension ICD Code: I10 - Essential (primary) hypertension Diagnosis: Secondary (8) Psychosis ICD Code: F29 - Unspecified psychosis not due to a substance or known physiological condition Diagnosis: Secondary Status: Acute (9) Dizziness ICD Code: R42 - Dizziness and giddiness Diagnosis: Secondary Procedures Procedure Date: Jan 06, 2017 Pre Op Diagnosis: Right femoral neck fracture Post Op Diagnosis: same Surgeon: Esther Jimenes School Librarian(s): none Procedure: Open reduction internal fixation right femoral neck fracture Findings: Valgus impacted right femoral neck fracture Complications: none Specimen(s) removed: none Estimated blood loss: 100cc Esther Jimenes MD Jan 06, 2017 17:02 Brief History - From Admission Patient is a 81-year-old female. In the psychiatric unit with advanced dementia and COPD and seizure disorder and hypertension and hyperlipidemia and hypothyroidism who was noted to fall with a right proximal femur fracture. Patient will be transferred to inpatient and will undergo surgery with Dr. Bernard Betancourt of orthopedics tomorrow CBC/BMP: 01/09/17 0635 01/09/17 0635 Imaging Last Impressions Hip X-Ray 01/06/17 0000 Signed Impressions: Service Date/Time: Friday, January 06, 2017 18:03 - CONCLUSION: Trochanteric nailing of the subcapital fracture without evidence of an acute complication. Sunny Garcia MD PE at Discharge General: Elderly female in no acute distress. Heart: Regular rate and rhythm. No murmur. Lungs: Clear to auscultation bilaterally. No wheezes, rales, or rhonchi. Breathing is nonlabored. Abdomen: Soft, nontender, nondistended. Extremities: No lower extremity edema. Psych: Sleeping, but awakens easily. Answer some questions. Pt update on day of discharge Patient is more alert today. Answers a few questions. No events reported by nursing. Hospital Course The patient was admitted to the medical service for management of right proximal femur fracture. Orthopedic surgery was consulted. ORIF was done on 01/06. Patient remained confused. Psychiatry was consulted. Patient was continued on Seroquel. She was cleared for discharge to SNF by orthopedic surgery. Arrangements were made by case management for patient to be discharged to SNF. Pt Condition on Discharge: Fair Discharge Disposition: Discharge to SNF Discharge Time: > 30 minutes Discharge Instructions DIET: Follow Instructions for: Heart Healthy Diet Speech Therapy-Diet Recommends: Regular Activities you can perform: Weight Bearing as Ezra Follow up Referrals: Orthopedics @ [facility] with Esther Jimenes MD PCP Follow-up - 2-3 Days New Medications: Bisacodyl Supp (Bisac-Evac Supp) 10 Mg Supp 10 MG RECTAL DAILY PRN for SEVERE CONSITIPATION, #30 SUPP Enoxaparin Inj (Lovenox Inj) 40 Mg/0.4 Ml Syr 40 MG SQ Q24H for Blood Clot Prevention, #21 INJECTION Hydrocodone-Acetaminophen (Hydrocodone-Acetaminophen) 5-325 mg Tab 1 TAB PO Q4H PRN for PAIN SCALE 4 TO 10, #12 TAB 0 Refills Levothyroxine (Synthroid) 100 Mcg Tab 100 MCG PO DAILY@0600 for Thyroid, #30 TAB Quetiapine (Quetiapine) 25 Mg Tab 12.5 MG PO BID@09,12 for Anxiety, #60 TAB Changed Medications: Lactobacillus Rhamnosus (GG) (Culturelle) 10 Billion Cell Cap 1 CAP PO TID for Nutritional Supplement, #90 CAP 0 Refills (Changed from: BID) Sennosides (Sennosides) 8.6 Mg Tab 17.2 MG PO HS for Constipation, #60 TAB 0 Refills (Changed from: 8.6 MG) Continued Medications: Acetaminophen (Tylenol) 325 Mg Tab 325 MG PO Q4H PRN for PAIN SCALE 1 TO 3, TAB 0 Refills Atorvastatin (Atorvastatin) 40 Mg Tab 40 MG PO HS for Cholesterol Management, #30 TAB 0 Refills Cholecalciferol (D 1000) 1,000 Unit Tab 1000 UNITS PO DAILY for vit D defic, #90 TAB (This prescription has been renewed ) Citalopram (Citalopram) 20 Mg Tab 20 MG PO DAILY for Control Depression, #30 TAB 0 Refills (This prescription has been renewed) Cyanocobalamin (B-12) 100 Mcg Tab 100 MCG PO DAILY for vit supplem, #30 TAB (This prescription has been renewed) Diphenhydramine (Sleep) (Zzzquil) 25 Mg Cap 25 MG PO HS PRN for INSOMNIA, CAP 0 Refills Levetiracetam (Keppra) 500 Mg Tab 1000 MG PO DAILY for Seizure Control, #30 TAB Levetiracetam (Keppra) 500 Mg Tab 500 MG PO HS for Seizure Control, #30 TAB Lorazepam (Lorazepam) 0.5 Mg Tab 0.5 MG PO Q6H PRN for ANXIETY, #60 TAB 0 Refills (This prescription has been renewed) Meclizine (Meclizine) 12.5 Mg Tab 12.5 MG PO TID PRN for VERTIGO, #90 TAB 0 Refills (This prescription has been renewed) Ranitidine (Ranitidine) 150 Mg Tab 150 MG PO DAILY for Heartburn Management, #30 TAB 0 Refills (This prescription has been renewed) Discontinued Medications: Levothyroxine (Synthroid) 112 Mcg Tab 112 MCG PO DAILY@0600 for hypothyroidism, #30 TAB Pedro Pablo Laws MD Jan 13, 2017 13:10
== END 2017-01-13 16:21 | DRG 481 ==
LOC: N06A 21:05
PROVIDERS: ADMIT Family Medicine; ATTEND Family Medicine
PROC: 0QS634Z Reposition Right Upper Femur with Internal Fixation Device, Percutaneous Approach (ICD-10-PCS; principal; 2017-01-06 15:23)
DX: S72.011A Unspecified intracapsular fracture of right femur, initial encounter for closed fracture (principal); F02.81 Dementia in other diseases classified elsewhere, unspecified severity, with behavioral disturbance; J44.9 Chronic obstructive pulmonary disease, unspecified; G30.9 Alzheimer's disease, unspecified; I10 Essential (primary) hypertension; E03.9 Hypothyroidism, unspecified; E78.5 Hyperlipidemia, unspecified; G40.909 Epilepsy, unspecified, not intractable, without status epilepticus; I25.10 Atherosclerotic heart disease of native coronary artery without angina pectoris; E11.9 Type 2 diabetes mellitus without complications; F29 Unspecified psychosis not due to a substance or known physiological condition; K21.9 Gastro-esophageal reflux disease without esophagitis; E55.9 Vitamin D deficiency, unspecified; W19.XXXA Unspecified fall, initial encounter; Y92.239 Unspecified place in hospital as the place of occurrence of the external cause; Z95.5 Presence of coronary angioplasty implant and graft
CPT/HCPCS: 73502; 76000; 80053; 82948; 83036; 83735; 84100; 84439; 84443; 85025; 86850; 86900; 86901; 93005; 94150; C1713; J0330; J0690; J1100; J1580; J1650; J2270; J2370; J2405; J3010; J7030

== ENCOUNTER 2017-01-24 19:33 | Emergency (ER) | payer MEDICARE, OTHER ==
[~2017-01-24] VITALS: Ht 162.6 cm; Wt 52.0 kg
[~2017-01-24 19:33] MED LIST changes: +BISA10R RECTAL; +ENOX40P SQ; +HYDR-3516 PO; +LEVO.1 PO; +QUET1TAB7 PO; -SYNT112T PO
[2017-01-24 19:40] VITALS: BP 151/70; PULSE 72; RESP 18; TEMP 98; O2SAT 97
--- NOTE | 2017-01-24 20:02 | PD ---
HPI Chief Complaint: Fall Time Seen by Provider: 19:55 Travel History International Travel<30 days: No Contact w/Intl Traveler<30days: No Traveled to known affect area: No History of Present Illness HPI 81yo F with PMH of depression, dementia, GERD, COPD brought in by [facility] from [facility] for witnessed fall and head trauma today. Pt is there for a right hip fracture and is suppose to be nonweighbearing on it but she stood up today and fell and hit her head on the edge of another wheelchair. This was a witnessed fall without LOC. Pt is on lovenox for prophylaxis for blood clot. Denies any chest pain, sob, n/v, abdominal pain, focal weakness or numbness. Pt complains of pain in back of her head where she hit it. Pt has right hip pain from previous fracture. As per EVAC, pt is at her baseline mental status as per prison. She is AAOx2. PFSH Past Medical History Hx Anticoagulant Therapy: Yes (PLAVIX) Depression: Yes Cancer: No (per daughter) Cardiovascular Problems: Yes (per daughter patient has 13 stents placed 6 yrs ago) High Cholesterol: Yes Diabetes: No (per daughter) Headaches: No (per daughter) Hypertension: Yes Psychiatric: No (per daughter) Renal Failure: Yes (STAGE 3) Seizures: No (per daughter ) Thyroid Disease: Yes Past Surgical History Appendectomy: Yes Hysterectomy: Yes Social History Alcohol Use: No Tobacco Use: No Substance Use: No Allergies-Medications (Allergen,Severity, Reaction): Coded Allergies: No Known Allergies (Unverified , 01/24/17) Reported Meds & Prescriptions Reported Meds & Active Scripts Active Hydrocodone-Acetaminophen 5-325 mg Tab 1 Tab PO Q4H PRN Synthroid (Levothyroxine Sodium) 100 Mcg Tab 100 Mcg PO DAILY@0600 Bisac-Evac Supp (Bisacodyl) 10 Mg Supp 10 Mg RECTAL DAILY PRN Quetiapine (Quetiapine Fumarate) 25 Mg Tab 12.5 Mg PO BID@09,12 Lovenox Inj (Enoxaparin Sodium) 40 Mg/0.4 Ml Syr 40 Mg SQ Q24H D 1000 (Cholecalciferol) 1,000 Unit Tab 1,000 Units PO DAILY B-12 (Cyanocobalamin) 100 Mcg Tab 100 Mcg PO DAILY Sennosides 8.6 Mg Tab 17.2 Mg PO HS Ranitidine (Ranitidine HCl) 150 Mg Tab 150 Mg PO DAILY Meclizine (Meclizine HCl) 12.5 Mg Tab 12.5 Mg PO TID PRN Lorazepam 0.5 Mg Tab 0.5 Mg PO Q6H PRN Culturelle (Lactobacillus Rhamnosus (GG)) 10 Billion Cell Cap 1 Cap PO TID Citalopram (Citalopram Hydrobromide) 20 Mg Tab 20 Mg PO DAILY Keppra (Levetiracetam) 500 Mg Tab 500 Mg PO HS Keppra (Levetiracetam) 500 Mg Tab 1,000 Mg PO DAILY Reported Lovenox Inj (Enoxaparin Sodium) 40 Mg/0.4 Ml Syr 40 Mg SQ DAILY Aplisol (Tuberculin Ppd) 5 Tub. Unit/0.1 Ml Inj Tylenol (Acetaminophen) 325 Mg Tab 325 Mg PO Q4H PRN Zzzquil (Diphenhydramine (Sleep)) 25 Mg Cap 25 Mg PO HS PRN Atorvastatin (Atorvastatin Calcium) 40 Mg Tab 40 Mg PO HS Review of Systems Except as stated in HPI: all other systems reviewed are Neg Physical Exam Narrative GENERAL: 81yo F in mild distress. SKIN: Focused skin assessment warm/dry. HEAD: +3cm hematoma in occiput. EYES: Pupils equal and round at 4mm bilaterally. ENT: No nasal bleeding or discharge. Mucous membranes pink and moist. NECK: Cervical spine collar on. CARDIOVASCULAR: Regular rate and rhythm. No murmur appreciated. RESPIRATORY: No accessory muscle use. Clear to auscultation. Breath sounds equal bilaterally. GASTROINTESTINAL: Abdomen soft, non-tender, nondistended. MUSCULOSKELETAL: No obvious deformities. No clubbing. No cyanosis. No edema. NEUROLOGICAL: Awake and alert. No obvious cranial nerve deficits. Motor grossly within normal limits. Normal speech. Data Data Last Documented VS Vital Signs Date Time Temp Pulse Resp B/P (MAP) Pulse Ox O2 Delivery O2 Flow Rate FiO2 01/24/17 19:40 98.0 72 18 151/70 (97) [address] Brain W/O Iv Contrast(Rout) (01/24/17 ) Ct Cerv Spine W/O Contrast (01/24/17 ) Complete Blood Count With Diff (01/24/17 19:55) Basic Metabolic Panel (Bmp) (01/24/17 19:55) Prothrombin Time / Inr (Pt) (01/24/17 19:55) Act Partial Throm Time (Ptt) (01/24/17 19:55) Electrocardiogram (01/24/17 ) Hip, Uni(Ap&Lat) W Ap Pelvis (01/24/17 ) Labs Laboratory Tests Test 01/24/17 20:08 White Blood Count 11.1 TH/MM3 Red Blood Count 3.82 MIL/MM3 Hemoglobin 11.6 GM/DL Hematocrit 36.3 % Mean Corpuscular Volume 94.9 FL Mean Corpuscular Hemoglobin 30.4 PG Mean Corpuscular Hemoglobin Concent 32.1 % Red Cell Distribution Width 14.9 % Platelet Count 280 TH/MM3 Mean Platelet Volume 7.9 FL Neutrophils (%) (Auto) 73.8 % Lymphocytes (%) (Auto) 16.2 % Monocytes (%) (Auto) 7.1 % Eosinophils (%) (Auto) 2.2 % Basophils (%) (Auto) 0.7 % Neutrophils # (Auto) 8.2 TH/MM3 Lymphocytes # (Auto) 1.8 TH/MM3 Monocytes # (Auto) 0.8 TH/MM3 Eosinophils # (Auto) 0.2 TH/MM3 Basophils # (Auto) 0.1 TH/MM3 CBC Comment DIFF FINAL Differential Comment Prothrombin Time 11.1 SEC Prothromb Time International Ratio 1.0 RATIO Activated Partial Thromboplast Time 30.2 SEC Blood Urea Nitrogen 17 MG/DL Creatinine 0.86 MG/DL Random Glucose 112 MG/DL Calcium Level 9.2 MG/DL Sodium Level 141 MEQ/L Potassium Level 3.8 MEQ/L Chloride Level 108 MEQ/L Carbon Dioxide Level 25.2 MEQ/L Anion Gap 8 MEQ/L Estimat Glomerular Filtration Rate 63 ML/MIN [facility] Medical Decision Making Medical Screen Exam Complete: Yes Emergency Medical Condition: Yes Interpretation(s) NSR 61bpm. Normal axis. No ST segment elevation or depression. Differential Diagnosis ICH vs. fracture vs. contusion Narrative Course 81yo F with head trauma s/p fall today. Labs reviewed, unremarkable. PTT 30.2. CT c spine showed no acute trauma. CT brain showed no acute hemorrhage. Xray right hip showed s/p ORIF right hip. No significant change after the fall. Pt is at baseline mental status. She had a mechanical fall after standing and did not have LOC. Denies any complaints. [facility] Given acetaminophen for pain. Return precautions given. Diagnosis Primary Impression: Fall Qualified Codes: W19.XXXA - Unspecified fall, initial encounter Patient Instructions: General Instructions Departure Forms: Tests/Procedures Additional Instructions: Please follow up with your primary care physician in 3-7 days. Return to the ED if symptoms worsen. Med/Other Pt SpecificInfo: No Change to Meds Disposition: 01 DISCHARGE HOME Condition: Stable Delilah More DO Jan 24, 2017 20:02
[2017-01-24 20:18] LABS: AUTOMATED NEUTROPHIL # 8.2 TH/MM3 (1.8-7.7); BASOPHIL # 0.1 TH/MM3 (0-0.2); BASOPHIL % 0.7 % (0.0-2.0); EOSINOPHIL # 0.2 TH/MM3 (0-0.4); EOSINOPHIL % 2.2 % (0.0-4.0); HEMATOCRIT 36.3 % (35.0-46.0); HEMO FLAGS DIFF FINAL; LYMPH % 16.2 % (9.0-44.0); LYMPHOCYTE # 1.8 TH/MM3 (1.0-4.8); MEAN CELL VOLUME 94.9 FL (80.0-100.0); MEAN CORPUSCULAR HEMOGLOBIN 30.4 PG (27.0-34.0); MEAN CORPUSCULAR HGB CONC 32.1 % (32.0-36.0); MONO % 7.1 % (0.0-8.0); NEUT % 73.8 % (16.0-70.0); PLATELET COUNT 280 TH/MM3 (150-450); RED BLOOD COUNT 3.82 MIL/MM3 (4.00-5.30); RED CELL DISTRIBUTION WIDTH 14.9 % (11.6-17.2); WHITE BLOOD COUNT 11.1 TH/MM3 (4.0-11.0)
[2017-01-24] MEDS ORDERED: ENOX40P SQ (20:28)
[2017-01-24] MEDS ORDERED: APLI5INJ2 (20:28)
[2017-01-24 20:32] LABS: APTT (PATIENT) 30.2 SEC (24.3-30.1); PROTHROMBIN TIME - PATIENT 11.1 SEC (9.8-11.6)
[2017-01-24 20:37] LABS: BICARBONATE 25.2 MEQ/L (21.0-32.0); POTASSIUM 3.8 MEQ/L (3.5-5.1)
--- NOTE | 2017-01-24 20:45 | RADRPT ---
EXAM DATE/TIME: 01/24/2017 20:23 [facility] COMPARISON: HIP RIGHT (AP&LAT 2/3VWS) WO AP PELVIS, January 06, 2017, 18:03. HIP RIGHT (AP&LAT 2/3VWS) WO AP P LIZ, January 06, 2017, 16:36. HIP RIGHT (AP&LAT 2/3VWS) W AP PELVIS, January 05, 2017, 15:14. INDICATIONS : Right hip pain after fall. MEDICAL HISTORY : Hypertension. Renal failure, chronic SURGICAL HISTORY : Hysterectomy. Appendectomy. ORIF right hip. ENCOUNTER: Initial ACUITY: 1 day PAIN SCORE: 10/10 LOCATION: Right hip. FINDINGS: Postsurgical changes following recent ORIF of a subcapital femoral neck fracture are noted. There is 3 threaded screws stabilizing the fracture. There is no evidence of new or acute fracture. There is n o evidence of dislocation. Bony pelvis is intact. CONCLUSION: Status post recent ORIF of the right hip as described. No significant change in appearance after fall. Santiago White MD on January 24, 2017 at 20:39 Board Certified Radiologist. This report was verified electronically.
--- NOTE | 2017-01-24 21:13 | RADRPT ---
EXAM DATE/TIME: 01/24/2017 20:33 [facility] COMPARISON: CT BRAIN W/O CONTRAST, January 05, 2017, 15:01. INDICATIONS : Trauma, fall. RADIATION DOSE: 38.08 CTDIvol (mGy) MEDICAL HISTORY : Dementia. Seizures. Cardiovascular diseaseHypertension. Diabetes. Renal failure. SURGICAL HISTORY : Appendectomy. Hysterectomy. ENCOUNTER: Initial ACUITY: 1 day PAIN SCALE: 3/10 LOCATION: cranial TECHNIQUE: Multiple contiguous axial images were obtained of the head. Using automated exposure control and adj ustment of the mA and/or kV according to patient size, radiation dose was kept as low as reasonably a chievable to obtain optimal diagnostic quality images. DICOM format image data is available electro nically for review and comparison. FINDINGS: Chronic white matter changes are again noted. There no changes characteristic of acute infarct or hemorrhage. There is no evidence of mass effect o r edema. CONCLUSION: No change in the appearance of brain compared to prior study. Chronic white matter changes. No evidence of acute hemorrhage, infarct or edema. Santiago White MD on January 24, 2017 at 21:10 Board Certified Radiologist. This report was verified electronically.
--- NOTE | 2017-01-24 21:17 | RADRPT ---
EXAM DATE/TIME: 01/24/2017 20:33 [facility] COMPARISON: No previous studies available for comparison. INDICATIONS : Trauma, fall. RADIATION DOSE: 32.96 CTDIvol (mGy) MEDICAL HISTORY : Cardiovascular disease. Dementia. Seizures.Hypertension. Renal failure. Diabetes. SURGICAL HISTORY : Appendectomy. Hysterectomy. ENCOUNTER: Initial ACUITY: 1 day PAIN SCALE: 2/10 LOCATION: neck TECHNIQUE: Volumetric scanning of the cervical spine was performed. Multiplanar reconstructions in the sagittal, coronal and oblique axial planes were performed. Using automated exposure control and adjustment o f the mA and/or kV according to patient size, radiation dose was kept as low as reasonably achievable to obtain optimal diagnostic quality images. DICOM format image data is available electronically f or review and comparison. FINDINGS: Craniocervical cervical vertebral body alignment are well-maintained. Vertebral bodies are intact. Facet joints are satisfactory aligned. Mild/moderate degenerative disc disease is noted at C5-6 and C6-7. There no soft tissue abnormalities. CONCLUSION: No evidence of acute soft tissue or bony trauma. Degenerative disc disease at C5-6 and C6-7. Santiago White MD on January 24, 2017 at 21:14 Board Certified Radiologist. This report was verified electronically.
[2017-01-24] MEDS ORDERED: TETANUS/DIPHTHERIA TOXOID ADULT 0.5 ML VIAL IM ONE (21:30)
[2017-01-24] MEDS ORDERED: ACETAMINOPHEN 500 MG CPLT PO ONE (21:30)
--- NOTE | 2017-01-25 07:40 | EKG ---
Date Performed: 01/24/2017 Time Performed: 21:06:09 PTAGE: 81 years EKG: Sinus rhythm Probably normal EKG No significant change from prior electrocardiogram. DOCTOR: Brad Pack Interpretating Date/Time 01/25/2017 07:39:29
== END 2017-01-24 22:43 | disposition home or self-care (01) ==
LOC: NEPE 19:33
DX: S09.90XA Unspecified injury of head, initial encounter (principal); W18.30XA Fall on same level, unspecified, initial encounter; F32.9 Major depressive disorder, single episode, unspecified; E78.5 Hyperlipidemia, unspecified; I10 Essential (primary) hypertension; E07.9 Disorder of thyroid, unspecified; Z79.899 Other long term (current) drug therapy; Z23 Encounter for immunization
CPT/HCPCS: 70450; 72125; 73502; 80048; 85025; 85610; 85730; 90471; 90714; 93005

== ENCOUNTER 2017-02-01 13:29 | Emergency (ER) | payer MEDICARE, OTHER ==
[~2017-02-01] VITALS: Ht 167.6 cm; Wt 60.0 kg
[~2017-02-01 13:29] MED LIST changes: +APLI5INJ2
[2017-02-01 13:38] VITALS: BP 179/81; PULSE 67; RESP 19; TEMP 97.4; O2SAT 99
[2017-02-01] MEDS ORDERED: MORPHINE SULFATE 4 MG/ML INJ IV PUSH ONE (13:45)
[2017-02-01] MEDS ORDERED: SODIUM CHLORIDE 0.9% FLUSH 10 ML FLUSH IVF PRN (13:45)
[2017-02-01] MEDS ORDERED: ONDANSETRON HCL 4 MG/2 ML VIAL IM ONE (13:45)
[2017-02-01 13:47] VITALS: RESP 19; O2SAT 98
--- NOTE | 2017-02-01 13:57 | PD ---
HPI Chief Complaint: fall with left hip pain and back pain Time Seen by Provider: 13:32 Travel History International Travel<30 days: No Contact w/Intl Traveler<30days: No Traveled to known affect area: No History of Present Illness HPI 81-year-old female brought in from local nursing rehabilitation status post right hip replacement 2 weeks ago, with history of dementia and Alzheimer's, with reports of fall from her bed with complaints of left hip pain , and back pain. She is brought in under scoop stretcher with cervical spine immobilization. There is no reports of loss of consciousness but the fall was unwitnessed. Patient is an unreliable historian. Patient is complaining of pain in the low back and left hip. There is no obvious rotation or shortening of the left leg at this time. Patient is noted to be on Lovenox for her previous recent hip replacement. She has no known drug allergies. PFSH Past Medical History Hx Anticoagulant Therapy: Yes (PLAVIX) Depression: Yes Cancer: No (per daughter) Cardiovascular Problems: Yes (per daughter patient has 13 stents placed 6 yrs ago) High Cholesterol: Yes COPD: Yes Dementia: Yes Diabetes: No (per daughter) Diminished Hearing: Yes ([place]) GERD: Yes Headaches: No (per daughter) Hypertension: Yes Psychiatric: No (per daughter) Immunizations Current: Yes Renal Failure: Yes (STAGE 3) Seizures: No (per daughter ) Thyroid Disease: Yes Triglycerides - High: Yes Menopausal: Yes Past Surgical History Appendectomy: Yes Hysterectomy: Yes Social History Alcohol Use: No Tobacco Use: No Substance Use: No Allergies-Medications (Allergen,Severity, Reaction): Coded Allergies: No Known Allergies (Unverified , 02/01/17) Reported Meds & Prescriptions Reported Meds & Active Scripts Active Hydrocodone-Acetaminophen 5-325 mg Tab 1 Tab PO Q4H PRN Synthroid (Levothyroxine Sodium) 100 Mcg Tab 100 Mcg PO DAILY@0600 Bisac-Evac Supp (Bisacodyl) 10 Mg Supp 10 Mg RECTAL DAILY PRN Quetiapine (Quetiapine Fumarate) 25 Mg Tab 12.5 Mg PO BID@09,12 Lovenox Inj (Enoxaparin Sodium) 40 Mg/0.4 Ml Syr 40 Mg SQ Q24H D 1000 (Cholecalciferol) 1,000 Unit Tab 1,000 Units PO DAILY B-12 (Cyanocobalamin) 100 Mcg Tab 100 Mcg PO DAILY Sennosides 8.6 Mg Tab 17.2 Mg PO HS Ranitidine (Ranitidine HCl) 150 Mg Tab 150 Mg PO DAILY Meclizine (Meclizine HCl) 12.5 Mg Tab 12.5 Mg PO TID PRN Lorazepam 0.5 Mg Tab 0.5 Mg PO Q6H PRN Culturelle (Lactobacillus Rhamnosus (GG)) 10 Billion Cell Cap 1 Cap PO TID Citalopram (Citalopram Hydrobromide) 20 Mg Tab 20 Mg PO DAILY Keppra (Levetiracetam) 500 Mg Tab 500 Mg PO HS Keppra (Levetiracetam) 500 Mg Tab 1,000 Mg PO DAILY Reported Seroquel (Quetiapine Fumarate) 25 Mg Tab 25 Mg PO BID Aplisol (Tuberculin Ppd) 5 Tub. Unit/0.1 Ml Inj Tylenol (Acetaminophen) 325 Mg Tab 325 Mg PO Q4H PRN Zzzquil (Diphenhydramine (Sleep)) 25 Mg Cap 25 Mg PO HS PRN Atorvastatin (Atorvastatin Calcium) 40 Mg Tab 40 Mg PO HS Review of Systems ROS Limitations: Poor Historian, Other: (dementia) Except as stated in HPI: all other systems reviewed are Neg General / Constitutional: No: Fever Eyes: No: Visual changes HENT: No: Headaches Cardiovascular: No: Chest Pain or Discomfort Respiratory: No: Shortness of Breath Gastrointestinal: No: Abdominal Pain Genitourinary: No: Dysuria Musculoskeletal: No: Pain Skin: No Rash Neurologic: No: Weakness Psychiatric: No: Depression Endocrine: No: Polydipsia Hematologic/Lymphatic: No: Easy Bruising Physical Exam Exam Limitations: Poor Historian Narrative GENERAL: Patient appears in mild to moderate distress. Patient is responsive to verbal stimuli. SKIN: Warm and dry. Normal color. Normal turgor. No obvious abrasions, bruises, or lacerations. HEAD: Atraumatic. Normocephalic. Nontender with palpation. EYES: Pupils equal and round. No scleral icterus. No injection or drainage. ENT: No nasal bleeding or discharge. Mucous membranes pink and moist. No obvious dental injuries. Pharynx is clear. Airway is patent. NECK: Trachea midline. Cervical collar is maintained for CT clearance of the cervical spine. CARDIOVASCULAR: Regular rate and rhythm. RESPIRATORY: No accessory muscle use. Clear to auscultation. Breath sounds equal bilaterally. GASTROINTESTINAL: Abdomen soft, non-tender, nondistended. Hepatic and splenic margins not palpable. MUSCULOSKELETAL: Extremities without clubbing, cyanosis, or edema. No obvious deformities noted in the left hip upon gross exam. Patient is complaining of pain with moaning with any movement of the lower back or hip, but no obvious pelvic instability is appreciated. NEUROLOGICAL: Awake and alert. No obvious cranial nerve deficits. Motor grossly within normal limits. Five out of 5 muscle strength in the arms and legs. Normal speech. PSYCHIATRIC: Unable to assess due to the patient's dementia Data Data Last Documented VS Vital Signs Date Time Temp Pulse Resp B/P (MAP) Pulse Ox O2 Delivery O2 Flow Rate FiO2 02/01/17 13:47 19 98 Room Air 02/01/17 13:38 97.4 67 179/81 (113) Orders Orders Electrocardiogram (02/01/17 13:37) Complete Blood Count With Diff (02/01/17 13:37) Comprehensive Metabolic Panel (02/01/17 13:37) Prothrombin Time / Inr (Pt) (02/01/17 13:37) Act Partial Throm Time (Ptt) (02/01/17 13:37) Urinalysis - C+S If Indicated (02/01/17 13:37) Chest, Single Ap (02/01/17 13:37) Hip, Uni(Ap&Lat) Wo Ap Pelvis (02/01/17 13:37) Iv Access Insert/Monitor (02/01/17 13:37) Oximetry (02/01/17 13:37) Ice/Cold Pack (02/01/17 13:37) Ecg Monitoring (02/01/17 13:37) Morphine Inj (Morphine Inj) (02/01/17 13:45) Sodium Chloride 0.9% Flush (Ns Flush) (02/01/17 13:45) Ondansetron Inj (Zofran Inj) (02/01/17 13:45) Ct Brain W/O Iv Contrast(Rout) (02/01/17 13:37) Ct Cerv Spine W/O Contrast (02/01/17 13:37) Spine, Lumbar - Ltd (Ap & Lat) (02/01/17 13:37) Urinary Catheter Insert/Apply (02/01/17 13:37) Type And Screen (02/01/17 13:58) Labs Laboratory Tests Test 02/01/17 13:40 02/01/17 13:45 Urine Color YELLOW Urine Turbidity CLEAR Urine pH 5.5 Urine Specific Keller 1.023 Urine Protein NEG mg/dL Urine Glucose (UA) NEG mg/dL Urine Ketones NEG mg/dL Urine Occult Blood NEG Urine Nitrite NEG Urine Bilirubin NEG Urine Urobilinogen LESS THAN 2.0 MG/DL Urine Leukocyte Esterase NEG Urine RBC 1 /hpf Urine WBC 1 /hpf Microscopic Urinalysis Comment CATH-CULT NOT IND White Blood Count 9.2 TH/MM3 Red Blood Count 4.02 MIL/MM3 Hemoglobin 12.9 GM/DL Hematocrit 38.0 % Mean Corpuscular Volume 94.5 FL Mean Corpuscular Hemoglobin 32.2 PG Mean Corpuscular Hemoglobin Concent 34.1 % Red Cell Distribution Width 15.2 % Platelet Count 231 TH/MM3 Mean Platelet Volume 8.1 FL Neutrophils (%) (Auto) 71.4 % Lymphocytes (%) (Auto) 19.2 % Monocytes (%) (Auto) 6.7 % Eosinophils (%) (Auto) 2.2 % Basophils (%) (Auto) 0.5 % Neutrophils # (Auto) 6.6 TH/MM3 Lymphocytes # (Auto) 1.8 TH/MM3 Monocytes # (Auto) 0.6 TH/MM3 Eosinophils # (Auto) 0.2 TH/MM3 Basophils # (Auto) 0.0 TH/MM3 CBC Comment DIFF FINAL Differential Comment Prothrombin Time 10.7 SEC Prothromb Time International Ratio 1.0 RATIO Activated Partial Thromboplast Time 26.6 SEC Blood Urea Nitrogen 15 MG/DL Creatinine 1.15 MG/DL Random Glucose 89 MG/DL Total Protein 6.4 GM/DL Albumin 2.9 GM/DL Calcium Level 8.9 MG/DL Alkaline Phosphatase 93 U/L Aspartate Amino Transf (AST/SGOT) 11 U/L Alanine Aminotransferase (ALT/SGPT) 15 U/L Total Bilirubin 0.3 MG/DL Sodium Level 141 MEQ/L Potassium Level 3.9 MEQ/L Chloride Level 109 MEQ/L Carbon Dioxide Level 27.8 MEQ/L Anion Gap 4 MEQ/L Estimat Glomerular Filtration Rate 45 ML/MIN MDM Medical Decision Making Medical Screen Exam Complete: Yes Emergency Medical Condition: Yes Medical Record Reviewed: Yes Differential Diagnosis Unwitnessed fall. Recent hip replacement. Possible left hip fracture. Possible pelvic fracture. Possible compression fracture of the lumbar spine. Narrative Course Patient appears medically stable at time of exam. Labs ordered including CBC, CMP, urinalysis, PT PTT and INR. X-rays of the chest, lumbar spine, pelvis and left hip were ordered. CT of the head and neck is ordered. EKG is ordered. CT the head and neck are negative per radiologist. Chest x-ray, lumbar spine, and left hip and pelvis are all negative for fracture dislocation per radiology. Labs are unremarkable. Patient is felt stable for return to the nursing facility. No change to her medications are recommended. Patient should be considered a fall risk. Patient follow with nursing facility primary care physician as needed. Diagnosis Primary Impression: Fall Qualified Codes: W19.XXXA - Unspecified fall, initial encounter Referrals: Primary Care Physician Patient Instructions: Fall Prevention for Older Adults (DC), General Instructions Additional Instructions: CT the head and neck are negative per radiologist. Chest x-ray, lumbar spine, and left hip and pelvis are all negative for fracture dislocation per radiology. Labs are unremarkable. Patient is felt stable for return to the nursing facility. No change to her medications are recommended. Patient should be considered a fall risk. Patient follow with nursing facility primary care physician as needed. Med/Other Pt SpecificInfo: No Change to Meds Disposition: 01 DISCHARGE HOME Condition: Stable Zeke Rivera Feb 01, 2017 13:57
[2017-02-01 14:21] LABS: AUTOMATED NEUTROPHIL # 6.6 TH/MM3 (1.8-7.7); BASOPHIL % 0.5 % (0.0-2.0); EOSINOPHIL # 0.2 TH/MM3 (0-0.4); EOSINOPHIL % 2.2 % (0.0-4.0); HEMO FLAGS DIFF FINAL; LYMPH % 19.2 % (9.0-44.0); LYMPHOCYTE # 1.8 TH/MM3 (1.0-4.8); MEAN CELL VOLUME 94.5 FL (80.0-100.0); MEAN CORPUSCULAR HEMOGLOBIN 32.2 PG (27.0-34.0); MEAN CORPUSCULAR HGB CONC 34.1 % (32.0-36.0); MONO % 6.7 % (0.0-8.0); NEUT % 71.4 % (16.0-70.0); PLATELET COUNT 231 TH/MM3 (150-450); RED BLOOD COUNT 4.02 MIL/MM3 (4.00-5.30); RED CELL DISTRIBUTION WIDTH 15.2 % (11.6-17.2); WHITE BLOOD COUNT 9.2 TH/MM3 (4.0-11.0)
[2017-02-01 14:25] LABS: BLOOD, URINE NEG (NEG); GLUCOSE,URINE NEG (NEG); KETONE, URINE NEG (NEG); NITRITE,URINE NEG (NEG); PH, URINE 5.5 (5.0-8.5); URINE COLOR YELLOW (YELLW/STRAW)
[2017-02-01 14:27] LABS: COMMENT (UR) CATH-CULT NOT IND; CULTURE IF INDICATED CATH CULTURE NOT IND
[2017-02-01 14:30] LABS: APTT (PATIENT) 26.6 SEC (24.3-30.1); PROTHROMBIN TIME - PATIENT 10.7 SEC (9.8-11.6)
[2017-02-01] MEDS ORDERED: SERO25TA PO (14:35)
--- NOTE | 2017-02-01 14:36 | RADRPT ---
EXAM DATE/TIME: 02/01/2017 14:10 [facility] COMPARISON: CHEST SINGLE AP, December 09, 2016, 13:09. INDICATIONS : Pain from fall. MEDICAL HISTORY : Hypertension. Renal failure, chronic. SURGICAL HISTORY : Hysterectomy. Appendectomy. ORIF right hip. ENCOUNTER: Initial ACUITY: 1 day PAIN SCORE: 1/10 LOCATION: Bilateral chest FINDINGS: A single view of the chest demonstrates the lungs to be symmetrically aerated without evidence of mas s, infiltrate or effusion. The cardiomediastinal contours are unremarkable. Osseous structures are intact. CONCLUSION: No acute disease. Shayne Ward Jr., MD on February 01, 2017 at 14:34 Board Certified Radiologist. This report was verified electronically.
--- NOTE | 2017-02-01 14:37 | RADRPT ---
EXAM DATE/TIME: 02/01/2017 14:11 [facility] COMPARISON: No previous studies available for comparison. INDICATIONS : Pain from fall. MEDICAL HISTORY : Hypertension. Renal failure, chronic. SURGICAL HISTORY : Hysterectomy. Appendectomy. ORIF right hip. ENCOUNTER: Initial ACUITY: 1 day PAIN SCORE: 4/10 LOCATION: Lower back. FINDINGS: Two view examination was performed. There are five non-rib bearing vertebral bodies. The vertebral bodies are in normal alignment without evidence of subluxation or scoliosis. The disc spaces are jessica ntained. The pedicles are intact. Bony mineralization is normal. No fracture is identified. Vascul ar stents are seen throughout the aorta and inflow vessels as well as the renal arteries. CONCLUSION: No acute disease. Shayne Ward Jr., MD on February 01, 2017 at 14:35 Board Certified Radiologist. This report was verified electronically.
--- NOTE | 2017-02-01 14:40 | RADRPT ---
EXAM DATE/TIME: 02/01/2017 14:12 [facility] COMPARISON: No previous studies available for comparison. INDICATIONS : Pain from fall. MEDICAL HISTORY : Hypertension. Renal failure, chronic. SURGICAL HISTORY : Hysterectomy. Appendectomy. ORIF right hip. ENCOUNTER: Initial ACUITY: 1 day PAIN SCORE: 10/10 LOCATION: Left hip. FINDINGS: A two view examination of the left hip was performed. The primary and secondary trabecular pattern o f the femoral neck is intact. The hip joint is of normal width without significant sclerosis or bony hypertrophy. The acetabulum is grossly intact. CONCLUSION: No acute disease. Shayne Ward Jr., MD on February 01, 2017 at 14:36 Board Certified Radiologist. This report was verified electronically.
[2017-02-01 14:43] LABS: ALT (GPT) 15 U/L (10-53); ANION GAP 4 MEQ/L (5-15); AST (GOT) 11 U/L (15-37); BICARBONATE 27.8 MEQ/L (21.0-32.0); BLOOD UREA NITROGEN 15 MG/DL (7-18); CHLORIDE 109 MEQ/L (98-107); GLOMERULAR FILTRATION RATE 45 ML/MIN (>89); POTASSIUM 3.9 MEQ/L (3.5-5.1); SODIUM (NA) 141 MEQ/L (136-145)
[2017-02-01 14:45] LABS: ALKALINE PHOSPHATASE 93 U/L (45-117); TOTAL BILIRUBIN ADULT 0.3 MG/DL (0.2-1.0)
--- NOTE | 2017-02-01 14:50 | RADRPT ---
EXAM DATE/TIME: 02/01/2017 14:25 [facility] COMPARISON: CT BRAIN W/O CONTRAST, January 24, 2017, 20:33. INDICATIONS : Fall. RADIATION DOSE: 58.86 CTDIvol (mGy) MEDICAL HISTORY : Cardiovascular disease. Dementia. Hypertension.Renal failure; Diabetes, cancer. SURGICAL HISTORY : Appendectomy. Hysterectomy. ENCOUNTER: Initial ACUITY: 1 day PAIN SCALE: Non-responsive LOCATION: cranial TECHNIQUE: Multiple contiguous axial images were obtained of the head. Using automated exposure control and adj ustment of the mA and/or kV according to patient size, radiation dose was kept as low as reasonably a chievable to obtain optimal diagnostic quality images. DICOM format image data is available electro nically for review and comparison. FINDINGS: CEREBRUM: Periventricular low attenuation change involving the cerebral hemispheres bilaterally. The ventricles are normal for age. No evidence of midline shift, mass lesion, hemorrhage or acute infarction. No extra-axial fluid collections are seen. POSTERIOR FOSSA: The cerebellum and brainstem are intact. The 4th ventricle is midline. The cerebellopontine angle i s unremarkable. EXTRACRANIAL: The visualized portion of the orbits is intact. SKULL: The calvaria is intact. No evidence of skull fracture. CONCLUSION: 1. No acute intracranial abnormality. 2. Chronic small vessel ischemic change. Shayne Ward Jr., MD on February 01, 2017 at 14:47 Board Certified Radiologist. This report was verified electronically.
--- NOTE | 2017-02-01 14:54 | RADRPT ---
EXAM DATE/TIME: 02/01/2017 14:25 [facility] COMPARISON: CT CERVICAL SPINE W/O CONTRAST, January 24, 2017, 20:33. INDICATIONS : Trauma, fall today. RADIATION DOSE: 12.89 CTDIvol (mGy) MEDICAL HISTORY : Dementia. Hypertension. Cardiovascular diseaseDiabetes, cancer, seizures.Renal failure. SURGICAL HISTORY : Appendectomy. Hysterectomy. ENCOUNTER: Initial ACUITY: 1 day PAIN SCALE: Non-responsive LOCATION: neck TECHNIQUE: Volumetric scanning of the cervical spine was performed. Multiplanar reconstructions in the sagittal, coronal and oblique axial planes were performed. Using automated exposure control and adjustment o f the mA and/or kV according to patient size, radiation dose was kept as low as reasonably achievable to obtain optimal diagnostic quality images. DICOM format image data is available electronically f or review and comparison. FINDINGS: VERTEBRAE: Normal vertebral body height. ALIGNMENT: No evidence of subluxation. C2-C3: The bony spinal canal is normal in size. No evidence of disc bulge or herniation. The neural forami na are bilaterally patent. C3-C4: The bony spinal canal is normal in size. No evidence of disc bulge or herniation. Bony uncovertebral hypertrophy generates mild narrowing of the right neural foramen. The left is patent. C4-C5: The bony spinal canal is normal in size. No evidence of disc bulge or herniation. Bony uncovertebral hypertrophy generates mild narrowing of the right neural foramen. The left is patent. C5-C6: There is disc space narrowing with a broad-based disc bulge. No central canal stenosis or abutment of the cord. Bony uncovertebral hypertrophy generates moderate bilateral neural foraminal narrowing. C6-C7: There is disc space narrowing with a broad-based disc bulge. No central canal stenosis or abutment of the cord. Bony uncovertebral hypertrophy generates moderate bilateral neural foraminal narrowing. C7-T1: The bony spinal canal is normal in size. No evidence of disc bulge or herniation. The neural forami na are bilaterally patent. CONCLUSION: 1. No fracture or dislocation. 2. Degenerative changes. Shayne Ward Jr., MD on February 01, 2017 at 14:48 Board Certified Radiologist. This report was verified electronically.
--- NOTE | 2017-02-02 10:26 | EKG ---
Date Performed: 02/01/2017 Time Performed: 13:48:01 PTAGE: 81 years EKG: Sinus rhythm LOW QRS VOLTAGE IN EXTREMITY LEADS BORDERLINE ECG Compared to prior tracing no significant change PREVIOUS TRACING : 01/24/2017 21.06 DOCTOR: Brian Decker Interpretating Date/Time 02/05/2017 08:23:23
== END 2017-02-01 18:11 | disposition home or self-care (01) ==
LOC: NEPE 13:29
DX: M54.5 Low back pain (principal); M25.552 Pain in left hip; M50.31 Other cervical disc degeneration, high cervical region; N18.3 Chronic kidney disease, stage 3 (moderate); I12.9 Hypertensive chronic kidney disease with stage 1 through stage 4 chronic kidney disease, or unspecified chronic kidney disease; J44.9 Chronic obstructive pulmonary disease, unspecified; F03.90 Unspecified dementia, unspecified severity, without behavioral disturbance, psychotic disturbance, mood disturbance, and anxiety; Z96.641 Presence of right artificial hip joint; W06.XXXA Fall from bed, initial encounter
CPT/HCPCS: 51702; 70450; 71010; 72100; 72125; 73502; 80053; 81001; 85025; 85610; 85730; 86850; 86900; 86901; 93005; 96372; 96374; 99285; J2270; J2405

== ENCOUNTER 2017-02-27 09:39 | Emergency (ER) | payer MEDICARE, OTHER ==
[~2017-02-27] VITALS: Ht 160 cm; Wt 55.0 kg
[~2017-02-27 09:39] MED LIST changes: -LORA-373 PO; +LORA0.5T PO; +SERO25TA PO
[2017-02-27] MEDS ORDERED: IOHEXOL 350 MG/ML 10 ML VIAL (for RAD DIAG) IVCONTRAST ONE (09:40)
[2017-02-27 09:45] VITALS: BP 164/87; PULSE 76; RESP 18; TEMP 97.4; O2SAT 96
--- NOTE | 2017-02-27 10:19 | PD ---
HPI Chief Complaint: Complaint Time Seen by Provider: 10:17 Travel History International Travel<30 days: No Contact w/Intl Traveler<30days: No Traveled to known affect area: No History of Present Illness HPI Patient is an 81-year-old female history of dementia presents emergency department for evaluation of hematuria. The patient apparently had ESBL infection in her urine and had Luevano catheter placed for what appears to be infection control. The patient is unable to provide any of her history, her daughter arrived to the bedside and is also not available to provide any history. Spoke with the [facility] care physician Dr. Almonte and he communicates the nurses communicated to him that she was not able to urinate last night and when They placed Luevano catheter she had a 800 cc of urine in the bladder. PFSH Past Medical History Hx Anticoagulant Therapy: Yes (PLAVIX) Anxiety: Yes Depression: Yes Cardiovascular Problems: Yes (per daughter patient has 13 stents placed 6 yrs ago) High Cholesterol: Yes COPD: Yes Dementia: Yes Diminished Hearing: [place] GERD: Yes Hypertension: Yes Insomnia: Yes Immunizations Current: Yes Renal Failure: Yes (STAGE 3) Thyroid Disease: Yes Triglycerides - High: Yes Menopausal: Yes Past Surgical History Appendectomy: Yes Hysterectomy: Yes Social History Alcohol Use: No Tobacco Use: No Substance Use: No Allergies-Medications (Allergen,Severity, Reaction): Coded Allergies: No Known Allergies (Unverified Adverse Reaction, Unknown, 02/27/17) Reported Meds & Prescriptions Reported Meds & Active Scripts Active Hydrocodone-Acetaminophen 5-325 mg Tab 1 Tab PO Q4H PRN Synthroid (Levothyroxine Sodium) 100 Mcg Tab 100 Mcg PO DAILY@0600 Bisac-Evac Supp (Bisacodyl) 10 Mg Supp 10 Mg RECTAL DAILY PRN Quetiapine (Quetiapine Fumarate) 25 Mg Tab 12.5 Mg PO BID@09,12 Lovenox Inj (Enoxaparin Sodium) 40 Mg/0.4 Ml Syr 40 Mg SQ Q24H D 1000 (Cholecalciferol) 1,000 Unit Tab 1,000 Units PO DAILY B-12 (Cyanocobalamin) 100 Mcg Tab 100 Mcg PO DAILY Sennosides 8.6 Mg Tab 17.2 Mg PO HS Ranitidine (Ranitidine HCl) 150 Mg Tab 150 Mg PO DAILY Meclizine (Meclizine HCl) 12.5 Mg Tab 12.5 Mg PO TID PRN Lorazepam 0.5 Mg Tab 0.5 Mg PO Q6H PRN Culturelle (Lactobacillus Rhamnosus (GG)) 10 Billion Cell Cap 1 Cap PO TID Citalopram (Citalopram Hydrobromide) 20 Mg Tab 20 Mg PO DAILY Keppra (Levetiracetam) 500 Mg Tab 500 Mg PO HS Keppra (Levetiracetam) 500 Mg Tab 1,000 Mg PO DAILY Reported Seroquel (Quetiapine Fumarate) 25 Mg Tab 25 Mg PO BID Aplisol (Tuberculin Ppd) 5 Tub. Unit/0.1 Ml Inj Tylenol (Acetaminophen) 325 Mg Tab 325 Mg PO Q4H PRN Zzzquil (Diphenhydramine (Sleep)) 25 Mg Cap 25 Mg PO HS PRN Atorvastatin (Atorvastatin Calcium) 40 Mg Tab 40 Mg PO HS Review of Systems Except as stated in HPI: all other systems reviewed are Neg Physical Exam Narrative GENERAL: Well-developed well-nourished, pleasantly confused in no obvious distress. SKIN: Focused skin assessment warm/dry. HEAD: Atraumatic. Normocephalic. EYES: Pupils equal and round. No scleral icterus. No injection or drainage. ENT: No nasal bleeding or discharge. Mucous membranes pink and moist. NECK: Trachea midline. No JVD. CARDIOVASCULAR: Regular rate and rhythm. No murmur appreciated. RESPIRATORY: No accessory muscle use. Clear to auscultation. Breath sounds equal bilaterally. GASTROINTESTINAL: Abdomen soft, somewhat tender in the suprapubic region without any rebound or percussive tenderness. No bruising or lacerations seen on abdomen., nondistended. Hepatic and splenic margins not palpable. GENITOURINARY: Exam performed with female nurse helpdesk manager present all times, Luevano catheter in place with gross hematuria which is gradually cleared while she's been in the emergency department. MUSCULOSKELETAL: No obvious deformities. No clubbing. No cyanosis. No edema. NEUROLOGICAL: Awake and alert but confused. No obvious cranial nerve deficits. Motor grossly within normal limits. Normal speech. Data Data Last Documented VS Vital Signs Date Time Temp Pulse Resp B/P (MAP) Pulse Ox O2 Delivery O2 Flow Rate FiO2 02/27/17 18:55 62 15 123/80 (94) 98 02/27/17 13:50 Room Air 02/27/17 09:45 97.4 Orders Orders Complete Blood Count With Diff (02/27/17 10:17) Comprehensive Metabolic Panel (02/27/17 10:17) Lipase (02/27/17 10:17) Prothrombin Time / Inr (Pt) (02/27/17 10:17) Act Partial Throm Time (Ptt) (02/27/17 10:17) Urinalysis - C+S If Indicated (02/27/17 10:17) Ct Abd/Pel W Iv Contrast(Rout) (02/27/17 10:17) Iv Access Insert/Monitor (02/27/17 10:17) Ecg Monitoring (02/27/17 10:17) Oximetry (02/27/17 10:17) Sodium Chloride 0.9% Flush (Ns Flush) (02/27/17 10:30) Ct Brain W/O Iv Contrast(Rout) (02/27/17 ) Urine Culture (02/27/17 10:15) Iohexol 350 Inj (Omnipaque 350 Inj) (02/27/17 09:40) Tramadol (Ultram) (02/27/17 15:00) Ed Poc Ultrasound (02/27/17 ) Ed Discharge Order (02/27/17 18:09) Labs Laboratory Tests Test 02/27/17 10:15 White Blood Count 12.2 TH/MM3 Red Blood Count 4.31 MIL/MM3 Hemoglobin 13.1 GM/DL Hematocrit 40.0 % Mean Corpuscular Volume 92.8 FL Mean Corpuscular Hemoglobin 30.3 PG Mean Corpuscular Hemoglobin Concent 32.7 % Red Cell Distribution Width 15.9 % Platelet Count 314 TH/MM3 Mean Platelet Volume 7.5 FL Neutrophils (%) (Auto) 74.3 % Lymphocytes (%) (Auto) 16.1 % Monocytes (%) (Auto) 7.7 % Eosinophils (%) (Auto) 1.5 % Basophils (%) (Auto) 0.4 % Neutrophils # (Auto) 9.1 TH/MM3 Lymphocytes # (Auto) 2.0 TH/MM3 Monocytes # (Auto) 0.9 TH/MM3 Eosinophils # (Auto) 0.2 TH/MM3 Basophils # (Auto) 0.0 TH/MM3 CBC Comment DIFF FINAL Differential Comment Prothrombin Time 10.9 SEC Prothromb Time International Ratio 1.0 RATIO Activated Partial Thromboplast Time 27.8 SEC Urine Color RED Urine Turbidity CLOUDY Urine pH 6.5 Urine Specific [place] 1.021 Urine Protein 300 mg/dL Urine Glucose (UA) NEG mg/dL Urine Ketones NEG mg/dL Urine Occult Blood LARGE Urine Nitrite NEG Urine Bilirubin NEG Urine Urobilinogen LESS THAN 2.0 MG/DL Urine Leukocyte Esterase TRACE Urine RBC INNUM /hpf Urine WBC 9-14 /hpf Urine Squamous Epithelial Cells 0-5 /hpf Urine Bacteria OCC /hpf Microscopic Urinalysis Comment CULTURE INDICATED Blood Urea Nitrogen 21 MG/DL Creatinine 1.13 MG/DL Random Glucose 92 MG/DL Total Protein 6.7 GM/DL Albumin 2.8 GM/DL Calcium Level 9.3 MG/DL Alkaline Phosphatase 67 U/L Aspartate Amino Transf (AST/SGOT) 13 U/L Alanine Aminotransferase (ALT/SGPT) 15 U/L Total Bilirubin 0.4 MG/DL Sodium Level 138 MEQ/L Potassium Level 4.1 MEQ/L Chloride Level 106 MEQ/L Carbon Dioxide Level 24.6 MEQ/L Anion Gap 7 MEQ/L Estimat Glomerular Filtration Rate 46 ML/MIN Lipase 92 U/L MDM Medical Decision Making Medical Screen Exam Complete: Yes Emergency Medical Condition: Yes Differential Diagnosis Hematuria, coagulopathy, bladder tumor, urethral trauma. Narrative Course Patient roomed in the emergency department, further history from Dr. Mijares is a the patient has been on Lovenox shots for DVTs and lower extremities, her urine is gradually cleared though not completely well in the emergency department. Labs are reassuring, CAT scan of the abdomen obtained shows no acute abnormality. Last 24 hours Impressions Abdomen/Pelvis CT 02/27/17 1017 Signed Impressions: Service Date/Time: Monday, February 27, 2017 12:07 - CONCLUSION: 1. Stable 1.6 cm left adrenal mass. This is most likely an adrenal adenoma. 2. No evidence of kidney stones or hydronephrosis. 3. Luevano catheter in place. Urinary bladder decompressed. Bladder wall appears to be thickened. 4. Large bolus of stool in the rectum. Leo Flanagan MD Head CT 02/27/17 0000 Signed Impressions: Service Date/Time: Monday, February 27, 2017 12:03 - CONCLUSION: 1. No acute intracranial abnormality identified. Leonardo Costello MD After lengthy discussion with Dr. Mijares or guarding urinary retention versus risk of further trauma to her urinary system the patient was given a trial of voiding and was able to void her bladder in the emergency department. This was discussed with Dr. Mijares who will continue to treat urinary tract infection as an outpatient. Patient is stable for return to the halfway facility. Diagnosis Primary Impression: Hematuria Qualified Codes: R31.9 - Hematuria, unspecified Referrals: Paul Bella DO Additional Instructions: Refrain from luevano unless confirmed urinary retention. Follow up urology if no resolution in ~1 week. Disposition: 01 DISCHARGE HOME Condition: Stable Yoel Garcia MD Feb 27, 2017 10:19
[2017-02-27] MEDS ORDERED: SODIUM CHLORIDE 0.9% FLUSH 10 ML FLUSH IV FLUSH PRN (10:30)
[2017-02-27 10:37] LABS: AUTOMATED NEUTROPHIL # 9.1 TH/MM3 (1.8-7.7); BASOPHIL % 0.4 % (0.0-2.0); EOSINOPHIL # 0.2 TH/MM3 (0-0.4); EOSINOPHIL % 1.5 % (0.0-4.0); HEMO FLAGS DIFF FINAL; LYMPH % 16.1 % (9.0-44.0); MEAN CELL VOLUME 92.8 FL (80.0-100.0); MEAN CORPUSCULAR HEMOGLOBIN 30.3 PG (27.0-34.0); MEAN CORPUSCULAR HGB CONC 32.7 % (32.0-36.0); MONO % 7.7 % (0.0-8.0); NEUT % 74.3 % (16.0-70.0); PLATELET COUNT 314 TH/MM3 (150-450); RED BLOOD COUNT 4.31 MIL/MM3 (4.00-5.30); RED CELL DISTRIBUTION WIDTH 15.9 % (11.6-17.2); WHITE BLOOD COUNT 12.2 TH/MM3 (4.0-11.0)
[2017-02-27 10:47] LABS: APTT (PATIENT) 27.8 SEC (24.3-30.1); PROTHROMBIN TIME - PATIENT 10.9 SEC (9.8-11.6)
[2017-02-27 10:49] LABS: BLOOD, URINE LARGE (NEG); GLUCOSE,URINE NEG (NEG); KETONE, URINE NEG (NEG); NITRITE,URINE NEG (NEG); PH, URINE 6.5 (5.0-8.5)
[2017-02-27 11:07] LABS: ALT (GPT) 15 U/L (10-53); ANION GAP 7 MEQ/L (5-15); AST (GOT) 13 U/L (15-37); BICARBONATE 24.6 MEQ/L (21.0-32.0); BLOOD UREA NITROGEN 21 MG/DL (7-18); CHLORIDE 106 MEQ/L (98-107); GLOMERULAR FILTRATION RATE 46 ML/MIN (>89); POTASSIUM 4.1 MEQ/L (3.5-5.1); SODIUM (NA) 138 MEQ/L (136-145)
[2017-02-27 11:08] LABS: URINE COLOR RED (YELLW/STRAW)
[2017-02-27 11:09] LABS: ALKALINE PHOSPHATASE 67 U/L (45-117); BACTERIA, URINE OCC /hpf; COMMENT (UR) CULTURE INDICATED; CULTURE IF INDICATED CULTURE INDICATED; RBC, URINE INNUM /hpf (0-3); SQUAMOUS EPITHELIAL CELL URINE 0-5 /hpf (0-5); TOTAL BILIRUBIN ADULT 0.4 MG/DL (0.2-1.0)
--- NOTE | 2017-02-27 12:36 | RADRPT ---
EXAM DATE/TIME: 02/27/2017 12:07 [facility] COMPARISON: CT ABDOMEN & PELVIS W CONTRAST, December 09, 2016, 14:11. INDICATIONS : Hematuria. IV CONTRAST: 94 cc Omnipaque 350 (iohexol) IV ORAL CONTRAST: No oral contrast ingested. RADIATION DOSE: 5.53 CTDIvol (mGy) MEDICAL HISTORY : Hypertension. Chronic obstructive pulmonary disease. Renal failure, chronic.Diabetes. SURGICAL HISTORY : Appendectomy. Hysterectomy. ENCOUNTER: Initial ACUITY: 1 day PAIN SCALE: Non-responsive LOCATION: lower quadrant TECHNIQUE: Volumetric scanning of the abdomen and pelvis was performed. Using automated exposure control and ad justment of the mA and/or kV according to patient size, radiation dose was kept as low as reasonably achievable to obtain optimal diagnostic quality images. DICOM format image data is available electro nically for review and comparison. FINDINGS: LOWER LUNGS: Stable parenchymal changes in the right lung base. Left lung base is clear. LIVER: Homogeneous density without lesion. There is no dilation of the biliary tree. No calcified gallston es. SPLEEN: Normal size without lesion. PANCREAS: Within normal limits. KIDNEYS: Normal in size and shape. There is no mass, stone or hydronephrosis. ADRENAL GLANDS: Stable left adrenal mass measuring 1.6 cm. The right adrenal gland is unremarkable. VASCULAR: There is no aortic aneurysm. BOWEL/MESENTERY: The stomach, small bowel, and colon demonstrate no acute abnormality. There is no free intraperitone al air or fluid. No inflammatory changes are seen. There is a moderate amount of stool throughout the colon. There appears to be a large bolus of stool in the rectum. A few scattered diverticula are see n along the sigmoid colon. ABDOMINAL WALL: Within normal limits. RETROPERITONEUM: There is no lymphadenopathy. BLADDER: Murphy catheter in the urinary bladder which is decompressed. The urinary bladder wall appears to be t hickened. REPRODUCTIVE: Within normal limits. INGUINAL: There is no lymphadenopathy or hernia. MUSCULOSKELETAL: Degenerative changes. Old healed right-sided rib fractures. Internal fixation of the right hip. No significant change compared to the prior exam. CONCLUSION: 1. Stable 1.6 cm left adrenal mass. This is most likely an adrenal adenoma. 2. No evidence of kidney stones or hydronephrosis. 3. Murphy catheter in place. Urinary bladder decompressed. Bladder wall appears to be thickened. 4. Large bolus of stool in the rectum. Leo Flanagan MD on February 27, 2017 at 12:29 Board Certified Radiologist. This report was verified electronically.
--- NOTE | 2017-02-27 13:32 | RADRPT ---
EXAM DATE/TIME: 02/27/2017 12:03 [facility] COMPARISON: CT CERVICAL SPINE W/O CONTRAST, February 01, 2017, 14:25. INDICATIONS : Altered mental status. RADIATION DOSE: 65.16 CTDIvol (mGy) ; Tabletop CT Head MEDICAL HISTORY : Dementia. Seizures. SURGICAL HISTORY : None. ENCOUNTER: Initial ACUITY: 1 day PAIN SCALE: Non-responsive LOCATION: cranial TECHNIQUE: Multiple contiguous axial images were obtained of the head. Using automated exposure control and adj ustment of the mA and/or kV according to patient size, radiation dose was kept as low as reasonably a chievable to obtain optimal diagnostic quality images. DICOM format image data is available electro nically for review and comparison. FINDINGS: CEREBRUM: The ventricles are normal for age. There is decreased attenuation in the periventricular white matter most consistent with moderate microvascular ischemic demyelinative change. No evidence of midline sh ift, mass lesion, hemorrhage or acute infarction. No extra-axial fluid collections are seen. POSTERIOR FOSSA: The cerebellum and brainstem are intact. The 4th ventricle is midline. The cerebellopontine angle i s unremarkable. EXTRACRANIAL: The visualized portion of the orbits is intact. SKULL: The calvaria is intact. No evidence of skull fracture. CONCLUSION: 1. No acute intracranial abnormality identified. Leonardo Costello MD on February 27, 2017 at 13:29 Board Certified Radiologist. This report was verified electronically.
[2017-02-27 13:50] VITALS: BP 148/79; PULSE 98; RESP 15; O2SAT 98
[2017-02-27] MEDS ORDERED: traMADol HCL 50 MG TAB PO ONE (15:00)
[2017-02-27 18:55] VITALS: BP 123/80
== END 2017-02-27 20:19 | disposition home or self-care (01) ==
LOC: NEPE 09:39
DX: R31.9 Hematuria, unspecified (principal)
CPT/HCPCS: 70450; 74177; 80053; 81001; 83690; 85025; 85610; 85730; 87086; 99285; Q9967

== ENCOUNTER 2017-03-05 18:48 | Inpatient (IN) | payer MEDICARE, OTHER ==
[~2017-03-05] VITALS: Ht 160 cm; Wt 54.8 kg
[2017-03-05] MEDS ORDERED: IOHEXOL 350 MG/ML 10 ML VIAL (for RAD DIAG) IVCONTRAST ONE (18:49)
[2017-03-05 18:55] VITALS: BP 210/97; PULSE 80; RESP 20; TEMP 98.7; O2SAT 98
[2017-03-05 19:36] VITALS: BP 165/82; PULSE 83; RESP 18; O2SAT 100
[2017-03-05 19:41] VITALS: O2SAT 100
--- NOTE | 2017-03-05 19:43 | PD ---
HPI Chief Complaint: Abdominal Pain Time Seen by Provider: 19:31 Travel History International Travel<30 days: No Contact w/Intl Traveler<30days: No Traveled to known affect area: No History of Present Illness HPI 81-year-old female presents to the emergency department by EMS transport from local longterm for evaluation of lower abdominal pain. Patient was recently seen in the emergency department 02/27/17 and diagnosed with a urinary tract infection and started on antibiotic therapy. Reportedly from longterm for the past 3 days patient has appeared to have significant lower abdominal pain. Patient has history of prior appendectomy and hysterectomy. On her last visit CT abdomen and pelvis revealed large stool bolus in the rectum but no other acute intra-abdominal or pelvic process. Patient has significant dementia and is not able provide any helpful history or information. There is been no report of fever. PFSH Past Medical History Narrative Medical Dementia anxiety depression hypothyroidism dyslipidemia COPD renal insufficiency hypertension CAD with stent placement appendectomy hysterectomy; no tobacco use; nursing notes reviewed Hx Anticoagulant Therapy: Yes (PLAVIX) Anxiety: Yes Depression: Yes Cardiovascular Problems: Yes (per daughter patient has 13 stents placed 6 yrs ago) High Cholesterol: Yes COPD: Yes Dementia: Yes Diminished Hearing: Yes ([place]) GERD: Yes Hypertension: Yes Insomnia: Yes Immunizations Current: Yes Renal Failure: Yes (STAGE 3) Thyroid Disease: Yes Triglycerides - High: Yes Menopausal: Yes Past Surgical History Appendectomy: Yes Hysterectomy: Yes Social History Alcohol Use: No Tobacco Use: No Substance Use: No Allergies-Medications (Allergen,Severity, Reaction): Coded Allergies: No Known Allergies (Unverified Adverse Reaction, Unknown, 03/05/17) Reported Meds & Prescriptions Reported Meds & Active Scripts Active Hydrocodone-Acetaminophen 5-325 mg Tab 1 Tab PO Q4H PRN Synthroid (Levothyroxine Sodium) 100 Mcg Tab 100 Mcg PO DAILY@0600 Bisac-Evac Supp (Bisacodyl) 10 Mg Supp 10 Mg RECTAL DAILY PRN B-12 (Cyanocobalamin) 100 Mcg Tab 100 Mcg PO DAILY Sennosides 8.6 Mg Tab 17.2 Mg PO HS Ranitidine (Ranitidine HCl) 150 Mg Tab 150 Mg PO DAILY Lorazepam 0.5 Mg Tab 0.5 Mg PO Q6H PRN Citalopram (Citalopram Hydrobromide) 20 Mg Tab 20 Mg PO DAILY Keppra (Levetiracetam) 500 Mg Tab 500 Mg PO HS Reported Vitamin D3 (Cholecalciferol) 1,000 Unit Cap 1,000 Units PO DAILY Zantac (Ranitidine HCl) 150 Mg Tab 150 Mg PO DAILY Meclizine (Meclizine HCl) 12.5 Mg Tab 12.5 Mg PO DIRECTED PRN Megestrol Liq (Megestrol Acetate) 40 Mg/Ml Susp 10 Ml PO BID Acidophilus Capsule (L. Acidophilus/Pectin, [place]) 7.5 Mg (30 Million Cell)- 100 Mg Capsule TID Eliquis (Apixaban) 5 Mg Tab 5 Mg PO BID Piperacil-Tazobact 3.375 gm Vl (Piperacillin Sodium/Tazobactam) 3.375 Gram Vial IV Q6HR Seroquel (Quetiapine Fumarate) 25 Mg Tab 25 Mg PO BID Tylenol (Acetaminophen) 325 Mg Tab 325 Mg PO Q4H PRN Atorvastatin (Atorvastatin Calcium) 40 Mg Tab 40 Mg PO HS Narrative Medication Eliquis, Zosyn Review of Systems ROS Limitations: Clinical Condition, Poor Historian, Other: (unable to obtain as patient has dementia) Except as stated in HPI: all other systems reviewed are Neg Physical Exam Narrative GENERAL: Elderly frail appearing female in no obvious distress; GCS 14, confusion reportedly her baseline SKIN: Warm and dry. HEAD: Normocephalic. EYES: No scleral icterus. No injection or drainage. NECK: Supple, trachea midline. No JVD or lymphadenopathy. CARDIOVASCULAR: Regular rate and rhythm without murmurs, gallops, or rubs. RESPIRATORY: Breath sounds equal bilaterally. No accessory muscle use. GASTROINTESTINAL: Abdomen soft, tender to palpation right greater than left lower quadrant on exam, nondistended. MUSCULOSKELETAL: No cyanosis, or edema. BACK: Nontender without obvious deformity. No CVA tenderness. Data Data Last Documented VS Vital Signs Date Time Temp Pulse Resp B/P (MAP) Pulse Ox O2 Delivery O2 Flow Rate FiO2 03/06/17 01:19 83 16 186/86 (119) 99 Room Air 03/05/17 18:55 98.7 Orders Orders Complete Blood Count With Diff (03/05/17 19:35) Comprehensive Metabolic Panel (03/05/17 19:35) Lipase (03/05/17 19:35) Lactic Acid (03/05/17 19:35) Prothrombin Time / Inr (Pt) (03/05/17 19:35) Act Partial Throm Time (Ptt) (03/05/17 19:35) Urinalysis - C+S If Indicated (03/05/17 19:35) Ct Abd/Pel W Iv Contrast(Rout) (03/05/17 19:35) Iv Access Insert/Monitor (03/05/17 19:35) Ecg Monitoring (03/05/17 19:35) Oximetry (03/05/17 19:35) Sodium Chloride 0.9% Flush (Ns Flush) (03/05/17 19:45) Chest, Single Ap (03/05/17 19:35) Electrocardiogram (03/05/17 ) Troponin I (03/05/17 19:35) Urine Culture (03/05/17 20:02) Iohexol 350 Inj (Omnipaque 350 Inj) (03/05/17 18:49) Bisacodyl Supp (Dulcolax Supp) (03/05/17 23:30) Admit Order (Ed Use Only) (03/06/17 ) Vital Signs (Adult) Q4H (03/06/17 01:58) Diet Heart Healthy (03/06/17 Breakfast) Activity Oob With Assistance (03/06/17 01:58) Notify Dr: Other (03/06/17 01:58) Labs Laboratory Tests Test 03/05/17 20:02 White Blood Count 16.9 TH/MM3 Red Blood Count 3.55 MIL/MM3 Hemoglobin 10.5 GM/DL Hematocrit 32.9 % Mean Corpuscular Volume 92.5 FL Mean Corpuscular Hemoglobin 29.7 PG Mean Corpuscular Hemoglobin Concent 32.1 % Red Cell Distribution Width 16.8 % Platelet Count 387 TH/MM3 Mean Platelet Volume 7.3 FL Neutrophils (%) (Auto) 83.9 % Lymphocytes (%) (Auto) 8.7 % Monocytes (%) (Auto) 5.6 % Eosinophils (%) (Auto) 1.5 % Basophils (%) (Auto) 0.3 % Neutrophils # (Auto) 14.2 TH/MM3 Lymphocytes # (Auto) 1.5 TH/MM3 Monocytes # (Auto) 0.9 TH/MM3 Eosinophils # (Auto) 0.3 TH/MM3 Basophils # (Auto) 0.1 TH/MM3 CBC Comment DIFF FINAL Differential Comment Prothrombin Time 11.9 SEC Prothromb Time International Ratio 1.1 RATIO Activated Partial Thromboplast Time 34.8 SEC Urine Color YELLOW Urine Turbidity HAZY Urine pH 5.5 Urine Specific [place] 1.026 Urine Protein 30 mg/dL Urine Glucose (UA) NEG mg/dL Urine Ketones NEG mg/dL Urine Occult Blood LARGE Urine Nitrite NEG Urine Bilirubin NEG Urine Urobilinogen LESS THAN 2.0 MG/DL Urine Leukocyte Esterase MOD Urine RBC 89 /hpf Urine WBC 13 /hpf Urine Squamous Epithelial Cells 2 /hpf Urine Calcium Oxalate Crystals RARE /hpf Urine Amorphous Sediment RARE Urine Bacteria FEW /hpf Urine Mucus FEW /lpf Microscopic Urinalysis Comment CULTURE INDICATED Blood Urea Nitrogen 14 MG/DL Creatinine 0.98 MG/DL Random Glucose 83 MG/DL Total Protein 6.2 GM/DL Albumin 2.1 GM/DL Calcium Level 8.5 MG/DL Alkaline Phosphatase 63 U/L Aspartate Amino Transf (AST/SGOT) 15 U/L Alanine Aminotransferase (ALT/SGPT) 13 U/L Total Bilirubin 0.5 MG/DL Sodium Level 141 MEQ/L Potassium Level 3.9 MEQ/L Chloride Level 109 MEQ/L Carbon Dioxide Level 26.4 MEQ/L Anion Gap 6 MEQ/L Estimat Glomerular Filtration Rate 55 ML/MIN Lactic Acid Level 1.0 mmol/L Troponin I LESS THAN 0.02 NG/ML Lipase 59 U/L [facility] Medical Decision Making Medical Screen Exam Complete: Yes Emergency Medical Condition: Yes Medical Record Reviewed: Yes Interpretation(s) Active gastric: 1.0 Urinalysis positive leukocyte Estrace positive white blood cells positive bacteria culture indicated Last Impressions Chest X-Ray 03/05/171934 Signed Impressions: Service Date/Time: February 19:52 - CONCLUSION: 1. No active disease. Multiple coronary artery stents. Jon Robles MD Abdomen/Pelvis CT 03/05/171934 Signed Impressions: Service Date/Time: February 22:09 - CONCLUSION: 1. Severe rectal constipation. No acute findings compared with February 27. 2. Murphy catheter in decompressed bladder. Stable distal abdominal aortic aneurysm. Stable left adrenal adenoma. Jon Robles MD CBC & BMP Diagram 03/05/17 20:02 Total Protein 6.2 L, Albumin 2.1 L, Calcium Level 8.5, Alkaline Phosphatase 63, Aspartate Amino Transf (AST/SGOT) 15, Alanine Aminotransferase (ALT/SGPT) 13, Total Bilirubin 0.5 Differential Diagnosis Abdominal pain, obstruction, colitis, diverticulitis, cystitis Narrative Course IV access obtained specimens collected and sent for resulting abdomen pelvis studies ordered [place] records identify 02/23/17 urinalysis was abnormal culture greater than 100, 000 Escherichia coli, ESBL sensitivity identified patient organism sensitive to Zosyn and last dose of Zosyn was administered 12 noon 03/05/17. Patient resting comfortably waiting for lab results and imaging results Total white cell count elevated with left shift chemistries grossly within normal range except for hypoalbuminemia and hypoproteinemia; troponin I is less than 0.02, not elevated CT imaging shows large bolus of stool in the rectum Patient given suppository without successful elimination of stool and attempt at digital disimpaction causes patient to much pain and she is intolerant and completely unable to undergo digital disimpaction therefore case was discussed with on-call [facility] for observation admission and stool limitation via serial soapsuds enemas. Physician Communication Physician Communication discussed with Dr Pacheco --- OBS Diagnosis Primary Impression: Obstipation Additional Impressions: UTI (urinary tract infection) Dementia of Alzheimer's type with behavioral disturbance Admitting Information Admitting Physician Requests: Observation Abril Burton MD Mar 05, 2017 19:43
[2017-03-05] MEDS ORDERED: SODIUM CHLORIDE 0.9% FLUSH 10 ML FLUSH IV FLUSH PRN (19:45)
[2017-03-05 20:12] LABS: AUTOMATED NEUTROPHIL # 14.2 TH/MM3 (1.8-7.7); BASOPHIL # 0.1 TH/MM3 (0-0.2); BASOPHIL % 0.3 % (0.0-2.0); EOSINOPHIL # 0.3 TH/MM3 (0-0.4); EOSINOPHIL % 1.5 % (0.0-4.0); HEMATOCRIT 32.9 % (35.0-46.0); HEMO FLAGS DIFF FINAL; LYMPH % 8.7 % (9.0-44.0); LYMPHOCYTE # 1.5 TH/MM3 (1.0-4.8); MEAN CELL VOLUME 92.5 FL (80.0-100.0); MEAN CORPUSCULAR HEMOGLOBIN 29.7 PG (27.0-34.0); MEAN CORPUSCULAR HGB CONC 32.1 % (32.0-36.0); MONO % 5.6 % (0.0-8.0); NEUT % 83.9 % (16.0-70.0); PLATELET COUNT 387 TH/MM3 (150-450); RED BLOOD COUNT 3.55 MIL/MM3 (4.00-5.30); RED CELL DISTRIBUTION WIDTH 16.8 % (11.6-17.2); WHITE BLOOD COUNT 16.9 TH/MM3 (4.0-11.0)
--- NOTE | 2017-03-05 20:17 | RADRPT ---
EXAM DATE/TIME: 03/05/2017 19:52 [facility] COMPARISON: CHEST SINGLE AP, February 01, 2017, 14:10. INDICATIONS : Short of breath MEDICAL HISTORY : None. SURGICAL HISTORY : None. ENCOUNTER: Initial ACUITY: 1 day PAIN SCORE: Non-responsive. LOCATION: Bilateral chest FINDINGS: A single view of the chest demonstrates the lungs to be symmetrically aerated without evidence of mas s, infiltrate or effusion. The cardiomediastinal contours are unremarkable. Osseous structures are intact. CONCLUSION: 1. No active disease. Multiple coronary artery stents. Jon Robles MD on March 05, 2017 at 20:15 Board Certified Radiologist. This report was verified electronically.
[2017-03-05 20:24] LABS: APTT (PATIENT) 34.8 SEC (24.3-30.1); INTERNATIONAL NORMALIZED RATIO 1.1 RATIO; PROTHROMBIN TIME - PATIENT 11.9 SEC (9.8-11.6)
[2017-03-05 20:26] LABS: ANION GAP 6 MEQ/L (5-15); AST (GOT) 15 U/L (15-37); BICARBONATE 26.4 MEQ/L (21.0-32.0); BLOOD UREA NITROGEN 14 MG/DL (7-18); CHLORIDE 109 MEQ/L (98-107); GLOMERULAR FILTRATION RATE 55 ML/MIN (>89); POTASSIUM 3.9 MEQ/L (3.5-5.1); SODIUM (NA) 141 MEQ/L (136-145)
[2017-03-05 20:27] LABS: ALT (GPT) 13 U/L (10-53)
[2017-03-05 20:31] LABS: ALKALINE PHOSPHATASE 63 U/L (45-117); TOTAL BILIRUBIN ADULT 0.5 MG/DL (0.2-1.0)
[2017-03-05 20:38] LABS: BACTERIA, URINE FEW /hpf; BLOOD, URINE LARGE (NEG); CALCIUM OXALATE CRYSTALS,URINE RARE /hpf; GLUCOSE,URINE NEG (NEG); KETONE, URINE NEG (NEG); MUCUS URINE FEW /lpf (OCC); NITRITE,URINE NEG (NEG); PH, URINE 5.5 (5.0-8.5); SQUAMOUS EPITHELIAL CELL URINE 2 /hpf (0-5); URINE COLOR YELLOW (YELLW/STRAW)
[2017-03-05 20:39] LABS: COMMENT (UR) CULTURE INDICATED; CULTURE IF INDICATED CULTURE INDICATED
[2017-03-05 22:44] VITALS: BP 180/79; PULSE 85; RESP 16; O2SAT 99
--- NOTE | 2017-03-05 22:45 | RADRPT ---
EXAM DATE/TIME: 03/05/2017 22:09 [place] COMPARISON: CT ABDOMEN & PELVIS W CONTRAST, February 27, 2017, 12:07. INDICATIONS : Abdominal pain. IV CONTRAST: 40 cc Omnipaque 350 (iohexol) IV ORAL CONTRAST: No oral contrast ingested. RADIATION DOSE: 6.71 CTDIvol (mGy) MEDICAL HISTORY : Cardiovascular disease. Renal failure, chronic. Diabetes mellitus type 2. SURGICAL HISTORY : Appendectomy. Hysterectomy. ENCOUNTER: Initial ACUITY: 1 day PAIN SCALE: 8/10 LOCATION: abdomen TECHNIQUE: Volumetric scanning of the abdomen and pelvis was performed. Using automated exposure control and ad justment of the mA and/or kV according to patient size, radiation dose was kept as low as reasonably achievable to obtain optimal diagnostic quality images. DICOM format image data is available electro nically for review and comparison. FINDINGS: Lung bases are clear except for minimal basilar atelectasis. No acute findings in the liver, spleen, adrenals, kidneys or pancreas. Stable left adrenal enlargement compared with February 27 comparison, probably adenoma measuring about 1.5 cm. No calcified gallstones or biliary ductal dilatation. Stable 2.7 cm infrarenal abdominal aortic aneurysm. Examination of pelvis reveals rectal stool impaction with diameter of 10.4 cm. Murphy catheter present in decompressed bladder. CONCLUSION: 1. Severe rectal constipation. No acute findings compared with February 27. 2. Murphy catheter in decompressed bladder. Stable distal abdominal aortic aneurysm. Stable left adren al adenoma. Jon Robles MD on March 05, 2017 at 22:36 Board Certified Radiologist. This report was verified electronically.
[2017-03-05] MEDS ORDERED: BISACODYL 10 MG SUPP RECTAL ONE (23:30)
[2017-03-06] VITALS (9 sets, daily range): BP systolic 134–197; BP diastolic 63–89; PULSE 71–97; RESP 16–24; TEMP 95.9–99.1; O2SAT 96–99
[2017-03-06] MEDS ORDERED: ACETAMINOPHEN 325 MG TAB PO PRN (02:15)
[2017-03-06] MEDS ORDERED: LACTULOSE SYRUP 20 GM/30 ML CUP PO PRN (02:15)
[2017-03-06] MEDS ORDERED: BISACODYL 10 MG SUPP RECTAL PRN (02:15)
[2017-03-06] MEDS ORDERED: SENNOSIDES 8.6 MG TAB PO PRN (02:15)
[2017-03-06] MEDS ORDERED: ONDANSETRON HCL 4 MG/2 ML VIAL IVP PRN (02:15)
[2017-03-06] MEDS ORDERED: SODIUM CHLORIDE 0.9% FLUSH 10 ML FLUSH IV FLUSH PRN (02:15)
[2017-03-06] MEDS ORDERED: MINERAL OIL ENEMA 118 ML BTL RECTAL ONE (02:15)
[2017-03-06] MEDS ORDERED: NALOXONE HCL 0.4 MG/ML AMP IV PUSH PRN (02:15)
[2017-03-06] MEDS ORDERED: MAGNESIUM HYDROXIDE SUSP 30 ML CUP PO PRN (02:15)
[2017-03-06] MEDS ORDERED: MEGE40SU PO (02:19)
[2017-03-06] MEDS ORDERED: [UNRECOGNIZED DRUG - CODE] IV (02:19)
[2017-03-06] MEDS ORDERED: APIX5TAB PO (02:19)
[2017-03-06] MEDS ORDERED: L. A1CAP (02:19)
[2017-03-06] MEDS ORDERED: MECL12.574 PO (02:19)
[2017-03-06] MEDS ORDERED: CHOL10008 PO (02:19)
[2017-03-06] MEDS ORDERED: ZANT150T2 PO (02:19)
[2017-03-06] MEDS: PIPERACIL-TAZO 3.375 GM PREMIX 50 ML IV SCH ×2 (03:10→08:07)
--- NOTE | 2017-03-06 03:32 | HHI.HP ---
[facility] Service [facility] Primary Care Physician Unknown Admission Diagnosis constipation/obstiopation Diagnoses: Chief Complaint: Pt unable to provide due to signfiicant dementia Travel History International Travel<30 Days: No Contact w/Intl Traveler <30 Da: No Traveled to Known Affected Are: No History of Present Illness Ms. Amado is 81 yo, with history inclusive of constipation, dementia, COPD, GERD, Hypothyroidism, Hyperlipidemia, Essential hypertension, Chronic kidney disease (stage III) arthrosclerotic heart disease. She was seen in [facility] on 02/27/17 and diagnosed with ESBL UTI and placed on Zosyn. Imaging taken at that time indicated a large amount of stool present in her rectum. She returns to [facility] ED on 03/05/17 from her residential for complaint of lower right quadrant pain that has been present for the past three days. Per the medical record, pt is without fever and has a Murphy catheter. Due to pt's dementia, she was unable to provide information about her condition. As such, information was obtained from review of the medical record. Review of Systems ROS Limitations: Poor Historian (Unable to obtain due to pt's memory issues.) Past Family Social History Past Medical History Dementia COPD GERD Hypothyroidism Hyperlipidemia Essential hypertension Chronic kidney disease (stage III) arthrosclerotic heart disease Constipation Seizures Anxiety Past Surgical History Cardiac stents (x 13) Appendectomy Hysterectomy Open reduction internal fixation right femoral neck fracture Reported Medications Reported Meds & Active Scripts Active Hydrocodone-Acetaminophen 5-325 mg Tab 1 Tab PO Q4H PRN Synthroid (Levothyroxine Sodium) 100 Mcg Tab 100 Mcg PO DAILY@0600 Bisac-Evac Supp (Bisacodyl) 10 Mg Supp 10 Mg RECTAL DAILY PRN B-12 (Cyanocobalamin) 100 Mcg Tab 100 Mcg PO DAILY Sennosides 8.6 Mg Tab 17.2 Mg PO HS Ranitidine (Ranitidine HCl) 150 Mg Tab 150 Mg PO DAILY Lorazepam 0.5 Mg Tab 0.5 Mg PO Q6H PRN Citalopram (Citalopram Hydrobromide) 20 Mg Tab 20 Mg PO DAILY Keppra (Levetiracetam) 500 Mg Tab 500 Mg PO HS Reported Vitamin D3 (Cholecalciferol) 1,000 Unit Cap 1,000 Units PO DAILY Zantac (Ranitidine HCl) 150 Mg Tab 150 Mg PO DAILY Meclizine (Meclizine HCl) 12.5 Mg Tab 12.5 Mg PO DIRECTED PRN Megestrol Liq (Megestrol Acetate) 40 Mg/Ml Susp 10 Ml PO BID Acidophilus Capsule (L. Acidophilus/Pectin, Sullivan) 7.5 Mg (30 Million Cell)- 100 Mg Capsule TID Eliquis (Apixaban) 5 Mg Tab 5 Mg PO BID Piperacil-Tazobact 3.375 gm Vl (Piperacillin Sodium/Tazobactam) 3.375 Gram Vial IV Q6HR Seroquel (Quetiapine Fumarate) 25 Mg Tab 25 Mg PO BID Tylenol (Acetaminophen) 325 Mg Tab 325 Mg PO Q4H PRN Atorvastatin (Atorvastatin Calcium) 40 Mg Tab 40 Mg PO HS Allergies: Coded Allergies: No Known Allergies (Unverified Adverse Reaction, Unknown, 03/05/17) Active Ordered Medications Current Medications Medications (Trade) Dose Ordered Sig/Skyla Route Start Time Stop Time Status Last Admin (NS Flush) 2 ml UNSCH PRN IV FLUSH 03/05/17 19:45 Piperacillin Sod/ Tazobactam Sod 50 ml @ 100 mls/hr Q6H IV 03/06/17 03:00 03/06/17 03:10 (Fleet Mineral Oil Enema) 59 ml DAILY RECTAL 03/06/17 07:00 (NS Flush) 2 ml UNSCH PRN IV FLUSH 03/06/17 02:15 (NS Flush) 2 ml BID IV FLUSH 03/06/17 09:00 (Tylenol) 650 mg Q4H PRN PO 03/06/17 02:15 (Zofran Inj) 4 mg Q6H PRN IVP 03/06/17 02:15 (Heparin Inj) 5,000 units Q12H SQ 03/06/17 06:00 (Narcan Inj) 0.4 mg UNSCH PRN IV PUSH 03/06/17 02:15 (Latosha-Colace) 1 tab BID PO 03/06/17 09:00 (Milk Of Magnesia Liq) 30 ml Q12H PRN PO 03/06/17 02:15 (Senokot) 17.2 mg Q12H PRN PO 03/06/17 02:15 (Dulcolax Supp) 10 mg DAILY PRN RECTAL 03/06/17 02:15 (Lactulose Liq) 30 ml DAILY PRN PO 03/06/17 02:15 Family History Not able to obtain. Social History Per the medical record pt has negative history for alcohol, tobacco, illicit/ recreational drug use. Physical Exam Vital Signs Vital Signs Date Time Temp Pulse Resp B/P (MAP) Pulse Ox O2 Delivery O2 Flow Rate FiO2 03/06/17 03:14 97 16 179/77 (111) 99 Room Air 03/06/17 01:19 83 16 186/86 (119) 99 Room Air 03/05/17 22:44 85 16 180/79 (112) 99 Room Air 03/05/17 19:41 100 Room Air 03/05/17 19:36 83 18 165/82 (109) 100 Room Air 03/05/17 19:30 20 03/05/17 18:55 98.7 80 20 210/97 (134) 98 Physical Exam GENERAL: This is a frail appearing female, well-developed, in no apparent distress. SKIN: No rashes, ecchymoses or lesions. Cool and dry. HEAD: Atraumatic. Normocephalic. EYES: Pupils equal round and reactive. Extraocular motions intact. No scleral icterus. No injection or drainage. ENT: Nose without bleeding or purulent drainage. Airway patent. NECK: Trachea midline. No lymphadenopathy. Supple and nontender. CARDIOVASCULAR: Regular rate and Irregular rhythm without murmurs, gallops, or rubs. RESPIRATORY: Clear to auscultation. Breath sounds equal bilaterally. No wheezes , rales, or rhonchi. GASTROINTESTINAL: Abdomen soft, non-tender, nondistended. No hepato- splenomegaly or guarding. MUSCULOSKELETAL: Extremities without clubbing, cyanosis, or edema. NEUROLOGICAL: Awake and alert. Cranial nerves II through XII intact. Pt did not follow commands. She could not identify her current location or present information about her life/health events. Laboratory Laboratory Tests Test 03/05/17 20:02 White Blood Count 16.9 Red Blood Count 3.55 Hemoglobin 10.5 Hematocrit 32.9 Mean Corpuscular Volume 92.5 Mean Corpuscular Hemoglobin 29.7 Mean Corpuscular Hemoglobin Concent 32.1 Red Cell Distribution Width 16.8 Platelet Count 387 Mean Platelet Volume 7.3 Neutrophils (%) (Auto) 83.9 Lymphocytes (%) (Auto) 8.7 Monocytes (%) (Auto) 5.6 Eosinophils (%) (Auto) 1.5 Basophils (%) (Auto) 0.3 Neutrophils # (Auto) 14.2 Lymphocytes # (Auto) 1.5 Monocytes # (Auto) 0.9 Eosinophils # (Auto) 0.3 Basophils # (Auto) 0.1 CBC Comment DIFF FINAL Differential Comment Prothrombin Time 11.9 Prothromb Time International Ratio 1.1 Activated Partial Thromboplast Time 34.8 Urine Color YELLOW Urine Turbidity HAZY Urine pH 5.5 Urine Specific Allen 1.026 Urine Protein 30 Urine Glucose (UA) NEG Urine Ketones NEG Urine Occult Blood LARGE Urine Nitrite NEG Urine Bilirubin NEG Urine Urobilinogen LESS THAN 2.0 Urine Leukocyte Esterase MOD Urine RBC 89 Urine WBC 13 Urine Squamous Epithelial Cells 2 Urine Calcium Oxalate Crystals RARE Urine Amorphous Sediment RARE Urine Bacteria FEW Urine Mucus FEW Microscopic Urinalysis Comment CULTURE INDICATED Blood Urea Nitrogen 14 Creatinine 0.98 Random Glucose 83 Total Protein 6.2 Albumin 2.1 Calcium Level 8.5 Alkaline Phosphatase 63 Aspartate Amino Transf (AST/SGOT) 15 Alanine Aminotransferase (ALT/SGPT) 13 Total Bilirubin 0.5 Sodium Level 141 Potassium Level 3.9 Chloride Level 109 Carbon Dioxide Level 26.4 Anion Gap 6 Estimat Glomerular Filtration Rate 55 Lactic Acid Level 1.0 Troponin I LESS THAN 0.02 Lipase 59 Date/Time Source Procedure Growth Status 03/05/17 20:02 Urine Random Urine Urine Culture Pending Received Result Diagram: 03/05/17200103/05/172001 Imaging Last Impressions Chest X-Ray 03/05/171934 Signed Impressions: Service Date/Time: February 19:52 - CONCLUSION: 1. No active disease. Multiple coronary artery stents. Jon Robles MD Abdomen/Pelvis CT 03/05/171934 Signed Impressions: Service Date/Time: February 22:09 - CONCLUSION: 1. Severe rectal constipation. No acute findings compared with February 27. 2. Murphy catheter in decompressed bladder. Stable distal abdominal aortic aneurysm. Stable left adrenal adenoma. Jon Robles MD [facility] VTE Risk Assessment Brad[place] VTE Risk Assessment: Mod/High Risk (score >= 2) Caprini Risk Assessment Model Point Value = 1 Point Value = 2 Point Value = 3 Point Value = 5 Age 41-60 Minor surgery BMI > 25 kg/m2 Swollen legs Varicose veins or History of unexplained or recurrent spontaneous Oral contraceptives or hormone replacement Sepsis (< 1 month) Serious lung disease, including pneumonia (< 1 month) Abnormal pulmonary function Acute myocardial infarction Congestive heart failure (< 1 month) History of inflammatory bowel disease Medical patient at bed rest Age 61-74 Arthroscopic surgery Major open surgery (> 45 min) Laparoscopic surgery (> 45 min) Malignancy Confined to bed (> 72 hours) Immobilizing plaster cast Central venous access Age >= 75 History of VTE Family history of VTE Factor V Leiden Prothrombin [id number] Lupus anticoagulant Anticardiolipin antibodies Elevated serum homocysteine Heparin-induced thrombocytopenia Other congenital or acquired thrombophilia Stroke (< 1 month) Elective arthroplasty Hip, pelvis, or leg fracture Acute spinal cord injury (< 1 month) Prophylaxis Regimen Total Risk Factor Score Risk Level Prophylaxis Regimen 0-1 Low Early ambulation 2 Moderate Order ONE of the following: *Sequential Compression Device (SCD) *Heparin 5000 units SQ BID 3-4 Higher Order ONE of the following medications: *Heparin 5000 units SQ TID *Enoxaparin/Lovenox 40 mg SQ daily (WT < 150 kg, CrCl > 30 mL/min) *Enoxaparin/Lovenox 30 mg SQ daily (WT < 150 kg, CrCl > 10-29 mL/min) *Enoxaparin/Lovenox 30 mg SQ BID (WT < 150 kg, CrCl > 30 mL/min) AND/OR *Sequential Compression Device (SCD) 5 or more Highest Order ONE of the following medications: *Heparin 5000 units SQ TID (Preferred with Epidurals) *Enoxaparin/Lovenox 40 mg SQ daily (WT < 150 kg, CrCl > 30 mL/min) *Enoxaparin/Lovenox 30 mg SQ daily (WT < 150 kg, CrCl > 10-29 mL/min) *Enoxaparin/Lovenox 30 mg SQ BID (WT < 150 kg, CrCl > 30 mL/min) AND *Sequential Compression Device (SCD) Assessment and Plan Problem List: (1) Obstipation ICD Code: K59.00 - Constipation, unspecified Status: Acute (2) UTI (urinary tract infection) ICD Code: N39.0 - Urinary tract infection, site not specified Status: Acute (3) Dementia of Alzheimer's type with behavioral disturbance ICD Code: G30.8 - Other Alzheimer's disease; F02.81 - Dementia in other diseases classified elsewhere with behavioral disturbance Status: Chronic (4) Seizures ICD Code: R56.9 - Unspecified convulsions Status: Chronic (5) Hypertension ICD Code: I10 - Essential (primary) hypertension Status: Chronic (6) Hypothyroidism ICD Code: E03.9 - Hypothyroidism, unspecified Status: Chronic (7) Hyperlipidemia ICD Code: E78.5 - Hyperlipidemia, unspecified Status: Chronic Assessment and Plan Ms. Amado is 81 yo, with history inclusive of constipation, dementia, COPD, GERD, Hypothyroidism, Hyperlipidemia, Essential hypertension, Chronic kidney disease (stage III) arthrosclerotic heart disease. She was seen in [facility] on 02/27/17 and diagnosed with ESBL UTI and placed on Zosyn. Imaging taken at that time indicated a large amount of stool present in her rectum. She returns to [facility] ED on 03/05/17 from her residential for complaint of lower right quadrant pain that has been present for the past three days. Per the medical record, pt is without fever and has a Murphy catheter. Obstipation -Rectal bolus present, unable to be digitally disimpacted, diameter 10.5 cm -Enemas ordered -bowel care Dementia Depression -Continue Seroquel 35 mg po BID -Continue Citalopram 20 mg daily ESBL UTI -Zosyn 3.375 Gm q 6 hr IV Seizures -Keppra 500 mg po q hs Hyperlipidemia -Atorvastatin 40 mg po q hs Hypothyroidism -Levothyroxine 100 mcg po daily DVT prophylaxis -Apixaban 5 mg po BID Discussed Condition With Pt, Dr. Pacheco, medical staff physician Problem Qualifiers (1) UTI (urinary tract infection): Qualified Codes: N39.0 - Urinary tract infection, site not specified (2) Dementia of Alzheimer's type with behavioral disturbance: Qualified Codes: G30.8 - Other Alzheimer's disease; F02.81 - Dementia in other diseases classified elsewhere with behavioral disturbance (3) Hypertension: Qualified Codes: I10 - Essential (primary) hypertension (4) Hypothyroidism: Qualified Codes: E03.9 - Hypothyroidism, unspecified (5) Hyperlipidemia: Qualified Codes: E78.5 - Hyperlipidemia, unspecified Andrea Spring Jr. Mar 06, 2017 03:32
[2017-03-06] MEDS ORDERED: hydrALAZINE HCL 20 MG/ML VIAL IV PUSH ONE (04:00)
[2017-03-06] MEDS ORDERED: levETIRAcetam 500 MG TAB PO ONE (04:45)
[2017-03-06] MEDS ORDERED: HEPARIN SODIUM - SQ 10,000 UNITS/ML VIAL SQ SCH (06:00)
[2017-03-06] MEDS: MINERAL OIL ENEMA 118 ML BTL RECTAL SCH ×2 (06:04→08:08)
[2017-03-06] MEDS: LEVOTHYROXINE SODIUM 100 MCG TAB PO SCH (06:04)
[2017-03-06 07:27] LABS: AUTOMATED NEUTROPHIL # 16.6 TH/MM3 (1.8-7.7); BASOPHIL % 0.2 % (0.0-2.0); EOSINOPHIL % 0.2 % (0.0-4.0); HEMATOCRIT 33.6 % (35.0-46.0); HEMO FLAGS DIFF FINAL; LYMPH % 5.5 % (9.0-44.0); MEAN CORPUSCULAR HEMOGLOBIN 30.5 PG (27.0-34.0); MEAN CORPUSCULAR HGB CONC 33.2 % (32.0-36.0); MONO % 5.4 % (0.0-8.0); NEUT % 88.7 % (16.0-70.0); PLATELET COUNT 398 TH/MM3 (150-450); RED BLOOD COUNT 3.65 MIL/MM3 (4.00-5.30); RED CELL DISTRIBUTION WIDTH 16.7 % (11.6-17.2); WHITE BLOOD COUNT 18.8 TH/MM3 (4.0-11.0)
[2017-03-06 07:51] LABS: BICARBONATE 23.4 MEQ/L (21.0-32.0); POTASSIUM 3.4 MEQ/L (3.5-5.1)
[2017-03-06] MEDS: SODIUM CHLORIDE 0.9% FLUSH 10 ML FLUSH IV FLUSH SCH ×2 (08:07→20:51)
[2017-03-06] MEDS: CITALOPRAM HYDROBROMIDE 20 MG TAB PO SCH ×2 (08:07→08:10)
[2017-03-06] MEDS: CHOLECALCIFEROL (VIT D3) 1000 UNIT TAB PO SCH ×2 (08:07→08:15)
[2017-03-06] MEDS: QUEtiapine FUMARATE 25 MG TAB PO SCH ×2 (08:08→20:51)
[2017-03-06] MEDS: APIXABAN 5 MG TABLET PO SCH ×3 (08:08→13:19)
[2017-03-06] MEDS ORDERED: SODIUM CHLOR 0.9% 1000 ML INJ 1,000 ML IV SCH (09:00)
[2017-03-06] MEDS ORDERED: DOCUSATE SODIUM 50 MG/SENNA 8.6 MG TAB PO SCH (09:00)
[2017-03-06] MEDS ORDERED: FAMOTIDINE 20 MG TAB PO SCH (09:00)
[2017-03-06] MEDS ORDERED: DOCUSATE SODIUM 50 MG/SENNA 8.6 MG TAB PO ONE (09:45)
--- NOTE | 2017-03-06 10:58 | HHI.PR ---
Subjective Remarks Follow up on patient with constipation/obstipation. Patient seen and examined. Patient has dementia. States she doesn't feel well. Does not respond when asked if she is having any nausea or abdominal pain. She does not respond to any other questions. Follows some simple commands. Objective Vitals Vital Signs Date Time Temp Pulse Resp B/P (MAP) Pulse Ox O2 Delivery O2 Flow Rate FiO2 03/06/17 08:39 98.1 77 18 175/79 (111) 03/06/17 04:38 99.1 96 17 134/71 (92) 96 03/06/17 04:27 03/06/17 04:16 96 16 135/65 (88) 99 Room Air 03/06/17 03:14 97 16 179/77 (111) 99 Room Air 03/06/17 01:19 83 16 186/86 (119) 99 Room Air 03/05/17 22:44 85 16 180/79 (112) 99 Room Air 03/05/17 19:41 100 Room Air 03/05/17 19:36 83 18 165/82 (109) 100 Room Air 03/05/17 19:30 20 03/05/17 18:55 98.7 80 20 210/97 (134) 98 I/O 03/05/17 03/05/17 03/05/17 03/06/17 03/06/17 03/06/17 07:00 15:00 23:00 07:00 15:00 23:00 Intake Total 50 ml Balance 50 ml Intake Oral 50 ml Result Diagram: 03/06/17 0637 03/06/1737 Imaging Last Impressions Chest X-Ray 03/05/171934 Signed Impressions: Service Date/Time: February 19:52 - CONCLUSION: 1. No active disease. Multiple coronary artery stents. Jon Robles MD Abdomen/Pelvis CT 03/05/171934 Signed Impressions: Service Date/Time: February 22:09 - CONCLUSION: 1. Severe rectal constipation. No acute findings compared with February 27. 2. Luevano catheter in decompressed bladder. Stable distal abdominal aortic aneurysm. Stable left adrenal adenoma. Jon Robles MD Objective Remarks GENERAL: This is a frail appearing female, well-developed, in no apparent distress. Awake. Confused. SKIN: Warm and dry. HEAD: Atraumatic. Normocephalic. EYES: Extraocular motions intact. No scleral icterus. No injection or drainage. ENT: Nose without bleeding or purulent drainage. Airway patent. Dry mucus membranes. NECK: Trachea midline. CARDIOVASCULAR: Tachycardic, regular without murmurs, gallops, or rubs. RESPIRATORY: Clear to auscultation but poor effort noted. Breath sounds equal bilaterally. No wheezes, rales, or rhonchi. GASTROINTESTINAL: Abdomen soft, nondistended. (+)mild diffuse tenderness to palpation. No hepato-splenomegaly or guarding. GENITOURINARY: Luevano catheter in place with yellow urine in the bag. RECTAL: Maroonish colored blood noted with small amount of brown stool. (+) external hemorrhoid, does not appear thrombosed. Not actively bleeding. MUSCULOSKELETAL: Extremities without clubbing, cyanosis, or edema. NEUROLOGICAL: Confused. Severe dementia. Able to move all extremities spontaneously. Minimal verbalization. Medications and IVs Current Medications Medications (Trade) Dose Ordered Sig/Skyla Route Start Time Stop Time Status Last Admin Piperacillin Sod/ Tazobactam Sod 50 ml @ 100 mls/hr Q6H IV 03/06/17 03:00 03/06/17 08:07 (Fleet Mineral Oil Enema) 59 ml DAILY RECTAL 03/06/17 07:00 03/06/17 06:04 (NS Flush) 2 ml UNSCH PRN IV FLUSH 03/06/17 02:15 (NS Flush) 2 ml BID IV FLUSH 03/06/17 09:00 03/06/17 08:07 (Tylenol) 650 mg Q4H PRN PO 03/06/17 02:15 (Zofran Inj) 4 mg Q6H PRN IVP 03/06/17 02:15 (Narcan Inj) 0.4 mg UNSCH PRN IV PUSH 03/06/17 02:15 (Milk Of Magnesia Liq) 30 ml Q12H PRN PO 03/06/17 02:15 (Senokot) 17.2 mg Q12H PRN PO 03/06/17 02:15 (Dulcolax Supp) 10 mg DAILY PRN RECTAL 03/06/17 02:15 (Lactulose Liq) 30 ml DAILY PRN PO 03/06/17 02:15 (Eliquis) 5 mg BID PO 03/06/17 09:00 Future Hold 03/06/17 08:08 (Lipitor) 40 mg HS PO 03/06/17 21:00 (Vitamin D3) 1,000 units DAILY PO 03/06/17 09:00 03/06/17 08:07 (CeleXA) 20 mg DAILY PO 03/06/17 09:00 03/06/17 08:07 (Vitamin B12) 100 mcg DAILY PO 03/06/17 09:00 (Keppra) 500 mg HS PO 03/06/17 21:00 (Synthroid) 100 mcg DAILY@0700 PO 03/06/17 07:00 03/06/17 06:04 (SEROquel) 25 mg BID PO 03/06/17 09:00 03/06/17 08:08 (Pepcid) 20 mg BID PO 03/06/17 09:00 03/06/17 08:08 Sodium Chloride 1,000 ml @ 50 mls/hr Q20H IV 03/06/17 09:00 (Latosha-Colace) 2 tab BID PO 03/06/17 21:00 A/P Problem List: (1) Obstipation ICD Code: K59.00 - Constipation, unspecified Status: Acute (2) UTI (urinary tract infection) ICD Code: N39.0 - Urinary tract infection, site not specified Status: Acute (3) Dementia of Alzheimer's type with behavioral disturbance ICD Code: G30.8 - Other Alzheimer's disease; F02.81 - Dementia in other diseases classified elsewhere with behavioral disturbance Status: Chronic (4) Seizures ICD Code: R56.9 - Unspecified convulsions Status: Chronic (5) Hypertension ICD Code: I10 - Essential (primary) hypertension Status: Chronic (6) Hypothyroidism ICD Code: E03.9 - Hypothyroidism, unspecified Status: Chronic (7) Hyperlipidemia ICD Code: E78.5 - Hyperlipidemia, unspecified Status: Chronic Assessment and Plan Ms. Amado is 81 yo, with history inclusive of constipation, dementia, COPD, GERD, Hypothyroidism, Hyperlipidemia, Essential hypertension, Chronic kidney disease (stage III) arthrosclerotic heart disease. She was seen in [facility] on 02/27/17 and diagnosed with ESBL UTI and placed on Zosyn. Imaging taken at that time indicated a large amount of stool present in her rectum. She returns to [facility] on 03/05/17 from her skilled nursing for complaint of lower right quadrant pain that has been present for the past three days. Per the medical record, pt is without fever and has a Luevano catheter. Obstipation -Rectal bolus present, unable to be digitally disimpacted, diameter 10.5 cm -Enemas ordered -small BM reported -continue with bowel regimen ?GIB -patient with passage of maroon colored blood with BM -hold Eliquis for now -NPO -Consult GI -IVF -monitor H/H Leukocytosis -suspect due to UTI -CXR personally reviewed, shows no active disease -worsening 16.9 up to 18.8 -patient does not appear septic. She is afebrile. Obtain Lactic acid level. CAD HTN, uncontrolled -hx of multiple stent placements -currently on Eliquis - now on hold -start patient on Lopressor 25mg BID -Vasotec 1.25mg IV q6h prn with parameters -continue to monitor BP Hypokalemia -replete -obtain mag level -am labs to monitor response s/p recent right proximal femur fracture s/p ORIF 01/06/17 -PT eval /tx Advanced dementia Depression -Continue Seroquel 25 mg po BID -Continue Citalopram 20 mg daily ESBL UTI -per review of [place] records, 02/23/17 UCX positive for ESBL E Coli sensitive to Zosyn - unclear when treatment was initiated -continue on Zosyn 3.375 Gm q 6 hr IV -follow up on urine cx results -consider ID consultation Urinary retention -patient arrived from [place] with luevano catheter -possibly due to severe constipation -will consider void trial after constipation resolves Seizures -continue on Keppra 500 mg po q hs -obtain Keppra level -seizure precautions COPD, not in acute exacerbation -Duonebs as needed -continue to monitor respiratory status Hyperlipidemia -Atorvastatin 40 mg po q hs Hypothyroidism -Levothyroxine 100 mcg po daily DVT prophylaxis -Apixaban 5 mg po BID - currently on hold secondary to possible GIB -REY/SCDs bilaterally Discussed with nursing staff, patient and Dr. Alonzo Problem Qualifiers (1) UTI (urinary tract infection): Qualified Codes: N39.0 - Urinary tract infection, site not specified (2) Dementia of Alzheimer's type with behavioral disturbance: Qualified Codes: G30.8 - Other Alzheimer's disease; F02.81 - Dementia in other diseases classified elsewhere with behavioral disturbance (3) Hypertension: Qualified Codes: I10 - Essential (primary) hypertension (4) Hypothyroidism: Qualified Codes: E03.9 - Hypothyroidism, unspecified (5) Hyperlipidemia: Qualified Codes: E78.5 - Hyperlipidemia, unspecified Matilde Arroyo Mar 06, 2017 10:55
[2017-03-06] MEDS ORDERED: RESP: ALBUTEROL 2.5 MG/IPRATROPIUM 0.5 MG NEB (PRN) NEB (11:00)
--- NOTE | 2017-03-06 11:50 | PD.CONS ---
HPI History of Present Illness This is a 81 year old female with a history of dementia who was sent to the emergency room for evaluation of a 3 day history of lower right quadrant abdominal pain. The patient is confused and unable to provide any history and therefore much of the history has been obtained from the EMR. Of note, she was seen in the ER on 02/27/17 for hematuria and a CT scan of the abdomen and pelvis at that time noted a large stool bolus noted in the rectum. A review of her med list shows that she takes Senokot daily and Dulcolax suppositories as needed. On admission, she had a repeat CT Scan abdomen and pelvis (03/05/17)--- > severe rectal constipation. No acute findings compared with February 27. Murphy catheter in decompressed bladder. Stable distal abdominal aortic aneurysm. Stable left adrenal adenoma. The patient has moderate diffuse tenderness on exam, but cannot further describe her pain, tell how long she has had this, or state when her last bowel movement was. It is unknown if she has ever had a colonoscopy. She is on Eliquis at the senior care. ([facility]) PFSH Past Medical History Dementia COPD GERD Hypothyroidism Hyperlipidemia Essential hypertension Chronic kidney disease (stage III) arthrosclerotic heart disease Constipation Seizures Anxiety Past Surgical History Cardiac stents (x 13) Appendectomy Hysterectomy Open reduction internal fixation right femoral neck fracture ([facility]) Coded Allergies: No Known Allergies (Unverified Adverse Reaction, Unknown, 03/05/17) Medications Allergies Coded Allergies Type Severity Reaction Last Updated Verified No Known Allergies Adverse Reaction Unknown 03/05/17 No Active Scripts Medications Dose Route/Sig Max Daily Dose Days Date Category Vitamin D3 (Cholecalciferol) 1,000 Unit Cap 1,000 Units PO DAILY 03/06/17 Reported Zantac (Ranitidine HCl) 150 Mg Tab 150 Mg PO DAILY 03/06/17 Reported Meclizine (Meclizine HCl) 12.5 Mg Tab 12.5 Mg PO DIRECTED PRN 03/06/17 Reported Megestrol Liq (Megestrol Acetate) 40 Mg/Ml Susp 10 Ml PO BID 03/06/17 Reported Acidophilus Capsule (L. Acidophilus/Pectin, [place]) 7.5 Mg (30 Million Cell)-100 Mg Capsule TID 03/06/17 Reported Eliquis (Apixaban) 5 Mg Tab 5 Mg PO BID 03/06/17 Reported Piperacil-Tazobact 3.375 gm Vl (Piperacillin Sodium/Tazobactam) 3.375 Gram Vial IV Q6HR 03/06/17 Reported Seroquel (Quetiapine Fumarate) 25 Mg Tab 25 Mg PO BID 02/01/17 Reported Hydrocodone-Acetaminophen 5-325 mg Tab 1 Tab PO Q4H PRN 01/13/17 Rx Synthroid (Levothyroxine Sodium) 100 Mcg Tab 100 Mcg PO DAILY@0600 01/09/17 Rx Bisac-Evac Supp (Bisacodyl) 10 Mg Supp 10 Mg RECTAL DAILY PRN 01/09/17 Rx B-12 (Cyanocobalamin) 100 Mcg Tab 100 Mcg PO DAILY 01/09/17 Rx Sennosides 8.6 Mg Tab 17.2 Mg PO HS 01/09/17 Rx Ranitidine (Ranitidine HCl) 150 Mg Tab 150 Mg PO DAILY 01/09/17 Rx Lorazepam 0.5 Mg Tab 0.5 Mg PO Q6H PRN 01/09/17 Rx Citalopram (Citalopram Hydrobromide) 20 Mg Tab 20 Mg PO DAILY 01/09/17 Rx Keppra (Levetiracetam) 500 Mg Tab 500 Mg PO HS 12/31/16 Rx Tylenol (Acetaminophen) 325 Mg Tab 325 Mg PO Q4H PRN 12/09/16 Reported Atorvastatin (Atorvastatin Calcium) 40 Mg Tab 40 Mg PO HS 12/09/16 Reported Family History Unable to obtain Social History Unable to obtain. Resides in a local nursing facility. ([facility]) Review of Systems ROS Unable to obtain ([facility]) GI Exam Vitals I&O Vital Signs Date Time Temp Pulse Resp B/P (MAP) Pulse Ox O2 Delivery O2 Flow Rate FiO2 03/06/17 08:39 98.1 77 18 175/79 (111) 03/06/17 04:38 99.1 96 17 134/71 (92) 96 03/06/17 04:27 03/06/17 04:16 96 16 135/65 (88) 99 Room Air 03/06/17 03:14 97 16 179/77 (111) 99 Room Air 03/06/17 01:19 83 16 186/86 (119) 99 Room Air 03/05/17 22:44 85 16 180/79 (112) 99 Room Air 03/05/17 19:41 100 Room Air 03/05/17 19:36 83 18 165/82 (109) 100 Room Air 03/05/17 19:30 20 03/05/17 18:55 98.7 80 20 210/97 (134) 98 I/O 03/05/17 03/05/17 03/05/17 03/06/17 03/06/17 03/06/17 07:00 15:00 23:00 07:00 15:00 23:00 Intake Total 50 ml Balance 50 ml Intake Oral 50 ml Imaging Last Impressions Chest X-Ray 03/05/171934 Signed Impressions: Service Date/Time: February 19:52 - CONCLUSION: 1. No active disease. Multiple coronary artery stents. Jon Robles MD Abdomen/Pelvis CT 03/05/171934 Signed Impressions: Service Date/Time: February 22:09 - CONCLUSION: 1. Severe rectal constipation. No acute findings compared with February 27. 2. Murphy catheter in decompressed bladder. Stable distal abdominal aortic aneurysm. Stable left adrenal adenoma. Jon Robles MD Laboratory Test 03/05/17 20:02 03/06/17 06:37 White Blood Count 16.9 TH/MM3 18.8 TH/MM3 Red Blood Count 3.55 MIL/MM3 3.65 MIL/MM3 Hemoglobin 10.5 GM/DL 11.1 GM/DL Hematocrit 32.9 % 33.6 % Mean Corpuscular Volume 92.5 FL 92.0 FL Mean Corpuscular Hemoglobin 29.7 PG 30.5 PG Mean Corpuscular Hemoglobin Concent 32.1 % 33.2 % Red Cell Distribution Width 16.8 % 16.7 % Platelet Count 387 TH/MM3 398 TH/MM3 Mean Platelet Volume 7.3 FL 7.8 FL Neutrophils (%) (Auto) 83.9 % 88.7 % Lymphocytes (%) (Auto) 8.7 % 5.5 % Monocytes (%) (Auto) 5.6 % 5.4 % Eosinophils (%) (Auto) 1.5 % 0.2 % Basophils (%) (Auto) 0.3 % 0.2 % Neutrophils # (Auto) 14.2 TH/MM3 16.6 TH/MM3 Lymphocytes # (Auto) 1.5 TH/MM3 1.0 TH/MM3 Monocytes # (Auto) 0.9 TH/MM3 1.0 TH/MM3 Eosinophils # (Auto) 0.3 TH/MM3 0.0 TH/MM3 Basophils # (Auto) 0.1 TH/MM3 0.0 TH/MM3 CBC Comment DIFF FINAL DIFF FINAL Differential Comment Prothrombin Time 11.9 SEC Prothromb Time International Ratio 1.1 RATIO Activated Partial Thromboplast Time 34.8 SEC Urine Color YELLOW Urine Turbidity HAZY Urine pH 5.5 Urine Specific [place] 1.026 Urine Protein 30 mg/dL Urine Glucose (UA) NEG mg/dL Urine Ketones NEG mg/dL Urine Occult Blood LARGE Urine Nitrite NEG Urine Bilirubin NEG Urine Urobilinogen LESS THAN 2.0 MG/DL Urine Leukocyte Esterase MOD Urine RBC 89 /hpf Urine WBC 13 /hpf Urine Squamous Epithelial Cells 2 /hpf Urine Calcium Oxalate Crystals RARE /hpf Urine Amorphous Sediment RARE Urine Bacteria FEW /hpf Urine Mucus FEW /lpf Microscopic Urinalysis Comment CULTURE INDICATED Blood Urea Nitrogen 14 MG/DL 12 MG/DL Creatinine 0.98 MG/DL 1.00 MG/DL Random Glucose 83 MG/DL 108 MG/DL Total Protein 6.2 GM/DL Albumin 2.1 GM/DL Calcium Level 8.5 MG/DL 8.9 MG/DL Alkaline Phosphatase 63 U/L Aspartate Amino Transf (AST/SGOT) 15 U/L Alanine Aminotransferase (ALT/SGPT) 13 U/L Total Bilirubin 0.5 MG/DL Sodium Level 141 MEQ/L 142 MEQ/L Potassium Level 3.9 MEQ/L 3.4 MEQ/L Chloride Level 109 MEQ/L 108 MEQ/L Carbon Dioxide Level 26.4 MEQ/L 23.4 MEQ/L Anion Gap 6 MEQ/L 11 MEQ/L Estimat Glomerular Filtration Rate 55 ML/MIN 53 ML/MIN Lactic Acid Level 1.0 mmol/L Troponin I LESS THAN 0.02 NG/ML Lipase 59 U/L Date/Time Source Procedure Growth Status 03/05/17 20:02 Urine Random Urine Urine Culture - Preliminary NO GROWTH IN 24 HOURS. Resulted Physical Examination HEENT: Normocephalic; atraumatic; no jaundice. CHEST: CTA, shallow/even CARDIAC: RRR ABDOMEN: Soft, nondistended, moderate diffuse tenderness; no hepatosplenomegaly ; bowel sounds are present in all four quadrants. EXTREMITIES: No clubbing, cyanosis, or edema. SKIN: Poor skin turgor SIGNAL OPERATOR TECHNICAL: Alert, confused ([facility]) Assessment and Plan Plan ASSESSMENT: - Fecal impaction, constipation. Of note, she was noted to have a large stool bolus in the rectum on CT from 02/27. CT Scan abdomen and pelvis (03/05/17)---> severe rectal constipation. No acute findings compared with February 27. Will need manual disimpaction, soap suds enemas, and then a good bowel regimen. - Abdominal pain, secondary to above. - Anemia, mild, normocytic. .6 - Dementia, COPD, Hypothyroidism, Hyperlipidemia, CKD, HTN, Sz, Anxiety per attending. PLAN: - Clear liquids - Manually disimpact patient - SSE x 2 - Miralax 17gram po daily - KUB in am - Supportive care - Further recommendations to follow based on results of above - Pt seen and examined by Dr. Love and myself and this note is written on his behalf ([facility]) Physician Comments Seen and examined with MUMTAZ, continue bowel regimen. Colonoscopy if active bleeding. Will follow, Thankyou (Nieves Love MD) [facility] Mar 06, 2017 11:50 Nieves Love MD Mar 06, 2017 14:49
[2017-03-06] MEDS ORDERED: PILL SPLITTER OTHER PRN (12:00)
[2017-03-06] MEDS: CYANOCOBALAMIN 100 MCG TAB PO SCH (12:44)
[2017-03-06] MEDS: METOPROLOL TARTRATE 25 MG TAB PO SCH ×2 (12:44→20:51)
[2017-03-06] MEDS ORDERED: POLYETHYLENE GLYCOL 17 GM PKG PO SCH (13:00)
--- NOTE | 2017-03-06 13:18 | EKG ---
Date Performed: 03/05/2017 Time Performed: 19:02:18 PTAGE: 81 years EKG: Sinus rhythm ABNORMAL ECG Since PREVIOUS TRACING , no significant change noted PREVIOUS TRACING 02/01/2017 DOCTOR: Lio Engel Interpretating Date/Time 03/06/2017 13:15:51
[2017-03-06] MEDS: ATORVASTATIN 40 MG TAB PO SCH (20:51)
[2017-03-06] MEDS: DOCUSATE SODIUM 50 MG/SENNA 8.6 MG TAB PO SCH (20:51)
[2017-03-06] MEDS: FAMOTIDINE 20 MG TAB PO SCH (20:51)
[2017-03-06] MEDS: levETIRAcetam 500 MG TAB PO SCH (20:51)
[2017-03-07] VITALS (11 sets, daily range): BP systolic 130–223; BP diastolic 67–108; PULSE 70–95; RESP 16–20; TEMP 96.1–99.2; O2SAT 85–98
[2017-03-07] MEDS: LEVOTHYROXINE SODIUM 100 MCG TAB PO SCH (05:56)
--- NOTE | 2017-03-07 06:46 | RADRPT ---
EXAM DATE/TIME: 03/07/2017 06:27 [facility] COMPARISON: ABDOMEN KUB ONLY, December 19, 2016, 20:31. INDICATIONS : Evaluate for ileus, followup fecal impaction seen on CT a large amount of stool is again noted in the distal colon projected over the pelvis. MEDICAL HISTORY : Cardiovascular disease. Renal failure, chronic. Diabetes mellitus type 2. SURGICAL HISTORY : Appendectomy. Hysterectomy. ENCOUNTER: Subsequent ACUITY: 2 days PAIN SCORE: Non-responsive. LOCATION: Bilateral Abdomen FINDINGS: Supine view of the abdomen was performed. A moderate to large amount of stool is present in the colon at greatest distally in the region of the pelvis. The colon is not dilated. The No abnormal masses, calcifications, or organomegaly is seen. The osseous structures are unremarkable. CONCLUSION: Moderate to large amount of stool again noted in the distal colon. Maikel Gonzalez MD on March 07, 2017 at 6:43 Board Certified Radiologist. This report was verified electronically.
[2017-03-07 07:19] LABS: BICARBONATE 21.4 MEQ/L (21.0-32.0); POTASSIUM 3.3 MEQ/L (3.5-5.1)
[2017-03-07 07:45] LABS: AUTOMATED NEUTROPHIL # 13.2 TH/MM3 (1.8-7.7); BASOPHIL % 0.2 % (0.0-2.0); EOSINOPHIL % 0.3 % (0.0-4.0); HEMATOCRIT 30.9 % (35.0-46.0); HEMO FLAGS DIFF FINAL; LYMPH % 8.7 % (9.0-44.0); LYMPHOCYTE # 1.4 TH/MM3 (1.0-4.8); MEAN CELL VOLUME 92.1 FL (80.0-100.0); MEAN CORPUSCULAR HEMOGLOBIN 29.5 PG (27.0-34.0); MONO % 6.8 % (0.0-8.0); PLATELET COUNT 400 TH/MM3 (150-450); RED BLOOD COUNT 3.36 MIL/MM3 (4.00-5.30); RED CELL DISTRIBUTION WIDTH 16.7 % (11.6-17.2); WHITE BLOOD COUNT 15.7 TH/MM3 (4.0-11.0)
[2017-03-07] MEDS ORDERED: POTASSIUM CHLORIDE 10 MEQ CONTROLLED RELEASE TAB PO ONE (08:00)
[2017-03-07] MEDS ORDERED: BISACODYL 10 MG SUPP RECTAL ONE ×2 (08:00→15:15)
[2017-03-07] MEDS: FAMOTIDINE 20 MG TAB PO SCH (09:03)
[2017-03-07] MEDS: METOPROLOL TARTRATE 25 MG TAB PO SCH ×2 (09:04→21:00)
[2017-03-07] MEDS: QUEtiapine FUMARATE 25 MG TAB PO SCH ×2 (09:04→21:00)
[2017-03-07] MEDS: DOCUSATE SODIUM 50 MG/SENNA 8.6 MG TAB PO SCH ×2 (09:05→21:00)
[2017-03-07] MEDS: CITALOPRAM HYDROBROMIDE 20 MG TAB PO SCH (09:06)
[2017-03-07] MEDS: CHOLECALCIFEROL (VIT D3) 1000 UNIT TAB PO SCH (09:06)
[2017-03-07] MEDS: POLYETHYLENE GLYCOL 17 GM PKG PO SCH ×2 (09:07→21:00)
[2017-03-07] MEDS: CYANOCOBALAMIN 100 MCG TAB PO SCH (09:07)
[2017-03-07] MEDS: SODIUM CHLORIDE 0.9% FLUSH 10 ML FLUSH IV FLUSH SCH ×2 (09:08→21:22)
[2017-03-07 09:11] LABS: TRANSFERRIN IRON PROFILE 106 MG/DL (200-360)
[2017-03-07 09:13] LABS: FERRITIN 301 NG/ML (8-252)
[2017-03-07] MEDS: POTASSIUM CHLORIDE INJ 10 MEQ in SODIUM CHLOR 0.9% 1000 ML INJ 1,000 ML IV SCH (10:12)
--- NOTE | 2017-03-07 11:34 | HHI.PR ---
Subjective Remarks Patient sleeping, arousable. Not conversant. Not answer any meaningful information. Objective Vital Signs Date Time Temp Pulse Resp B/P (MAP) Pulse Ox O2 Delivery O2 Flow Rate FiO2 03/07/17 06:59 96.1 79 20 170/78 (108) 97 03/06/17 23:30 98.5 94 18 137/63 (87) 97 03/06/17 20:56 98.4 78 18 161/87 (111) 98 03/06/17 15:36 96.1 71 20 182/84 (116) 96 03/06/17 11:51 95.9 88 24 197/89 (125) 97 I/O 03/06/17 03/06/17 03/06/17 03/07/17 03/07/17 03/07/17 07:00 15:00 23:00 07:00 15:00 23:00 Intake Total 50 ml Balance 50 ml Intake Oral 50 ml Result Diagram: 03/07/17 0550 03/07/17 0550 Imaging Last Impressions Abdomen X-Ray 03/07/17 06 Signed Impressions: Service Date/Time: Tuesday, March 07, 2017 06:27 - CONCLUSION: Moderate to large amount of stool again noted in the distal colon. Maikel Gonzalez MD Chest X-Ray 03/05/171934 Signed Impressions: Service Date/Time: February 19:52 - CONCLUSION: 1. No active disease. Multiple coronary artery stents. Jon Robles MD Abdomen/Pelvis CT 03/05/171934 Signed Impressions: Service Date/Time: February 22:09 - CONCLUSION: 1. Severe rectal constipation. No acute findings compared with February 27. 2. Luevano catheter in decompressed bladder. Stable distal abdominal aortic aneurysm. Stable left adrenal adenoma. Jon Robles MD Objective Remarks GENERAL: Lying in bed. Responds to verbal stimuli. No meaningful speech. SKIN: Warm and dry. HEAD: Normocephalic. EYES: No scleral icterus. No injection or drainage. NECK: Supple, trachea midline. CARDIOVASCULAR: Regular rate and rhythm without murmurs, gallops, or rubs. RESPIRATORY: Breath sounds equal bilaterally. No accessory muscle use. GASTROINTESTINAL: Abdomen soft, non-tender, nondistended. MUSCULOSKELETAL: No cyanosis, or edema. BACK: Nontender without obvious deformity. No CVA tenderness. A/P Assessment and Plan Ms. Amado is 81 yo, with history inclusive of constipation, dementia, COPD, GERD, Hypothyroidism, Hyperlipidemia, Essential hypertension, Chronic kidney disease (stage III) arthrosclerotic heart disease. She was seen in [facility] on 02/27/17 and diagnosed with ESBL UTI and placed on Zosyn. Imaging taken at that time indicated a large amount of stool present in her rectum. She returns to [facility] ED on 03/05/17 from her skilled nursing for complaint of lower right quadrant pain that has been present for the past three days. Per the medical record, pt is without fever and has a Luevano catheter. //Obstipation -Rectal bolus present, unable to be digitally disimpacted, diameter 10.5 cm -Enemas ordered -small BM reported -continue with bowel regimen = AP abdomen reviewed from this morning was still large amount of stool present. Discontinue famotidine, replace with PPI. Order Fleet enema. //GIB -patient with passage of maroon colored blood with BM -hold Eliquis for now -NPO -Consult GI -IVF -monitor H/H = Continue to hold Eliquis due to GI bleed. CHADS score of 2, has bled score of 3. //Leukocytosis -suspect due to UTI -CXR personally reviewed, shows no active disease -worsening 16.9 up to 18.8 -patient does not appear septic. She is afebrile. = Lactic acid level within normal limits yesterday. Likely leukocytosis is reactive secondary to constipation. //CAD //HTN, uncontrolled -hx of multiple stent placements -currently on Eliquis - now on hold -start patient on Lopressor 25mg BID -Vasotec 1.25mg IV q6h prn with parameters -continue to monitor BP //Hypokalemia -replete -Magnesium within normal limits. -am labs to monitor response = 03/07. Potassium 3.3. Replaced. Monitor. //s/p recent right proximal femur fracture s/p ORIF 01/06/17 -PT eval /tx. Appreciate assistance. //Advanced dementia //Depression -Continue Seroquel 25 mg po BID -Continue Citalopram 20 mg daily //ESBL UTI -per review of [place] records, 02/23/17 UCX positive for ESBL E Coli sensitive to Zosyn - unclear when treatment was initiated -Discontinued Zosyn 3.375 Gm q 6 hr IV -follow up on urine cx resultsno growth in 48 hours. -consider ID consultation Urinary retention -patient arrived from [place] with luevano catheter -possibly due to severe constipation -Remove Luevano, follow-up urinary function. Seizures -continue on Keppra 500 mg po q hs -obtain Keppra levelstill pending -seizure precautions COPD, not in acute exacerbation -Duonebs as needed -continue to monitor respiratory status Hyperlipidemia -Atorvastatin 40 mg po q hs Hypothyroidism -Levothyroxine 100 mcg po daily. Recent TSH within normal limits. DVT prophylaxis -Apixaban 5 mg po BID - currently on hold secondary to possible GIB -REY/SCDs bilaterally Bernard Shepard MD Mar 07, 2017 11:34
[2017-03-07] MEDS ORDERED: DOCUSATE SODIUM 50 MG/SENNA 8.6 MG TAB PO ONE (12:00)
[2017-03-07] MEDS ORDERED: MAGNESIUM HYDROXIDE SUSP 30 ML CUP PO ONE (12:00)
[2017-03-07] MEDS ORDERED: SOD PHOSPHATE/SOD BIPHOSPHATE (ADULT) ENEMA 133ML RECTAL ONE (12:00)
--- NOTE | 2017-03-07 13:43 | HHI.GIFU ---
GI Follow-up Note Consult Follow-up Subjective: Patient laying in bed comfortably, no new complaints except dementia Objective: PHYSICAL EXAMINATION: Vitals signs stable No fever HEENT: Pupils round and reactive to light; normocephalic; atraumatic; no jaundice. Throat is clear. NECK: Neck is supple, no JVD, no lymphadenopathy. CHEST: Chest is clear to auscultation and percussion. CARDIAC: Regular rate and rhythm with no murmur gallop or rubs. ABDOMEN: Soft, nondistended, nontender; no hepatosplenomegaly; bowel sounds are present in all four quadrants. EXTREMITIES: No clubbing, cyanosis, or edema. SKIN: Normal; no rash; no jaundice. 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 Available Data (labs, X- Rays, Procedues) : Last Impressions Abdomen X-Ray 03/07/17 0600 Signed Impressions: Service Date/Time: Tuesday, March 07, 2017 06:27 - CONCLUSION: Moderate to large amount of stool again noted in the distal colon. Maikel Gonzalez MD Chest X-Ray 03/05/171934 Signed Impressions: Service Date/Time: February 19:52 - CONCLUSION: 1. No active disease. Multiple coronary artery stents. Jon Robles MD Abdomen/Pelvis CT 03/05/171934 Signed Impressions: Service Date/Time: February 22:09 - CONCLUSION: 1. Severe rectal constipation. No acute findings compared with February 27. 2. Murphy catheter in decompressed bladder. Stable distal abdominal aortic aneurysm. Stable left adrenal adenoma. Jon Robles MD Laboratory Tests Test 03/05/17 20:02 03/06/17 06:37 03/06/17 11:57 03/07/17 05:50 White Blood Count 16.9 TH/MM3 18.8 TH/MM3 15.7 TH/MM3 Red Blood Count 3.55 MIL/MM3 3.65 MIL/MM3 3.36 MIL/MM3 Hemoglobin 10.5 GM/DL 11.1 GM/DL 9.9 GM/DL Hematocrit 32.9 % 33.6 % 30.9 % Mean Corpuscular Volume 92.5 FL 92.0 FL 92.1 FL Mean Corpuscular Hemoglobin 29.7 PG 30.5 PG 29.5 PG Mean Corpuscular Hemoglobin Concent 32.1 % 33.2 % 32.0 % Red Cell Distribution Width 16.8 % 16.7 % 16.7 % Platelet Count 387 TH/MM3 398 TH/MM3 400 TH/MM3 Mean Platelet Volume 7.3 FL 7.8 FL 7.5 FL Neutrophils (%) (Auto) 83.9 % 88.7 % 84.0 % Lymphocytes (%) (Auto) 8.7 % 5.5 % 8.7 % Monocytes (%) (Auto) 5.6 % 5.4 % 6.8 % Eosinophils (%) (Auto) 1.5 % 0.2 % 0.3 % Basophils (%) (Auto) 0.3 % 0.2 % 0.2 % Neutrophils # (Auto) 14.2 TH/MM3 16.6 TH/MM3 13.2 TH/MM3 Lymphocytes # (Auto) 1.5 TH/MM3 1.0 TH/MM3 1.4 TH/MM3 Monocytes # (Auto) 0.9 TH/MM3 1.0 TH/MM3 1.1 TH/MM3 Eosinophils # (Auto) 0.3 TH/MM3 0.0 TH/MM3 0.0 TH/MM3 Basophils # (Auto) 0.1 TH/MM3 0.0 TH/MM3 0.0 TH/MM3 CBC Comment DIFF FINAL DIFF FINAL DIFF FINAL Differential Comment Prothrombin Time 11.9 SEC Prothromb Time International Ratio 1.1 RATIO Activated Partial Thromboplast Time 34.8 SEC Urine Color YELLOW Urine Turbidity HAZY Urine pH 5.5 Urine Specific [place] 1.026 Urine Protein 30 mg/dL Urine Glucose (UA) NEG mg/dL Urine Ketones NEG mg/dL Urine Occult Blood LARGE Urine Nitrite NEG Urine Bilirubin NEG Urine Urobilinogen LESS THAN 2.0 MG/DL Urine Leukocyte Esterase MOD Urine RBC 89 /hpf Urine WBC 13 /hpf Urine Squamous Epithelial Cells 2 /hpf Urine Calcium Oxalate Crystals RARE /hpf Urine Amorphous Sediment RARE Urine Bacteria FEW /hpf Urine Mucus FEW /lpf Microscopic Urinalysis Comment CULTURE INDICATED Blood Urea Nitrogen 14 MG/DL 12 MG/DL 18 MG/DL Creatinine 0.98 MG/DL 1.00 MG/DL 0.85 MG/DL Random Glucose 83 MG/DL 108 MG/DL 84 MG/DL Total Protein 6.2 GM/DL Albumin 2.1 GM/DL Calcium Level 8.5 MG/DL 8.9 MG/DL 9.1 MG/DL Alkaline Phosphatase 63 U/L Aspartate Amino Transf (AST/SGOT) 15 U/L Alanine Aminotransferase (ALT/SGPT) 13 U/L Total Bilirubin 0.5 MG/DL Sodium Level 141 MEQ/L 142 MEQ/L 139 MEQ/L Potassium Level 3.9 MEQ/L 3.4 MEQ/L 3.3 MEQ/L Chloride Level 109 MEQ/L 108 MEQ/L 107 MEQ/L Carbon Dioxide Level 26.4 MEQ/L 23.4 MEQ/L 21.4 MEQ/L Anion Gap 6 MEQ/L 11 MEQ/L 11 MEQ/L Estimat Glomerular Filtration Rate 55 ML/MIN 53 ML/MIN 64 ML/MIN Lactic Acid Level 1.0 mmol/L 1.5 mmol/L Troponin I LESS THAN 0.02 NG/ML Lipase 59 U/L Magnesium Level 1.9 MG/DL 2.0 MG/DL Levetiracetam (Keppra) Level 24.6 mcg/mL Phosphorus Level 2.9 MG/DL Iron Level 14 MCG/DL Total Iron Binding Capacity 148 MCG/DL Percent Iron Saturation 9.4 % Ferritin 301 NG/ML Test 03/07/17 12:05 25-Hydroxy Vitamin D Total 22.5 ng/ML Allergies Coded Allergies Type Severity Reaction Last Updated Verified No Known Allergies Adverse Reaction Unknown 03/05/17 No Active Scripts Medications Dose Route/Sig Max Daily Dose Days Date Category Vitamin D3 (Cholecalciferol) 1,000 Unit Cap 1,000 Units PO DAILY 03/06/17 Reported Zantac (Ranitidine HCl) 150 Mg Tab 150 Mg PO DAILY 03/06/17 Reported Meclizine (Meclizine HCl) 12.5 Mg Tab 12.5 Mg PO DIRECTED PRN 03/06/17 Reported Megestrol Liq (Megestrol Acetate) 40 Mg/Ml Susp 10 Ml PO BID 03/06/17 Reported Acidophilus Capsule (L. Acidophilus/Pectin, [place]) 7.5 Mg (30 Million Cell)-100 Mg Capsule TID 03/06/17 Reported Eliquis (Apixaban) 5 Mg Tab 5 Mg PO BID 03/06/17 Reported Piperacil-Tazobact 3.375 gm Vl (Piperacillin Sodium/Tazobactam) 3.375 Gram Vial IV Q6HR 03/06/17 Reported Seroquel (Quetiapine Fumarate) 25 Mg Tab 25 Mg PO BID 02/01/17 Reported Hydrocodone-Acetaminophen 5-325 mg Tab 1 Tab PO Q4H PRN 01/13/17 Rx Synthroid (Levothyroxine Sodium) 100 Mcg Tab 100 Mcg PO DAILY@0600 01/09/17 Rx Bisac-Evac Supp (Bisacodyl) 10 Mg Supp 10 Mg RECTAL DAILY PRN 01/09/17 Rx B-12 (Cyanocobalamin) 100 Mcg Tab 100 Mcg PO DAILY 01/09/17 Rx Sennosides 8.6 Mg Tab 17.2 Mg PO HS 01/09/17 Rx Ranitidine (Ranitidine HCl) 150 Mg Tab 150 Mg PO DAILY 01/09/17 Rx Lorazepam 0.5 Mg Tab 0.5 Mg PO Q6H PRN 01/09/17 Rx Citalopram (Citalopram Hydrobromide) 20 Mg Tab 20 Mg PO DAILY 01/09/17 Rx Keppra (Levetiracetam) 500 Mg Tab 500 Mg PO HS 12/31/16 Rx Tylenol (Acetaminophen) 325 Mg Tab 325 Mg PO Q4H PRN 12/09/16 Reported Atorvastatin (Atorvastatin Calcium) 40 Mg Tab 40 Mg PO HS 12/09/16 Reported ASSESSMENT/PLAN: Seen and examined, no active bleeding reported. Continue aggressive bowel regimen. ? need for colonoscopy in this elderly demented lady. It was a pleasure seeing Maureen Amado. Thank you for this consult. Entered by: Nieves Holguin MD Mar 07, 2017 13:42
[2017-03-07] MEDS ORDERED: MAGNESIUM CITRATE SOLN 300 ML BTL PO ONE (15:15)
[2017-03-07] MEDS: ATORVASTATIN 40 MG TAB PO SCH (21:00)
[2017-03-07] MEDS: levETIRAcetam 500 MG TAB PO SCH (21:00)
[2017-03-07] MEDS: POTASSIUM CHLORIDE 25 MEQ EFFERVESCENT TAB NG SCH (21:00)
[2017-03-07] MEDS: ENALAPRILAT 1.25 MG/ML VIAL IV PUSH PRN (21:22)
[2017-03-07] MEDS ORDERED: levETIRAcetam INJ 500 MG in SODIUM CHLORIDE 0.9% INJ 100 ML IV ONE (21:45)
[2017-03-07] MEDS ORDERED: METOPROLOL TARTRATE 5 MG/5 ML VIAL IV PUSH ONE (22:00)
[2017-03-08] VITALS (16 sets, daily range): BP systolic 136–198; BP diastolic 63–95; PULSE 69–86; RESP 16–20; TEMP 97.1–100.5; O2SAT 96–97
[2017-03-08] MEDS ORDERED: ACETAMINOPHEN 325 MG SUPP RECTAL ONE (03:15)
[2017-03-08] MEDS: POTASSIUM CHLORIDE INJ 10 MEQ in SODIUM CHLOR 0.9% 1000 ML INJ 1,000 ML IV SCH ×2 (04:10→22:53)
[2017-03-08 04:12] LABS: BASOPHIL % 0.2 % (0.0-2.0); HEMATOCRIT 27.9 % (35.0-46.0); HEMO FLAGS DIFF FINAL; LYMPH % 8.5 % (9.0-44.0); LYMPHOCYTE # 1.2 TH/MM3 (1.0-4.8); MEAN CELL VOLUME 90.5 FL (80.0-100.0); MEAN CORPUSCULAR HEMOGLOBIN 30.5 PG (27.0-34.0); MEAN CORPUSCULAR HGB CONC 33.7 % (32.0-36.0); MONO % 7.2 % (0.0-8.0); NEUT % 84.1 % (16.0-70.0); PLATELET COUNT 374 TH/MM3 (150-450); RED BLOOD COUNT 3.08 MIL/MM3 (4.00-5.30); RED CELL DISTRIBUTION WIDTH 16.5 % (11.6-17.2); WHITE BLOOD COUNT 14.2 TH/MM3 (4.0-11.0)
[2017-03-08 04:30] LABS: MAGNESIUM 2.4 MG/DL (1.5-2.5); POTASSIUM 3.7 MEQ/L (3.5-5.1)
[2017-03-08] MEDS: LEVOTHYROXINE SODIUM 100 MCG TAB PO SCH (04:53)
--- NOTE | 2017-03-08 08:29 | RADRPT ---
EXAM DATE/TIME: 03/08/2017 07:54 [facility] COMPARISON: CHEST SINGLE AP, March 05, 2017, 19:52. INDICATIONS : Fever MEDICAL HISTORY : Cardiovascular disease. Renal failure, chronic. Diabetes mellitus type 2. SURGICAL HISTORY : Appendectomy. Hysterectomy ENCOUNTER: Subsequent ACUITY: 3 days PAIN SCORE: Non-responsive. LOCATION: chest FINDINGS: A single view of the chest demonstrates the lungs to be symmetrically aerated without evidence of mas s, infiltrate or effusion. The cardiomediastinal contours are unremarkable. The osseous structures are intact. Mild patient rotation towards the left.. CONCLUSION: The lungs are clear. Shayne Rea MD on March 08, 2017 at 8:27 Board Certified Radiologist. This report was verified electronically.
--- NOTE | 2017-03-08 08:30 | RADRPT ---
EXAM DATE/TIME: 03/08/2017 07:57 [facility] COMPARISON: ABDOMEN KUB ONLY, March 07, 2017, 6:27. INDICATIONS : Distention MEDICAL HISTORY : Cardiovascular disease. Renal failure, chronic. Diabetes mellitus type 2. SURGICAL HISTORY : Appendectomy. Hysterectomy ENCOUNTER: Subsequent ACUITY: 3 days PAIN SCORE: Non-responsive. LOCATION: [place] FINDINGS: Supine view of the abdomen was performed. No dilated loops of small bowel. Gas is seen throughout t he colon.. No abnormal masses, calcifications, or organomegaly is seen. Vascular stents in the [place] l arteries, aorta and iliac vessels. The visualized lower lungs are clear. The osseous structures a re unremarkable. CONCLUSION: No dilated loops of small or large bowel. Shayne Rea MD on March 08, 2017 at 8:27 Board Certified Radiologist. This report was verified electronically.
[2017-03-08 08:35] LABS: BACTERIA, URINE FEW /hpf; BLOOD, URINE TRACE (NEG); COMMENT (UR) CULTURE INDICATED; CULTURE IF INDICATED CULTURE INDICATED; GLUCOSE,URINE NEG (NEG); KETONE, URINE NEG (NEG); MUCUS URINE FEW /lpf (OCC); NITRITE,URINE NEG (NEG); SQUAMOUS EPITHELIAL CELL URINE <1 /hpf (0-5); URINE COLOR YELLOW (YELLW/STRAW)
[2017-03-08] MEDS: POLYETHYLENE GLYCOL 17 GM PKG PO SCH ×2 (09:00→22:55)
[2017-03-08] MEDS: SODIUM CHLORIDE 0.9% FLUSH 10 ML FLUSH IV FLUSH SCH ×2 (09:00→21:00)
[2017-03-08] MEDS: DOCUSATE SODIUM 50 MG/SENNA 8.6 MG TAB PO SCH ×2 (09:00→22:55)
[2017-03-08] MEDS: QUEtiapine FUMARATE 25 MG TAB PO SCH ×2 (10:31→22:55)
[2017-03-08] MEDS: POTASSIUM CHLORIDE 25 MEQ EFFERVESCENT TAB NG SCH ×2 (10:31→22:54)
[2017-03-08] MEDS: CYANOCOBALAMIN 100 MCG TAB PO SCH (10:31)
[2017-03-08] MEDS: PANTOPRAZOLE SOD 20 MG DELAYED RELEASE TAB PO SCH (10:31)
[2017-03-08] MEDS: CHOLECALCIFEROL (VIT D3) 1000 UNIT TAB PO SCH (10:31)
[2017-03-08] MEDS: METOPROLOL TARTRATE 25 MG TAB PO SCH ×2 (10:32→22:54)
[2017-03-08] MEDS: CITALOPRAM HYDROBROMIDE 20 MG TAB PO SCH (10:32)
--- NOTE | 2017-03-08 13:14 | HHI.GIFU ---
GI Follow-up Note Consult Follow-up Subjective: Patient laying in bed comfortably, no new complaints except pleasantly demented Objective: PHYSICAL EXAMINATION: Vitals signs stable No fever HEENT: Pupils round and reactive to light; normocephalic; atraumatic; no jaundice. Throat is clear. NECK: Neck is supple, no JVD, no lymphadenopathy. CHEST: Chest is clear to auscultation and percussion. CARDIAC: Regular rate and rhythm with no murmur gallop or rubs. ABDOMEN: Soft, nondistended, nontender; no hepatosplenomegaly; bowel sounds are present in all four quadrants. EXTREMITIES: No clubbing, cyanosis, or edema. SKIN: Normal; no rash; no jaundice. FLY FRAME TENDER: No focal deficits; alert and oriented times three. Available Data (labs, X- Rays, Procedues) : Last Impressions Abdomen X-Ray 03/08/17 0800 Signed Impressions: Service Date/Time: Wednesday, March 08, 2017 07:57 - CONCLUSION: No dilated loops of small or large bowel. Shayne Rea MD Chest X-Ray 03/08/17 0000 Signed Impressions: Service Date/Time: Wednesday, March 08, 2017 07:54 - CONCLUSION: The lungs are clear. Shayne Rea MD Abdomen/Pelvis CT 03/05/17 1935 Signed Impressions: Service Date/Time: February 22:09 - CONCLUSION: 1. Severe rectal constipation. No acute findings compared with February 27. 2. Murphy catheter in decompressed bladder. Stable distal abdominal aortic aneurysm. Stable left adrenal adenoma. Jon Robles MD Laboratory Tests Test 03/07/17 05:50 03/07/17 12:05 03/08/17 03:48 03/08/17 07:59 White Blood Count 15.7 TH/MM3 14.2 TH/MM3 Red Blood Count 3.36 MIL/MM3 3.08 MIL/MM3 Hemoglobin 9.9 GM/DL 9.4 GM/DL Hematocrit 30.9 % 27.9 % Mean Corpuscular Volume 92.1 FL 90.5 FL Mean Corpuscular Hemoglobin 29.5 PG 30.5 PG Mean Corpuscular Hemoglobin Concent 32.0 % 33.7 % Red Cell Distribution Width 16.7 % 16.5 % Platelet Count 400 TH/MM3 374 TH/MM3 Mean Platelet Volume 7.5 FL 7.3 FL Neutrophils (%) (Auto) 84.0 % 84.1 % Lymphocytes (%) (Auto) 8.7 % 8.5 % Monocytes (%) (Auto) 6.8 % 7.2 % Eosinophils (%) (Auto) 0.3 % 0.0 % Basophils (%) (Auto) 0.2 % 0.2 % Neutrophils # (Auto) 13.2 TH/MM3 12.0 TH/MM3 Lymphocytes # (Auto) 1.4 TH/MM3 1.2 TH/MM3 Monocytes # (Auto) 1.1 TH/MM3 1.0 TH/MM3 Eosinophils # (Auto) 0.0 TH/MM3 0.0 TH/MM3 Basophils # (Auto) 0.0 TH/MM3 0.0 TH/MM3 CBC Comment DIFF FINAL DIFF FINAL Differential Comment Blood Urea Nitrogen 18 MG/DL 19 MG/DL Creatinine 0.85 MG/DL 0.82 MG/DL Random Glucose 84 MG/DL 99 MG/DL Calcium Level 9.1 MG/DL 8.5 MG/DL Magnesium Level 2.0 MG/DL 2.4 MG/DL Sodium Level 139 MEQ/L 142 MEQ/L Potassium Level 3.3 MEQ/L 3.7 MEQ/L Chloride Level 107 MEQ/L 111 MEQ/L Carbon Dioxide Level 21.4 MEQ/L 25.0 MEQ/L Anion Gap 11 MEQ/L 6 MEQ/L Estimat Glomerular Filtration Rate 64 ML/MIN 67 ML/MIN Phosphorus Level 2.9 MG/DL 1.9 MG/DL Iron Level 14 MCG/DL Total Iron Binding Capacity 148 MCG/DL Percent Iron Saturation 9.4 % Ferritin 301 NG/ML 25-Hydroxy Vitamin D Total 22.5 ng/ML Albumin 1.7 GM/DL Urine Color YELLOW Urine Turbidity HAZY Urine pH 7.0 Urine Specific Mead 1.022 Urine Protein 30 mg/dL Urine Glucose (UA) NEG mg/dL Urine Ketones NEG mg/dL Urine Occult Blood TRACE Urine Nitrite NEG Urine Bilirubin NEG Urine Urobilinogen 2.0 MG/DL Urine Leukocyte Esterase SMALL Urine RBC 12 /hpf Urine WBC 8 /hpf Urine Squamous Epithelial Cells <1 /hpf Urine Amorphous Sediment FEW Urine Bacteria FEW /hpf Urine Mucus FEW /lpf Microscopic Urinalysis Comment CULTURE INDICATED Test 03/08/17 10:38 Lactic Acid Level 0.9 mmol/L Allergies Coded Allergies Type Severity Reaction Last Updated Verified No Known Allergies Adverse Reaction Unknown 03/05/17 No Active Scripts Medications Dose Route/Sig Max Daily Dose Days Date Category Vitamin D3 (Cholecalciferol) 1,000 Unit Cap 1,000 Units PO DAILY 03/06/17 Reported Zantac (Ranitidine HCl) 150 Mg Tab 150 Mg PO DAILY 03/06/17 Reported Meclizine (Meclizine HCl) 12.5 Mg Tab 12.5 Mg PO DIRECTED PRN 03/06/17 Reported Megestrol Liq (Megestrol Acetate) 40 Mg/Ml Susp 10 Ml PO BID 03/06/17 Reported Acidophilus Capsule (L. Acidophilus/Pectin, Lares) 7.5 Mg (30 Million Cell)-100 Mg Capsule TID 03/06/17 Reported Eliquis (Apixaban) 5 Mg Tab 5 Mg PO BID 03/06/17 Reported Piperacil-Tazobact 3.375 gm Vl (Piperacillin Sodium/Tazobactam) 3.375 Gram Vial IV Q6HR 03/06/17 Reported Seroquel (Quetiapine Fumarate) 25 Mg Tab 25 Mg PO BID 02/01/17 Reported Hydrocodone-Acetaminophen 5-325 mg Tab 1 Tab PO Q4H PRN 01/13/17 Rx Synthroid (Levothyroxine Sodium) 100 Mcg Tab 100 Mcg PO DAILY@0600 01/09/17 Rx Bisac-Evac Supp (Bisacodyl) 10 Mg Supp 10 Mg RECTAL DAILY PRN 01/09/17 Rx B-12 (Cyanocobalamin) 100 Mcg Tab 100 Mcg PO DAILY 01/09/17 Rx Sennosides 8.6 Mg Tab 17.2 Mg PO HS 01/09/17 Rx Ranitidine (Ranitidine HCl) 150 Mg Tab 150 Mg PO DAILY 01/09/17 Rx Lorazepam 0.5 Mg Tab 0.5 Mg PO Q6H PRN 01/09/17 Rx Citalopram (Citalopram Hydrobromide) 20 Mg Tab 20 Mg PO DAILY 01/09/17 Rx Keppra (Levetiracetam) 500 Mg Tab 500 Mg PO HS 12/31/16 Rx Tylenol (Acetaminophen) 325 Mg Tab 325 Mg PO Q4H PRN 12/09/16 Reported Atorvastatin (Atorvastatin Calcium) 40 Mg Tab 40 Mg PO HS 12/09/16 Reported ASSESSMENT/PLAN: Seen and examined, some response to aggressive bowel regimen but still with a lot of stools in the rectum on KUB. 1 bottle of mag citrate po today. Discussed with daughter and DR. Shepard at the bedside, decompression colonoscopy planned for tomorrow. Risks discussed with daughter. It was a pleasure seeing Maureen Amado. Thank you for this consult. Entered by: Nieves Holguin MD Mar 08, 2017 13:14
[2017-03-08] MEDS ORDERED: SODIUM CHLORID 0.9% 500 ML INJ 500 ML IV ONE (13:15)
[2017-03-08] MEDS ORDERED: MAGNESIUM CITRATE SOLN 300 ML BTL PO ONE (13:15)
--- NOTE | 2017-03-08 13:23 | HHI.PR ---
Subjective Remarks Patient seen this morning, as well as this afternoon. Awake, alert. Does not answer any meaningful questions. Succuss without his afternoon. This is her baseline mentation. Discussed constipation with daughter. Daughter would like to continue aggressive medical management. Objective Vital Signs Date Time Temp Pulse Resp B/P (MAP) Pulse Ox O2 Delivery O2 Flow Rate FiO2 03/08/17 11:23 97.9 74 16 142/63 (89) 96 03/08/17 10:27 98.0 74 20 160/73 (102) 96 03/08/17 08:05 168/78 (108) 03/08/17 08:00 69 03/08/17 07:02 100.2 77 18 198/95 (129) 96 03/08/17 05:30 70 156/67 (96) 03/08/17 05:14 100.2 03/08/17 04:00 76 03/08/17 02:56 100.5 80 16 136/69 (91) 97 03/08/17 00:58 165/77 (106) 03/08/17 00:56 99.8 86 16 181/83 (115) 03/08/17 00:53 86 180/78 (112) 96 03/07/17 23:52 85 160/68 (98) 97 03/07/17 23:38 83 03/07/17 23:22 99.2 87 16 173/79 (110) 98 03/07/17 21:56 91 16 184/77 (112) 03/07/17 21:50 145/78 (100) 03/07/17 21:19 16 223/100 (141) 95 03/07/17 20:25 98.7 95 18 184/108 (133) 95 03/07/17 15:44 98.1 74 18 151/67 (95) 96 I/O 03/07/17 03/07/17 03/07/17 03/08/17 03/08/17 03/08/17 07:00 15:00 23:00 07:00 15:00 23:00 Bladder Scan Volume Amount 98 ml Result Diagram: 03/08/17 0348 03/08/17347 Objective Remarks GENERAL: Lying in bed. Responds to verbal stimuli. No meaningful speech as before. SKIN: Warm and dry. HEAD: Normocephalic. EYES: No scleral icterus. No injection or drainage. NECK: Supple, trachea midline. CARDIOVASCULAR: Regular rate and rhythm without murmurs, gallops, or rubs. RESPIRATORY: Breath sounds equal bilaterally. No accessory muscle use. GASTROINTESTINAL: Abdomen with suprapubic mass as yesterday. No tenderness MUSCULOSKELETAL: No cyanosis, or edema. BACK: Nontender without obvious deformity. No CVA tenderness. A/P Assessment and Plan Ms. Amado is 81 yo, with history inclusive of constipation, dementia, COPD, GERD, Hypothyroidism, Hyperlipidemia, Essential hypertension, Chronic kidney disease (stage III) arthrosclerotic heart disease. She was seen in [facility] [place] on 02/27/17 and diagnosed with ESBL UTI and placed on Zosyn. Imaging taken at that time indicated a large amount of stool present in her rectum. She returns to [facility] [place] [facility] on 03/05/17 [facility] her [facility] for complaint of lower right quadrant pain that has been present for the past three days. Per the medical record, pt is without fever and has a Luevano catheter. 03/08 update. Patient is being treated unsuccessfully for large impacted stool. Did have fever overnight, which may be secondary to stercoral colitis. Starting antibiotics. GI planning for therapeutic colonoscopy tomorrow area //Obstipation -Rectal bolus present, unable to be digitally disimpacted, diameter 10.5 cm -Enemas ordered -small BM reported -continue with bowel regimen = AP abdomen reviewed from this morning was still large amount of stool present. Discontinue famotidine, replace with PPI. Order Fleet enema. = 03/08. Discussed with gastroenterology. Discussed with daughter. Gastroenterology will go ahead with colonoscopy tomorrow to breakup constipation. //GIB -patient with passage of maroon colored blood with BM -hold Eliquis for now -NPO -Consult GI -IVF -monitor H/H = Continue to hold Eliquis due to GI bleed. CHADS score of 2, has bled score of 3. //Sepsis -03/08. Leukocytosis 14. Fever 100.5 last night. Negative chest x-ray. With large impacted stool, suspect stercoral colitis. Lactate 0.9. Blood and urine cultures ordered and pending. We'll start IV Levaquin and Metronidazole. //CAD //HTN, uncontrolled -hx of multiple stent placements -currently on Eliquis - now on hold -start patient on Lopressor 25mg BID -Vasotec 1.25mg IV q6h prn with parameters -continue to monitor BP //Hypokalemia -replete -Magnesium within normal limits. -am labs to monitor response = 03/08. Potassium 37. resolved after replacement. Continue to monitor //s/p recent right proximal femur fracture s/p ORIF 01/06/17 -PT eval /tx. Appreciate assistance. //Advanced dementia //Depression -Continue Seroquel 25 mg po BID -Continue Citalopram 20 mg daily //ESBL UTI- resolved. -per review of [place] records, 02/23/17 UCX positive for ESBL E Coli sensitive to Zosyn - unclear when treatment was initiated -Discontinued Zosyn 3.375 Gm q 6 hr IV -follow up on urine cx resultsno growth in 48 hours. - resolved. //Urinary retention -patient arrived from [place] with luevano catheter -possibly due to severe constipation -03/08. Luevano replaced yesterday secondary to retention. Continue with Luevano in place. //Seizures -continue on Keppra 500 mg po q hs -obtain Keppra levelstill pending -seizure precautions //COPD, not in acute exacerbation -Duonebs as needed -continue to monitor respiratory status //Hyperlipidemia -Atorvastatin 40 mg po q hs //Hypothyroidism -Levothyroxine 100 mcg po daily. Recent TSH within normal limits. //DVT prophylaxis -Apixaban 5 mg po BID - currently on hold secondary to possible GIB -REY/SCDs bilaterally Discharge Planning Will be admitted. Plan for colonoscopy tomorrow. Bernard Shepard MD Mar 08, 2017 13:23
[2017-03-08] MEDS ORDERED: LEVOFLOXACIN 750 MG PREMIX INJ 150 ML IV ONE (14:00)
[2017-03-08] MEDS ORDERED: POTASSIUM PHOSPHATE INJ 15 MMOL in SODIUM CHLORIDE 0.9% INJ 150 ML IV ONE (15:00)
[2017-03-08] MEDS: metroNIDAZOLE 250 MG INJ 50 ML IV SCH ×2 (16:58→22:55)
[2017-03-08] MEDS: ATORVASTATIN 40 MG TAB PO SCH (22:54)
[2017-03-08] MEDS: levETIRAcetam 500 MG TAB PO SCH (22:55)
[2017-03-09] VITALS (8 sets, daily range): BP systolic 132–185; BP diastolic 61–84; PULSE 63–71; RESP 16–18; TEMP 96.2–100.1; O2SAT 94–100
[2017-03-09] MEDS ORDERED: LACTATED RINGER'S 1000 ML IV PRN (00:45)
[2017-03-09] MEDS: metroNIDAZOLE 250 MG INJ 50 ML IV SCH ×3 (04:59→23:00)
[2017-03-09] MEDS: LEVOTHYROXINE SODIUM 100 MCG TAB PO SCH (06:14)
[2017-03-09] MEDS: POLYETHYLENE GLYCOL 17 GM PKG PO SCH ×2 (07:45→22:51)
[2017-03-09] MEDS: DOCUSATE SODIUM 50 MG/SENNA 8.6 MG TAB PO SCH ×2 (07:45→22:52)
[2017-03-09] MEDS: POTASSIUM CHLORIDE 25 MEQ EFFERVESCENT TAB NG SCH ×2 (07:46→22:53)
[2017-03-09] MEDS: SODIUM CHLORIDE 0.9% FLUSH 10 ML FLUSH IV FLUSH SCH ×2 (07:46→22:53)
[2017-03-09] MEDS: CYANOCOBALAMIN 100 MCG TAB PO SCH (07:47)
[2017-03-09] MEDS: PANTOPRAZOLE SOD 20 MG DELAYED RELEASE TAB PO SCH (07:47)
[2017-03-09] MEDS: METOPROLOL TARTRATE 25 MG TAB PO SCH ×2 (09:00→22:53)
[2017-03-09] MEDS: QUEtiapine FUMARATE 25 MG TAB PO SCH ×2 (09:00→22:51)
[2017-03-09] MEDS: POTASSIUM CHLORIDE INJ 10 MEQ in SODIUM CHLOR 0.9% 1000 ML INJ 1,000 ML IV SCH ×2 (10:34→23:01)
--- NOTE | 2017-03-09 10:48 | GIPROC ---
[facility] [address] [facility]. [facility], [address] COLONOSCOPY PROCEDURE REPORT EXAM DATE: 03/09/2017 PATIENT NAME: Maureen Amado MR #: [id number] BIRTHDATE: 1935 ENDOSCOPIST: Patty Mustafa MD ORDER #: [id number] PROTOTYPE SEWER: Gilberto Garnett and Coretta Solano STATUS: inpatient INDICATIONS: The patient is a 81 yr old female here for a colonoscopy due to fecal impaction PROCEDURE PERFORMED: flexisigmoidoscopy with biopsy and disimpaction MEDICATIONS: None and Per Anesthesia. PREP QUALITY: poor PREP TYPE:Other: ESTIMATED BLOOD LOSS: None CONSENT: The patient understands the risks and benefits of the procedure and understands that these risks include, but are not limited to: sedation, allergic reaction, infection, perforation and/or bleeding. Alternative means of evaluation and treatment include, among others: physical exam, x-rays, and/or surgical intervention. The patient elects to proceed with this endoscopic procedure. medical equipment was checked for proper function. Hand hygiene and appropriate measures for infection prevention was taken. After the risks, benefits and alternatives of the procedure were thoroughly explained, Informed consent was verified, confirmed and timeout was successfully executed by the treatment team. A digital exam stool, external hemorrhoids, decreased anal tone The Pentax [id number] endoscope was introduced through the anus and advanced to the descending colon. The instrument was then slowly withdrawn as the colon was fully examined. COLON FINDINGS: Large amount of stool in rectum and sigmoid, agressive washing done , manual disimpaction done multiple large deep ulcers in rectum and rectosigmoid area-biopsy from a small ulcer indurated rectal mucosa high risk for perforation. Retroflexed views revealed internal hemorrhoids and Retroflexed views revealed medium internal hemorrhoids The scope was then completely withdrawn from the patient and the procedure terminated. ADVERSE EVENTS: There were no complications. IMPRESSIONS: 1. Large amount of stool in rectum and sigmoid, agressive washing done , manual disimpaction done multiple large deep ulcers in rectum and rectosigmoid area-biopsy from a small ulcer indurated rectal mucosa high risk for perforation 2. Retroflexed views revealed internal hemorrhoids 3. Retroflexed views revealed medium internal hemorrhoids 4. Stool, external hemorrhoids, decreased anal tone RECOMMENDATIONS: Clear liquid diet if ok with speech theraphy fu biopsy Canasa supp Dulcolax supp consult colorectal-colostomy ? RECALL: Return 4 weeks Flexible Sigmoidoscopy Patty Mustafa MD eSigned: Patty Mustafa MD 03/09/2017 10:47 AM cc: PATIENT NAME: Maureen Amado Erick MR#: [id number]
[2017-03-09] MEDS ORDERED: DO NOT ADM ANY ANTICOAGULANT DRUGS PRN (11:15)
[2017-03-09] MEDS ORDERED: LIDOCAINE HCL 1% PF 5 ML SYRINGE OTHER ONE (12:00)
[2017-03-09] MEDS ORDERED: PROPOFOL 200 MG/20 ML AMP IV ONE (12:00)
--- NOTE | 2017-03-09 12:23 | HHI.PR ---
Subjective Remarks Follow up on patient with constipation/obstipation. Patient seen and examined. Patient appears comfortable. Daughter Carol at the bedside. Lengthy discussion with daughter regarding colonoscopy findings. She would like to discuss further with Colorectal surgeon which has already been consulted by Dr. Mustafa. Objective Vitals Vital Signs Date Time Temp Pulse Resp B/P (MAP) Pulse Ox O2 Delivery O2 Flow Rate FiO2 03/09/17 10:46 97.4 60 20 188/87 (120) 97 Nasal Cannula 2 Manual Cuff/Auscultation 03/09/17 08:34 97.4 03/09/17 08:00 100.1 66 18 181/84 (116) 99 03/09/17 04:45 96.2 63 18 135/66 (89) 94 03/09/17 00:14 98.5 71 18 145/71 (95) 97 03/08/17 20:40 98.2 72 16 141/74 (96) 96 03/08/17 16:15 97.1 69 18 150/67 (94) 96 03/08/17 16:05 75 03/08/17 12:15 74 I/O 03/08/17 03/08/17 03/08/17 03/09/17 03/09/17 03/09/17 07:00 15:00 23:00 07:00 15:00 23:00 Intake Total 500 ml 750 ml 405 ml 300 ml Output Total 800 ml Balance 500 ml 750 ml -395 ml 300 ml IV Total 500 ml 750 ml 405 ml Other 300 ml Output Urine Total 800 ml # Bowel Movements 3 Result Diagram: 03/08/17 0348 03/08/17 0348 Imaging Last Impressions Abdomen X-Ray 03/08/17 0800 Signed Impressions: Service Date/Time: Wednesday, March 08, 2017 07:57 - CONCLUSION: No dilated loops of small or large bowel. Shayne Rea MD Chest X-Ray 03/08/17 0000 Signed Impressions: Service Date/Time: Wednesday, March 08, 2017 07:54 - CONCLUSION: The lungs are clear. Shayne Rea MD Abdomen/Pelvis CT 03/05/17 1935 Signed Impressions: Service Date/Time: February 22:09 - CONCLUSION: 1. Severe rectal constipation. No acute findings compared with February 27. 2. Luevano catheter in decompressed bladder. Stable distal abdominal aortic aneurysm. Stable left adrenal adenoma. Jon Robles MD Objective Remarks GENERAL: This is a frail appearing female, well-developed, in no apparent distress. Awake. Confused. Appears comfortable. Daughter is at the bedside. SKIN: Warm and dry. HEAD: Atraumatic. Normocephalic. EYES: Extraocular motions intact. No scleral icterus. No injection or drainage. ENT: Nose without bleeding or purulent drainage. Airway patent. Dry mucus membranes. NECK: Trachea midline. CARDIOVASCULAR: Tachycardic, regular without murmurs, gallops, or rubs. RESPIRATORY: Clear to auscultation but poor effort noted. Breath sounds equal bilaterally. No wheezes, rales, or rhonchi. GASTROINTESTINAL: Abdomen soft, nondistended. Nontender to palpation. No hepato -splenomegaly or guarding. GENITOURINARY: Luevano catheter in place with yellow urine in the bag. MUSCULOSKELETAL: Extremities without clubbing, cyanosis, or edema. NEUROLOGICAL: Confused. Severe dementia. Able to move all extremities spontaneously. Minimal verbalization. Medications and IVs Current Medications Medications (Trade) Dose Ordered Sig/Skyla Route Start Time Stop Time Status Last Admin (NS Flush) 2 ml UNSCH PRN IV FLUSH 03/06/17 02:15 (NS Flush) 2 ml BID IV FLUSH 03/06/17 09:00 03/07/17 21:22 (Tylenol) 650 mg Q4H PRN PO 03/06/17 02:15 (Zofran Inj) 4 mg Q6H PRN IVP 03/06/17 02:15 (Narcan Inj) 0.4 mg UNSCH PRN IV PUSH 03/06/17 02:15 (Milk Of Magnesia Liq) 30 ml Q12H PRN PO 03/06/17 02:15 (Senokot) 17.2 mg Q12H PRN PO 03/06/17 02:15 (Dulcolax Supp) 10 mg DAILY PRN RECTAL 03/06/17 02:15 (Lactulose Liq) 30 ml DAILY PRN PO 03/06/17 02:15 (Eliquis) 5 mg BID PO 03/06/17 09:00 Future Hold 03/06/17 08:08 (Lipitor) 40 mg HS PO 03/06/17 21:00 03/08/17 22:54 (Vitamin D3) 1,000 units DAILY PO 03/06/17 09:00 03/08/17 10:31 (CeleXA) 20 mg DAILY PO 03/06/17 09:00 03/08/17 10:32 (Vitamin B12) 100 mcg DAILY PO 03/06/17 09:00 03/08/17 10:31 (Keppra) 500 mg HS PO 03/06/17 21:00 03/08/17 22:55 (Synthroid) 100 mcg DAILY@0700 PO 03/06/17 07:00 03/07/17 05:56 (SEROquel) 25 mg BID PO 03/06/17 09:00 03/08/17 22:55 (Latosha-Colace) 2 tab BID PO 03/06/17 21:00 03/08/17 22:55 (Lopressor) 25 mg Q12HR PO 03/06/17 11:00 03/08/17 22:54 (Vasotec Inj) 1.25 mg Q6H PRN IV PUSH 03/06/17 11:00 03/07/17 21:22 (Duoneb Neb) 1 ampule Q6HR NEB PRN NEB 03/06/17 11:00 Potassium Chloride 10 meq/ Sodium Chloride 1,005 ml @ 75 mls/hr [id number] IV 03/07/17 09:00 03/08/17 22:53 (Pill Splitter) 1 ea UNSCH PRN OTHER 03/06/17 12:00 (Miralax) 17 gm BID PO 03/07/17 09:00 03/08/17 22:55 (Protonix) 20 mg DAILY PO 03/08/17 09:00 03/08/17 10:31 (K-Lyte Cl Eff) 25 meq Q12HR NG 03/07/17 21:00 03/08/17 22:54 Levofloxacin/ Dextrose 100 ml @ 100 mls/hr Q24H IV 03/09/17 14:00 Metronidazole 50 ml @ 100 mls/hr Q8H IV 03/08/17 15:00 03/09/17 04:59 Lactated Ringer's 1,000 ml @ 30 mls/hr Q24H PRN IV 03/09/17 00:45 03/12/17 00:44 (Canasa Supp) 1,000 mg HS RECTAL 03/09/17 21:00 (Dulcolax Supp) 10 mg DAILY RECTAL 03/10/17 09:00 Miscellaneous Information ALL NURSING DEPARTME... UNSCH PRN .XX 03/09/17 11:15 03/10/17 11:14 A/P Problem List: (1) Obstipation ICD Code: K59.00 - Constipation, unspecified Status: Acute (2) UTI (urinary tract infection) ICD Code: N39.0 - Urinary tract infection, site not specified Status: Acute (3) Dementia of Alzheimer's type with behavioral disturbance ICD Code: G30.8 - Other Alzheimer's disease; F02.81 - Dementia in other diseases classified elsewhere with behavioral disturbance Status: Chronic (4) Seizures ICD Code: R56.9 - Unspecified convulsions Status: Chronic (5) Hypertension ICD Code: I10 - Essential (primary) hypertension Status: Chronic (6) Hypothyroidism ICD Code: E03.9 - Hypothyroidism, unspecified Status: Chronic (7) Hyperlipidemia ICD Code: E78.5 - Hyperlipidemia, unspecified Status: Chronic Assessment and Plan Ms. Amado is 81 yo, with history inclusive of constipation, dementia, COPD, GERD, Hypothyroidism, Hyperlipidemia, Essential hypertension, Chronic kidney disease (stage III) arthrosclerotic heart disease. She was seen in [facility] on 02/27/17 and diagnosed with ESBL UTI and placed on Zosyn. Imaging taken at that time indicated a large amount of stool present in her rectum. She returns to [facility] ED on 03/05/17 from her shelter for complaint of lower right quadrant pain that has been present for the past three days. Per the medical record, pt is without fever and has a Luevano catheter. Obstipation -Rectal bolus present, unable to be digitally disimpacted, diameter 10.5 cm -Enemas ordered -persistent amount of large stool -s/p decompressive colonoscopy by Dr. Mustafa today with findings of Large amount of stool in rectum and sigmoid, aggressive washing done , manual disimpaction done multiple large deep ulcers in rectum and rectosigmoid area- biopsy from a small ulcer indurated rectal mucosa high risk for perforation -Colorectal consult requested - discussed at length with daughter who is agreeable to consultation Sepsis -elevated white count and fever. lactic acid 0.9. CXR negative. -suspect due to stercoral colitis -Tmax 100.1 this am -continue on IV Levaquin and Flagyl -trend white count - am labs ordered -BCX show no growth to date. UCX pending. GIB -secondary to constipation -patient with passage of maroon colored blood with BM -continue to hold Eliquis for now. -GI following - recommends clear liquid diet -IVF -monitor H/H Anemia -secondary to above -iron studies c/w ACD -hgb trending down -continue to monitor, repeat labs in am CAD HTN, uncontrolled -hx of multiple stent placements -currently on Eliquis - now on hold -continue on Lopressor 25mg BID -Vasotec 1.25mg IV q6h prn with parameters -continue to monitor BP Hypokalemia -resolved s/p repletion Hypophosphatemia -s/p IV repletion -am labs to monitor response s/p recent right proximal femur fracture s/p ORIF 01/06/17 -continue with PT Advanced dementia Depression -Continue Seroquel 25 mg po BID -Continue Citalopram 20 mg daily ESBL UTI -per review of [place] records, 02/23/17 UCX positive for ESBL E Coli sensitive to Zosyn - unclear when treatment was initiated -urine cx showed no growth in 48hrs. Discontinued on Zosyn 3.375 Gm q 6 hr IV Urinary retention -patient arrived from [place] with luevano catheter -possibly due to severe constipation -failed void trial, luevano replaced -continue luevano management Seizures -continue on Keppra 500 mg po q hs -Keppra level 24.6 -seizure precautions COPD, not in acute exacerbation -Duonebs as needed -continue to monitor respiratory status Hyperlipidemia -Atorvastatin 40 mg po q hs Hypothyroidism -Levothyroxine 100 mcg po daily DVT prophylaxis -Apixaban 5 mg po BID - currently on hold secondary to GIB -REY/SCDs bilaterally Discussed with nursing staff, patient, daughter Carol and Dr. Lebron Problem Qualifiers (1) UTI (urinary tract infection): Qualified Codes: N39.0 - Urinary tract infection, site not specified (2) Dementia of Alzheimer's type with behavioral disturbance: Qualified Codes: G30.8 - Other Alzheimer's disease; F02.81 - Dementia in other diseases classified elsewhere with behavioral disturbance (3) Hypertension: Qualified Codes: I10 - Essential (primary) hypertension (4) Hypothyroidism: Qualified Codes: E03.9 - Hypothyroidism, unspecified (5) Hyperlipidemia: Qualified Codes: E78.5 - Hyperlipidemia, unspecified Matilde Arroyo Mar 09, 2017 12:23
[2017-03-09] MEDS: LEVOFLOXACIN 500 MG PREMIX INJ 100 ML IV SCH (13:51)
--- NOTE | 2017-03-09 15:19 | MB ---
cc: SHAR BARCLAY M.D. DATE OF CONSULTATION: March 09, 2017. CHIEF COMPLAINT Stercoral ulcers in the rectum. HISTORY OF PRESENT ILLNESS The patient is an 81-year-old demented lady who normally stays in a retirement. She was brought to the emergency room on 02/[address] scan was performed which showed a large stool bolus of the rectum. Then she came back to the ER on the which showed again large amounts of stool in the rectum. Most of her history is from the chart and by her daughter as she is quite confused. She does have a long history of constipation for which she takes Senokot and Dulcolax as needed. She was seen by gastroenterology who performed multiple enemas over the weekend and then this morning she underwent colonoscopy with Dr. Mustafa with removal of even further amounts of large amounts of stool from the rectum. She was noted to have fairly deep significant ulcers in the rectum and I was asked to see her for this reason. PAST MEDICAL HISTORY 1. Dementia. 2. COPD. 3. Gastroesophageal reflux disease. PAST MEDICAL HISTORY 1. Dementia. 2. COPD. 3. Gastric reflux disease. 4. Hypothyroidism. 5. Hypertension. 6. Chronic kidney disease, stage III. 7. Atherosclerotic heart disease. 8. History of seizures. 9. Hyperlipidemia. 10. Anxiety. PAST SURGICAL HISTORY 1. Cardiac stent times multiple. 2. Appendectomy. 3. Hysterectomy. 4. ORIF right femoral neck. ALLERGIES None known. MEDICATIONS See nurse's notes for details. LABORATORY DATA As of yesterday was a white count of 14.2, hemoglobin of 9.4, platelets of 374. Chemistry yesterday was sodium of 142, potassium 3.7, chloride is 111, bicarb is 25, BUN is 19, creatinine 0.8 and glucose is 99, phosphorus was 1.9 and albumin of 1.7. Coags are essentially normal from the . Urine shows sign of infection as of yesterday. IMAGING STUDIES Abdominal x-ray from yesterday shows ___ of the colon but no dilated loops of small or large bowel. This was prior to her colonoscopy. PHYSICAL EXAMINATION GENERAL: An elderly female who appears frail and confused. NEURO: The patient is moving all four extremities and seems to have equal strength with no lateralizing signs. SKIN: Warm and dry. HEAD: Head is normocephalic, atraumatic. CARDIOVASCULAR: Regular rate. CHEST: Breathing is symmetric bilaterally and nonlabored. ABDOMEN: Soft, nondistended, nontender. There are no palpable masses. EXTREMITIES: Reveal no edema. RECTAL: Digital rectal examination the patient has a clear fissure in the posterior midline and there is nonbloody stool on my examine with finger. I am not able to get clearly no significant stool bolus in the rectum itself. IMPRESSION Severe obstipation with stercoral ulcers. PLAN At her age surgery is to be avoided if possible. I do think that we will get her on a nice strong bowel program, get her bowels moving and see how things go. In addition, I will give her some lidocaine for her anal fissure which should heal once we get the bowel movements under control. We will however, have to watch her very carefully to be sure that she does not go on to form a perforation, although the inciting factor has been alleviated. I discussed the case thoroughly with the daughter and she understands and is comfortable with this plan of action. Thank you very much for your kind referral. I will continue to follow closely with you. MD AVRIL Mittal/GILBERTO /2:43 PM /2:54 PM
[2017-03-09] MEDS: METOCLOPRAMIDE HCL 10 MG/2 ML VIAL IV PUSH SCH ×2 (16:14→22:55)
[2017-03-09] MEDS: MESALAMINE 1000 MG SUPP RECTAL SCH (21:00)
[2017-03-09] MEDS: ATORVASTATIN 40 MG TAB PO SCH (22:51)
[2017-03-09] MEDS: levETIRAcetam 500 MG TAB PO SCH (22:53)
[2017-03-10] VITALS (7 sets, daily range): BP systolic 138–182; BP diastolic 71–84; PULSE 64–82; RESP 16–18; TEMP 96.7–98.6; O2SAT 95–98
[2017-03-10] MEDS: LEVOTHYROXINE SODIUM 100 MCG TAB PO SCH (04:27)
[2017-03-10] MEDS: METOCLOPRAMIDE HCL 10 MG/2 ML VIAL IV PUSH SCH ×3 (04:27→22:13)
[2017-03-10] MEDS: metroNIDAZOLE 250 MG INJ 50 ML IV SCH ×3 (04:27→22:13)
[2017-03-10] MEDS: ENALAPRILAT 1.25 MG/ML VIAL IV PUSH PRN ×2 (04:40→16:46)
[2017-03-10] MEDS: DOCUSATE SODIUM 50 MG/SENNA 8.6 MG TAB PO SCH ×2 (07:46→20:30)
[2017-03-10] MEDS: PANTOPRAZOLE SOD 20 MG DELAYED RELEASE TAB PO SCH (07:46)
[2017-03-10] MEDS: CYANOCOBALAMIN 100 MCG TAB PO SCH (07:46)
[2017-03-10] MEDS: CHOLECALCIFEROL (VIT D3) 1000 UNIT TAB PO SCH (07:46)
[2017-03-10] MEDS: METOPROLOL TARTRATE 25 MG TAB PO SCH ×2 (07:46→20:30)
[2017-03-10] MEDS: POLYETHYLENE GLYCOL 17 GM PKG PO SCH ×2 (07:46→20:29)
[2017-03-10] MEDS: CITALOPRAM HYDROBROMIDE 20 MG TAB PO SCH (07:46)
[2017-03-10] MEDS: POTASSIUM CHLORIDE 25 MEQ EFFERVESCENT TAB NG SCH ×2 (07:46→20:29)
[2017-03-10] MEDS: SODIUM CHLORIDE 0.9% FLUSH 10 ML FLUSH IV FLUSH SCH ×2 (07:47→20:29)
[2017-03-10] MEDS: BISACODYL 10 MG SUPP RECTAL SCH (07:47)
[2017-03-10] MEDS: QUEtiapine FUMARATE 25 MG TAB PO SCH ×2 (07:47→20:30)
[2017-03-10 10:12] LABS: AUTOMATED NEUTROPHIL # 6.3 TH/MM3 (1.8-7.7); BASOPHIL % 0.2 % (0.0-2.0); EOSINOPHIL # 0.1 TH/MM3 (0-0.4); EOSINOPHIL % 0.7 % (0.0-4.0); HEMATOCRIT 31.7 % (35.0-46.0); HEMO FLAGS DIFF FINAL; LYMPH % 15.6 % (9.0-44.0); LYMPHOCYTE # 1.3 TH/MM3 (1.0-4.8); MEAN CELL VOLUME 91.2 FL (80.0-100.0); MEAN CORPUSCULAR HEMOGLOBIN 30.1 PG (27.0-34.0); MONO % 6.1 % (0.0-8.0); NEUT % 77.4 % (16.0-70.0); PLATELET COUNT 454 TH/MM3 (150-450); RED BLOOD COUNT 3.48 MIL/MM3 (4.00-5.30); RED CELL DISTRIBUTION WIDTH 16.9 % (11.6-17.2); WHITE BLOOD COUNT 8.2 TH/MM3 (4.0-11.0)
[2017-03-10 10:33] LABS: ANION GAP 9 MEQ/L (5-15); AST (GOT) 30 U/L (15-37); BICARBONATE 24.2 MEQ/L (21.0-32.0); BLOOD UREA NITROGEN 13 MG/DL (7-18); CHLORIDE 106 MEQ/L (98-107); GLOMERULAR FILTRATION RATE 62 ML/MIN (>89); MAGNESIUM 2.3 MG/DL (1.5-2.5); POTASSIUM 3.9 MEQ/L (3.5-5.1); SODIUM (NA) 139 MEQ/L (136-145)
[2017-03-10 10:54] LABS: ALKALINE PHOSPHATASE 69 U/L (45-117); ALT (GPT) 25 U/L (10-53); TOTAL BILIRUBIN ADULT 0.4 MG/DL (0.2-1.0)
--- NOTE | 2017-03-10 13:17 | HHI.PR ---
Subjective Remarks Obstipation, stercoral ulcers in rectum, s/p disimpaction Liquid stool last pm, none as today confused Objective Vital Signs Date Time Temp Pulse Resp B/P (MAP) Pulse Ox O2 Delivery O2 Flow Rate FiO2 03/10/17 12:00 98.3 65 18 176/81 (112) 98 03/10/17 10:52 97 Nasal Cannula 2.00 03/10/17 08:00 96.7 72 17 173/79 (110) 95 03/10/17 04:33 96.8 69 16 181/84 (116) 98 03/10/17 00:00 97.7 67 16 168/73 (104) 98 03/09/17 20:45 96 Nasal Cannula 2.00 03/09/17 20:00 96.2 66 16 161/75 (103) 98 03/09/17 16:00 96.7 63 18 185/81 (115) 100 03/09/17 13:42 97 Nasal Cannula 2.00 I/O 03/09/17 03/09/17 03/09/17 03/10/17 03/10/17 03/10/17 07:00 15:00 23:00 07:00 15:00 23:00 Intake Total 405 ml 300 ml 1050 ml 100 ml Output Total 800 ml 1400 ml 1000 ml Balance -395 ml 300 ml -350 ml -900 ml Intake Oral 0 ml IV Total 405 ml 1050 ml 100 ml Other 300 ml Output Urine Total 800 ml 1400 ml 1000 ml # Bowel Movements 3 2 2 Result Diagram: 03/10/17 0913 03/10/17912 Objective Remarks Abdomen soft, nondistended, nontender Assessment and Plan Assessment and Plan advance diet Continue laxative program Rona Morrison MD Mar 10, 2017 13:17
[2017-03-10] MEDS: POTASSIUM CHLORIDE INJ 10 MEQ in SODIUM CHLOR 0.9% 1000 ML INJ 1,000 ML IV SCH ×2 (13:22→18:24)
--- NOTE | 2017-03-10 14:18 | HHI.GIFU ---
Subjective Remarks Resting in bed. No distress. Nurse reports that she has had multiple bowel movements overnight, but has not had a bowel movement on this shift. (Theresa Cross) Objective Vitals I&O Vital Signs Date Time Temp Pulse Resp B/P (MAP) Pulse Ox O2 Delivery O2 Flow Rate FiO2 03/10/17 12:00 98.3 65 18 176/81 (112) 98 03/10/17 10:52 97 Nasal Cannula 2.00 03/10/17 08:00 96.7 72 17 173/79 (110) 95 03/10/17 04:33 96.8 69 16 181/84 (116) 98 03/10/17 00:00 97.7 67 16 168/73 (104) 98 03/09/17 20:45 96 Nasal Cannula 2.00 03/09/17 20:00 96.2 66 16 161/75 (103) 98 03/09/17 16:00 96.7 63 18 185/81 (115) 100 I/O 03/09/17 03/09/17 03/09/17 03/10/17 03/10/17 03/10/17 07:00 15:00 23:00 07:00 15:00 23:00 Intake Total 405 ml 300 ml 1050 ml 100 ml Output Total 800 ml 1400 ml 1000 ml Balance -395 ml 300 ml -350 ml -900 ml Intake Oral 0 ml IV Total 405 ml 1050 ml 100 ml Other 300 ml Output Urine Total 800 ml 1400 ml 1000 ml # Bowel Movements 3 2 2 Laboratory Laboratory Tests Test 03/10/17 09:13 White Blood Count 8.2 Red Blood Count 3.48 Hemoglobin 10.5 Hematocrit 31.7 Mean Corpuscular Volume 91.2 Mean Corpuscular Hemoglobin 30.1 Mean Corpuscular Hemoglobin Concent 33.0 Red Cell Distribution Width 16.9 Platelet Count 454 Mean Platelet Volume 7.2 Neutrophils (%) (Auto) 77.4 Lymphocytes (%) (Auto) 15.6 Monocytes (%) (Auto) 6.1 Eosinophils (%) (Auto) 0.7 Basophils (%) (Auto) 0.2 Neutrophils # (Auto) 6.3 Lymphocytes # (Auto) 1.3 Monocytes # (Auto) 0.5 Eosinophils # (Auto) 0.1 Basophils # (Auto) 0.0 CBC Comment DIFF FINAL Differential Comment Blood Urea Nitrogen 13 Creatinine 0.88 Random Glucose 71 Total Protein 6.5 Albumin 2.1 Calcium Level 8.7 Phosphorus Level 2.5 Magnesium Level 2.3 Alkaline Phosphatase 69 Aspartate Amino Transf (AST/SGOT) 30 Alanine Aminotransferase (ALT/SGPT) 25 Total Bilirubin 0.4 Sodium Level 139 Potassium Level 3.9 Chloride Level 106 Carbon Dioxide Level 24.2 Anion Gap 9 Estimat Glomerular Filtration Rate 62 Date/Time Source Procedure Growth Status 03/08/17 10:38 Blood Peripheral Aerobic Blood Culture - Preliminary NO GROWTH IN 2 DAYS Resulted 03/08/17 10:38 Blood Peripheral Anaerobic Blood Culture - Preliminary NO GROWTH IN 2 DAYS Resulted 03/08/17 07:59 Urine Clean Catch Urine Culture - Final NO GROWTH IN 48 HOURS. Complete Imaging Last Impressions Abdomen X-Ray 03/08/17 0800 Signed Impressions: Service Date/Time: Wednesday, March 08, 2017 07:57 - CONCLUSION: No dilated loops of small or large bowel. Shayne Rea MD Chest X-Ray 03/08/17 0000 Signed Impressions: Service Date/Time: Wednesday, March 08, 2017 07:54 - CONCLUSION: The lungs are clear. Shayne Rea MD Abdomen/Pelvis CT 03/05/17 1935 Signed Impressions: Service Date/Time: February 22:09 - CONCLUSION: 1. Severe rectal constipation. No acute findings compared with February 27. 2. Murphy catheter in decompressed bladder. Stable distal abdominal aortic aneurysm. Stable left adrenal adenoma. Jon Robles MD Physical Exam HEENT: Normocephalic; atraumatic; no jaundice. CHEST: CTA, shallow/even CARDIAC: RRR ABDOMEN: Soft, nondistended, mild diffuse tenderness; no hepatosplenomegaly; bowel sounds are present in all four quadrants. EXTREMITIES: No clubbing, cyanosis, or edema. SKIN: Poor skin turgor TECHNOLOGY ANALYST: Alert, confused (Theresa Cross) Assessment and Plan Plan ASSESSMENT: - Fecal impaction, constipation. Of note, she was noted to have a large stool bolus in the rectum on CT from 02/27. CT Scan abdomen and pelvis (03/05/17)---> severe rectal constipation. No acute findings compared with February 27. S/P Colonoscopy (03/09/17)---> 1. Large amount of stool in rectum and sigmoid, aggressive washing done , manual disimpaction done multiple large deep ulcers in rectum and rectosigmoid area-biopsy from a small ulcer indurated rectal mucosa high risk for perforation 2. Retroflexed views revealed internal hemorrhoids 3. Retroflexed views revealed medium internal hemorrhoids 4. Stool, external hemorrhoids, decreased anal tone. Pathology pending. Canasa suppository. CRS following , continue bowel regimen. - Abdominal pain, secondary to above. - Anemia, mild, normocytic. 10.5/31.7. - Dementia, COPD, Hypothyroidism, Hyperlipidemia, CKD, HTN, Sz, Anxiety per attending. PLAN: - Clear liquids - Await pathology - Canasa suppository - Miralax - Dulcolax suppostories - Pericolace - Lactulose, Senokot prn - CRS following - Supportive care - Further recommendations to follow based on results of above - Pt seen and examined by Dr. Mustafa and myself and this note is written on her behalf (Theresa Cross) Theresa Cross Mar 10, 2017 14:18 Patty Mustafa MD Mar 10, 2017 20:24
[2017-03-10] MEDS: LEVOFLOXACIN 500 MG PREMIX INJ 100 ML IV SCH (15:01)
--- NOTE | 2017-03-10 15:41 | HHI.PR ---
Subjective Remarks Follow up on 81-year-old female with constipation/obstipation. She has a past medical history of dementia, she is seen and examined in room with no one at bedside. She is confused and agrees when asked about abdominal pain, she denies nausea or vomiting although reliability is difficult to determine due to the fact that she has dementia. She appears comfortable and in no acute distress. Objective Vitals Vital Signs Date Time Temp Pulse Resp B/P (MAP) Pulse Ox O2 Delivery O2 Flow Rate FiO2 03/10/17 12:00 98.3 65 18 176/81 (112) 98 03/10/17 10:52 97 Nasal Cannula 2.00 03/10/17 08:00 96.7 72 17 173/79 (110) 95 03/10/17 04:33 96.8 69 16 181/84 (116) 98 03/10/17 00:00 97.7 67 16 168/73 (104) 98 03/09/17 20:45 96 Nasal Cannula 2.00 03/09/17 20:00 96.2 66 16 161/75 (103) 98 03/09/17 16:00 96.7 63 18 185/81 (115) 100 I/O 03/09/17 03/09/17 03/09/17 03/10/17 03/10/17 03/10/17 07:00 15:00 23:00 07:00 15:00 23:00 Intake Total 405 ml 300 ml 1050 ml 100 ml Output Total 800 ml 1400 ml 1000 ml Balance -395 ml 300 ml -350 ml -900 ml Intake Oral 0 ml IV Total 405 ml 1050 ml 100 ml Other 300 ml Output Urine Total 800 ml 1400 ml 1000 ml # Bowel Movements 3 2 2 Result Diagram: 03/10/17 0913 03/10/17 0913 Imaging Last Impressions Abdomen X-Ray 03/08/17 0800 Signed Impressions: Service Date/Time: Wednesday, March 08, 2017 07:57 - CONCLUSION: No dilated loops of small or large bowel. Shayne Rea MD Chest X-Ray 03/08/17 0000 Signed Impressions: Service Date/Time: Wednesday, March 08, 2017 07:54 - CONCLUSION: The lungs are clear. Shayne Rea MD Abdomen/Pelvis CT 03/05/17 1935 Signed Impressions: Service Date/Time: February 22:09 - CONCLUSION: 1. Severe rectal constipation. No acute findings compared with February 27. 2. Luevano catheter in decompressed bladder. Stable distal abdominal aortic aneurysm. Stable left adrenal adenoma. Jon Robles MD Objective Remarks GENERAL: This is a frail appearing female, well-developed, in no apparent distress. Awake. Confused. Appears comfortable. SKIN: Warm and dry. HEAD: Atraumatic. Normocephalic. ENT: Nose without bleeding or purulent drainage. Airway patent. Dry mucus membranes. NECK: Trachea midline. CARDIOVASCULAR: Tachycardic, regular without murmurs, gallops, or rubs. RESPIRATORY: Clear to auscultation. Breath sounds equal bilaterally. No wheezes , rales, or rhonchi. GASTROINTESTINAL: Abdomen soft, nondistended. Reports tenderness with palpation , but no guarding GENITOURINARY: Luevano catheter in place with yellow urine in the bag. MUSCULOSKELETAL: Extremities without clubbing, cyanosis, or edema. NEUROLOGICAL: Confused. Severe dementia. Able to move all extremities spontaneously. Minimal verbalization. A/P Problem List: (1) Obstipation ICD Code: K59.00 - Constipation, unspecified Status: Acute (2) UTI (urinary tract infection) ICD Code: N39.0 - Urinary tract infection, site not specified Status: Acute (3) Dementia of Alzheimer's type with behavioral disturbance ICD Code: G30.8 - Other Alzheimer's disease; F02.81 - Dementia in other diseases classified elsewhere with behavioral disturbance Status: Chronic (4) Seizures ICD Code: R56.9 - Unspecified convulsions Status: Chronic (5) Hypertension ICD Code: I10 - Essential (primary) hypertension Status: Chronic (6) Hypothyroidism ICD Code: E03.9 - Hypothyroidism, unspecified Status: Chronic (7) Hyperlipidemia ICD Code: E78.5 - Hyperlipidemia, unspecified Status: Chronic Assessment and Plan Ms. Amado is 81 yo, with history inclusive of constipation, dementia, COPD, GERD, Hypothyroidism, Hyperlipidemia, Essential hypertension, Chronic kidney disease (stage III) arthrosclerotic heart disease. She was seen in [facility] on 02/27/17 and diagnosed with ESBL UTI and placed on Zosyn. Imaging taken at that time indicated a large amount of stool present in her rectum. She returns to [facility] ED on 03/05/17 from her detention for complaint of lower right quadrant pain that has been present for the past three days. Per the medical record, pt is without fever and has a Luevano catheter. Obstipation - Rectal bolus present, unable to be digitally disimpacted, diameter 10.5 cm - Enemas ordered - Persistent amount of large stool - S/P decompressive colonoscopy by Dr. Mustafa with findings of large amount of stool in rectum and sigmoid, aggressive washing done , manual disimpaction done multiple large deep ulcers in rectum and rectosigmoid area-biopsy from a small ulcer indurated rectal mucosa high risk for perforation - Colorectal consult requested - discussed at length with daughter who is agreeable to consultation - Colorectal surgery saw patient who recommended surgery be avoided if possible, continue bowel program, lidocaine for anal fissures. - Continue monitoring as she is at risk for perforation. Sepsis of unknown origin - Elevated white count and fever, lactic acid 0.9 on admission. CXR negative. - Suspect due to stercoral colitis -On IV Levaquin and Flagyl, WCB count today down to 8.2 with no recorded fevers, continue IV antibiotics for now. -BCX show no growth to date. UCX no growth. GIB - Secondary to constipation, on bowel regimen - Continue to hold Eliquis for now. -GI following recommends to continue clear liquid diet -IVF -monitor H/H Anemia - Secondary to above - Iron studies c/w ACD - hgb yesterday 9.4--->10.5 - Continue to monitor, repeat labs in am CAD HTN, uncontrolled -hx of multiple stent placements - Currently on Eliquis - now on hold - Continue on Lopressor 25mg BID - Vasotec 1.25mg IV q6h prn with parameters - Continue to monitor BP s/p recent right proximal femur fracture s/p ORIF 01/06/17 -continue with PT Advanced dementia Depression -Continue Seroquel 25 mg po BID -Continue Citalopram 20 mg daily ESBL UTI -per review of [place] records, 02/23/17 UCX positive for ESBL E Coli sensitive to Zosyn - unclear when treatment was initiated -urine cx showed no growth in 48hrs. Discontinued on Zosyn 3.375 Gm q 6 hr IV Urinary retention - Patient arrived from [place] with luevano catheter - Possibly due to severe constipation - Failed void trial, luevano replaced - Continue luevano management Seizures -continue on Keppra 500 mg po q hs -Keppra level 24.6 -seizure precautions COPD, not in acute exacerbation -Duonebs as needed -continue to monitor respiratory status Hyperlipidemia -Atorvastatin 40 mg po q hs Hypothyroidism -Levothyroxine 100 mcg po daily DVT prophylaxis -Apixaban 5 mg po BID - currently on hold secondary to GIB -REY/SCDs bilaterally Problem Qualifiers (1) UTI (urinary tract infection): Qualified Codes: N39.0 - Urinary tract infection, site not specified (2) Dementia of Alzheimer's type with behavioral disturbance: Qualified Codes: G30.8 - Other Alzheimer's disease; F02.81 - Dementia in other diseases classified elsewhere with behavioral disturbance (3) Hypertension: Qualified Codes: I10 - Essential (primary) hypertension (4) Hypothyroidism: Qualified Codes: E03.9 - Hypothyroidism, unspecified (5) Hyperlipidemia: Qualified Codes: E78.5 - Hyperlipidemia, unspecified Saul Babb Mar 10, 2017 15:41
[2017-03-10] MEDS: LIDOCAINE HCL 5% OINT 37 GM TUBE TOPICAL SCH ×2 (15:53→20:31)
[2017-03-10] MEDS: levETIRAcetam 500 MG TAB PO SCH (20:29)
[2017-03-10] MEDS: MESALAMINE 1000 MG SUPP RECTAL SCH (20:30)
[2017-03-10] MEDS: ATORVASTATIN 40 MG TAB PO SCH (20:30)
[2017-03-11] VITALS (7 sets, daily range): BP systolic 131–170; BP diastolic 59–76; PULSE 58–79; RESP 16–18; TEMP 96.5–97.4; O2SAT 96–97
[2017-03-11] MEDS: POTASSIUM CHLORIDE INJ 10 MEQ in SODIUM CHLOR 0.9% 1000 ML INJ 1,000 ML IV SCH ×2 (02:46→15:18)
[2017-03-11] MEDS: LIDOCAINE HCL 5% OINT 37 GM TUBE TOPICAL SCH ×4 (02:57→21:50)
[2017-03-11] MEDS: metroNIDAZOLE 250 MG INJ 50 ML IV SCH (06:03)
[2017-03-11] MEDS: METOCLOPRAMIDE HCL 10 MG/2 ML VIAL IV PUSH SCH ×3 (06:04→21:46)
[2017-03-11] MEDS: LEVOTHYROXINE SODIUM 100 MCG TAB PO SCH (06:05)
[2017-03-11 06:16] LABS: AUTOMATED NEUTROPHIL # 6.4 TH/MM3 (1.8-7.7); BASOPHIL % 0.4 % (0.0-2.0); EOSINOPHIL # 0.1 TH/MM3 (0-0.4); EOSINOPHIL % 1.3 % (0.0-4.0); HEMATOCRIT 31.3 % (35.0-46.0); HEMO FLAGS DIFF FINAL; LYMPH % 17.8 % (9.0-44.0); LYMPHOCYTE # 1.6 TH/MM3 (1.0-4.8); MEAN CELL VOLUME 91.3 FL (80.0-100.0); MEAN CORPUSCULAR HGB CONC 32.8 % (32.0-36.0); MONO % 8.2 % (0.0-8.0); NEUT % 72.3 % (16.0-70.0); PLATELET COUNT 415 TH/MM3 (150-450); RED BLOOD COUNT 3.43 MIL/MM3 (4.00-5.30); RED CELL DISTRIBUTION WIDTH 17.4 % (11.6-17.2); WHITE BLOOD COUNT 8.9 TH/MM3 (4.0-11.0)
[2017-03-11 06:41] LABS: ANION GAP 7 MEQ/L (5-15); AST (GOT) 25 U/L (15-37); BICARBONATE 24.1 MEQ/L (21.0-32.0); BLOOD UREA NITROGEN 12 MG/DL (7-18); CHLORIDE 110 MEQ/L (98-107); GLOMERULAR FILTRATION RATE 57 ML/MIN (>89); POTASSIUM 4.3 MEQ/L (3.5-5.1); SODIUM (NA) 141 MEQ/L (136-145)
[2017-03-11 06:45] LABS: ALKALINE PHOSPHATASE 61 U/L (45-117); ALT (GPT) 17 U/L (10-53); TOTAL BILIRUBIN ADULT 0.4 MG/DL (0.2-1.0)
[2017-03-11] MEDS: PANTOPRAZOLE SOD 20 MG DELAYED RELEASE TAB PO SCH (08:17)
[2017-03-11] MEDS: QUEtiapine FUMARATE 25 MG TAB PO SCH ×2 (08:17→20:17)
[2017-03-11] MEDS: POLYETHYLENE GLYCOL 17 GM PKG PO SCH ×2 (08:17→20:17)
[2017-03-11] MEDS: CITALOPRAM HYDROBROMIDE 20 MG TAB PO SCH (08:17)
[2017-03-11] MEDS: BISACODYL 10 MG SUPP RECTAL SCH (08:17)
[2017-03-11] MEDS: DOCUSATE SODIUM 50 MG/SENNA 8.6 MG TAB PO SCH ×2 (08:17→20:20)
[2017-03-11] MEDS: CHOLECALCIFEROL (VIT D3) 1000 UNIT TAB PO SCH (08:17)
[2017-03-11] MEDS: METOPROLOL TARTRATE 25 MG TAB PO SCH ×2 (08:17→20:17)
[2017-03-11] MEDS: SODIUM CHLORIDE 0.9% FLUSH 10 ML FLUSH IV FLUSH SCH ×2 (08:18→20:18)
[2017-03-11] MEDS: POTASSIUM CHLORIDE 25 MEQ EFFERVESCENT TAB NG SCH ×2 (08:18→20:17)
[2017-03-11] MEDS: CYANOCOBALAMIN 100 MCG TAB PO SCH (08:23)
--- NOTE | 2017-03-11 08:36 | HHI.PR ---
Subjective Remarks Obstipation, stercoral ulcers in rectum, s/p disimpaction Continues to pass liquid stool Denies pain Objective Vital Signs Date Time Temp Pulse Resp B/P (MAP) Pulse Ox O2 Delivery O2 Flow Rate FiO2 03/11/17 00:00 58 03/11/17 00:00 96.5 65 16 153/75 (101) 96 03/10/17 20:00 79 03/10/17 20:00 96.9 82 16 138/71 (93) 95 03/10/17 16:00 98.6 64 17 182/79 (113) 98 03/10/17 12:00 98.3 65 18 176/81 (112) 98 03/10/17 10:52 97 Nasal Cannula 2.00 I/O 03/10/17 03/10/17 03/10/17 03/11/17 03/11/17 03/11/17 07:00 15:00 23:00 07:00 15:00 23:00 Intake Total 100 ml 468 ml Output Total 1000 ml 1300 ml 1250 ml Balance -900 ml -832 ml -1250 ml Intake Oral 418 ml IV Total 100 ml 50 ml Output Urine Total 1000 ml 1300 ml 1250 ml # Bowel Movements 2 1 2 Result Diagram: 03/11/17 0535 03/11/17 0535 Objective Remarks Abdomen soft, nondistended, nontender Assessment and Plan Assessment and Plan advance diet Continue laxative program Stop antibiotics RAYB in am Rona Morrison MD Mar 11, 2017 08:36
--- NOTE | 2017-03-11 10:02 | HHI.PR ---
Subjective Remarks Follow up on 81-year-old female with constipation/obstipation s/p colonoscopy with washings, manual disimpaction, deep rectal ulcers. Patient with a history of dementia, she is seen and examined in room, awake and alert. She complains of burning on her bottoms, denies pain, no complaints of nausea, vomiting. No family at bedside at the moment. Objective Vitals Vital Signs Date Time Temp Pulse Resp B/P (MAP) Pulse Ox O2 Delivery O2 Flow Rate FiO2 03/11/17 08:00 97.3 63 18 170/76 (107) 97 03/11/17 00:00 58 03/11/17 00:00 96.5 65 16 153/75 (101) 96 03/10/17 20:00 79 03/10/17 20:00 96.9 82 16 138/71 (93) 95 03/10/17 16:00 98.6 64 17 182/79 (113) 98 03/10/17 12:00 98.3 65 18 176/81 (112) 98 03/10/17 10:52 97 Nasal Cannula 2.00 I/O 03/10/17 03/10/17 03/10/17 03/11/17 03/11/17 03/11/17 07:00 15:00 23:00 07:00 15:00 23:00 Intake Total 100 ml 468 ml Output Total 1000 ml 1300 ml 1250 ml Balance -900 ml -832 ml -1250 ml Intake Oral 418 ml IV Total 100 ml 50 ml Output Urine Total 1000 ml 1300 ml 1250 ml # Bowel Movements 2 1 2 Result Diagram: 03/11/17 0535 03/11/17 0535 Imaging Last Impressions Abdomen X-Ray 03/08/17 0800 Signed Impressions: Service Date/Time: Wednesday, March 08, 2017 07:57 - CONCLUSION: No dilated loops of small or large bowel. Shayne Rea MD Chest X-Ray 03/08/17 0000 Signed Impressions: Service Date/Time: Wednesday, March 08, 2017 07:54 - CONCLUSION: The lungs are clear. Shayne Rea MD Abdomen/Pelvis CT 03/05/17 1935 Signed Impressions: Service Date/Time: February 22:09 - CONCLUSION: 1. Severe rectal constipation. No acute findings compared with February 27. 2. Luevano catheter in decompressed bladder. Stable distal abdominal aortic aneurysm. Stable left adrenal adenoma. Jon Robles MD Objective Remarks GENERAL: This is a frail appearing female, well-developed, in no apparent distress. Awake. Confused. Appears comfortable. SKIN: Warm and dry. HEAD: Atraumatic. Normocephalic. ENT: Nose without bleeding or purulent drainage. Airway patent. Dry mucus membranes. NECK: Trachea midline. CARDIOVASCULAR: Tachycardic, regular without murmurs, gallops, or rubs. RESPIRATORY: Clear to auscultation. Breath sounds equal bilaterally. No wheezes , rales, or rhonchi. GASTROINTESTINAL: Abdomen soft, nondistended. Reports tenderness with palpation , but no guarding GENITOURINARY: Luevano catheter in place with yellow urine in the bag. MUSCULOSKELETAL: Extremities without clubbing, cyanosis, or edema. NEUROLOGICAL: Confused. Severe dementia. Able to move all extremities spontaneously. Minimal verbalization. A/P Problem List: (1) Obstipation ICD Code: K59.00 - Constipation, unspecified Status: Acute (2) UTI (urinary tract infection) ICD Code: N39.0 - Urinary tract infection, site not specified Status: Acute (3) Dementia of Alzheimer's type with behavioral disturbance ICD Code: G30.8 - Other Alzheimer's disease; F02.81 - Dementia in other diseases classified elsewhere with behavioral disturbance Status: Chronic (4) Seizures ICD Code: R56.9 - Unspecified convulsions Status: Chronic (5) Hypertension ICD Code: I10 - Essential (primary) hypertension Status: Chronic (6) Hypothyroidism ICD Code: E03.9 - Hypothyroidism, unspecified Status: Chronic (7) Hyperlipidemia ICD Code: E78.5 - Hyperlipidemia, unspecified Status: Chronic Assessment and Plan Ms. Amado is 81 yo, with history inclusive of constipation, dementia, COPD, GERD, Hypothyroidism, Hyperlipidemia, Essential hypertension, Chronic kidney disease (stage III) arthrosclerotic heart disease. She was seen in [facility] on 02/27/17 and diagnosed with ESBL UTI and placed on Zosyn. Imaging taken at that time indicated a large amount of stool present in her rectum. She returns to [facility] ED on 03/05/17 from her longterm for complaint of lower right quadrant pain that has been present for the past three days. Per the medical record, pt is without fever and has a Luevano catheter. Obstipation - Rectal bolus present, unable to be digitally disimpacted, diameter 10.5 cm - Enemas ordered - Persistent amount of large stool - S/P decompressive colonoscopy by Dr. Mustafa with findings of large amount of stool in rectum and sigmoid, aggressive washing done , manual disimpaction done multiple large deep ulcers in rectum and rectosigmoid area-biopsy from a small ulcer indurated rectal mucosa high risk for perforation - Colorectal consult requested - discussed at length with daughter who is agreeable to consultation - Colorectal surgery saw patient who recommended surgery be avoided if possible, continue bowel program, lidocaine for anal fissures. - Diet advanced by colorectal surgery today, check KUB in the AM. Antibiotics DC. - Continue monitoring as she is at risk for perforation. Sepsis of unknown origin - Elevated white count and fever, lactic acid 0.9 on admission. CXR negative. - Suspect due to stercoral colitis, was on IV Levaquin and Flagyl, WCB count today 8.9 with no recorded fevers -BCX show no growth to date. UCX no growth. - Antibiotics DC by colorectal surgery GIB - Secondary to constipation, on bowel regimen - Continue to hold Eliquis for now. -GI following recommends to continue clear liquid diet -IVF -monitor H/H Anemia - Secondary to above - Iron studies c/w ACD - hgb yesterday 10.5--->10.3/ Hct 31.7--->31.3 - Continue to monitor trends, no bloody stools reported from nurse. CAD HTN, uncontrolled -hx of multiple stent placements - Currently on Eliquis - now on hold - Continue on Lopressor 25mg BID - Vasotec 1.25mg IV q6h prn with parameters - Will add Hydralazine 25mg BID PO, for better control - Continue to monitor BP s/p recent right proximal femur fracture s/p ORIF 01/06/17 -continue with PT Advanced dementia Depression -Continue Seroquel 25 mg po BID -Continue Citalopram 20 mg daily ESBL UTI -per review of [place] records, 02/23/17 UCX positive for ESBL E Coli sensitive to Zosyn - unclear when treatment was initiated -urine cx showed no growth in 48hrs. Discontinued on Zosyn 3.375 Gm q 6 hr IV Urinary retention - Patient arrived [place] with luevano catheter - Possibly due to severe constipation - Failed void trial, luevano replaced - Continue luevano management Seizures -continue on Keppra 500 mg po q hs -Keppra level 24.6 -seizure precautions COPD, not in acute exacerbation -Duonebs as needed -continue to monitor respiratory status Hyperlipidemia -Atorvastatin 40 mg po q hs Hypothyroidism -Levothyroxine 100 mcg po daily DVT prophylaxis -Apixaban 5 mg po BID - currently on hold secondary to GIB -REY/SCDs bilaterally Discharge Planning Patient diet advanced today repeat KUB in the AM. Awaiting colorectal clearance. Problem Qualifiers (1) UTI (urinary tract infection): Qualified Codes: N39.0 - Urinary tract infection, site not specified (2) Dementia of Alzheimer's type with behavioral disturbance: Qualified Codes: G30.8 - Other Alzheimer's disease; F02.81 - Dementia in other diseases classified elsewhere with behavioral disturbance (3) Hypertension: Qualified Codes: I10 - Essential (primary) hypertension (4) Hypothyroidism: Qualified Codes: E03.9 - Hypothyroidism, unspecified (5) Hyperlipidemia: Qualified Codes: E78.5 - Hyperlipidemia, unspecified Saul Babb Mar 11, 2017 10:02
[2017-03-11] MEDS: hydrALAZINE HCL 25 MG TAB PO SCH ×2 (11:12→20:17)
--- NOTE | 2017-03-11 12:22 | HHI.GIFU ---
Subjective Remarks Patient's resting in the bed, randomly opens eyes to verbal response Weakened verbal response Incontinent of stool, turned position and cleaned within the past hour Afebrile (Gila Alvarado) Objective Vitals I&O Vital Signs Date Time Temp Pulse Resp B/P (MAP) Pulse Ox O2 Delivery O2 Flow Rate FiO2 03/11/17 10:13 97 Nasal Cannula 2.00 03/11/17 08:00 97.3 63 18 170/76 (107) 97 03/11/17 00:00 58 03/11/17 00:00 96.5 65 16 153/75 (101) 96 03/10/17 20:00 79 03/10/17 20:00 96.9 82 16 138/71 (93) 95 03/10/17 16:00 98.6 64 17 182/79 (113) 98 I/O 03/10/17 03/10/17 03/10/17 03/11/17 03/11/17 03/11/17 07:00 15:00 23:00 07:00 15:00 23:00 Intake Total 100 ml 468 ml Output Total 1000 ml 1300 ml 1250 ml Balance -900 ml -832 ml -1250 ml Intake Oral 418 ml IV Total 100 ml 50 ml Output Urine Total 1000 ml 1300 ml 1250 ml # Bowel Movements 2 1 2 Laboratory Laboratory Tests Test 03/11/17 05:35 White Blood Count 8.9 Red Blood Count 3.43 Hemoglobin 10.3 Hematocrit 31.3 Mean Corpuscular Volume 91.3 Mean Corpuscular Hemoglobin 30.0 Mean Corpuscular Hemoglobin Concent 32.8 Red Cell Distribution Width 17.4 Platelet Count 415 Mean Platelet Volume 7.1 Neutrophils (%) (Auto) 72.3 Lymphocytes (%) (Auto) 17.8 Monocytes (%) (Auto) 8.2 Eosinophils (%) (Auto) 1.3 Basophils (%) (Auto) 0.4 Neutrophils # (Auto) 6.4 Lymphocytes # (Auto) 1.6 Monocytes # (Auto) 0.7 Eosinophils # (Auto) 0.1 Basophils # (Auto) 0.0 CBC Comment DIFF FINAL Differential Comment Blood Urea Nitrogen 12 Creatinine 0.95 Random Glucose 86 Total Protein 6.0 Albumin 1.9 Calcium Level 8.6 Alkaline Phosphatase 61 Aspartate Amino Transf (AST/SGOT) 25 Alanine Aminotransferase (ALT/SGPT) 17 Total Bilirubin 0.4 Sodium Level 141 Potassium Level 4.3 Chloride Level 110 Carbon Dioxide Level 24.1 Anion Gap 7 Estimat Glomerular Filtration Rate 57 Date/Time Source Procedure Growth Status 03/08/17 10:38 Blood Peripheral Aerobic Blood Culture - Preliminary NO GROWTH IN 3 DAYS Resulted 03/08/17 10:38 Blood Peripheral Anaerobic Blood Culture - Preliminary NO GROWTH IN 3 DAYS Resulted 03/08/17 07:59 Urine Clean Catch Urine Culture - Final NO GROWTH IN 48 HOURS. Complete Imaging Last Impressions Abdomen X-Ray 03/08/17 0800 Signed Impressions: Service Date/Time: Wednesday, March 08, 2017 07:57 - CONCLUSION: No dilated loops of small or large bowel. Shayne Rea MD Chest X-Ray 03/08/17 0000 Signed Impressions: Service Date/Time: Wednesday, March 08, 2017 07:54 - CONCLUSION: The lungs are clear. Shayne Rea MD Abdomen/Pelvis CT 03/05/17 1935 Signed Impressions: Service Date/Time: February 22:09 - CONCLUSION: 1. Severe rectal constipation. No acute findings compared with February 27. 2. Murphy catheter in decompressed bladder. Stable distal abdominal aortic aneurysm. Stable left adrenal adenoma. Jon Robles MD Physical Exam HEENT: Frail, Normocephalic; atraumatic; no jaundice. Oral cavity dry, clean CHEST: CTA, shallow/even, lung sounds without rhonchi or wheezing CARDIAC: RRR ABDOMEN: Soft, nondistended, minimal generalized tenderness to light palpation ; no hepatosplenomegaly; bowel sounds soft in all four quadrants. EXTREMITIES: No clubbing, cyanosis, or edema. SKIN: thin skin turgor [employer] CH[employer]ER [employer]SEMBLER: quiet, minimal one-word answers occasionally (Gila Alvarado) Assessment and Plan Plan ASSESSMENT: - Fecal impaction, constipation. Of note, she was noted to have a large stool bolus in the rectum on CT from 02/27. CT Scan abdomen and pelvis (03/05/17)---> severe rectal constipation. No acute findings compared with February 27. S/P Colonoscopy (03/09/17)---> 1. Large amount of stool in rectum and sigmoid, aggressive washing done , manual disimpaction done multiple large deep ulcers in rectum and rectosigmoid area-biopsy from a small ulcer indurated rectal mucosa high risk for perforation Rectal surgical consult; appreciate input, no plan for surgery, conservative medical management for now 2. Retroflexed views revealed internal hemorrhoids 3. Retroflexed views revealed medium internal hemorrhoids 4. Stool, external hemorrhoids, decreased anal tone. Pathology pending. CRS following, continue bowel regimen. - Abdominal pain, secondary to above. Mild improvement noted daily with exam - Anemia, mild, normocytic. No active bleeding noted - Dementia, COPD, Hypothyroidism, Hyperlipidemia, CKD, HTN, Sz, Anxiety per attending. - Severe protein calorie malnutrition with albumin 1.9 PLAN: - Diet now soft foods, will need assistance with feeding and monitoring for any dysphagia. KUB ordered for in the morning. - Await pathology results - Planned for follow-up 4 week flex sigmoid follow-up - Miralax - Dulcolax suppostories - Pericolace - Lactulose, Senokot prn - CRS following - Supportive care - Further recommendations to follow based on results of above - Pt seen and examined by Dr. Mustafa and myself and this note is written on her behalf (Gila Alvarado) Physician Comments pathology of rectal ulcers negative for any specific etiology gi will sign off call us as needed colorectal surgery following continue bowel regimen, avoid constipation (Patty Mustafa MD) Gila Alvarado Mar 11, 2017 12:21 Patty Mustafa MD Mar 11, 2017 18:34
[2017-03-11] MEDS: levETIRAcetam 500 MG TAB PO SCH (20:17)
[2017-03-11] MEDS: MESALAMINE 1000 MG SUPP RECTAL SCH (20:17)
[2017-03-11] MEDS: ATORVASTATIN 40 MG TAB PO SCH (20:18)
[2017-03-12 00:17] VITALS: BP 142/72; PULSE 69; RESP 16; TEMP 97.4; O2SAT 96
[2017-03-12] MEDS: POTASSIUM CHLORIDE INJ 10 MEQ in SODIUM CHLOR 0.9% 1000 ML INJ 1,000 ML IV SCH (00:30)
[2017-03-12] MEDS: LIDOCAINE HCL 5% OINT 37 GM TUBE TOPICAL SCH ×2 (02:38→09:00)
[2017-03-12 04:59] VITALS: BP 158/76; PULSE 72; RESP 17; TEMP 99; O2SAT 95
[2017-03-12] MEDS: METOCLOPRAMIDE HCL 10 MG/2 ML VIAL IV PUSH SCH (05:42)
[2017-03-12] MEDS: LEVOTHYROXINE SODIUM 100 MCG TAB PO SCH (05:42)
[2017-03-12 07:00] VITALS: PULSE 61
[2017-03-12 08:00] VITALS: BP 163/79; PULSE 62; RESP 17; TEMP 98.1; O2SAT 96
--- NOTE | 2017-03-12 08:50 | RADRPT ---
EXAM DATE/TIME: 03/12/2017 08:26 [place] COMPARISON: ABDOMEN KUB ONLY, March 08, 2017, 7:57. INDICATIONS : Abdominal pain. MEDICAL HISTORY : Cardiovascular disease. Renal failure, chronic. Diabetes mellitus type 2. SURGICAL HISTORY : Appendectomy. Hysterectomy ENCOUNTER: Subsequent ACUITY: 1 week PAIN SCORE: 5/10 LOCATION: abdomen FINDINGS: 2 supine frontal views of the abdomen showed gas filled loops of nondilated large and small bowel. No air-fluid levels. No organomegaly. Multiple vascular stents overlie the aorta and renal arteries. A degenerative scoliotic spine. Femoral neck screws involving the right hip. CONCLUSION: Normal bowel gas pattern. Shayne Ward Jr., MD on March 12, 2017 at 8:46 Board Certified Radiologist. This report was verified electronically.
[2017-03-12] MEDS: BISACODYL 10 MG SUPP RECTAL SCH (09:00)
[2017-03-12] MEDS: POLYETHYLENE GLYCOL 17 GM PKG PO SCH (09:00)
[2017-03-12] MEDS: SODIUM CHLORIDE 0.9% FLUSH 10 ML FLUSH IV FLUSH SCH (09:00)
[2017-03-12] MEDS: hydrALAZINE HCL 25 MG TAB PO SCH (09:57)
[2017-03-12] MEDS: QUEtiapine FUMARATE 25 MG TAB PO SCH (09:57)
[2017-03-12] MEDS: CYANOCOBALAMIN 100 MCG TAB PO SCH (09:57)
[2017-03-12] MEDS: POTASSIUM CHLORIDE 25 MEQ EFFERVESCENT TAB NG SCH (09:57)
[2017-03-12] MEDS: CITALOPRAM HYDROBROMIDE 20 MG TAB PO SCH (09:57)
[2017-03-12] MEDS: PANTOPRAZOLE SOD 20 MG DELAYED RELEASE TAB PO SCH (09:57)
[2017-03-12] MEDS: DOCUSATE SODIUM 50 MG/SENNA 8.6 MG TAB PO SCH (09:57)
[2017-03-12] MEDS: CHOLECALCIFEROL (VIT D3) 1000 UNIT TAB PO SCH (09:57)
[2017-03-12] MEDS: METOPROLOL TARTRATE 25 MG TAB PO SCH (09:58)
--- NOTE | 2017-03-12 10:31 | HHI.PR ---
Objective Vitals Vital Signs Date Time Temp Pulse Resp B/P (MAP) Pulse Ox O2 Delivery O2 Flow Rate FiO2 03/12/17 08:00 98.1 62 17 163/79 (107) 96 03/12/17 04:59 99.0 72 17 158/76 (103) 95 03/12/17 00:17 97.4 69 16 142/72 (95) 96 03/11/17 20:46 96.9 79 17 142/67 (92) 97 03/11/17 20:23 69 03/11/17 16:00 96.9 63 16 137/72 (93) 97 03/11/17 12:00 97.4 66 16 131/59 (83) 97 I/O 03/11/17 03/11/17 03/11/17 03/12/17 03/12/17 03/12/17 07:00 15:00 23:00 07:00 15:00 23:00 Intake Total 720 ml 1180 ml Output Total 1250 ml 900 ml 1200 ml Balance -1250 ml -180 ml -20 ml Intake Oral 720 ml 380 ml IV Total 800 ml Output Urine Total 1250 ml 900 ml 1200 ml # Bowel Movements 2 4 1 Result Diagram: 03/11/17 0535 03/11/17 0535 Objective Remarks GENERAL: This is a frail appearing female, well-developed, in no apparent distress. Awake. Confused. Appears comfortable. SKIN: Warm and dry. HEAD: Atraumatic. Normocephalic. ENT: Nose without bleeding or purulent drainage. Airway patent. Dry mucus membranes. NECK: Trachea midline. CARDIOVASCULAR: Tachycardic, regular without murmurs, gallops, or rubs. RESPIRATORY: Clear to auscultation. Breath sounds equal bilaterally. No wheezes , rales, or rhonchi. GASTROINTESTINAL: Abdomen soft, nondistended. Reports tenderness with palpation , but no guarding GENITOURINARY: Luevano catheter in place with yellow urine in the bag. MUSCULOSKELETAL: Extremities without clubbing, cyanosis, or edema. NEUROLOGICAL: Confused. Severe dementia. Able to move all extremities spontaneously. Minimal verbalization. A/P Problem List: (1) Obstipation ICD Code: K59.00 - Constipation, unspecified Status: Acute (2) UTI (urinary tract infection) ICD Code: N39.0 - Urinary tract infection, site not specified Status: Acute (3) Dementia of Alzheimer's type with behavioral disturbance ICD Code: G30.8 - Other Alzheimer's disease; F02.81 - Dementia in other diseases classified elsewhere with behavioral disturbance Status: Chronic (4) Seizures ICD Code: R56.9 - Unspecified convulsions Status: Chronic (5) Hypertension ICD Code: I10 - Essential (primary) hypertension Status: Chronic (6) Hypothyroidism ICD Code: E03.9 - Hypothyroidism, unspecified Status: Chronic (7) Hyperlipidemia ICD Code: E78.5 - Hyperlipidemia, unspecified Status: Chronic Assessment and Plan Ms. Amado is 81 yo, with history inclusive of constipation, dementia, COPD, GERD, Hypothyroidism, Hyperlipidemia, Essential hypertension, Chronic kidney disease (stage III) arthrosclerotic heart disease. She was [place] [facility] [place] and diagnosed with ESBL UTI and placed on Zosyn. Imaging taken at that time indicated a large amount of stool present in her rectum. She returns to [facility] on 03/05/17 from her care home for complaint of lower right quadrant pain that has been present for the past three days. Per the medical record, pt is without fever and has a Luevano catheter. Obstipation - Rectal bolus present, unable to be digitally disimpacted, diameter 10.5 cm - Enemas ordered - Persistent amount of large stool - S/P decompressive colonoscopy by Dr. Mustafa with findings of large amount of stool in rectum and sigmoid, aggressive washing done , manual disimpaction done multiple large deep ulcers in rectum and rectosigmoid area-biopsy from a small ulcer indurated rectal mucosa high risk for perforation - Colorectal consult requested - discussed at length with daughter who is agreeable to consultation - Colorectal surgery saw patient who recommended surgery be avoided if possible, continue bowel program, lidocaine for anal fissures. - Diet advanced by colorectal surgery today, check KUB in the AM. Antibiotics DC. - Continue monitoring as she is at risk for perforation. Sepsis of unknown origin - Elevated white count and fever, lactic acid 0.9 on admission. CXR negative. - Suspect due to stercoral colitis, was on IV Levaquin and Flagyl, WCB count today 8.9 with no recorded fevers -BCX show no growth to date. UCX no growth. - Antibiotics DC by colorectal surgery GIB - Secondary to constipation, on bowel regimen - Continue to hold Eliquis for now. -GI following recommends to continue clear liquid diet -IVF -monitor H/H Anemia - Secondary to above - Iron studies c/w ACD - hgb yesterday 10.5--->10.3/ Hct 31.7--->31.3 - Continue to monitor trends, no bloody stools reported from nurse. CAD HTN, uncontrolled -hx of multiple stent placements - Currently on Eliquis - now on hold - Continue on Lopressor 25mg BID - Vasotec 1.25mg IV q6h prn with parameters - Will add Hydralazine 25mg BID PO, for better control - Continue to monitor BP s/p recent right proximal femur fracture s/p ORIF 01/06/17 -continue with PT Advanced dementia Depression -Continue Seroquel 25 mg po BID -Continue Citalopram 20 mg daily ESBL UTI -per review of [place] records, 02/23/17 UCX positive for ESBL E Coli sensitive to Zosyn - unclear when treatment was initiated -urine cx showed no growth in 48hrs. Discontinued on Zosyn 3.375 Gm q 6 hr IV Urinary retention - Patient arrived from [place] with luevano catheter - Possibly due to severe constipation - Failed void trial, luevano replaced - Continue luevano management Seizures -continue on Keppra 500 mg po q hs -Keppra level 24.6 -seizure precautions COPD, not in acute exacerbation -Duonebs as needed -continue to monitor respiratory status Hyperlipidemia -Atorvastatin 40 mg po q hs Hypothyroidism -Levothyroxine 100 mcg po daily DVT prophylaxis -Apixaban 5 mg po BID - currently on hold secondary to GIB -REY/SCDs bilaterally Discharge Planning Patient diet advanced today repeat KUB in the AM. Awaiting colorectal clearance. Problem Qualifiers (1) UTI (urinary tract infection): Qualified Codes: N39.0 - Urinary tract infection, site not specified (2) Dementia of Alzheimer's type with behavioral disturbance: Qualified Codes: G30.8 - Other Alzheimer's disease; F02.81 - Dementia in other diseases classified elsewhere with behavioral disturbance (3) Hypertension: Qualified Codes: I10 - Essential (primary) hypertension (4) Hypothyroidism: Qualified Codes: E03.9 - Hypothyroidism, unspecified (5) Hyperlipidemia: Qualified Codes: E78.5 - Hyperlipidemia, unspecified Saul Babb Mar 12, 2017 10:31
--- NOTE | 2017-03-12 10:50 | HHI.PR ---
Subjective Remarks Obstipation, stercoral ulcers in rectum, s/p disimpaction confused Objective Vital Signs Date Time Temp Pulse Resp B/P (MAP) Pulse Ox O2 Delivery O2 Flow Rate FiO2 03/12/17 08:00 98.1 62 17 163/79 (107) 96 03/12/17 04:59 99.0 72 17 158/76 (103) 95 03/12/17 00:17 97.4 69 16 142/72 (95) 96 03/11/17 20:46 96.9 79 17 142/67 (92) 97 03/11/17 20:23 69 03/11/17 16:00 96.9 63 16 137/72 (93) 97 03/11/17 12:00 97.4 66 16 131/59 (83) 97 I/O 03/11/17 03/11/17 03/11/17 03/12/17 03/12/17 03/12/17 07:00 15:00 23:00 07:00 15:00 23:00 Intake Total 720 ml 1180 ml Output Total 1250 ml 900 ml 1200 ml Balance -1250 ml -180 ml -20 ml Intake Oral 720 ml 380 ml IV Total 800 ml Output Urine Total 1250 ml 900 ml 1200 ml # Bowel Movements 2 4 1 Result Diagram: 03/11/17 0535 03/11/17 0535 Objective Remarks Abdomen soft, nondistended, no definite tenderness Assessment and Plan Assessment and Plan KUB NBGP Check WBC's ? need for Rona Reyes MD Mar 12, 2017 10:50
[2017-03-12 12:00] VITALS: BP 126/60; PULSE 66; RESP 16; TEMP 98; O2SAT 97
[2017-03-12] MEDS ORDERED: METO25TA3 PO (12:15)
[2017-03-12] MEDS ORDERED: MAGN30S PO (12:15)
[2017-03-12] MEDS ORDERED: HYDR-3799 PO (12:15)
--- NOTE | 2017-03-12 13:08 | HHI.DS ---
Discharge Summary Admission Date Mar 08, 2017 at 13:05 Discharge Date: Mar 12, 2017 Admitting Diagnosis constipation/obstiopation (1) Obstipation ICD Code: K59.00 - Constipation, unspecified Status: Acute (2) UTI (urinary tract infection) ICD Code: N39.0 - Urinary tract infection, site not specified Status: Acute (3) Dementia of Alzheimer's type with behavioral disturbance ICD Code: G30.8 - Other Alzheimer's disease; F02.81 - Dementia in other diseases classified elsewhere with behavioral disturbance Status: Chronic (4) Seizures ICD Code: R56.9 - Unspecified convulsions Status: Chronic (5) Hypertension ICD Code: I10 - Essential (primary) hypertension Status: Chronic (6) Hypothyroidism ICD Code: E03.9 - Hypothyroidism, unspecified Status: Chronic (7) Hyperlipidemia ICD Code: E78.5 - Hyperlipidemia, unspecified Status: Chronic Procedures Colonoscopy 03/09 Brief History - From Admission Ms. Amado is 81 yo, with history inclusive of constipation, dementia, COPD, GERD, Hypothyroidism, Hyperlipidemia, Essential hypertension, Chronic kidney disease (stage III) arthrosclerotic heart disease. She was seen in [facility] on 02/27/17 and diagnosed with ESBL UTI and placed on Zosyn. Imaging taken at that time indicated a large amount of stool present in her rectum. She returns to [facility] ED on 03/05/17 from her [facility] for complaint of lower right quadrant pain that has been present for the past three days. Per the medical record, pt is without fever and has a Murphy catheter. Due to pt's dementia, she was unable to provide information about her condition. As such, information was obtained from review of the medical record. CBC/BMP: 03/11/17 0535 03/11/17 0535 Significant Findings Laboratory Tests Test 03/10/17 09:13 03/11/17 05:35 03/12/17 10:40 Red Blood Count 3.48 MIL/MM3 (4.00-5.30) 3.43 MIL/MM3 (4.00-5.30) Hemoglobin 10.5 GM/DL (11.6-15.3) 10.3 GM/DL (11.6-15.3) Hematocrit 31.7 % (35.0-46.0) 31.3 % (35.0-46.0) Platelet Count 454 TH/MM3 (150-450) Neutrophils (%) (Auto) 77.4 % (16.0-70.0) 72.3 % (16.0-70.0) Random Glucose 71 MG/DL (74-106) Albumin 2.1 GM/DL (3.4-5.0) 1.9 GM/DL (3.4-5.0) Estimat Glomerular Filtration Rate 62 ML/MIN (>89) 57 ML/MIN (>89) Red Cell Distribution Width 17.4 % (11.6-17.2) Monocytes (%) (Auto) 8.2 % (0.0-8.0) Total Protein 6.0 GM/DL (6.4-8.2) Chloride Level 110 MEQ/L (98-107) Imaging Last Impressions Abdomen X-Ray 03/12/17 0700 Signed Impressions: Service Date/Time: February 08:26 - CONCLUSION: Normal bowel gas pattern. Shayne Ward Jr., MD Chest X-Ray 03/08/17 0000 Signed Impressions: Service Date/Time: Wednesday, March 08, 2017 07:54 - CONCLUSION: The lungs are clear. Shayne Rea MD Abdomen/Pelvis CT 03/05/17 1935 Signed Impressions: Service Date/Time: February 22:09 - CONCLUSION: 1. Severe rectal constipation. No acute findings compared with February 27. 2. Murphy catheter in decompressed bladder. Stable distal abdominal aortic aneurysm. Stable left adrenal adenoma. Jon Robles MD PE at Discharge GENERAL: This is a frail appearing female, well-developed, in no apparent distress. Awake. Confused. Appears comfortable. SKIN: Warm and dry. HEAD: Atraumatic. Normocephalic. ENT: Nose without bleeding or purulent drainage. Airway patent. Dry mucus membranes. NECK: Trachea midline. CARDIOVASCULAR: Tachycardic, regular without murmurs, gallops, or rubs. RESPIRATORY: Clear to auscultation. Breath sounds equal bilaterally. No wheezes , rales, or rhonchi. GASTROINTESTINAL: Abdomen soft, nondistended. Reports tenderness with palpation , but no guarding GENITOURINARY: Murphy catheter in place with yellow urine in the bag. MUSCULOSKELETAL: Extremities without clubbing, cyanosis, or edema. NEUROLOGICAL: Confused. Severe dementia. Able to move all extremities spontaneously. Minimal verbalization. Pt update on day of discharge Patient seen and examined in room, she is more awake and alert today. Reports her lips are very dry, helped with a drink of water with complains of teeth sensitivity. She denies nausea or vomiting, denies any fevers, or chills, moving all extremities spontaneously. Patient with a history of dementia does not appear to be in any acute distress. States she just wants to sleep. Spoke with nurse who states patient had several BM's yesterday and one overnight. Hospital Course 81-year-old female who resented to the ED from [facility] with complaints of lower right quadrant pain 3 days. Patient was recently treated for ESBL UTI and presented with Murphy catheter in place. CT of the abdomen and pelvis revealed severe rectal constipation with stable left adrenal adenoma. She also presented with elevated WBC count for which empiric antibiotics started. GI services were consulted and patient underwent colonoscopy on 03/09. Colonoscopy found large amounts of stool in the rectum and sigmoid, which aggressive washings were done along with manual disimpaction. Patient also had large deep ulcers in the rectum and rectosigmoid area-biopsy from a small ulcer taken. Colonoscopy also revealed medium intramural hemorrhoids and external hemorrhoids with decrease in anal tone. Recommendations from GI standpoint for flexible sigmoidoscopy in 4 weeks. Colorectal services or consult and advised to consider surgery due to age, recommendations for strong bowel regimen avoidance of constipation as patient is risk for perforation, lidocaine for anal fissures. Patient had 2 urine cultures which had no growth to date and blood cultures 2 which also had no growth to date. Colorectal surgery services discontinued antibiotics, recheck of CBC on day of discharge does not show elevated WBC count, verbally cleared by to NM. Patient had voiding trials to possibly discontinue Murphy catheter however failed. Patient has been kept on bowel regimen and has been moving bowels daily. KUB done this morning showing normal bowel gas pattern, hemodynamically stable today. Pt Condition on Discharge: Stable Discharge Disposition: Discharge to SNF Discharge Time: <= 30 minutes Discharge Instructions DIET: Follow Instructions for: As Tolerated, No Restrictions Speech Therapy-Diet Recommends: Pureed Activities you can perform: Regular-No Restrictions Other Activity Instructions: Out of bed with assistance, as tolerated Follow up Referrals: Colorectal Surgery - 2 Weeks with Rona Morrison MD PCP Follow-up - 2 Weeks New Medications: Hydralazine HCl (Hydralazine HCl) 25 Mg Tablet 25 MG PO Q12HR for Blood Pressure Management, #60 TAB Magnesium Hydroxide (Qc Milk of Magnesia) 400 Mg/5 Ml Felisha 30 ML PO Q12H PRN for Mild constipation, #200 ML Metoprolol Tartrate (Metoprolol Tartrate) 25 Mg Tab 25 MG PO Q12HR for Blood Pressure Management, #60 TAB Continued Medications: Apixaban (Eliquis) 5 Mg Tab 5 MG PO BID for Blood Clot Prevention, #60 TAB 0 Refills Atorvastatin (Atorvastatin) 40 Mg Tab 40 MG PO HS for Cholesterol Management, #30 TAB 0 Refills Bisacodyl Supp (Bisac-Evac Supp) 10 Mg Supp 10 MG RECTAL DAILY PRN for SEVERE CONSITIPATION, #30 SUPP Cholecalciferol (Vitamin D3) 1,000 Unit Cap 1000 UNITS PO DAILY for Nutritional Supplement, #1 BOTTLE 0 Refills Citalopram (Citalopram) 20 Mg Tab 20 MG PO DAILY for Control Depression, #30 TAB 0 Refills Cyanocobalamin (B-12) 100 Mcg Tab 100 MCG PO DAILY for vit supplem, #30 TAB L. Acidophilus/Pectin, Converse (Acidophilus Capsule) 7.5 Mg (30 Million Cell)- 100 Mg Capsule TID Levetiracetam (Keppra) 500 Mg Tab 500 MG PO HS for Seizure Control, #30 TAB Levothyroxine (Synthroid) 100 Mcg Tab 100 MCG PO DAILY@0600 for Thyroid, #30 TAB Meclizine (Meclizine) 12.5 Mg Tab 12.5 MG PO DIRECTED PRN for VERTIGO, TAB 0 Refills Megestrol Liq (Megestrol Liq) 40 Mg/Ml Susp 10 ML PO BID for Improve Appetite, #240 ML 0 Refills Quetiapine (Seroquel) 25 Mg Tab 25 MG PO BID for Agitation, #60 TAB 0 Refills (This prescription has been renewed) Ranitidine (Zantac) 150 Mg Tab 150 MG PO DAILY for Reduce Stomach Acid, #30 TAB 0 Refills Sennosides (Sennosides) 8.6 Mg Tab 17.2 MG PO HS for Constipation, #60 TAB 0 Refills Discontinued Medications: Acetaminophen (Tylenol) 325 Mg Tab 325 MG PO Q4H PRN for PAIN SCALE 1 TO 3, TAB 0 Refills Hydrocodone-Acetaminophen (Hydrocodone-Acetaminophen) 5-325 mg Tab 1 TAB PO Q4H PRN for PAIN SCALE 4 TO 10, #12 TAB 0 Refills Lorazepam (Lorazepam) 0.5 Mg Tab 0.5 MG PO Q6H PRN for ANXIETY, #60 TAB 0 Refills Piperacillin Sodium/Tazobactam (Piperacil-Tazobact 3.375 gm Vl) 3.375 Gram Vial IV Q6HR Ranitidine (Ranitidine) 150 Mg Tab 150 MG PO DAILY for Heartburn Management, #30 TAB 0 Refills Saul Babb Mar 12, 2017 13:08
[2017-03-12 13:14] LABS: AUTOMATED NEUTROPHIL # 7.2 TH/MM3 (1.8-7.7); BASOPHIL % 0.4 % (0.0-2.0); EOSINOPHIL # 0.1 TH/MM3 (0-0.4); EOSINOPHIL % 0.7 % (0.0-4.0); HEMATOCRIT 30.8 % (35.0-46.0); HEMO FLAGS DIFF FINAL; LYMPH % 17.1 % (9.0-44.0); LYMPHOCYTE # 1.6 TH/MM3 (1.0-4.8); MEAN CORPUSCULAR HEMOGLOBIN 31.4 PG (27.0-34.0); MEAN CORPUSCULAR HGB CONC 34.1 % (32.0-36.0); MONO % 7.2 % (0.0-8.0); NEUT % 74.6 % (16.0-70.0); PLATELET COUNT 369 TH/MM3 (150-450); RED BLOOD COUNT 3.34 MIL/MM3 (4.00-5.30); RED CELL DISTRIBUTION WIDTH 17.4 % (11.6-17.2); WHITE BLOOD COUNT 9.6 TH/MM3 (4.0-11.0)
[2017-03-12] MEDS ORDERED: SERO25TA PO (14:03)
--- NOTE | 2017-03-12 14:29 | HHI.DCPOC ---
Discharge Care Plan Additional Problems Constipation Goals to Promote Your Health * To prevent worsening of your condition and complications * To maintain your health at the optimal level Directions to Meet Your Goals Take your medications as prescribed Follow your dietary instruction Follow activity as directed Keep your appointments as scheduled Take your immunizations and boosters as scheduled If your symptoms worsen call your PCP, if no PCP go to Urgent Care Center or Emergency Room Smoking is Dangerous to Your Health. Avoid second hand smoke Call the 24-hour hour crisis hotline for domestic abuse at Saul BabbP Mar 12, 2017 14:29
== END 2017-03-12 14:45 | DRG 388 ==
LOC: NEPC 18:48 → NEDA 03-06 02:00 → NEPGCP 03-06 04:28 → OBSVTOIN 03-08 13:05 → N07B 03-08 19:17
PROVIDERS: ADMIT Hospitalist; ATTEND Hospitalist
PROC: 0DCP8ZZ Extirpation of Matter from Rectum, Via Natural or Artificial Opening Endoscopic (ICD-10-PCS; 2017-03-09)
PROC: 0DCN8ZZ Extirpation of Matter from Sigmoid Colon, Via Natural or Artificial Opening Endoscopic (ICD-10-PCS; 2017-03-09)
PROC: 0DBN8ZX Excision of Sigmoid Colon, Via Natural or Artificial Opening Endoscopic, Diagnostic (ICD-10-PCS; principal; 2017-03-09 09:50)
DX: K56.41 Fecal impaction (principal); E43 Unspecified severe protein-calorie malnutrition; K92.2 Gastrointestinal hemorrhage, unspecified; F02.81 Dementia in other diseases classified elsewhere, unspecified severity, with behavioral disturbance; G30.9 Alzheimer's disease, unspecified; R56.9 Unspecified convulsions; N39.0 Urinary tract infection, site not specified; K62.6 Ulcer of anus and rectum; J44.9 Chronic obstructive pulmonary disease, unspecified; E83.39 Other disorders of phosphorus metabolism; K21.9 Gastro-esophageal reflux disease without esophagitis; I12.9 Hypertensive chronic kidney disease with stage 1 through stage 4 chronic kidney disease, or unspecified chronic kidney disease; N18.3 Chronic kidney disease, stage 3 (moderate); E78.5 Hyperlipidemia, unspecified; E03.9 Hypothyroidism, unspecified; I25.10 Atherosclerotic heart disease of native coronary artery without angina pectoris; E87.6 Hypokalemia; K64.8 Other hemorrhoids; H91.90 Unspecified hearing loss, unspecified ear; G47.00 Insomnia, unspecified; E77.8 Other disorders of glycoprotein metabolism; B96.20 Unspecified Escherichia coli [E. coli] as the cause of diseases classified elsewhere; I71.4 Abdominal aortic aneurysm, without rupture; D35.02 Benign neoplasm of left adrenal gland; K64.4 Residual hemorrhoidal skin tags; D63.1 Anemia in chronic kidney disease; K52.9 Noninfective gastroenteritis and colitis, unspecified; F32.9 Major depressive disorder, single episode, unspecified; F41.9 Anxiety disorder, unspecified; Z16.12 Extended spectrum beta lactamase (ESBL) resistance; Z68.21 Body mass index [BMI] 21.0-21.9, adult; Z79.01 Long term (current) use of anticoagulants; Z95.5 Presence of coronary angioplasty implant and graft
CPT/HCPCS: 71010; 74000; 74177; 80048; 80053; 80069; 80177; 81001; 82306; 82728; 82948; 83540; 83550; 83605; 83690; 83735; 84100; 84484; 85025; 85610; 85730; 87040; 87086; 88305; 93005; 96366; 96375; G0378; G8987-GP; G8988-GP; G8996-GN; G8997-GN; G8998-GN; J0360; J1644; J1953; J1956; J2543; J2765; J3480; J7030; J7040; Q9967